=== PATIENT | male | born 1945 | race Caucasian/White ===

== ENCOUNTER → 2017-09-25 09:24 | Outpatient (CLI) | payer MEDICARE, SELFPAY ==
[2017-08-16 09:21] VITALS: BP 163/97; PULSE 47; RESP 18; TEMP 36.4; O2SAT 95; BMI 40.0
--- NOTE | 2017-08-16 09:29 | SDCEKG_ITS ---
Test Reason : Blood Pressure : / mmHG Vent. Rate : 043 BPM Atrial Rate : 043 BPM P-R Int : 272 ms QRS Dur : 152 ms QT Int : 480 ms P-R-T Axes : 034 -34 -01 degrees QTc Int : 405 ms Marked sinus bradycardia with 1st degree A-V block Left axis deviation Right bundle branch block Abnormal ECG Confirmed by KARTHIK LLANES, ROSE ([id number]), newspaper editor YINKA RIVERA ([id number]) on 08/22/2017 8:51:33 AM Referred By: PATY Confirmed By:ROSE ANGELES MD
[2017-08-16 11:13] LABS: International Normalized Ratio 1.1; Prothrombin Time (Protime)PT. 13.9 SECONDS (11.7-14.9)
[2017-08-16 11:14] LABS: Partial Thromboplast Time 32.8 Seconds (24.1-36.2)
[2017-08-16 11:18] LABS: Absolute Lymphocyte Count 1.58 X10^3/ul (0.83-4.51); Absolute Neutrophil Count 3.4 X10^3/uL (2.0-7.7); Basophil# 0.04 X10^3/uL; Basophil% 0.7 % (0-1); Eosinophils% 3.5 % (0-5); Hematocrit 44.7 % (40-54); Lymphocyte # 1.58 X10^3/ul (4.0); Mean Corp Hgb Conc 31.3 g/gl (32-36); Mean Corpuscular Hgb 26.3 pg (27.0-32.0); Mean Platelet Vol. 10.2 fl (6.2-12.0); Monocyte# 0.42 X10^3/uL; Monocyte% 7.4 % (0-10); Neutrophil # 3.37 X10^3/uL (2.7-7.7); Neutrophil % 59.9 % (47-70); POSITIVE COUNT NO; POSITIVE DIFFERENTIAL NO; POSITIVE MORPHOLOGY NO; Platelet Count 166 K/mm3 (150-450); RBC Distribution Width CV 14.9 % (11.6-14.6); RBC Distribution Width SD 45.8 fl (35.1-43.9); Red Blood Count 5.32 M/mm3 (4.6-6.2); White Blood Count 5.6 K/mm3 (4.4-11.0)
[2017-08-16 11:34] LABS: Hemoglobin A1c 8.6 % (4.2-6.3)
[2017-08-16 11:44] LABS: AST(SGOT) 25 U/L (15-37); Alanine Aminotransfer ALT/SGPT 26 U/L (12-78); Albumin, Serum 3.8 g/dL (3.4-5.0); Alkaline Phosphatase 109 U/L (45-117); Anion Gap 9 (5-15); BUN 18 mg/dL (7-18); BUN/Creat Ratio 16.4 RATIO (10-20); Bilirubin, Direct 0.11 mg/dL (0.00-0.30); Calcium,Total 8.9 mg/dL (8.5-10.1); Chloride 99 mmol/L (98-107); EST Glomerular Filtration Rate 70 mL/min (>60); Est Glom Filt Rate - Afr Amer 84 mL/min (>60); Estimated Creatinine Clearance 55.92 ml/min; Globulin 4.3 g/dL (2.2-4.2); Glucose 178 mg/dL (70-110); Protein, Total 8.1 g/dL (6.4-8.2); Sodium Level 138 mmol/L (136-145)
== END ==
PROVIDERS: Family Provider Family Medicine; PCP Family Medicine; Visit Provider Specialist
DX: Z01.812 Encounter for preprocedural laboratory examination (principal); I45.10 Unspecified right bundle-branch block; R94.31 Abnormal electrocardiogram [ECG] [EKG]; R00.1 Bradycardia, unspecified; Z53.9 Procedure and treatment not carried out, unspecified reason; Z79.82 Long term (current) use of aspirin; Z79.899 Other long term (current) drug therapy
CPT/HCPCS: 80048; 80076; 83036; 85025; 85610; 85730; 87081; 93005

== ENCOUNTER → 2017-10-18 08:53 | Outpatient (CLI) | payer MEDICARE, SELFPAY ==
--- NOTE | 2017-10-18 08:56 | US_ITS ---
PROCEDURES: ULTRASOUND AORTA REASON FOR EXAM: Male, 72 years old. Follow-up for known abdominal aortic aneurysm. TECHNIQUE: Ultrasound evaluation of the aorta was performed with real-time and static andrade-scale imaging. COMPARISON: Comparison is made with prior study dated May 05, 2016. FINDINGS: There is atherosclerotic plaque formation of the abdominal aorta. Aorta measures: Proximal 2.6 cm. Middle 2.3 cm. Distal 3.1 cm. Aorta measure transversely: Proximal 2.7 cm. Middle 2.6 cm. Distal 3.1 cm. Stable infrarenal abdominal aortic aneurysm.. US/Aorta IMPRESSION: Stable examination. Electronically Signed: Natan Landis MD at 14:20 EST Tel [phone], Service support ,
== END ==
PROVIDERS: Family Provider Family Medicine; PCP Family Medicine; Visit Provider Surgery Vascular Surgery
DX: I71.4 Abdominal aortic aneurysm, without rupture (principal)
CPT/HCPCS: 76775

== ENCOUNTER 2017-11-30 12:47 | Emergency (ER) | payer MEDICARE, SELFPAY ==
[2017-11-30 12:49] VITALS: BP 160/78; PULSE 51; RESP 18; TEMP 37.1; O2SAT 98; BMI 38.8
--- NOTE | 2017-11-30 13:19 | ED.VISSUMM ---
- ER Visit Summary Date of Service: 11/30/17 Chief Complaint: Cough History of Present Illness: The patient is a 72 M with COPD who presents with sore throat, cough, mild shortness of breath, and phlegm. Symptoms started about a week ago. He also has a history of diabetes and hypertension. He takes aspirin but no other blood thinners. Denies history of chest pain or leg swelling. Physical Examination: Vital signs unremarkable. Heart rate is 51. Afebrile. Heart regular. Lungs clear throughout. HEENT exam unremarkable. There is some posterior oropharyngeal erythema. No stridor. Airway intact. Cranial nerves grossly intact. Skin appears unremarkable. Test Results: Chest x-ray pending. Emergency Department Course and Treatment: Patient treated with albuterol while awaiting results. X-ray unremarkable. Patient felt better after breathing treatments. I believe he is appropriate for further outpatient care. Will prescribe doxycycline. He has breathing treatments as needed at home. Follow-up with his doctor. Return for any new or worsening issues right away. Treatment Plan: Above Disposition: Discharged Impression: 1. COPD exacerbation This note was generated with [employer] dictation software. It may contain incorrect words, spelling, and punctuation that were not noted in review of the chart prior to signing ED Disposition - Plan for ED Patient: Chief Complaint: Shortness of Breath Referrals: Rogelio Lock MD [Primary Care Provider] -
[2017-11-30] MEDS: Albuterol 2.5 MG/3 ML VIAL.NEB. INHALATION (13:21)
[2017-11-30 13:22] VITALS: PULSE 62; RESP 18
--- NOTE | 2017-11-30 13:35 | RAD_ITS ---
STUDY: X-RAY CHEST REASON FOR EXAM: Male, 72 years old. Cough, shortness of breath TECHNIQUE: PA and lateral views of the chest. COMPARISON: 03/20/2017 FINDINGS: The lungs are clear and expanded. There is no demonstrated pleural abnormality. Normal size heart. Normal mediastinum and cintia. Normal visualized pulmonary arteries. There is atherosclerotic calcification of the aortic arch with tortuosity. There are diffuse degenerative changes of the visualized thoracic spine. Deformity to the right ribs is unchanged, consistent with remote multiple rib fractures. There is no demonstrated abnormality of the visualized soft tissue structures of the upper abdomen. RAD/Chest PA and Lateral IMPRESSION: Degenerative changes, as described above. No demonstrated acute cardiopulmonary process. No significant change from 03/20/2017. Electronically Signed: Jaden Galo DO at 14:58 EDT Tel , Service support ,
[2017-11-30 13:46] VITALS: BP 149/93; PULSE 66; RESP 16; O2SAT 96
--- NOTE | 2017-11-30 15:09 | ED.DEP ---
ED Disposition - Plan for ED Patient: Chief Complaint: Shortness of Breath Instructions: ED COPD Flare Prescriptions: Doxycycline Monohydrate 100 mg PO BID #20 cap Referrals: Rogelio Lock MD [Primary Care Provider] -
[2017-11-30 15:23] VITALS: BP 157/81; PULSE 89; RESP 24; O2SAT 97
--- NOTE | 2017-11-30 15:24 | ED.RN ---
THIS NURSE REVIEWED D/C INSTRUCTIONS WITH PT AND VISITOR. PT VERBALIZED UNDERSTANDING OF INSTRUCTIONS. PT DENIES FURTHER NEEDS OR QUESTIONS AT THIS TIME. PT AMBULATES FROM ROOM ON OWN WITHOUT ASSISTANCE FROM STAFF
== END 2017-11-30 15:25 | disposition home or self-care (01) ==
LOC: ED 13:12
PROVIDERS: Emergency Provider Emergency Medicine; Family Provider Family Medicine; PCP Family Medicine
DX: J44.1 Chronic obstructive pulmonary disease with (acute) exacerbation (principal); J02.9 Acute pharyngitis, unspecified; E11.9 Type 2 diabetes mellitus without complications; I10 Essential (primary) hypertension
CPT/HCPCS: 71046; 94640; 99282

== ENCOUNTER 2018-03-20 11:23 | Emergency (ER) | payer MEDICARE, SELFPAY ==
[2018-03-20 11:24] VITALS: BP 136/71; PULSE 44; RESP 16; TEMP 36.6; O2SAT 97; BMI 38.2
[2018-03-20] MEDS: HYDROcodone Bitartrate/Apap 5/325 Tablet PO (12:28)
--- NOTE | 2018-03-20 12:33 | RAD_ITS ---
STUDY: X-RAY - RIGHT SHOULDER REASON FOR EXAM: Male, 72 years old. Pain, decreased range of motion TECHNIQUE: 4 view(s) of the shoulder. COMPARISON: None. FINDINGS: There is moderate degenerative arthrosis of the glenohumeral articulation. Normal acromioclavicular joint. Normal acromion. Normal humeral head and visualized proximal humerus. The soft tissue structures are unremarkable. Old healed right rib fractures. Normal visualized pulmonary apex. RAD/Shoulder min 2 Views IMPRESSION: Degenerative arthrosis Electronically Signed: Raul Wilkerson MD at 12:51 EDT , Service support ,
--- NOTE | 2018-03-20 14:45 | ED.VISSUMM ---
- ER Visit Summary Date of Service: 03/20/18 Chief Complaint: Right shoulder trapezius pain History of Present Illness: The patient is a 72 M who presents with atraumatic right shoulder/scapular pain. He states he has less discomfort if he adduction and internally rotates his right upper extremity and holds it against his chest. Having it hang causes him discomfort. He denies paresthesia, anesthesia motors. He denies cough, shortness of breath, dyspnea on exertion. He denies chest pain, palpitations, orthopnea or PND. He denies history of hiatal hernia. He denies hematemesis, melena hematochezia. He has not noted any weakness in his right upper extremity. He omitted initially that he had pain in a C6-7 dermatomal distribution. Physical Examination: Vital signsBiceps, brachialis and triceps reflex are 1-2+ symmetric. Axillary, median, radial and ulnar function intact. Negative drop test. Negative discomfort with abduction past 90?. Radial pulses palpable. are remarkable slight elevation blood pressure heart rate of 49. He has full active range of motion. There is no discomfort with abduction past 90?. Heart is regular without murmur, gallop or rub. S1 and S2 are normal. Lungs are clear to auscultation with good movement of air bilaterally. There are no dermatologic lesions noted. He does have reproducible pain over the supraspinatus tendon. Test Results: Three-view x-ray of the shoulder was obtained and reveals minimal arthritic changes. Emergency Department Course and Treatment: X-ray was obtained since he complained of pain and did not inform me of any radicular pain. He states he has intermittent radicular pain that is in a C6-7 dermatomal distribution. Treatment Plan: Patient was treated with [place] with improvement. He will be discharged home with [place]. If this continues any to see is primary care physician for further outpatient testing i.e. MRI or EMG. Disposition: Discharged to home Impression: Right upper extremity pain secondary to C6-7 radiculopathy This note was generated with [employer] dictation software. It may contain incorrect words, spelling, and punctuation that were not noted in review of the chart prior to signing ED Disposition - Plan for ED Patient: Disposition: Home or Assisted Living Chief Complaint: Upper Extremity Injury Instructions: ED Cervical Radiculopathy Prescriptions: Hydrocodone Bitart/Apap 5-325 [[place] 5MG-325MG] 1 tablet PO Q6H PRN PRN 5 Days #20 tablet PRN Reason: Pain Referrals: Rogelio Lock MD [Primary Care Provider] - Additional Instructions: Your prescription was electronically transmitted to [facility] [place] your designated pharmacy of choice
--- NOTE | 2018-03-20 14:52 | ED.DCSUM_ITS ---
- ER Visit Summary Date of Service: 03/20/18 Chief Complaint: Right shoulder trapezius pain History of Present Illness: The patient is a 72 M who presents with atraumatic right shoulder/scapular pain. He states he has less discomfort if he adduction and internally rotates his right upper extremity and holds it against his chest. Having it hang causes him discomfort. He denies paresthesia, anesthesia motors. He denies cough, shortness of breath, dyspnea on exertion. He denies chest pain, palpitations, orthopnea or PND. He denies history of hiatal hernia. He denies hematemesis, melena hematochezia. He has not noted any weakness in his right upper extremity. He omitted initially that he had pain in a C6-7 dermatomal distribution. Physical Examination: Vital signsBiceps, brachialis and triceps reflex are 1-2+ symmetric. Axillary, median, radial and ulnar function intact. Negative drop test. Negative discomfort with abduction past 90?. Radial pulses palpable. are remarkable slight elevation blood pressure heart rate of 49. He has full active range of motion. There is no discomfort with abduction past 90?. Heart is regular without murmur, gallop or rub. S1 and S2 are normal. Lungs are clear to auscultation with good movement of air bilaterally. There are no dermatologic lesions noted. He does have reproducible pain over the supraspinatus tendon. Test Results: Three-view x-ray of the shoulder was obtained and reveals minimal arthritic changes. Emergency Department Course and Treatment: X-ray was obtained since he complained of pain and did not inform me of any radicular pain. He states he has intermittent radicular pain that is in a C6-7 dermatomal distribution. Treatment Plan: Patient was treated with [place] with improvement. He will be discharged home with [place]. If this continues any to see is primary care physician for further outpatient testing i.e. MRI or EMG. Disposition: Discharged to home Impression: Right upper extremity pain secondary to C6-7 radiculopathy This note was generated with [employer] dictation software. It may contain incorrect words, spelling, and punctuation that were not noted in review of the chart prior to signing ED Disposition - Plan for ED Patient: Disposition: Home or Assisted Living Chief Complaint: Upper Extremity Injury Instructions: ED Cervical Radiculopathy Prescriptions: Hydrocodone Bitart/Apap 5-325 [[place] 5MG-325MG] 1 tablet PO Q6H PRN PRN 5 Days # 20 tablet PRN Reason: Pain Referrals: Rogelio Lock MD [Primary Care Provider] - Additional Instructions: Your prescription was electronically transmitted to [facility] [place] your designated pharmacy of choice
[2018-03-20 14:57] VITALS: PULSE 50; RESP 16; O2SAT 98
--- NOTE | 2018-03-20 14:58 | ED.RN ---
REVIEWED D/C INSTRUCTIONS, FOLLOW UP , PRESCRIPTION, AND S/S THAT WOULD WARRANT A RETURN TO THE ED WITH PT. PT VERBALIZED AN UNDERSTANDING AND DENIES FURTHER QUESTIONS FOR THIS RN. PT SKIN P/W/D, RESP EVEN AND UNLABORED, PT A&O X 3, NO DISTRESS NOTED. PT AMBULATED OUT OF ED, GAIT STEADY.
== END 2018-03-20 15:00 | disposition home or self-care (01) ==
PROVIDERS: Emergency Provider Emergency Medicine; Family Provider Family Medicine; PCP Family Medicine
DX: M54.12 Radiculopathy, cervical region (principal); E11.9 Type 2 diabetes mellitus without complications; I10 Essential (primary) hypertension; E78.00 Pure hypercholesterolemia, unspecified
CPT/HCPCS: 73030; 99283

== ENCOUNTER 2018-05-30 05:43 | Emergency (ER) | payer MEDICARE, SELFPAY ==
[2018-05-30 05:44] VITALS: BP 140/91; PULSE 110; RESP 20; TEMP 36.9; O2SAT 92; BMI 37.5
[2018-05-30 05:51] LABS: Bedside Glucose 284 mg/dL (70-110)
--- NOTE | 2018-05-30 06:10 | RAD_ITS ---
STUDY: X-RAY - RIGHT KNEE REASON FOR EXAM: Male, 73 years old. Fall and pain TECHNIQUE: 4 view(s) of the knee. COMPARISON: None. FINDINGS: No fractures or dislocations. Severe medial compartment osteoarthritis. Arterial calcifications. RAD/Knee 4 or More Views IMPRESSION: No acute osseous injury is evident. Electronically Signed: Alex Allen MD at 7:05 EDT Tel , Service support ,
[2018-05-30 06:22] LABS: Absolute Lymphocyte Count 1.26 X10^3/ul (0.83-4.51); Absolute Neutrophil Count 7.6 X10^3/uL (2.0-7.7); Basophil# 0.02 X10^3/uL; Basophil% 0.2 % (0-1); Hematocrit 42.4 % (40-54); Hemoglobin 13.7 g/dl (13.0-16.5); Lymphocyte # 1.26 X10^3/ul (4.0); Lymphocyte % 13.1 % (19-41); Mean Corp Hgb Conc 32.3 g/gl (32-36); Mean Corpuscular Hgb 27.2 pg (27.0-32.0); Mean Corpuscular Volume 84.3 fL (80-94); Mean Platelet Vol. 9.7 fl (6.2-12.0); Monocyte# 0.61 X10^3/uL; Monocyte% 6.4 % (0-10); Neutrophil % 79.2 % (47-70); Platelet Count 137 K/mm3 (150-450); RBC Distribution Width CV 16.4 % (11.6-14.6); Red Blood Count 5.03 M/mm3 (4.6-6.2); White Blood Count 9.6 K/mm3 (4.4-11.0)
[2018-05-30 06:27] LABS: POSITIVE COUNT NO; POSITIVE DIFFERENTIAL NO; POSITIVE MORPHOLOGY NO
[2018-05-30 06:31] LABS: Mucous, Urine 0 SEEN /hpf (<or=2+); Squamous Epithelial Cells - UA 0 SEEN /hpf (0-5)
[2018-05-30 06:32] LABS: Anion Gap 11 (5-15); BUN 12 mg/dL (7-18); BUN/Creat Ratio 8.9 RATIO (10-20); Calcium,Total 8.8 mg/dL (8.5-10.1); Chloride 96 mmol/L (98-107); Creatinine, Serum 1.35 mg/dL (0.70-1.30); EST Glomerular Filtration Rate 55 mL/min (>60); Est Glom Filt Rate - Afr Amer 66 mL/min (>60); Estimated Creatinine Clearance 46.44 ml/min; Glucose 282 mg/dL (74-106); Potassium 3.7 mmol/L (3.5-5.1); Sodium Level 132 mmol/L (136-145)
--- NOTE | 2018-05-30 06:33 | ED.DCSUM_ITS ---
- ER Visit Summary Date of Service: 05/30/18 Chief Complaint: Right knee pain, urinary frequency History of Present Illness: The patient is a [address] Rogelio Lock. He reports that he was walking out to get the mail 2 days ago and fell on gravel on the driveway. He injured his right knee. Describes an aching pain that is 5 out of 10 at rest and 8 out of 10 with walking. Denies any blow to the head or loss of consciousness. No neck or back pain. Patient reports that he had subjective fever and chills yesterday. He has had nausea without vomiting. No abdominal pain. Reports that overnight he began having dysuria and frequency. No hematuria. No flank pain. Physical Examination: Vitals: Stable. Afebrile. General: Well-nourished and well-developed. Head: Normocephalic atraumatic. Neck: Supple, no lymphadenopathy. No JVD. Nontender. Cardiovascular: Regular rate and rhythm. No murmurs. Respiratory: No respiratory distress. Clear to auscultation bilaterally. Abdominal: Soft, nontender, nondistended, normal bowel sounds. No guarding, rebound, or peritoneal signs. Obese, but no obviously distended bladder. Back: Nontender. Extremities: Mild tenderness palpation over the medial side of his right knee. No pain or ligamentous instability with anterior/posterior drawer or medial/lateral stress. Full range of motion without any difficulty. No overlying erythema or warmth to suggest a septic joint. No effusion. Skin: Normal color, no rash. Neurologic: Alert and oriented ?3. Cranial nerves II through XII are intact. Normal strength and sensation. Psych: Normal affect. Test Results: CBC is marked for platelets 137, 7 neutrophils 79, lymphs at 13. Chem-7 is more for sodium 132, chloride 96, glucose 282, creatinine 1.35. In 2017 his creatinine ranged from 1.1-1.16. UA is obviously infected. Right knee x-ray shows degenerative changes. Emergency Department Course and Treatment: Patient refused pain medications. He is resting comfortably. Patient was given a liter of normal saline. His urine was sent for culture. He was given a dose of Bactrim p.o. He has an allergy to Levaquin, so Cipro was not used. He also has an allergy to cefdinir, so Keflex was not used. Treatment Plan: Patient be discharged on Bactrim. Instructed follow-up his primary care physician in 1 week for repeat exam. He will be given a prescription for Percocet and Colace for his knee pain. Return to the emergency department for any worsening symptoms. Disposition: To home in improved and stable condition. Impression: 1. UTI. 2. Right knee pain, acute. This note was generated with [employer] dictation software. It may contain incorrect words, spelling, and punctuation that were not noted in review of the chart prio r to signing ED Disposition - Plan for ED Patient: Chief Complaint: General Illness Instructions: ED Knee Pain UKO, ED UTI Cystitis Male Prescriptions: Oxycodone HCl/Acetaminophen [Percocet 5/325] 1 tablet PO Q6H PRN PRN 3 Days #12 tablet PRN Reason: Pain Docusate Sodium [Colace] 100 mg PO DAILY #20 capsule Smz/Tmp Ds [Bactrim Ds] 1 tablet PO BID #14 tablet Referrals: Rogelio Lock MD [Primary Care Provider] - 1 Week if not improving
[2018-05-30 06:42] LABS: Color, Urine Amber (Yellow); Glucose, Dipstick 100 mg/dl (Normal); Ketone-Dipstick 15 mg/dl (Negative); Leukocyte Esterase-Dipstick 500 /ul (Negative); Nitrite-Dipstick Positive (Negative); Occult Blood-Urine 250 /ul (Negative); Protein-Dipstick 500 mg/dl (Negative); Urine Clarity Turbid (Clear); Urine Urobilinogen 8 mg/dl (Normal)
[2018-05-30 06:56] LABS: Urine Bilirubin Dipstick 1 mg/dL (Negative)
[2018-05-30 07:06] LABS: White Blood Cells 50-100 SEEN /hpf (0-5)
[2018-05-30 07:07] LABS: Bacteria 2+ /hpf (None Seen); Red Blood Cells-Urine 5-10 SEEN /hpf (0-5)
[2018-05-30] MEDS: Smz/Tmp Ds Tablet 1 TABLET PO (07:37)
[2018-05-30 07:42] VITALS: BP 138/82; PULSE 66; RESP 18; O2SAT 97
== END 2018-05-30 07:43 | disposition home or self-care (01) ==
LOC: ED 06:52
PROVIDERS: Emergency Provider Emergency Medicine; Family Provider Family Medicine; PCP Family Medicine
DX: N39.0 Urinary tract infection, site not specified (principal); M25.561 Pain in right knee; E11.9 Type 2 diabetes mellitus without complications; I10 Essential (primary) hypertension; E78.00 Pure hypercholesterolemia, unspecified; I25.10 Atherosclerotic heart disease of native coronary artery without angina pectoris; J44.9 Chronic obstructive pulmonary disease, unspecified; Z95.5 Presence of coronary angioplasty implant and graft
CPT/HCPCS: 73564; 80048; 81001; 82962; 85025; 99285; J7030; J7040; A4216

== ENCOUNTER 2018-06-12 19:12 | Emergency (ER) | payer MEDICARE, SELFPAY ==
[2018-06-12 19:14] VITALS: BP 158/90; PULSE 84; RESP 20; TEMP 36.8; O2SAT 96; BMI 36.7
--- NOTE | 2018-06-12 19:36 | CT_ITS ---
STUDY: CT ABDOMEN AND PELVIS WITH CONTRAST REASON FOR EXAM: Male, 73 years old. Back pain. RADIATION DOSAGE (If Supplied By Facility): CTDIvol = ( 17.07 ) mGy, DLP = ( 1188.88 ) mGycm TECHNIQUE: Transaxial images were obtained from the dome of the diaphragm to the symphysis pubis without oral contrast. 100 ml of Isovue 300 contrast was administered. Sagittal and coronal images were reconstructed. # of Images: 463 Individualized dose optimization techniques were used for this CT. COMPARISON: April 30, 2014 FINDINGS: The visualized lung bases are unremarkable. The visualized portions of the heart are within normal limits. There is decreased attenuation of the liver consistent with steatosis. Normal gallbladder and extrahepatic biliary system. There are multiple benign calcified granulomata of the spleen. There is stable borderline splenomegaly Normal pancreas. Normal bilateral adrenal glands. There is a right renal cyst. Normal left kidney. Normal visualized stomach. Normal small intestine. There are multiple colonic diverticula consistent with diverticulosis. There is non-visualization of the appendix. There is diffuse atherosclerotic calcification of the abdominal aorta. There is a stable infrarenal aortic abdominal aneurysm measuring up to 3.66 cm. Normal inferior vena cava. Normal retroperitoneum. Normal urinary bladder. There are diffuse degenerative changes of the visualized lumbar spine. There are stable right posterior rib deformities. CT/Abdomen/Pelvis W IV Cont ONLY IMPRESSION: Fatty infiltration of the liver. Stable abdominal aortic aneurysm. Atherosclerosis. Degenerative changes. Colonic diverticulosis. Electronically Signed: Lily Pollock MD at 21:17 EDT Tel , Service support ,
[2018-06-12] MEDS: 0.9% Normal Saline 1,000 ML 1000 ML IV (19:53)
[2018-06-12 20:04] LABS: Absolute Lymphocyte Count 1.29 X10^3/ul (0.83-4.51); Absolute Neutrophil Count 6.4 X10^3/uL (2.0-7.7); Basophil# 0.02 X10^3/uL; Basophil% 0.2 % (0-1); Eosinophil# 0.04 X10^3/uL; Eosinophils% 0.4 % (0-5); Hematocrit 40.8 % (40-54); Hemoglobin 13.2 g/dl (13.0-16.5); Lymphocyte # 1.29 X10^3/ul (4.0); Lymphocyte % 14.3 % (19-41); Mean Corp Hgb Conc 32.4 g/gl (32-36); Mean Corpuscular Hgb 26.9 pg (27.0-32.0); Mean Corpuscular Volume 83.3 fL (80-94); Mean Platelet Vol. 9.1 fl (6.2-12.0); Monocyte# 1.23 X10^3/uL; Monocyte% 13.7 % (0-10); Neutrophil # 6.37 X10^3/uL (2.7-7.7); Neutrophil % 70.7 % (47-70); POSITIVE COUNT NO; POSITIVE DIFFERENTIAL NO; POSITIVE MORPHOLOGY NO; Platelet Count 182 K/mm3 (150-450); RBC Distribution Width CV 16.3 % (11.6-14.6)
[2018-06-12 20:22] LABS: Anion Gap 10 (5-15); BUN 13 mg/dL (7-18); BUN/Creat Ratio 8.7 RATIO (10-20); Calcium,Total 8.7 mg/dL (8.5-10.1); Chloride 94 mmol/L (98-107); Creatinine, Serum 1.49 mg/dL (0.70-1.30); EST Glomerular Filtration Rate 49 mL/min (>60); Est Glom Filt Rate - Afr Amer 59 mL/min (>60); Estimated Creatinine Clearance 42.08 ml/min; Glucose 271 mg/dL (74-106); Potassium 4.4 mmol/L (3.5-5.1); Sodium Level 129 mmol/L (136-145)
[2018-06-12 21:27] LABS: Bacteria 0 SEEN /hpf (None Seen); Mucous, Urine 0 SEEN /hpf (<or=2+); Red Blood Cells-Urine 0 SEEN /hpf (0-5)
[2018-06-12 21:32] LABS: Color, Urine Yellow (Yellow); Glucose, Dipstick 50 mg/dl (Normal); Ketone-Dipstick Negative (Negative); Leukocyte Esterase-Dipstick 25 /ul (Negative); Nitrite-Dipstick Negative (Negative); Occult Blood-Urine Negative /ul (Negative); Protein-Dipstick 100 mg/dl (Negative); Urine Bilirubin Dipstick Negative (Negative); Urine Clarity Sl. Cloudy (Clear); Urine Urobilinogen 12 mg/dl (Normal); Urine pH 6.5 (5.0 - 8.0)
[2018-06-12 21:41] LABS: Squamous Epithelial Cells - UA 0-5 SEEN /hpf (0-5); White Blood Cells 0-5 SEEN /hpf (0-5)
--- NOTE | 2018-06-12 22:04 | ED.VISSUMM ---
- ER Visit Summary Date of Service: 06/12/18 Chief Complaint: Back pain History of Present Illness: The patient is a [address] Lock. He reports he had low back pain for approximately 1 month. He describes an aching pain that is 0 out of 10 currently and 7 out of 10 at worst. It is increased with lifting, twisting, or bending. Is relieved with rest. He has not taken any medications for this. Denies any trauma. No fall, MVA, or change in activity. No problems with his bowels or his bladder. No groin numbness. He denies any numbness or weakness in his legs. He does report that radiates down the medial side of both legs. He complains of subjective fever and chills. He has had nausea once in a while. No abdominal pain or vomiting. No diarrhea. In fact he reports his last bout was 3 days ago and typically goes every other day. Physical Examination: Vitals: Stable. Afebrile. General: A&O x 3. NAD. Cardiovascular exam: Regular rate and rhythm, no murmur, rub or gallop. Respiratory exam: Clear to auscultation bilaterally. No wheezes or stridor. Abdominal exam: Soft, nontender, nondistended, normal bowel sounds. No peritoneal signs. Back: Mild tenderness to palpation over the the paraspinous musculature in the lumbar region. No point tenderness. Negative straight leg bilaterally. 5/5 DF, PF, EHL bilaterally. Normal sensation to light touch throughout. Extremity: No clubbing, cyanosis, or edema. Test Results: CTA of the abdomen was obtained which shows a stable AAA and diverticulosis. He has degenerative changes in the lumbar spine. CBC is more for segment neutrophils 71, lymphs lites 14, monocytes 14. Chem-7 is more for sodium 129, chloride 94, glucose 271, creatinine 1.49. Creatinine was 1.35 on May 30. Is been anywhere from 1.1-1.41 since 2016. UA is negative. Emergency Department Course and Treatment: A prolonged discussion the patient about his lab results. He reports that he has been on Lasix for as long as he can remember. However, he has been very thirsty and been drinking extensive amounts of water. Treatment Plan: I suggested to the patient that he cut his Lasix dose in half. That he drink Gatorade to in addition to water. Use ice breakers for his constipation. He will be placed on Tylenol with codeine for his back and Colace. Instructed to follow-up Dr. Rogelio Lock in 3-5 days for another exam. Return to the emergency department for any worsening symptoms. Disposition: To home in improved and stable condition. Impression: 1. Dehydration. 2. Mild hyponatremia. 3. Back pain. This note was generated with [employer] dictation software. It may contain incorrect words, spelling, and punctuation that were not noted in review of the chart prior to signing ED Disposition - Plan for ED Patient: Disposition: Home or Assisted Living Chief Complaint: General Illness Instructions: ED Neck Back Pain General Prescriptions: Acetaminophen/Codeine #3 [Tylenol#3] 1 tablet PO Q6H PRN PRN #20 tablet PRN Reason: Pain Docusate Sodium [Colace] 100 mg PO DAILY #20 capsule Referrals: Rogelio Lock MD [Primary Care Provider] - 5-7 Days Additional Instructions: Cut dose of lasix in half. Use icebreakers for constipation. Drink gatorade 2 instead of water.
[2018-06-12] MEDS: Acetaminophen/Codeine #3 Tablet PO (22:17)
[2018-06-12 22:18] VITALS: BP 121/74; PULSE 72; RESP 16; O2SAT 95
--- NOTE | 2018-06-12 22:21 | ED.RN ---
REVIEWED D/C INSTRUCTIONS, FOLLOW UP CARE, PRESCRIPTIONS, AND S/S THAT WOULD WARRANT A RETURN TO THE ED WITH PT. PT VERBALIZED AN UNDERSTANDING AND DENIES FURTHER QUESTIONS FOR THIS RN. PT SKIN P/W/D, RESP EVEN AND UNLABORED, PT A&O X 3, NO DISTRESS NOTED. PT AMBULATED OUT OF ED, GAIT STEADY.
== END 2018-06-12 22:23 | disposition home or self-care (01) ==
LOC: ED 20:11
PROVIDERS: Emergency Provider Emergency Medicine; Family Provider Family Medicine; PCP Family Medicine
DX: E87.1 Hypo-osmolality and hyponatremia (principal); E86.0 Dehydration; M54.5 Low back pain; I71.4 Abdominal aortic aneurysm, without rupture; K57.30 Diverticulosis of large intestine without perforation or abscess without bleeding; K59.00 Constipation, unspecified; I25.10 Atherosclerotic heart disease of native coronary artery without angina pectoris; J44.9 Chronic obstructive pulmonary disease, unspecified; E11.9 Type 2 diabetes mellitus without complications; I10 Essential (primary) hypertension; E78.00 Pure hypercholesterolemia, unspecified; M19.90 Unspecified osteoarthritis, unspecified site; Z95.5 Presence of coronary angioplasty implant and graft; Z90.49 Acquired absence of other specified parts of digestive tract; Z79.82 Long term (current) use of aspirin; Z79.4 Long term (current) use of insulin; Z79.899 Other long term (current) drug therapy
CPT/HCPCS: 74177; 80048; 81001; 85025; 87086; 87088; 99283; J7030; Q9967; A4216

== ENCOUNTER → 2018-07-17 11:27 | Outpatient (CLI) | payer MEDICARE, SELFPAY ==
[2018-07-17 13:05] LABS: Absolute Lymphocyte Count 1.48 X10^3/ul (0.83-4.51); Absolute Neutrophil Count 4.4 X10^3/uL (2.0-7.7); Basophil# 0.03 X10^3/uL; Basophil% 0.5 % (0-1); Eosinophil# 0.19 X10^3/uL; Eosinophils% 2.9 % (0-5); Hematocrit 42.7 % (40-54); Hemoglobin 13.5 g/dl (13.0-16.5); Lymphocyte # 1.48 X10^3/ul (4.0); Lymphocyte % 22.4 % (19-41); Mean Corp Hgb Conc 31.6 g/gl (32-36); Mean Corpuscular Hgb 27.2 pg (27.0-32.0); Mean Corpuscular Volume 85.9 fL (80-94); Mean Platelet Vol. 10.2 fl (6.2-12.0); Monocyte# 0.45 X10^3/uL; Monocyte% 6.8 % (0-10); Neutrophil # 4.41 X10^3/uL (2.7-7.7); Neutrophil % 66.8 % (47-70); Platelet Count 162 K/mm3 (150-450); RBC Distribution Width CV 15.6 % (11.6-14.6); RBC Distribution Width SD 49.2 fl (35.1-43.9); Red Blood Count 4.97 M/mm3 (4.6-6.2); White Blood Count 6.6 K/mm3 (4.4-11.0)
[2018-07-17 13:23] LABS: Vitamin B12 414 pg/mL (211-911)
[2018-07-17 13:28] LABS: Albumin, Serum 3.7 g/dL (3.2-5.0); BUN 12 mg/dL (7-18); BUN/Creat Ratio 10.5 RATIO (10-20); Creatinine, Serum 1.14 mg/dL (0.70-1.30); EST Glomerular Filtration Rate 67 mL/min (>60); Est Glom Filt Rate - Afr Amer 81 mL/min (>60); Glucose 221 mg/dL (74-106); Protein, Total 8.1 g/dL (6.4-8.2)
[2018-07-17 13:29] LABS: ALB/GLOB Ratio 0.8 RATIO (0.9-2.4); AST(SGOT) 15 U/L (15-37); Alanine Aminotransfer ALT/SGPT 19 U/L (16-61); Alkaline Phosphatase 95 U/L (45-117); Anion Gap 8 (5-15); Calcium,Total 8.6 mg/dL (8.5-10.1); Chloride 100 mmol/L (98-107); Globulin 4.4 g/dL (2.2-4.2); Sodium Level 136 mmol/L (136-145); T4 Free Direct 0.84 ng/dL (0.76-1.46); Thyroid Stim Hormone (TSH) 1.32 uIU/mL (0.358-3.74)
[2018-07-17 14:08] LABS: POSITIVE COUNT NO; POSITIVE DIFFERENTIAL NO; POSITIVE MORPHOLOGY NO
== END ==
PROVIDERS: Family Provider Family Medicine; PCP Family Medicine; Visit Provider Family Medicine
DX: I10 Essential (primary) hypertension (principal); E11.9 Type 2 diabetes mellitus without complications; G62.9 Polyneuropathy, unspecified; E78.2 Mixed hyperlipidemia
CPT/HCPCS: 36415; 80053; 82607; 84439; 84443; 85025

== ENCOUNTER → 2018-09-13 11:00 | Outpatient (CLI) | payer MEDICARE, SELFPAY ==
--- NOTE | 2018-09-13 11:09 | RAD_ITS ---
STUDY: X-RAY - SACRUM/COCCYX REASON FOR EXAM: Male, 73 years old. Pain for 10 years, worsening TECHNIQUE: 3 view(s) of the sacrum and coccyx were obtained. COMPARISON: None. FINDINGS: Normal bilateral sacroiliac joints. Normal visualized sacral ala and fused sacral bodies. Normal sacrococcygeal junction with a normal angulation. Normal coccygeal segments. The presacral soft tissue structures are unremarkable. There are vascular calcifications. Degenerative changes of the right more than left hip. RAD/Sacrum-Coccyx min 2 Views IMPRESSION: 1. Normal x-rays of the sacrum and coccyx. 2. Bilateral hip osteoarthrosis, right more than left. 3. Atherosclerosis. Electronically Signed: Joseph Dewitt MD at 13:38 EST , Service support ,
--- NOTE | 2018-09-13 11:40 | RAD_ITS ---
STUDY: X-RAY - CERVICAL SPINE REASON FOR EXAM: Male, 73 years old. Stabbing pain. No history of injury TECHNIQUE: 9 view(s) of the cervical spine were obtained. COMPARISON: None FINDINGS: Normal anterior atlantoaxial articulation. Normal odontoid process. There is straightening of the normal cervical lordosis. There is multi-level endplate spondylosis. There is severe disc space narrowing of C4-C5, C5-C6 and C6-C7. C7 vertebra is poorly visualized on the lateral views. There is minimal retrolisthesis of C4 over C5 seen on the neutral and extension views but not seen on the flexion view. There is foraminal stenosis bilaterally at the level of C5-C6. There are atherosclerotic vascular calcifications of the carotid arteries. RAD/Cerv Spine Obl/Flex/Ext Comp IMPRESSION: 1. Degenerative changes of the cervical spine as described above. 2. Minimal retrolisthesis of C4 over C5 which may be reduced on the flexion view. 3. If symptoms persist, MRI of the cervical spine is recommended. Electronically Signed: Yovani Vasquez MD at 12:05 EST Tel , Service support ,
--- OUTSIDE RECORDS SUMMARY | 2018-11-17 20:51 | XMS RPT_ITS ---
:1945 Author Organization OHIP Support Name Relationship Address Phone HARLEEN BERGERON Unavailable [address] + [place] [address] SHAHZAD BERGERON Unavailable [address] + [place] [address] R Unavailable Unavailable Unavailable HARLEEN BERGERON Unavailable [address] + [place] [address] SHAHZAD BERGERON Unavailable [address] + [place] [address] R Unavailable Unavailable Unavailable HARLEEN BERGERON Unavailable [address] + [place] [address] SHAHZAD BERGERON Unavailable [address] + [place] [address] R Unavailable Unavailable Unavailable FLOWER BERGERONET Unavailable [address] + [place] [address] RUBIO SHAHZAD Unavailable [address] + [place] [address] R Unavailable Unavailable Unavailable FLOWER BERGERONET Unavailable [address] + [place] [address] RUBIO SHAHZAD Un[address] + [place] [address] R Unavailable Unavailable Unavailable RUBIOFLOWER GAMBINOET Unavailable [address] + [place] [address] RUBIO, SHAHZAD Unavailable [address] + [place] [address] R Unavailable Unavailable Unavailable FLOWER BERGERONET Unavailable [address] [phone] [place] [address] RUBIO SHAHZAD Unavailable [address] + [place] [address] R Unavailable Unavailable Unavailable RUBIO, HARLEEN Unavailable [address] [phone] [place] [address] SHAHZAD BERGERON Unavailable [address] + [place] [address] R Unavailable Unavailable Unavailable HARLEEN BERGERON Unavailable [address] [phone] [place] [address] SHAHZAD BERGERON Unavailable [address] + [place] [address] R Unavailable Unavailable Unavailable Care Team Providers Name Role Phone Anuel, Sameh Attending Unavailable Anuel, Sameh Referring Unavailable Hayde, Rogelio Primary Care Unavailable Anuel, Sameh Attending Unavailable Anuel, Sameh Referring Unavailable Hayde, Rogelio Primary Care Unavailable Chace Li Admitting Unavailable Chace Li Attending Unavailable Hayde, Rogelio Primary Care Unavailable DONNY NEWTON Attending Unavailable DONNY NEWTON Referring Unavailable Hayde, Rogelio Primary Care Unavailable Hayde, Rogelio Primary Care Unavailable Javi Lee Attending Unavailable Hayde, Rogelio Primary Care Unavailable Efrain, Yung Attending Unavailable Efrain, Yung Referring Unavailable Hayde, Rogelio Primary Care Unavailable Isreal Varma Attending Unavailable Hayde, Rogelio Primary Care Unavailable Isreal Varma Attending Unavailable Hayde, Rogelio Attending Unavailable Hayde, Rogelio Primary Care Unavailable DONNY NEWTON Attending Unavailable MAYRA, ORVILLE-CHI Referring Unavailable MAYRA, ORVILLE-CHI Primary Care Unavailable PROBLEMS PROBLEMS DATE TYPE CONDITION / CODE ATTENDING STATUS SOURCE 09/13/2018 Unknown M54.5 - Low back AnuelFranko figueroa Active [place] pain / M54.5(ICD-10) [facility] Rep[facility] 07/17/2018 Unknown I10 - Essential Hayde, Rogelio Active [facility] (primary) Community hypertension / Hospital I10(ICD-10) Repository 07/17/2018 Unknown 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, 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 / Community E78.2(ICD-10) Hospital Repository 07/17/2018 Unknown E11.9 - Type 2 Hayde, Rogelio Active [facility] diabetes mellitus [facility] without Hospital complications / Repository E11.9(ICD-10) 07/17/2018 Unknown G62.9 - Hadye, Rogelio Active [facility] Polyneuropathy, Community unspecified / Hospital G62.9(ICD-10) Repository 06/12/2018 Unknown M54.9 - Dorsalgia, Isreal Varma Active [place] unspecified / Community M54.9(ICD-10) Hospital Repository 07/18/2018 Unknown M25.561 - Pain in Isreal Varma Active [facility] right knee / Community M25.561(ICD-10) Hospital Repository 03/20/2018 Unknown M54.12 - Yung Zuniga Active [facility] Radiculopathy, Community cervical region / Hospital M54.12(ICD-10) Repository 10/18/2017 Unknown I71.4 - Abdominal NEWTONDONNY Active [facility] aortic aneurysm, [facility] without rupture / Hospital I71.4(ICD-10) Repository PROCEDURES PROCEDURES No Procedure Records FoundRESULTS RESULTS CERV SPINE OBL/FLEX/EXT Observed: 09/13/2018 Status: F Source: [place] COMP 11:09 AM [facility] REPOSITORY [facility] Imaging Services [address] [place] [address] Cerv Spine Obl/Flex/Ext Comp MR#: [id number] Acct: [id number] Name: SHAHZAD BERGERON Rep #: [id number] : 1945 M 73 From: Yovani Vasquez MD PCP: Rogelio Lock MD Status: REG CLI Study: Cerv Spine Obl/Flex/Ext Comp Date of Exam: 09/13/18 Exam# [id number] Ordering Dr: Franko Agee MD STUDY: X-RAY - CERVICAL SPINE REASON FOR EXAM: Male, 73 years old. Stabbing pain. No history of injury TECHNIQUE: 9 view(s) of the cervical spine were obtained. COMPARISON: None FINDINGS: Normal anterior atlantoaxial articulation. Normal odontoid process. There is straightening of the normal cervical lordosis. There is multi-level endplate spondylosis. There is severe disc space narrowing of C4-C5, C5-C6 and C6-C7. C7 vertebra is poorly visualized on the lateral views. There is minimal retrolisthesis of C4 over C5 seen on the neutral and extension views but not seen on the flexion view. There is foraminal stenosis bilaterally at the level of C5-C6. There are atherosclerotic vascular calcifications of the carotid arteries. RAD/Cerv Spine Obl/Flex/Ext Comp IMPRESSION: 1. Degenerative changes of the cervical spine as described above. 2. Minimal retrolisthesis of C4 over C5 which may be reduced on the flexion view. 3. If symptoms persist, MRI of the cervical spine is recommended. Electronically Signed: Yovani Vasquez MD at 12:05 EST Tel , Service support , CC: Franko Agee M.D.; Rogelio Lock MD Administrative Services Assistant: Signed SACRUM-COCCYX MIN 2 VIEWS Observed: 09/13/2018 Status: F Source: [place] 11:09 AM [facility] REPOSITORY [facility] Imaging Services [address] [place] [address] Sacrum-Coccyx min 2 Views MR#: [id number] Acct: [id number] Name: SHAHZAD BERGERON Rep #: [id number] : 1945 M 73 From: Joseph Dewitt MD PCP: Rogelio Lock MD Status: REG CLI Study: Sacrum-Coccyx min 2 Views Date of Exam: 09/13/18 Exam# [id number] Ordering Dr: Franko Agee MD STUDY: X-RAY - SACRUM/COCCYX REASON FOR EXAM: Male, 73 years old. Pain for 10 years, worsening TECHNIQUE: 3 view(s) of the sacrum and coccyx were obtained. COMPARISON: None. FINDINGS: Normal bilateral sacroiliac joints. Normal visualized sacral ala and fused sacral bodies. Normal sacrococcygeal junction with a normal angulation. Normal coccygeal segments. The presacral soft tissue structures are unremarkable. There are vascular calcifications. Degenerative changes of the right more than left hip. RAD/Sacrum-Coccyx min 2 Views IMPRESSION: 1. Normal x-rays of the sacrum and coccyx. 2. Bilateral hip osteoarthrosis, right more than left. 3. Atherosclerosis. Electronically Signed: Joseph Dewitt MD at 13:38 EST , Service support , CC: Franko Agee M.D.; Rogelio Lock MD Administrative Services Assistant: Signed VITAMIN B12 Collected: 07/17/2018 Status: F Source: [place] 11:29 AM [facility] REPOSITORY TYPE CODE TESTS RESULT OUT OF RANGE REFERENCE UNITS LAB L503.0105 211-911 pg/mL Normal Vitamin B12 414 Performed By: #### L503.0105 #### [facility] [address] [place], [address] COMPREHENSIVE METABOLIC Collected: 07/17/2018 Status: F Source: [facility] 11:29 AM [facility] REPOSITORY TYPE CODE TESTS RESULT OUT OF RANGE REFERENCE UNITS LAB L501.0100 74-106 mg/dL High GLU 221 Result Comment: Glucose result greater than or equal to 200 mg/dL suggests DIABETES MELLITUS per A.D.A. criteria. Please note revised GLUCOSE reference range effective 2017. LAB L501.1000 7-18 mg/dL Normal BUN 12 LAB L501.1100 0.70-1.30 mg/dL Normal CREAT,SERUM 1.14 Result Comment: The validity of the calculated GFR AND GFRAA in patients over 70 years has not been determined. Clinical correlation is essential. LAB L501.1110 >60 mL/min Normal EST GFR 67 Result Comment: Non- GFR Calc LAB L501.1115 >60 mL/min Normal EST GFR - AA 81 Result Comment: GFR Calc LAB L501.1300 10-20 RATIO Normal BUN/CRE 10.5 LAB L501.1500 6.4-8.2 g/dL T Normal PROT 8.1 LAB L501.1800 3.2-5.0 g/dL Normal ALB 3.7 LAB L501.1950 2.2-4.2 g/dL High GLOB 4.4 LAB L501.2000 0.9-2.4 RATIO Low A/G 0.8 LAB L501.2200 8.5-10.1 mg/dL CA Normal 8.6 LAB L501.4100 15-37 U/L Normal AST 15 LAB L501.4305 45-117 U/L Normal ALK P 95 LAB L501.4405 16-61 U/L Normal ALT 19 LAB L501.4600 0.20-1.00 mg/dL T Normal BILI 0.90 LAB L501.5300 136-145 mmol/L NA Normal 136 LAB L501.5600 3.5-5.1 mmol/L K Normal 4.0 LAB L501.5900 98-107 mmol/L CL Normal 100 LAB L501.6100 21.0-32.0 mmol/L Normal CO2 28.0 LAB L501.6200 5-15 Normal GAP 8 Performed By: #### L500.4050, L501.9520, L506.0400 #### [facility] [address] [facility] [place], [address] THYROID STIM HORMONE Collected: 07/17/2018 Status: F Source: [place] ([facility]) 11:29 AM [facility] REPOSITORY TYPE CODE TESTS RESULT OUT OF RANGE REFERENCE UNITS LAB L501.9520 0.358-3.74 uIU/mL Normal TSH 1.32 Performed By: #### L500.4050, L501.9520, L506.0400 #### [facility] [address] [place], [address] T4 FREE DIRECT Collected: 07/17/2018 Status: F Source: [place] 11:29 AM [facility] REPOSITORY TYPE CODE TESTS RESULT OUT OF RANGE REFERENCE UNITS LAB L506.0400 0.76-1.46 ng/dL Normal T4 FREE 0.84 DIRECT Performed By: #### L500.4050, L501.9520, L506.0400 #### [facility] [address] [place], [address] CBC W/DIFF, AUTOMATED Collected: 07/17/2018 Status: F Source: [place] 11:29 AM [facility] REPOSITORY TYPE CODE TESTS RESULT OUT OF RANGE REFERENCE UNITS LAB L100.1000 4.4-11.0 K/mm3 Normal WBC 6.6 LAB L100.1200 4.6-6.2 M/mm3 Normal RBC 4.97 LAB L100.1300 13.0-16.5 g/dl Normal HGB 13.5 LAB L100.1400 40-54 % Normal HCT 42.7 LAB L100.1500 80-94 fL Normal MCV 85.9 LAB L100.1600 27.0-32.0 pg Normal MCH 27.2 LAB L100.1700 32-36 g/gl Low MCHC 31.6 LAB L100.1810 11.6-14.6 % High RDW CV 15.6 LAB L100.1820 35.1-43.9 fl High RDW SD 49.2 LAB L100.1900 150-450 K/mm3 Normal PLT 162 LAB L100.2000 6.2-12.0 fl Normal MPV 10.2 LAB L100.2100 47-70 % Normal NEUT% 66.8 LAB L100.2200 19-41 % Normal LY% 22.4 LAB L100.2300 0-10 % Normal MONO% 6.8 LAB L100.2400 0-5 % Normal EO% 2.9 LAB L100.2500 0-1 % Normal BASO% 0.5 LAB L100.2550 0.0-0.9 % Normal IM GRAN % 0.600 Result Comment: IG% - Immature Granulocytes (promyelocytes, myelocytes and metamyelocytes) > 1% indicates that a LEFT SHIFT is Present. LAB L100.2620 2.0-7.7 X10 3/uL Normal Absolute Neut 4.4 LAB L100.2720 0.83-4.51 X10 3/ul Normal Absolute Lymph 1.48 Performed By: #### L100.0100 #### [facility] [address] [facility]. [place], [place], [address] EMERGENCY DEPARTMENT Observed: 06/12/2018 Status: F Source: [place] SUMMARY 11:19 PM [facility] REPOSITORY [facility] Medical Records Department [address] [place] [address] Emergency Department Summary 06/12/184 MR#: [id number] Acct: [id number] Name: SHAHZAD BERGERON Rep #: [id number] : 1945 73 From: Isreal Varma MD PCP: Rogelio Lock MD Status: DEP ER - ER Visit Summary Date of Service: 06/12/18 Chief Complaint: Back pain History of Present Illness: The patient is a [address] Lock. He reports he had low back pain for approximately 1 month. He describes an aching pain that is 0 out of 10 currently and 7 out of 10 at worst. It is increased with lifting, twisting, or bending. Is relieved with rest. He has not taken any medications for this. Denies any trauma. No fall, MVA, or change in activity. No problems with his bowels or his bladder. No groin numbness. He denies any numbness or weakness in his legs. He does report that radiates down the medial side of both legs. He complains of subjective fever and chills. He has had nausea once in a while. No abdominal pain or vomiting. No diarrhea. In fact he reports his last bout was 3 days ago and typically goes every other day. Physical Examination: Vitals: Stable. Afebrile. General: A AND O x 3. NAD. Cardiovascular exam: Regular rate and rhythm, no murmur, rub or gallop. Respiratory exam: Clear to auscultation bilaterally. No wheezes or stridor. Abdominal exam: Soft, nontender, nondistended, normal bowel sounds. No peritoneal signs. Back: Mild tenderness to palpation over the the paraspinous musculature in the lumbar region. No point tenderness. Negative straight leg bilaterally. 5/5 DF, PF, EHL bilaterally. Normal sensation to light touch throughout. Extremity: No clubbing, cyanosis, or edema. Test Results: CTA of the abdomen was obtained which shows a stable AAA and diverticulosis. He has degenerative changes in the lumbar spine. CBC is more for segment neutrophils 71, lymphs lites 14, monocytes 14. Chem-7 is more for sodium 129, chloride 94, glucose 271, creatinine 1.49. Creatinine was 1.35 on May 30. Is been anywhere from 1.1-1.41 since 2016. UA is negative. Emergency Department Course and Treatment: A prolonged discussion the patient about his lab results. He reports that he has been on Lasix for as long as he can remember. However, he has been very thirsty and been drinking extensive amounts of water. Treatment Plan: I suggested to the patient that he cut his Lasix dose in half. That he drink Gatorade to in addition to water. Use ice breakers for his constipation. He will be placed on Tylenol with codeine for his back and Colace. Instructed to follow-up Dr. Rogelio Lock in 3-5 days for another exam. Return to the emergency department for any worsening symptoms. Disposition: To home in improved and stable condition. Impression: 1. Dehydration. 2. Mild hyponatremia. 3. Back pain. This note was generated with [employer] software. It may contain incorrect words, spelling, and punctuation that were not noted in review of the chart prior to signing ED Disposition - Plan for ED Patient: Disposition: Home or Assisted Living Chief Complaint: General Illness Instructions: ED Neck Back Pain General Prescriptions: Acetaminophen/Codeine #3 [Tylenol#3] 1 tablet PO Q6H PRN PRN #20 tablet PRN Reason: Pain Docusate Sodium [Colace] 100 mg PO DAILY #20 capsule Referrals: Rogelio Lock MD [Primary Care Provider] - 5-7 Days Additional Instructions: Cut dose of lasix in half. Use icebreakers for constipation. Drink gatorade 2 instead of water. What to do if you have Problems For any increased pain, shortness of breath, bleeding, nausea or vomiting, chest pain, or any unexpected problems, contact your Primary Care Provider. Call [facility] ([phone]) or report to the closest Emergency Room. Call 911 if necessary. 06/12/18 1277 <Electronically signed by Isreal Varma MD> Date Isreal Varma MD Cosigner Signature (If Indicated): Date CC: Rogelio Lock MD URINALYSIS, COMPLETE Collected: 06/12/2018 Status: F Source: [place] 9:22 PM [facility] REPOSITORY Order Comment: How was Urine Obtained? CLEAN CATCH TYPE CODE TESTS RESULT OUT OF RANGE REFERENCE UNITS LAB L400.3000 Yellow COLOR Normal Yellow LAB L400.3050 Clear Normal CLARITY Sl. Cloudy LAB L400.3200 Normal mg/dl High 50 GLUCOSE, UR LAB L400.3300 Negative mg/dL Normal BILIRUBIN URINE Negative LAB L400.3400 Negative mg/dl Normal KETONE UR Negative LAB L400.3465 1.002-1.030 Normal SP.GR. DIPSTX 1.010 LAB L400.3550 5.0 - 8.0 pH UR Normal 6.5 LAB L400.3600 Negative mg/dl High PROT DIPSTX 100 LAB L400.3700 Normal mg/dl High 12 UROBILI LAB L400.3750 Negative Normal NITRITE UR Negative LAB L400.3780 Negative /ul Normal OCCULT BLOOD-UR Negative LAB L400.3800 Negative /ul High LEUK 25 ESTERASE LAB L400.4050 0-5 /hpf WBC Normal 0-5 SEEN LAB L400.4100 0-5 /hpf 0 Normal RBC-UA SEEN LAB L400.4150 0-5 /hpf SQUAM Normal EPI 0-5 SEEN LAB L400.4300 None Seen /hpf 0 Normal BACTERIA SEEN LAB L400.4350 <or=2+ /hpf 0 Normal MUCUS, URINE SEEN Performed By: #### L400.0001 #### [facility] [address] [facility] [place], [place], [address] Observed: 06/12/2018 Status: F Source: [place] CULTURE, URINE 9:22 PM [facility] REPOSITORY Urine Culture ORGANISM 1: Mixed Gram Positive Organisms [place] Count 11,000-25,000 MIX CULTURE Mixed contaminants. Submit a new specimen if indicated. Performed By: #### M100.0650 #### [facility] [address] [place], [place], [address] CBC W/DIFF, AUTOMATED Collected: 06/12/2018 Status: F Source: [place] 7:45 PM [facility] REPOSITORY TYPE CODE TESTS RESULT OUT OF RANGE REFERENCE UNITS LAB L100.1000 4.4-11.0 K/mm3 Normal WBC 9.0 LAB L100.1200 4.6-6.2 M/mm3 Normal RBC 4.90 LAB L100.1300 13.0-16.5 g/dl Normal HGB 13.2 LAB L100.1400 40-54 % Normal HCT 40.8 LAB L100.1500 80-94 fL Normal MCV 83.3 LAB L100.1600 27.0-32.0 pg Low MCH 26.9 LAB L100.1700 32-36 g/gl Normal MCHC 32.4 LAB L100.1810 11.6-14.6 % High RDW CV 16.3 LAB L100.1820 35.1-43.9 fl High RDW SD 50.0 LAB L100.1900 150-450 K/mm3 Normal PLT 182 LAB L100.2000 6.2-12.0 fl Normal MPV 9.1 LAB L100.2100 47-70 % High NEUT% 70.7 LAB L100.2200 19-41 % Low LY% 14.3 LAB L100.2300 0-10 % High MONO% 13.7 LAB L100.2400 0-5 % Normal EO% 0.4 LAB L100.2500 0-1 % Normal BASO% 0.2 LAB L100.2550 0.0-0.9 % Normal IM GRAN % 0.700 Result Comment: IG% - Immature Granulocytes (promyelocytes, myelocytes and metamyelocytes) > 1% indicates that a LEFT SHIFT is Present. LAB L100.2620 2.0-7.7 X10 3/uL Normal Absolute Neut 6.4 LAB L100.2720 0.83-4.51 X10 3/ul Normal Absolute Lymph 1.29 Performed By: #### L100.0100 #### [facility] [address] [place], [address] BASIC METABOLIC Collected: 06/12/2018 Status: F Source: [place] PROFILE ([facility]) 7:45 PM [facility] REPOS[facility] TYPE CODE TESTS RESULT OUT OF RANGE REFERENCE UNITS LAB L501.0100 74-106 mg/dL High GLU 271 Result Comment: Glucose result greater than or equal to 200 mg/dL suggests DIABETES MELLITUS per A.D.A. criteria. Please note revised GLUCOSE reference range effective 2017. LAB L501.1000 7-18 mg/dL Normal BUN 13 LAB L501.1100 0.70-1.30 mg/dL High CREAT,SERUM 1.49 Result Comment: The validity of the calculated GFR AND GFRAA in patients over 70 years has not been determined. Clinical correlation is essential. LAB L501.1110 >60 mL/min Low EST GFR 49 Result Comment: Non- GFR Calc LAB L501.1115 >60 mL/min Low EST GFR - AA 59 Result Comment: GFR Calc LAB L501.1255 ml/min Normal Estimated CRCL 42.08 LAB L501.1300 10-20 RATIO Low BUN/CRE 8.7 LAB L501.2200 8.5-10 mg/dL Normal .1 CA 8.7 LAB L501.5300 136-14 mmol/L Low 5 NA 129 LAB L501.5600 3.5-5. mmol/L Normal 1 K 4.4 LAB L501.5900 98-107 mmol/L Low CL 94 LAB L501.6100 21.0-3 mmol/L Normal 2.0 CO2 25.0 LAB L501.6200 5-15 Normal GAP 10 Performed By: #### L500.2500 #### [facility] [address] [facility] [place], [address] ABDOMEN/PELVIS W IV CONT Observed: 06/12/2018 Status: F Source: [facility] 7:36 PM [facility]ORY [facility] Imaging Services [address] [place] [address] Abdomen/Pelvis W IV Cont ONLY MR#: [id number] Acct: [id number] Name: SHAHZAD BERGERON [place] Rep #: [id number] : 1945 M 73 From: Lily Pollock MD PCP: Rogelio Lock MD Status: REG ER Study: Abdomen/Pelvis W IV Cont ONLY Date of Exam: 06/12/18 Exam# [id number] Ordering Dr: Isreal Varma MD STUDY: CT ABDOMEN AND PELVIS WITH CONTRAST REASON FOR EXAM: Male, 73 years old. Back pain. RADIATION DOSAGE (If Supplied By Facility): CTDIvol = ( 17.07 ) mGy, DLP = ( 1188.88 ) mGycm TECHNIQUE: Transaxial images were obtained from the dome of the diaphragm to the symphysis pubis without oral contrast. 100 ml of Isovue 300 contrast was administered. Sagittal and coronal images were reconstructed. # of Images: 463 Individualized dose optimization techniques were used for this CT. COMPARISON: April 30, 2014 FINDINGS: The visualized lung bases are unremarkable. The visualized portions of the heart are within normal limits. There is decreased attenuation of the liver consistent with steatosis. Normal gallbladder and extrahepatic biliary system. There are multiple benign calcified granulomata of the spleen. There is stable borderline splenomegaly Normal pancreas. Normal bilateral adrenal glands. There is a right renal cyst. Normal left kidney. Normal visualized stomach. Normal small intestine. There are multiple colonic diverticula consistent with diverticulosis. There is non-visualization of the appendix. There is diffuse atherosclerotic calcification of the abdominal aorta. There is a stable infrarenal aortic abdominal aneurysm measuring up to 3.66 cm. Normal inferior vena cava. Normal retroperitoneum. Normal urinary bladder. There are diffuse degenerative changes of the visualized lumbar spine. There are stable right posterior rib deformities. CT/Abdomen/Pelvis W IV Cont ONLY IMPRESSION: Fatty infiltration of the liver. Stable abdominal aortic aneurysm. Atherosclerosis. Degenerative changes. Colonic diverticulosis. Electronically Signed: Lily Pollock MD at 21:17 EDT Tel , Service support , CC: Isreal Varma MD; Rogelio Lock MD Administrative Services Assistant: Signed EMERGENCY DEPARTMENT Observed: 05/30/2018 Status: F Source: [place] SUMMARY 7:40 AM [facility] REPOS[facility]ORY [facility] Medical Records Department [address] [place] [address] Emergency Department Summary 05/30/18 0631 MR#: [id number] Acct: [id number] Name: SHAHZAD BERGERON Rep #: [id number] : 1945 73 From: Isreal Varma MD PCP: Rogelio Lock MD Status: REG ER - ER Visit Summary Date of Service: 05/30/18 Chief Complaint: Right knee pain, urinary frequency History of Present Illness: The patient is a [address] Rogelio Lock. He reports that he was walking out to get the mail 2 days ago and fell on gravel on the driveway. He injured his right knee. Describes an aching pain that is 5 out of 10 at rest and 8 out of 10 with walking. Denies any blow to the head or loss of consciousness. No neck or back pain. Patient reports that he had subjective fever and chills yesterday. He has had nausea without vomiting. No abdominal pain. Reports that overnight he began having dysuria and frequency. No hematuria. No flank pain. Physical Examination: Vitals: Stable. Afebrile. General: Well-nourished and well-developed. Head: Normocephalic atraumatic. Neck: Supple, no lymphadenopathy. No JVD. Nontender. Cardiovascular: Regular rate and rhythm. No murmurs. Respiratory: No respiratory distress. Clear to auscultation bilaterally. Abdominal: Soft, nontender, nondistended, normal bowel sounds. No guarding, rebound, or peritoneal signs. Obese, but no obviously distended bladder. Back: Nontender. Extremities: Mild tenderness palpation over the medial side of his right knee. No pain or ligamentous instability with anterior/posterior drawer or medial/lateral stress. Full range of motion without any difficulty. No overlying erythema or warmth to suggest a septic joint. No effusion. Skin: Normal color, no rash. Neurologic: Alert and oriented 3. Cranial nerves II through XII are intact. Normal strength and sensation. Psych: Normal affect. Test Results: CBC is marked for platelets 137, 7 neutrophils 79, lymphs at 13. Chem-7 is more for sodium 132, chloride 96, glucose 282, creatinine 1.35. In 2017 his creatinine ranged from 1.1-1.16. UA is obviously infected. Right knee x-ray shows degenerative changes. Emergency Department Course and Treatment: Patient refused pain medications. He is resting comfortably. Patient was given a liter of normal saline. His urine was sent for culture. He was given a dose of Bactrim p.o. He has an allergy to Levaquin, so Cipro was not used. He also has an allergy to cefdinir, so Keflex was not used. Treatment Plan: Patient be discharged on Bactrim. Instructed follow-up his primary care physician in 1 week for repeat exam. He will be given a prescription for Percocet and Colace for his knee pain. Return to the emergency department for any worsening symptoms. Disposition: To home in improved and stable condition. Impression: 1. UTI. 2. Right knee pain, acute. This note was generated with InsightETE dictation software. It may contain incorrect words, spelling, and punctuation that were not noted in review of the chart prior to signing ED Disposition - Plan for ED Patient: Chief Complaint: General Illness Instructions: ED Knee Pain UKO, ED UTI Cystitis Male Prescriptions: Oxycodone HCl/Acetaminophen [Percocet 5/325] 1 tablet PO Q6H PRN PRN 3 Days #12 tablet PRN Reason: Pain Docusate Sodium [Colace] 100 mg PO DAILY #20 capsule Smz/Tmp Ds [Bactrim Ds] 1 tablet PO BID #14 tablet Referrals: Rogelio Lock MD [Primary Care Provider] - 1 Week if not improving What to do if you have Problems For any increased pain, shortness of breath, bleeding, nausea or vomiting, chest pain, or any unexpected problems, contact your Primary Care Provider. Call [facility] ([phone]) or report to the closest Emergency Room. Call 911 if necessary. 05/30/18 0740 <Electronically signed by Isreal Varma MD> Date Isreal Varma MD Cosigner Signature (If Indicated): Date CC: Rogelio Lock MD URINALYSIS, COMPLETE Collected: 05/30/2018 Status: F Source: [place] 6:20 AM [facility] REPOSITORY Order Comment: COLOR OF URINE MAY AFFECT DIPSTICK RESULTS. Microscopic field is filled. Other elements may be obscured. How was Urine Obtained? CLEAN CATCH TYPE CODE TESTS RESULT OUT OF RANGE REFERENCE UNITS LAB L400.3000 Yellow COLOR Normal Lani LAB L400.3050 Clear Normal CLARITY Turbid LAB L400.3200 Normal mg/dl High GLUCOSE, UR 100 LAB L400.3300 Negative mg/dL High BILIRUBIN URINE 1 Result Comment: COLOR OF URINE MAY AFFECT DIPSTICK RESULTS. LAB L400.3400 Negative mg/dl High KETONE UR 15 LAB L400.3465 1.002-1.030 Normal SP.GR. DIPSTX 1.010 LAB L400.3550 5.0 - 8.0 pH Normal UR 7.0 LAB L400.3600 Negative mg/dl High PROT DIPSTX 500 LAB L400.3700 Normal mg/dl High UROBILI 8 LAB L400.3750 Negative High NITRITE UR Positive LAB L400.3780 Negative /ul High OCCULT 250 BLOOD-UR LAB L400.3800 Negative /ul High LEUK ESTERASE 500 LAB L400.4050 0-5 /hpf Normal WBC 50-100 SEEN LAB L400.4100 0-5 /hpf Normal RBC-UA 5-10 SEEN LAB L400.4150 0-5 /hpf Normal SQUAM EPI 0 SEEN LAB L400.4300 None Seen /hpf Normal BACTERIA 2+ LAB L400.4350 <or=2+ /hpf Normal MUCUS, URINE 0 SEEN Performed By: #### L400.0001 #### [facility] [address] [place], [address] KNEE 4 OR MORE Observed: 05/30/2018 Status: F Source: [facility] 6:11 AM [facility] REPOSITORY [facility] Imaging Services [address] [place] [address] Knee 4 or More Views MR#: [id number] Acct: [id number] Name: SHAHZAD BERGERON Rep #: [id number] : 1945 M 73 From: Alex Allen MD PCP: Rogelio Lock MD Status: REG ER Study: Knee 4 or More Views Date of Exam: 05/30/18 Exam# [id number] Ordering Dr: Isreal Varma MD STUDY: X-RAY - RIGHT KNEE REASON FOR EXAM: Male, 73 years old. Fall and pain TECHNIQUE: 4 view(s) of the knee. COMPARISON: None. FINDINGS: No fractures or dislocations. Severe medial compartment osteoarthritis. Arterial calcifications. RAD/Knee 4 or More Views IMPRESSION: No acute osseous injury is evident. Electronically Signed: Alex Allen MD at 7:05 EDT Tel , Service support , CC: Isreal Varma MD; Rogelio Lock MD Administrative Services Assistant: Signed CBC W/DIFF, AUTOMATED Collected: 05/30/2018 Status: F Source: [place] 6:10 AM [facility] REPOSITORY TYPE CODE TESTS RESULT OUT OF RANGE REFERENCE UNITS LAB L100.1000 4.4-11.0 K/mm3 Normal WBC 9.6 LAB L100.1200 4.6-6.2 M/mm3 Normal RBC 5.03 LAB L100.1300 13.0-16.5 g/dl Normal HGB 13.7 LAB L100.1400 40-54 % Normal HCT 42.4 LAB L100.1500 80-94 fL Normal MCV 84.3 LAB L100.1600 27.0-32.0 pg Normal MCH 27.2 LAB L100.1700 32-36 g/gl Normal MCHC 32.3 LAB L100.1810 11.6-14.6 % High RDW CV 16.4 LAB L100.1820 35.1-43.9 fl High RDW SD 50.0 LAB L100.1900 150-450 K/mm3 Low PLT 137 LAB L100.2000 6.2-12.0 fl Normal MPV 9.7 LAB L100.2100 47-70 % High NEUT% 79.2 LAB L100.2200 19-41 % Low LY% 13.1 LAB L100.2300 0-10 % Normal MONO% 6.4 LAB L100.2400 0-5 % Normal EO% 1.0 LAB L100.2500 0-1 % Normal BASO% 0.2 LAB L100.2550 0.0-0.9 % Normal IM GRAN % 0.100 Result Comment: IG% - Immature Granulocytes (promyelocytes, myelocytes and metamyelocytes) > 1% indicates that a LEFT SHIFT is Present. LAB L100.2620 2.0-7.7 X10 3/uL Normal Absolute Neut 7.6 LAB L100.2720 0.83-4.51 X10 3/ul Normal Absolute Lymph 1.26 Performed By: #### L100.0100 #### [facility] [address] [place], [place], [address] BASIC METABOLIC Collected: 05/30/2018 Status: F Source: [place] PROFILE (BMP) 6:10 AM [facility] REPOSITORY TYPE CODE TESTS RESULT OUT OF RANGE REFERENCE UNITS LAB L501.0100 74-106 mg/dL High GLU 282 Result Comment: Glucose result greater than or equal to 200 mg/dL suggests DIABETES MELLITUS per A.D.A. criteria. Please note revised GLUCOSE reference range effective 2017. LAB L501.1000 7-18 mg/dL Normal BUN 12 LAB L501.1100 0.70-1.30 mg/dL High CREAT,SERUM 1.35 Result Comment: The validity of the calculated GFR AND GFRAA in patients over 70 years has not been determined. Clinical correlation is essential. LAB L501.1110 >60 mL/min Low EST GFR 55 Result Comment: Non- GFR Calc LAB L501.1115 >60 mL/min Normal EST GFR - AA 66 Result Comment: GFR Calc LAB L501.1255 ml/min Normal Estimated CRCL 46.44 LAB L501.1300 10-20 RATIO Low BUN/CRE 8.9 LAB L501.2200 8.5-10 mg/dL Normal .1 CA 8.8 LAB L501.5300 136-14 mmol/L Low 5 NA 132 LAB L501.5600 3.5-5. mmol/L Normal 1 K 3.7 LAB L501.5900 98-107 mmol/L Low CL 96 LAB L501.6100 21.0-3 mmol/L Normal 2.0 CO2 25.0 LAB L501.6200 5-15 Normal GAP 11 Performed By: #### L500.2500 #### [facility] [address] [place], [address] BEDSIDE GLUCOSE Collected: 05/30/2018 Status: F Source: [place] 5:47 AM [facility] REPOSITORY TYPE CODE TESTS RESULT OUT OF REFERENCE UNITS RANGE LAB L501.080 70-110 mg/dL High BEDSIDE GLU 284 Result Comment: MANAGEMENT OF PATIENT CARE PER NURSING PROTOCOL Performed By: #### L501.080 #### [facility] Point of Care [address] [place] [address] EMERGENCY DEPARTMENT Observed: 03/20/2018 Status: F Source: [place] SUMMARY 2:52 PM [facility] REPOSITORY [facility] Medical Records Department [address] [place] [address] Emergency Department Summary 03/20/18 1445 MR#: [id number] Acct: [id number] Name: SHAHZAD BERGERON Rep #: [id number] : 1945 72 From: Yung Zuniga MD PCP: Rogelio Lock MD Status: REG ER - ER Visit Summary Date of Service: 03/20/18 Chief Complaint: Right shoulder trapezius pain History of Present Illness: The patient is a 72 M who presents with atraumatic right shoulder/scapular pain. He states he has less discomfort if he adduction and internally rotates his right upper extremity and holds it against his chest. Having it hang causes him discomfort. He denies paresthesia, anesthesia motors. He denies cough, shortness of breath, dyspnea on exertion. He denies chest pain, palpitations, orthopnea or PND. He denies history of hiatal hernia. He denies hematemesis, melena hematochezia. He has not noted any weakness in his right upper extremity. He omitted initially that he had pain in a C6-7 dermatomal distribution. Physical Examination: Vital signsBiceps, brachialis and triceps reflex are 1-2+ symmetric. Axillary, median, radial and ulnar function intact. Negative drop test. Negative discomfort with abduction past 90 . Radial pulses palpable. are remarkable slight elevation blood pressure heart rate of 49. He has full active range of motion. There is no discomfort with abduction past 90 . Heart is regular without murmur, gallop or rub. S1 and S2 are normal. Lungs are clear to auscultation with good movement of air bilaterally. There are no dermatologic lesions noted. He does have reproducible pain over the supraspinatus tendon. Test Results: Three-view x-ray of the shoulder was obtained and reveals minimal arthritic changes. Emergency Department Course and Treatment: X-ray was obtained since he complained of pain and did not inform me of any radicular pain. He states he has intermittent radicular pain that is in a C6-7 dermatomal distribution. Treatment Plan: Patient was treated with [place] with improvement. He will be discharged home with [place]. If this continues any to see is primary care physician for further outpatient testing i.e. MRI or EMG. Disposition: Discharged to home Impression: Right upper extremity pain secondary to C6-7 radiculopathy This note was generated with InsightETE dictation software. It may contain incorrect words, spelling, and punctuation that were not noted in review of the chart prior to signing ED Disposition - Plan for ED Patient: Disposition: Home or Assisted Living Chief Complaint: Upper Extremity Injury Instructions: ED Cervical Radiculopathy Prescriptions: Hydrocodone Bitart/Apap 5-325 [[place] 5MG-325MG] 1 tablet PO Q6H PRN PRN 5 Days #20 tablet PRN Reason: Pain Referrals: Rogelio Lock MD [Primary Care Provider] - Additional Instructions: Your prescription was electronically transmitted to [facility] your designated pharmacy of choice What to do if you have Problems For any increased pain, shortness of breath, bleeding, nausea or vomiting, chest pain, or any unexpected problems, contact your Primary Care Provider. Call [facility] ([phone]) or report to the closest Emergency Room. Call 911 if necessary. 03/20/18 1452 <Electronically signed by Yung Zuniga MD> Date Yung Zuniga MD Cosigner Signature (If Indicated): Date CC: Rogelio Lock MD SHOULDER MIN 2 VIEWS Observed: 03/20/2018 Status: F Source: [place] 12:26 PM [facility] REPOSITORY [facility] Imaging Services [address] [place] [address] Shoulder min 2 Views MR#: [id number] Acct: [id number] Name: SHAHZAD BERGERON Rep #: [id number] : 1945 M 72 From: Phillip Wilkerson MD PCP: Rogelio Lock MD Status: REG ER Study: Shoulder min 2 Views Date of Exam: 03/20/18 Exam# [id number] Ordering Dr: Yung Zuniga MD STUDY: X-RAY - RIGHT SHOULDER REASON FOR EXAM: Male, 72 years old. Pain, decreased range of motion TECHNIQUE: 4 view(s) of the shoulder. COMPARISON: None. FINDINGS: There is moderate degenerative arthrosis of the glenohumeral articulation. Normal acromioclavicular joint. Normal acromion. Normal humeral head and visualized proximal humerus. The soft tissue structures are unremarkable. Old healed right rib fractures. Normal visualized pulmonary apex. RAD/Shoulder min 2 Views IMPRESSION: Degenerative arthrosis Electronically Signed: Raul Wilkerson MD at 12:51 EDT , Service support , CC: Rogelio Lock MD; Yung Zuniga MD Administrative Services Assistant: Signed EMERGENCY DEPARTMENT Observed: 11/30/2017 Status: F Source: [place] SUMMARY 4:34 PM [facility]OSPITAL REPOSITORY [facility] Medical Records Department [address] [place] [address] Emergency Department Summary 11/30/17 1319 MR#: [id number] Acct: [id number] Name: SHAHZAD BERGERON Rep #: [id number] : 1945 72 From: Javi Lee MD PCP: Rogelio Lock Status: DEP ER - ER Visit Summary Date of Service: 11/30/17 Chief Complaint: Cough History of Present Illness: The patient is a 72 M with COPD who presents with sore throat, cough, mild shortness of breath, and phlegm. Symptoms started about a week ago. He also has a history of diabetes and hypertension. He takes aspirin but no other blood thinners. Denies history of chest pain or leg swelling. Physical Examination: Vital signs unremarkable. Heart rate is 51. Afebrile. Heart regular. Lungs clear throughout. HEENT exam unremarkable. There is some posterior oropharyngeal erythema. No stridor. Airway intact. Cranial nerves grossly intact. Skin appears unremarkable. Test Results: Chest x-ray pending. Emergency Department Course and Treatment: Patient treated with albuterol while awaiting results. X-ray unremarkable. Patient felt better after breathing treatments. I believe he is appropriate for further outpatient care. Will prescribe doxycycline. He has breathing treatments as needed at home. Follow-up with his doctor. Return for any new or worsening issues right away. Treatment Plan: Above Disposition: Discharged Impression: 1. COPD exacerbation This note was generated with InsightETE dictation software. It may contain incorrect words, spelling, and punctuation that were not noted in review of the chart prior to signing ED Disposition - Plan for ED Patient: Chief Complaint: Shortness of Breath Referrals: Rogelio Lock MD [Primary Care Provider] - What to do if you have Problems For any increased pain, shortness of breath, bleeding, nausea or vomiting, chest pain, or any unexpected problems, contact your Primary Care Provider. Call [facility] ([phone]) or report to the closest Emergency Room. Call 911 if necessary. 11/30/17 1634 <Electronically signed by Javi Lee MD> Date Javi Lee MD Cosigner Signature (If Indicated): Date CC: Rogelio Lock DISCHARGE INSTRUCTION Observed: 11/30/2017 Status: F Source: [place] 4:34 PM [facility] REPOSITORY [facility] Medical Records Department [address] [place] [address] Discharge Instruction 11/30/17 1509 MR#: [id number] Acct: [id number] Name: SHAHZAD BERGERON Rep #: [id number] : 1945 72 From: Javi Lee MD PCP: Rogelio Lock Status: DEP ER ED Disposition - Plan for ED Patient: Chief Complaint: Shortness of Breath Instructions: ED COPD Flare Prescriptions: Doxycycline Monohydrate 100 mg PO BID #20 cap Referrals: Rogelio Lock MD [Primary Care Provider] - What to do if you have Problems For any increased pain, shortness of breath, bleeding, nausea or vomiting, chest pain, or any unexpected problems, contact your Primary Care Provider. Call [facility] ([phone]) or report to the closest Emergency Room. Call 911 if necessary. 11/30/17 1634 <Electronically signed by Javi Lee MD> Date Javi Lee MD Cosigner Signature (If Indicated): Date CC: Rogelio Lock CHEST PA AND LATERAL Observed: 11/30/2017 Status: F Source: [place] 1:13 PM [facility] REPOSITORY [facility] Imaging Services [address] [place] [address] Chest PA and Lateral MR#: [id number] Acct: [id number] Name: SHAHZAD BERGERON Franc[place]a Rep #: [id number] : 1945 M 72 From: Jaden Galo DO PCP: Rogelio Lock Status: REG ER Study: Chest PA and Lateral Date of Exam: 11/30/17 Exam# [id number] Ordering Dr: Javi Lee MD STUDY: X-RAY CHEST REASON FOR EXAM: Male, 72 years old. Cough, shortness of breath TECHNIQUE: PA and lateral views of the chest. COMPARISON: 03/20/2017 FINDINGS: The lungs are clear and expanded. There is no demonstrated pleural abnormality. Normal size heart. Normal mediastinum and cintia. Normal visualized pulmonary arteries. There is atherosclerotic calcification of the aortic arch with tortuosity. There are diffuse degenerative changes of the visualized thoracic spine. Deformity to the right ribs is unchanged, consistent with remote multiple rib fractures. There is no demonstrated abnormality of the visualized soft tissue structures of the upper abdomen. RAD/Chest PA and Lateral IMPRESSION: Degenerative changes, as described above. No demonstrated acute cardiopulmonary process. No significant change from 03/20/2017. Electronically Signed: Jaden Galo DO at 14:58 EDT Tel , Service support , CC: Javi Lee MD; Rogelio Lock Administrative Services Assistant: Signed AORTA Observed: 10/18/2017 Status: F Source: [place] 8:56 AM [facility] REPOSITORY [facility] Imaging Services [address] [place] [address] Aorta MR#: [id number] Acct: [id number] Name: RUBIOSHAHZAD Franchesca Rep #: [id number] : 1945 M 72 From: Natan Landis MD PCP: Rogelio Lock Status: REG CLI Study: Aorta Date of Exam: 10/18/17 Exam# [id number] Ordering Dr: Donny Newton MD PROCEDURES: ULTRASOUND AORTA REASON FOR EXAM: Male, 72 years old. Follow-up for known abdominal aortic aneurysm. TECHNIQUE: Ultrasound evaluation of the aorta was performed with real-time and static andrade-scale imaging. COMPARISON: Comparison is made with prior study dated May 05, 2016. FINDINGS: There is atherosclerotic plaque formation of the abdominal aorta. Aorta measures: Proximal 2.6 cm. Middle 2.3 cm. Distal 3.1 cm. Aorta measure transversely: Proximal 2.7 cm. Middle 2.6 cm. Distal 3.1 cm. Stable infrarenal abdominal aortic aneurysm.. US/Aorta IMPRESSION: Stable examination. Electronically Signed: Natan Landis MD at 14:20 EST Tel [phone], Service support , CC: DONNY NEWTON MD; Rogelio Lock Administrative Services Assistant: Signed ALLERGIES ALLERGIES DATE TYPE / CODE NAME / CODE REACTION SEVERITY SOURCE 06/12/2018 Drug clopidogrel Rash Unknown [place] Allergy/416 bisulfate/[id number] [facility] 975225[facility] 06/12/2018 Drug rosuvastatin Other Unknown [place] Allergy/416 calcium/[id number] Community 911808([facility] ED CT) Repository 06/12/2018 Drug hydrocodone/Z69347 Shortness of Unknown [place] Allergy/416 1554(RXNORM) breath [facility] 265167([facility] ED CT) Repository 06/12/2018 Drug acetaminophen/F006 Shortness of Unknown [place] Allergy/416 357429(RXNORM) breath [facility] 816677([facility] ED CT) Repository 06/12/2018 Drug gemfibrozil/E39301 Unknown Unknown [place] Allergy/416 2050(RXNORM) Community 516870([facility] ED CT) Repository 06/12/2018 Drug tramadol/[id number] Nausea/Vom/Diar Unknown [place] Allergy/416 0(RXNORM) demetri Community 231648([facility] ED CT) Repository 06/12/2018 Drug magnesium/P7518533 Chest tightness Unknown [place] Allergy/416 57(RXNORM) [facility] 958993([facility] ED CT) Repository 06/12/2018 Drug levofloxacin/F0060 Vomiting Unknown [place] Allergy/416 76950(RXNORM) Community 027801([facility] ED CT) Repository 06/12/2018 Drug cefdinir/K34146542 Nausea/Vom/Diar Unknown [place] Allergy/416 8(RXNORM) demetri Community 886377([facility] ED CT) Repository NG/73851225 CEFDINIR [facility]) Repository NG/11268408 ROSUVASTATIN [facility] Health System CT) Repository NG/97037345 GEMFIBROZIL [facility] Reveal System CT) Repository NG/[id number] CLOPIDOGREL [facility] Reveal System CT) Repository NG/66797369 TRAMADOL [facility] Reveal System CT) Repository ENCOUNTERS ENCOUNTERS ADMIT/DISCHARGE ACCOUNT NUMBER ADMITTING ENCOUNTER LOCATION SOURCE CLASS 09/19/2018 [id number] [facility] ding:PT Repository 09/13/2018 [id number] [facility] ding:RAD Repository 07/17/2018 [id number] [facility] ding:BFHLAB Repository 06/12/2018/06/12/20 [id number] Emergency [address] ding:ED Repository 05/30/2018/05/30/20 [id number] Emergency [address] ding:ED Repository 03/20/2018/03/20/20 [id number] Emergency [address] ding:ED Repository 11/30/2017/12/01/19 [id number] Emergency [address] ding:ED Repository 10/26/2017 [id number] Ambulatory [facility] MEDICAL Repository CENTERBuildi ng:AGWM 10/18/2017 [id number] [facility] ding:USHP Repository 09/25/2017 [id number] [facility] ding:SDC Repository PAYERS PAYERS ENCOUNTER GUARANTOR PAYER SUBSCRIBER SOURCE 09/19/2018 SHAHZAD [id number] GARY Insurance:MYCARE CRSC CRITESDOB: [place] [facility] [id number] Hospital [address]Spv: [phone]) Number: Repository [phone] () [id number] Date:5598-15-67PCES [place]S [address] [address]RH: 09/19/2018 Secondary NOT GIVENUNK [place] Insurance:SELF PAY [facility] Number: Effective Repository Date:2018-09-17 09/13/2018 SHAHZAD C Primary SHAHZAD C [place] [id number] GARY Insurance:MYCARE CRSC CRITESDOB: [place] [facility] [id number] Hospital [address]Giu: [phone]) Number: Repository [phone] () [id number] Date:9067-71-29EOFK [address]S [address], [place] [address]HH: 09/13/2018 Secondary NOT GIVENUNK [place] Insurance:SELF PAY [facility] Number: Effective Repository Date:2018-09-13 07/17/2018 SHAHZAD C Primary SHAHZAD C [place] [id number] [place] Insurance:MYCARE CRSC CRITESDOB: [place] [facility] [id number] Hospital [address]Plx: [phone]) Number: Repository [phone] () [id number] Date:1637-98-35EFHM [address]S [address] [address]SZ: 07/17/2018 Secondary NOT GIVENUNK [place] Insurance:SELF PAY [facility] Number: Effective Repository Date:2018-07-17 06/12/2018 Shahzad C Primary Shahzad C [place] [id number] [place] Insurance:MYCARE CRSC CritesDOB: [place] [facility] [id number] Hospital [address]Kaq: [phone]) Number: Repository [phone] () [id number] Date:2355-72-66RLDC [address]S [address], [place] [address]GK: 06/12/2018 Secondary NOT GIVENUNK [place] Insurance:SELF PAY [facility] Number: Effective Repository Date:2018-06-12 05/30/2018 SHAHZAD C Primary SHAHZAD C [place] [id number] [place] Insurance:MYCARE CRSC CRITESDOB: [place] [facility] [id number] Hospital [address]Noy: [phone]) Number: Repository [phone] () [id number] Date:1267-67-79TION CLAIMS [address] [place] [address]LE: 05/30/2018 Secondary NOT GIVENUNK [place] Insurance:SELF PAY [facility] Number: Effective Repository Date:2018-05-30 03/20/2018 Shahzad C Primary Shahzad C [place] [id number] [place] Insurance:MYCARE CRSC CritesDOB: [place] [facility] [id number] Hospital [address]Ezg: [phone]) Number: Repository [phone] () [id number] Date:8705-50-38AKHT [address]S [address] [place] [address]AD: 03/20/2018 Secondary NOT GIVENUNK [place] Insurance:SELF PAY [facility] Number: Effective Repository Date:2018-03-20 11/30/2017 Shahzad C Primary Shahzad C [place] [id number] [place] Insurance:MYCARE CRSC CritesDOB: [place] [facility] [id number] Hospital [address]Jtc: Number: Repository [phone] [id number] () Date:4800-99-47WIAW CLAIMS [address] [place] [address]YV: 11/30/2017 Secondary NOT GIVENUNK [place] Insurance:SELF PAY [facility] Number: Effective Repository Date:2017-11-30 10/26/2017 SHAHZAD C Primary SHAHZAD Franchesca [facility] CRITESDOB: Insurance:MYCARE CRITESDOB: [facility] [id number] [facility] [id number] Repository [facility] [place] [address]Zco: Number: [id number] (HP) Date: 10/18/2017 Shahzad C Primary Shahzad C [place] [id number] [place] Insurance:MYCARE CRSC CritesDOB: [place] [facility] [id number] Hospital [address]Izq: Number: Repository [phone] [id number] (HP) Date:1676-01-06YCQC CLAIMS [address] [address]AQ: 10/18/2017 Secondary NOT GIVENUNK [place] Insurance:SELF PAY [facility] Number: Effective Repository Date:2017-09-27 09/25/2017 Shahzad C Primary Shahzad C [place] [id number] [place] Insurance:MYCARE CRSC CritesDOB: [place] [facility] [id number] Hospital [address]Lms: Number: Repository [phone] -4 (HP) Date:[id number] CLAIMS [address] [address]NC: 09/25/2017 Secondary NOT GIVENUNK [place] Insurance:SELF PAY [facility] Number: Effective Repository Date:2017-07-12
== END ==
PROVIDERS: Family Provider Family Medicine; PCP Family Medicine; Referring Provider Anesthesiology; Visit Provider Anesthesiology
DX: M54.5 Low back pain (principal); M54.2 Cervicalgia
CPT/HCPCS: 72052; 72220

== ENCOUNTER 2018-09-19 11:58 | Outpatient (RCR) | payer MEDICARE, SELFPAY ==
--- NOTE | 2018-09-19 13:33 | HP.PTEVAL_ITS ---
Patient's Visit Information SHAHZAD BERGERON is a 73 year old M referred to Physical Therapy by Franko Agee MD with a diagnosis of LBP, NECK PAIN AND PRIMARY OA OF KNEES. Date of Evaluation: 09/19/18 Physical Therapist: Fiona Cruz PT, Cert MDT - Visit Plan Frequency: 2-3x /Week Duration: 4-6 Weeks Plan: POSTURE CORRECTION/STRENGTHENING, INSTRUCTION IN APPROPRIATE BODY MECHANICS AND ACTIVITY MODIFICATIONS. DLS WITH A NEUTRAL SPINE. FREDRCIK UE AND LE ROM, STRETCHING AND STRENGTHENING. HEP INSTRUCTION. - Subjective Findings: Work/Leisure: RETIRED. Disability: YES - FOR KNEES, BACK AND HEART. Present symptoms: PATIENT REPORTS HE IS MOSTLY HERE TODAY FOR HIS KNEE PAIN BUT HE THINKS HE NEEDS KNEE REPLACEMENTS AND ISN'T SURE WHAT WE CAN DO FOR THEM. HE REPORTS HE ALSO HAS A LOT OF PAIN IN HIS NECK AND BACK. RIGHT UE TINGLING DOWN ARM TO FINGERS FROM PINCHED NERVE PER PATIENT REPORT. Present since: YEARS. GRADUALLY GETTING WORSE PAIN IN BACK, NECK AND KNEES. Pain Scale: WORST 6/10, LEAST 3/10. Currently: 4-5/10. PATIENT REPORTS HE HURTS ALL THE TIME. Commenced as a result of: ARTHRITIS. Symptoms at onset: LOW BACK. Worse: WALKING, LIFTING, SITTING IN THE CAR, RISING FROM SITTING, STANDING. Better: RELAXING IN RECLINING CHAIR. Disturbed sleep: NO. Previous history/Previous treatment: PATIENT NOT REALLY ANY TREATMENTS. TRIED CORTISONE SHOT FOR KNEE BUT INCRASED SUGAR TOO MUCH. NO BACK, NECK OR RIGHT KNEE SURGERIES BUT DID HAVE LEFT KNEE SCOPE ABOUT 7 YEARS AGO OR SO. Coughing/sneezing/straining: NO. Gait: PATIENT REPORTS HE HAS TO BE CAREFUL HOW HE WALKS BECAUSE BOTH KNEES REALLY HURT AND RIGHT LEG FEELS LIKE IT MIGHT GO SIDEWAYS. USES A CANE NEEDED. THIS PT RECOMMENDED CANE FOR SAFETY AT ALL TIMES. Difficulty initiating urinatin: NO. Accidents: NO. Unexplained weight loss: NO. Imaging: PATIENT REPORTS A LOT OF RECENT X-RAYS. PMH: COPD, ARTHRITIS, HEART DZ - NO PACEMAKER BUT 3 STENTS, IDDM, PARTIAL COLON REMOVAL ABOUT 5 YEARS AGO. PLOF (Prior Level of Function): PATIENT REPORTS HE USE TO BE ABLE TO WALK FURTHER WITH LESS PAIN BUT IT HAS GRADUALLY BECOME WORSE. - Objective Sitting/Standing Posture: POOR. FOREWARD HEAD, ROUNDED SHOULDERS. NO TORTICOLLIS. Lordosis: REDUCED. Active Correction of posture: WORSE. Other Observations: INDEP ANTALGIC GAIT INTO PT WITHOUT ANY ASSISTIVE DEVICES LIMPING ON RIGHT LE. INCREASED TRUNK FLEXION. WIDE BASE OF SUPPORT AND DECREASED FREDRICK STRIDE LENGTH. Motor deficit: RIGHT LE STRENGTH GROSSLY 4/5 AND LLE GROSSLY 4-/5 WITH MMT'ING WITHIN AVAILABLE ROM BUT VERY ARTHRITIC KNEES. FREDRICK UE'S GROSSLY 4/5 WELL BUT RIGHT HAND DYSFUNCTION. Sensory deficit: NO (FEET NT). ROM deficit: TIGHT FREDRICK HIP FLEXORS, HAMSTRINGS AND GASTROC SOLEUS COMPLEX'S. FREDRICK UE'S WFL. FULL FREDRICK KNEE EXT ROM BUT RIGHT KNEE FLEX 118 DEG AND LEFT 103 DEG. Dural Signs: NEGATIVE. Lumbar mvmt loss: flex - MOD. ext - ROSSI. R SG - ROSSI. L SG - ROSSI. CERVICAL MVMT LOSS: FLEX - NIL. PRO - NIL. EXT - ROSSI. RET - ROSSI. FREDRICK ROT - RIGHT MOD, LEFT MIN. FREDRICK SB - RIGHT MOD, LEFT MIN. Core strength: POOR. Palpation: NO ACUTE TENDERNESS WITH PALPATION. - Goals Goal 1:: DECREASE C/O NECK, BACK AND KNEE PAIN Goal Time Frame: 4-6 Weeks Goal 2:: IMPROVE PERSONAL CARE, LIFTING, WALKING, SITTING, STANDING, SOCIAL LIFE, TRAVEL AND HOMEMAKING FUNCTION Goal Time Frame: 4-6 Weeks Goal 3:: INSTRUCT IN PROPHYLAXIS Goal Time Frame: 4-6 Weeks - Rehabilitation Potential Rehabilitation Potential: Fair - Anticipated Interventions Patient/Client Instruction: Educate patient on: Condition, Plan of Care, Risk Factors, Benefits of Fitness Program For the Purpose of:: To improve self management Therapeutic Exercise to Include: Strength training, Body mechanics, Postural training, Flexibilty training, Gait and locomotor training, In an aquatic setting, Active ROM, Dynamic Lumbar Stabilization, Scapular Strength/Stabilization For the Purpose of:: To decrease pain, To decrease swelling/inflammation, To increase ROM, To improve muscle performance and motor function, To increase tolerance to activity/condition/position, To improve ability of physical actions for home/community/work/leisure, To improve gait and locomotor functions Thank you for the opportunity to evaluate your patient. For Medicare and Medicare HMO plans, please review the plan of care and approve it. It will need to be FAXED BACK to us at [phone] for Medicare purposes. For Medicare only, by signing this I certify the plan of care. Please let me know if there are questions or concerns regarding this plan of care. Physician Signature: Date:
--- NOTE | 2018-11-19 13:54 | HP.PT.NRP ---
HP - Discharge Summary (1) - Patient Information SHAHZAD BERGERON was seen in my office for initial evaluation on 09/19/18. The following Plan of Care was established for this patient: Initial Frequency: 2-3x /Week Initial Duration: 4-6 Weeks - Anticipated Interventions Patient/Client Instruction: Educate patient on: Condition, Plan of Care, Risk Factors, Benefits of Fitness Program For the Purpose of:: To improve self management Therapeutic Exercise to Include: Strength training, Body mechanics, Postural training, Flexibilty training, Gait and locomotor training, In an aquatic setting, Active ROM, Dynamic Lumbar Stabilization, Scapular Strength/Stabilization For the Purpose of:: To decrease pain, To decrease swelling/inflammation, To increase ROM, To improve muscle performance and motor function, To increase tolerance to activity/condition/position, To improve ability of physical actions for home/community/work/leisure, To improve gait and locomotor functions This patient was last seen in our office 09/19/18. Pertinent comments regarding their Physical therapy will appear below: This patient has not returned to Physical Therapy and is appropriate to return to MD for further follow-up as needed. At this point I will be discontinuing this patient from physical therapy. I would be happy to see this patient again in the future if found appropriate by the physician. Thank you! Fiona Cruz, PT, Cert MDT
== END 2018-09-19 19:00 | disposition home or self-care (01) ==
LOC: PT 11:58
PROVIDERS: Family Provider Family Medicine; PCP Family Medicine; Referring Provider Anesthesiology; Visit Provider Anesthesiology
DX: M54.5 Low back pain (principal); M54.2 Cervicalgia; M17.0 Bilateral primary osteoarthritis of knee
CPT/HCPCS: 97163; 97530

== ENCOUNTER → 2018-10-25 17:03 | Outpatient (CLI) | payer MEDICARE, SELFPAY ==
--- NOTE | 2018-10-25 17:10 | RAD_ITS ---
STUDY: X-RAY - LUMBAR SPINE REASON FOR EXAM: Male, 73 years old. Lower back pain. TECHNIQUE: 5 view(s) of the lumbar spine were obtained. COMPARISON: None FINDINGS: Normal lumbar lordosis. There is no substantial scoliosis. There is anterolisthesis of L5 on S1 of 7 mm. A alignment is otherwise preserved.. There is multilevel endplate spondylosis of the lumbar vertebrae. There is multi-level degenerative disc disease with multi-level disc space narrowing. There is no evidence of acute fracture or loss of vertebral axial height. There is no demonstrated spondylolysis of the pars interarticulares. There is atherosclerotic calcification of the abdominal aorta without a demonstrated aneurysm. RAD/L/S Spine Min 4 Views IMPRESSION: Degenerative changes lumbar spine with L5-S1 anterolisthesis. Electronically Signed: Collin Leblanc DO at 23:34 EST Tel [phone], Service support ,
== END ==
PROVIDERS: Family Provider Family Medicine; PCP Family Medicine; Referring Provider Anesthesiology; Visit Provider Anesthesiology
DX: M54.5 Low back pain (principal)
CPT/HCPCS: 72110

== ENCOUNTER 2018-11-01 08:45 | Emergency (ER) | payer MEDICARE, SELFPAY ==
[2018-11-01 08:46] VITALS: BP 168/102; PULSE 103; RESP 20; TEMP 36.7; O2SAT 96; BMI 37.4
[2018-11-01 08:48] VITALS: BP 168/102; PULSE 103; RESP 20; TEMP 36.7; O2SAT 96
--- NOTE | 2018-11-01 09:11 | RAD_ITS ---
STUDY: X-RAY CHEST REASON FOR EXAM: Male, 73 years old. Productive cough. TECHNIQUE: PA and lateral views of the chest. COMPARISON: Comparison is made with prior study dated November 30, 2017. FINDINGS: Minimal increased markings at the lung bases suggestive of linear scarring. There is no demonstrated pleural abnormality. There is borderline cardiomegaly. Normal mediastinum and cintia. Normal visualized pulmonary arteries. There is atherosclerotic tortuosity of the aortic arch and descending thoracic aorta. Normal visualized thoracic spine. Healed right-sided rib fractures with underlying pleural thickening. There is no demonstrated abnormality of the visualized soft tissue structures of the upper abdomen. RAD/Chest PA and Lateral IMPRESSION: Findings suggest mild bibasilar scarring. Healed right rib fractures. Electronically Signed: Natan Landis, at 10:28 EST , Service support ,
--- NOTE | 2018-11-01 09:51 | ED.VIS.GEN ---
History of Present Illness Chief Complaint: Cold Sx Informant: Patient Onset: Days - 4-5 days ago Context: - - Not applicable Timing: Continuous Quality: Nasal congestion, postnasal drainage, cough productive of white sputum Current Severity: Mild Maximum Severity: Mild Worsened by: Nothing Relieved by: Nothing Associated Symptoms: Runny nose, nasal congestion and cough Narrative: Patient is an elderly male who is a former smoker presents with URI-like symptoms that started 4-5 days ago. He denies headache, photophobia or neck pain. He denies change in vision. He denies change in voice. He does have a cough productive of white colored sputum. He denies orthopnea or PND. He denies chest pain of any type. He denies leg pain, swelling discoloration. He denies GI symptoms. Prior similar symptoms: No Recent Illness/Hospitalization: No Past Medical History - Allergies and Home Meds Allergies/Adverse Reactions: Allergies acetaminophen [From Vicodin] Allergy (Verified 11/01/18 08:48) Shortness of breath clopidogrel bisulfate [From Plavix] Allergy (Verified 11/01/18 08:48) Rash hydrocodone [From Vicodin] Allergy (Verified 11/01/18 08:48) Shortness of breath magnesium Allergy (Verified 11/01/18 08:48) Chest tightness cefdinir Adverse Reaction (Verified 11/01/18 08:48) Nausea/Vom/Diarrhea gemfibrozil [From Lopid] Adverse Reaction (Verified 11/01/18 08:48) Unknown levofloxacin [From Levaquin] Adverse Reaction (Verified 11/01/18 08:48) Vomiting rosuvastatin calcium [From Crestor] Adverse Reaction (Verified 11/01/18 08:48) Other MUSCLE PAIN tramadol Adverse Reaction (Verified 11/01/18 08:48) Nausea/Vom/Diarrhea Primary Care Physician: Rogelio Lock MD [Primary Care Provider] - Prior records reviewed: Yes Past Medical History: - - Type 1 diabetes, hypertension, hyperlipidemia and benign prostatic hypertrophy Surgical History: noncontributory Lives: With Family Smoking Status: Former smoker Alcohol: None Drugs: None Review of Systems General: Denies: Chills, Fever, Malaise, Sweats, Weight loss Eyes: Denies: Visual changes - bilaterally, Blurred Vision - bilaterally, Diplopia ENT: Denies: Bilateral ear pain, Rhinorrhea, Sore throat Cardiovascular: Denies: Chest pain, Palpitations Respiratory: Reports: Cough, Sputum. Denies: Dyspnea, Dyspnea on exertion Gastrointestinal: Denies: Abdominal pain, Nausea, Vomiting, Diarrhea, Melena, Hematochezia Genitourinary: Denies: Dysuria, Hematuria, Frequency Musculoskeletal: Denies: Myalgias, Arthralgias, Back pain, Extremity Pain Skin: Denies: Rash, Wounds Neurological: Denies: Headache, Weakness, Numbness Hematologic: Denies: Easy bruising, Easy bleeding Allergy: Denies: Uticaria Physical Exam Vital Signs/Narrative: Vital Signs Temp Pulse Resp BP Pulse Ox 11/01/18 08:48 98.0 F 103 H 20 H 168/102 H 96 11/01/18 08:46 98.0 F 103 H 20 H 168/102 H 96 Inital Vital Signs reviewed: Yes General: Well nourished, Well developed, Obese, No Acute Distress Head: Normocephalic, Atraumatic. Negative for: Trauma Eyes: Perrl, EOMI. Negative for: Pale conjunctiva, Scleral icterus ENT: Moist mucous membranes, Nasal congestion. Negative for: No rhinorrhea Neck: Supple, Nontender, No lymphadenopathy, No JVD Cardiovascular: Regular rate, Regular rhythm, No murmurs, Normal S1, Normal S2 Respiratory: No distress, CTA bilaterally, Chest nontender. Negative for: Decreased Air Movement Abdomen: Soft, Nontender, Nondistended, Normal bowel sounds, No masses Rectal: Deferred Extremities: - - There is no asymmetry, swelling, discoloration, leg vein distention, palpable cords or tenderness along the distribution of the deep venous system. Skin: Normal color, No rash. Negative for: Cyanosis, Jaundice Neurological: Alert, Oriented x3, Cranial nerves II-XII grossly intact, Normal Strength, Normal Sensation Psychological: Normal affect, Normal Mood Diagnostic/Tx/Re-eval Chest X-Ray - ED: 2 View, Read by ED Physician, Normal, Heart, Lungs, Mediastinum, Bony Structures, No Acute Disease, - - Mild peripheral pleural thickening noted on the right - Rhythm Strip Rhythm Strip: Sinus Rhythm Rate: 96 Ectopy: None - Medical Decision Making With history of cough productive of white colored sputum and nasal symptoms suspect viral upper respiratory infection. Since patient is a former smoker and states he did not get a Pneumovax or influenza vaccine this year will obtain chest x-ray. These were obtained because his heart rate and respiratory rate were increased based on study pelvis 23 years ago chest x-ray was obtained since one cannot rule out pulmonary infiltrate. ED Disposition - Plan for ED Patient: Disposition: Home or Assisted Living Instructions: ED Upper Resp Infec No Abx Tx Referrals: Rogelio Lock MD [Primary Care Provider] - 1 Week if not improving
== END 2018-11-01 10:01 | disposition home or self-care (01) ==
PROVIDERS: Emergency Provider Emergency Medicine; Family Provider Family Medicine; PCP Family Medicine
DX: R05 Cough (principal); R09.81 Nasal congestion; I10 Essential (primary) hypertension; E78.5 Hyperlipidemia, unspecified; N40.0 Benign prostatic hyperplasia without lower urinary tract symptoms; E10.9 Type 1 diabetes mellitus without complications; Z87.891 Personal history of nicotine dependence
CPT/HCPCS: 71046; 99282

== ENCOUNTER → 2018-12-05 07:04 | Outpatient (CLI) | payer MEDICARE, SELFPAY ==
--- NOTE | 2018-12-05 07:06 | US_ITS ---
PROCEDURES: ULTRASOUND AORTA REASON FOR EXAM: Male, 73 years old. Abdominal aortic aneurysm TECHNIQUE: Ultrasound evaluation of the aorta was performed with real-time and static andrade-scale imaging. Limited by overlying bowel gas COMPARISON: 10/18/2017 FINDINGS: There is atherosclerotic plaque formation of the abdominal aorta. Aorta measures: Proximal 2.7 cm. Middle 2.3 cm. Distal 4.0 cm. Aorta measure transversely: Proximal 2.7 cm. Middle 2.2 cm. Distal 3.8 cm. Nonvisualized iliac vessels Distal abdominal aortic aneurysm noted measuring 4.0 x 3.8 cm and total length of 5.8 cm.. US/Aorta IMPRESSION: Limited exam due to overlying bowel gas. Abdominal aortic aneurysm as detailed above. Based on measurements; and compare to the exam from 2018, this appears slightly increased in size. Consider CT angiogram to further evaluate. Electronically Signed: Franklyn Westbrook DO at 10:49 EDT Tel , Service support ,
== END ==
PROVIDERS: Family Provider Family Medicine; PCP Family Medicine; Referring Provider Nurse Practitioner Primary Care; Visit Provider Nurse Practitioner Primary Care
DX: I71.4 Abdominal aortic aneurysm, without rupture (principal)
CPT/HCPCS: 76775

== ENCOUNTER → 2019-06-24 13:36 | Outpatient (CLI) | payer MEDICARE, SELFPAY ==
[2019-06-24 15:20] LABS: Absolute Lymphocyte Count 1.44 X10^3/uL (0.83-4.51); Absolute Neutrophil Count 3.9 X10^3/uL (2.0-7.7); Basophil# 0.06 X10^3/uL; Eosinophil# 0.17 X10^3/uL; Eosinophils% 2.7 % (0-5); Hematocrit 44.2 % (40-54); Hemoglobin 13.9 g/dL (13.0-16.5); Lymphocyte # 1.44 X10^3/ul (4.0); Lymphocyte % 23.2 % (19-41); Mean Corp Hgb Conc 31.4 g/dL (32-36); Mean Corpuscular Hgb 27.6 pg (27.0-32.0); Mean Corpuscular Volume 87.9 fL (80-94); Mean Platelet Vol. 10.3 fl (6.2-12.0); Monocyte# 0.64 X10^3/uL; Monocyte% 10.3 % (0-10); NRBC Flagged by Analyzer 0 % (0-5); Neutrophil # 3.85 X10^3/uL (2.7-7.7); Neutrophil % 61.8 % (47-70); Platelet Count 153 K/mm3 (150-450); RBC Distribution Width CV 14.6 % (11.6-14.6); RBC Distribution Width SD 46.8 fl (35.1-43.9); Red Blood Count 5.03 M/mm3 (4.6-6.2); White Blood Count 6.2 K/mm3 (4.4-11.0)
[2019-06-24 15:48] LABS: BUN 15 mg/dL (7-18); Creatinine, Serum 1.18 mg/dL (0.70-1.30); Glucose 181 mg/dL (74-106)
[2019-06-24 15:49] LABS: AST(SGOT) 20 U/L (15-37); Alanine Aminotransfer ALT/SGPT 20 U/L (16-61); Albumin, Serum 3.9 g/dL (3.2-5.0); Alkaline Phosphatase 84 U/L (45-117); Anion Gap 9 (5-15); BUN/Creat Ratio 12.7 RATIO (10-20); Calcium,Total 9.3 mg/dL (8.5-10.1); Chloride 101 mmol/L (98-107); EST Glomerular Filtration Rate 64 mL/min (>60); Est Glom Filt Rate - Afr Amer 77 mL/min (>60); Globulin 4.1 g/dL (2.2-4.2); Potassium 4.1 mmol/L (3.5-5.1); Sodium Level 137 mmol/L (136-145); Vitamin B12 352 pg/mL (211-911)
== END ==
PROVIDERS: Family Provider Family Medicine; PCP Family Medicine; Visit Provider Family Medicine
DX: E11.9 Type 2 diabetes mellitus without complications (principal); E11.42 Type 2 diabetes mellitus with diabetic polyneuropathy; I10 Essential (primary) hypertension; E11.29 Type 2 diabetes mellitus with other diabetic kidney complication; R80.9 Proteinuria, unspecified
CPT/HCPCS: 36415; 80053; 82607; 85025; 87086

== ENCOUNTER 2019-09-12 08:42 | Day surgery (SDC) | payer MEDICARE, MEDICAID, SELFPAY ==
--- NOTE | 2019-09-03 04:47 | HP_ITS ---
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 Is patient in pain?: No Allergies acetaminophen [From Vicodin] Allergy (Verified 09/03/19 14:41) Shortness of breath clopidogrel bisulfate [From Plavix] Allergy (Verified 09/03/19 14:41) Rash hydrocodone [From Vicodin] Allergy (Verified 09/03/19 14:41) Shortness of breath magnesium Allergy (Verified 09/03/19 14:41) Chest tightness cefdinir Adverse Reaction (Verified 09/03/19 14:41) Nausea/Vom/Diarrhea gemfibrozil [From Lopid] Adverse Reaction (Verified 09/03/19 14:41) Unknown levofloxacin [From Levaquin] Adverse Reaction (Verified 09/03/19 14:41) Vomiting rosuvastatin calcium [From Crestor] Adverse Reaction (Verified 09/03/19 14:41) Other tramadol Adverse Reaction (Verified 09/03/19 14:41) Nausea/Vom/Diarrhea Medications Amlodipine [Norvasc] 5 mg PO QHS 12/13/15 [History Confirmed 09/03/19] Atenolol [Tenormin (beta zita)] 50 mg PO DAILY 12/13/15 [History Confirmed 09/03/19] Esomeprazole Mag Trihydrate [Nexium] 40 mg PO DAILY 12/13/15 [History Confirmed 09/03/19] Potassium Chloride [Klor-Con M20] 20 meq PO DAILY 12/13/15 [History Confirmed 09/03/19] Tamsulosin HCl [Flomax] 0.4 mg PO DAILY 12/13/15 [History Confirmed 09/03/19] Furosemide [Lasix] 40 mg PO DAILY 02/26/16 [History Confirmed 09/03/19] Insulin Regular, Human [Humulin R U-500 Kwikpen] 22 unit SQ BID 02/26/16 [History Confirmed 06/12/18] Aspirin E.C. [Ecotrin] 81 mg PO DAILY@0800 11/09/16 [History Confirmed 09/03/19] Atorvastatin Calcium [Lipitor] 10 mg PO QHS 11/09/16 [History Confirmed 09/03/19] Venlafaxine XR [Effexor Xr] 150 mg PO BID 11/09/16 [History Confirmed 09/03/19] Epi Pen (for allergic rxn) [Epi Pen] 0.3 mg IM X1 08/16/17 [History Confirmed 09/03/19] Docusate Sodium [Colace] 100 mg PO DAILY #20 cap 05/30/18 [Rx Confirmed 09/03/19] Acetaminophen/Codeine #3 [Tylenol#3] 1 tab PO Q6H PRN PRN #20 tab 06/12/18 [Rx Confirmed 09/03/19] PFSH Medical History Acid reflux (Acute) BPH (benign prostatic hyperplasia) (Acute) Heart disease (Acute) High cholesterol (Acute) HTN (hypertension) (Chronic) Surgical History S/P colon resection (Acute) Status post cardiac surgery (Acute) Social History (Updated 09/03/19 @ 16:47 by Shahzad Ventura MD) Smoking Status: Former smoker alcohol intake: never HPI HPI HPI: SHAHZAD BERGERON, is a 74 M who presents to the office today for HPI HPI Surgical H&P: Yes HPI: SHAHZAD BERGERON, is a 74 M who presents to the office today for surgical consultation regarding a personal history of multiple colon polyps and a previous history of a hand-assisted laparoscopic right hemicolectomy and partial omentectomy that I performed for him on December 20, 2015 for non-colonoscopically resectable colon polyps. The patient's most recent colonoscopy was done by Dr. Rocael Blankenship October 14, 2015. Multiple polyps were identified. The surgical pathology specimen for my surgery showed right colon tubular adenomas. 20 out of 20 lymph nodes negative. Omentum of on specific etiology. The patient has done well since that surgery. Is of additional note that his previous bowel prep was poor. There were previously multiple 15 mm polyps located in the transverse colon. ROS General General: Yes weight change, appetite and fatigue; no colon cancer, breast cancer or weakness HEENT HEENT: Yes difficulty swallowing, eye injury and eye surgery; no swollen glands or hoarseness Endo Endocrine: Yes diabetes mellitus; no thyroid disease, thyroid cancer, Hair loss, heat intolerance or cold intolerance Skin Skin: Yes rash; no changing moles Breast Breast: No left breast lump, right breast lump, nipple discharge, breast pain, abnormal mammogram, abnormal US or breast enlargement Musc Musculoskeletal: Yes back problems, arthritis and rheumatoid arthritis; no gout or joint pain Cardio Cardiovascular: Yes heart disease, high blood pressure, heart attack and heart stent; no murmur, pacemaker, atrial fibrillation, palpitations, shortness of breat with exertion or chest pain Psych Psychiatric: Yes depression and anxiety; no hearing voices Resp Respiratory: Yes shortness of breath, No sleep apnea, No cough, No COPD, Yes asthma, No emphysema, No wheezing Gastro Gastrointestinal: No abdominal pain, No nausea or vomiting, No diarrhea, No constipation, No blood in stool, Yes acid reflux, No hemorrhoids, No ulcers, No gallbladder problem, No black,tarry stools [place] Hematologic: Yes blood thinners, No blood disorders, No bleeding, No anemia, No blood clots Neuro Neurologic: No system reviewed and no additional complaints, except as docu, No as per HPI, No abnormal walking, No abnormal hearing, No abnormal movements, No abnormal speech, No behavioral changes, No burning sensations, No confusion, No seizure-like activity, No unsteadiness, No dizziness, No localized weakness, No frequent falls, No headache(s), No lack of coordination, No loss of vision, No memory loss, No numbness, No other visual disturbances, No radiating pain, No restless legs, No sensory deficit, No fainting, No tingling, No tremor(s), No weakness, No other Exam Const General: cooperative Nutritional Appearance: obese Orientation: alert, awake, oriented x3 Chest Breast Palpation: No nipple discharge Resp Effort & Inspection: normal respiratory effort Auscultation: clear to auscultation bilaterally Cardio Rate: regular rate Rhythm: regular rhythm Heart Sounds: no murmurs GI Other: Obese, well-healed supraumbilical midline incision, no focal mass, no tenderness, normal bowel sounds Skin Other: Mild nonpitting edema bilateral lower extremities Neuro Cognition: normal cognition Psych Affect: normal affect Assessment & Plan Problems 1. Personal history of colonic polyps Z86.010 Plan 74-year-old gentleman with a personal history of colon polyps to the extent that he had to have a hand-assisted laparoscopic right colectomy done December 20, 2015. His most recent colonoscopy was October 14, 2015. He is at increased risk for recurrent polyps. His previous bowel prep per Dr. Rocael Blankenship was poor. I recommended the patient a colonoscopy with possible biopsy or polypectomy is indicated. He has increased medical comorbidities. I anticipate utilizing monitored incision care. I recommend 2 days to clear liquids and a increased bowel prep regimen. He has had an opportunity to ask and have questions answered. His only anticoagulant currently is low-dose aspirin [address] Donny Newton vascular surgery follows him for a 4 cm abdominal aortic aneurysm. By patient report that remained stable. CC: Dr. Rogelio Ventura M.D., F.A.C.S. Coding Level of Care Code Off vis,new,level 3 Diagnoses Personal history of colonic polyps Z86.010 09/03/19 [id number] <Electronically signed by Shahzad dumont MD> Date _ Shahzad Ventura MD Patient history and physical reviewed with no changes
[2019-09-03 14:42] VITALS: BMI 37.4
[2019-09-12] VITALS (8 sets, daily range): BP systolic 103–170; BP diastolic 51–104; PULSE 41–47; RESP 18; TEMP 36.2–36.4; O2SAT 96–99; BMI 35.6
[2019-09-12 09:26] LABS: Bedside Glucose 244 mg/dL (70-110)
[2019-09-12] MEDS: Lactated Ringers 1,000 ML 100 ML IV (09:29)
[2019-09-12 11:15] LABS: Bedside Glucose 226 mg/dL (70-110)
--- NOTE | 2019-09-15 14:18 | OP.COLON_ITS ---
Patient Name: Elijah Hall Procedure Date: 09/12/2019 10:15 AM Date of : 1945 Age: 74 Procedure: Colonoscopy Indications: High risk colon cancer surveillance: Personal history of colonic polyps Providers: Elijah Ventura MD Referring MD: Rogelio Lock Medicines: See the Anesthesia note for documentation of the administered medications Patient Profile: Last Colonoscopy: September 2015. Complications: No immediate complications. Procedure: Pre-Anesthesia Assessment: - Prior to the procedure, a History and Physical was performed, and patient medications and allergies were reviewed. The patient's tolerance of previous anesthesia was also reviewed. The risks and benefits of the procedure and the sedation options and risks were discussed with the patient. All questions were answered, and informed consent was obtained. Prior Anticoagulants: The patient has taken no previous anticoagulant or antiplatelet agents. ASA Grade Assessment: III - A patient with severe systemic disease. After reviewing the risks and benefits, the patient was deemed in satisfactory condition to undergo the procedure. After I obtained informed consent, the scope was passed under direct vision. Throughout the procedure, the patient's blood pressure, pulse, and oxygen saturations were monitored continuously. The colonoscope was introduced through the anus and advanced to the cecum, identified by appendiceal orifice and ileocecal valve. The colonoscopy was performed without difficulty. The patient tolerated the procedure well. The quality of the bowel preparation was adequate to identify polyps. Ileocolonic anastomosis were photographed. Scope In: 10:25:43 AM Scope Withdrawal Time 0 hours 7 minutes 59 seconds Scope Out: 10:36:26 AM Total Procedure Duration Time 0 hours 10 minutes 43 seconds Findings: The digital rectal exam findings include non-thrombosed external hemorrhoids, non-thrombosed internal hemorrhoids, internal hemorrhoids that prolapse with straining, but spontaneously regress to the resting position (Grade II) and enlarged prostate. Multiple diverticula were found in the entire colon. There was evidence of a prior functional end-to-end ileo-colonic anastomosis at the hepatic flexure. This was patent and was characterized by healthy appearing mucosa. Impression: - Non-thrombosed external hemorrhoids, non-thrombosed internal hemorrhoids, internal hemorrhoids that prolapse with straining, but spontaneously regress to the resting position (Grade II) and enlarged prostate found on digital rectal exam. - Diverticulosis in the entire examined colon. - Patent functional end-to-end ileo-colonic anastomosis, characterized by healthy appearing mucosa. - No specimens collected. Recommendation: - Discharge patient to home. - Resume previous diet. - Continue present medications. - Repeat colonoscopy in 5 years for surveillance. Procedure Code(s): --- Professional --- 88530, Colonoscopy, flexible; diagnostic, including collection of specimen(s) by brushing or washing, when performed (separate procedure) Diagnosis Code(s): --- Professional --- Z86.010, Personal history of colonic polyps K64.1, Second degree hemorrhoids K64.4, Residual hemorrhoidal skin tags Z98.0, Intestinal bypass and anastomosis status N40.0, Benign prostatic hyperplasia without lower urinary tract symptoms K57.30, Diverticulosis of large intestine without perforation or abscess without bleeding CPT copyright 2017 [employer]. All rights reserved. The codes documented in this report are preliminary and upon b2b sales professional review may be revised to meet current compliance requirements. Elijah Ventura MD 09/12/2019 10:42:10 AM This report has been signed electronically. Number of Addenda: 0 Note Initiated On: 09/12/2019 10:15 AM
--- NOTE | 2019-09-15 14:18 | OP.CCLET_ITS ---
09/15/2019 Rogelio Lock Re : Colonoscopy procedure for Elijah Hall Dear Hayde This procedure was performed on Thursday, September 12, 2019. My impressions and recommendations are as follows: Impressions : - Non-thrombosed external hemorrhoids, non-thrombosed internal hemorrhoids, internal hemorrhoids that prolapse with straining, but spontaneously regress to the resting position (Grade II) and enlarged prostate found on digital rectal exam. - Diverticulosis in the entire examined colon. - Patent functional end-to-end ileo-colonic anastomosis, characterized by healthy appearing mucosa. - No specimens collected. Recommendations : - Discharge patient to home. - Resume previous diet. - Continue present medications. - Repeat colonoscopy in 5 years for surveillance. My findings are described in the full procedure note, which is enclosed. If I can be of further assistance, please feel free to contact me at Doctor phone number(s): Work: . Sincerely, Elijah Ventura MD 09/12/2019 10:42:10 AM This report has been signed electronically.
== END 2019-09-12 11:38 | disposition home or self-care (01) ==
LOC: EN 08:42 → AC 08:43
PROVIDERS: Family Provider Family Medicine; PCP Family Medicine; Referring Provider Family Medicine; Visit Provider Surgery
PROC: 0DJD8ZZ Inspection of Lower Intestinal Tract, Via Natural or Artificial Opening Endoscopic (ICD-10-PCS; CPT 45378; principal; 2019-09-12 09:55)
DX: K57.30 Diverticulosis of large intestine without perforation or abscess without bleeding (principal); K64.1 Second degree hemorrhoids; Z86.010 Personal history of colon polyps; K21.9 Gastro-esophageal reflux disease without esophagitis; N40.0 Benign prostatic hyperplasia without lower urinary tract symptoms; I10 Essential (primary) hypertension; E78.00 Pure hypercholesterolemia, unspecified; I51.9 Heart disease, unspecified; E11.9 Type 2 diabetes mellitus without complications; F32.9 Major depressive disorder, single episode, unspecified; F41.9 Anxiety disorder, unspecified; I25.2 Old myocardial infarction; E66.9 Obesity, unspecified; Z68.36 Body mass index [BMI] 36.0-36.9, adult; Z98.0 Intestinal bypass and anastomosis status; Z90.49 Acquired absence of other specified parts of digestive tract; Z87.891 Personal history of nicotine dependence; Z95.5 Presence of coronary angioplasty implant and graft; Z79.4 Long term (current) use of insulin; Z79.82 Long term (current) use of aspirin; Z79.899 Other long term (current) drug therapy
CPT/HCPCS: 45378; 82962; J7120

== ENCOUNTER → 2019-10-14 | Outpatient (CLI) | payer MEDICARE, MEDICAID, SELFPAY ==
[2019-10-02 15:01] VITALS: BMI 36.0
--- NOTE | 2019-10-14 11:38 | STRESSREP_ITS ---
Stress Test Report Date: 10-14-2019 Procedure: Pharmacologic stress nuclear imaging study Indications: Chest pain; CAD; PCI; ischemic cardiomyopathy; peripheral artery disease Consent: Per the patient Procedure: The patient underwent pharmacologic (Regadenoson) evaluation with a peak heart rate of 54 beats per minute (37 %predicted maximal heart rate) and a peak blood pressure of 118/78 mmHg. The baseline ECG demonstrated sinus bradycardia; right bundle branch block. The peak pharmacologic ECG demonstrated no obvious ECG changes. There was a rare PVC during recovery. There is no report of chest discomfort during pharmacologic infusion or recovery. The examination was discontinued secondary to completion of protocol. Impression: 1. Pharmacologic (Regadenoson) evaluation 2. Peak pharmacologic ECG with no obvious ECG changes. 3. There was a rare PVC during recovery. 4. Nuclear images pending Myocardial perfusion imaging study: Technique: The patient was injected with 14.1 millicuries of technetium 99m Cardiolite and subsequently rest SPECT Cardiolite nuclear imaging was obtained in the horizontal long, vertical long, and short axis views. The patient underwent pharmacologic (Regadenoson) evaluation with a peak heart rate of 54 beats per minute (37 % percent predicted maximal heart rate) and a peak blood pressure of 118/78 mmHg. The patient was injected with 44.4 millicuries of technetium 99m Cardiolite and subsequently stress SPECT Cardiolite nuclear imaging was obtained in the horizontal long, vertical long, and short axis views. A gated Cardiolite study at peak stress was obtained. Interpretation: Rest and stress SPECT Cardiolite nuclear imaging status post realignment, normalization, and attenuation correction demonstrate a small stress an area of diminished myocardial perfusion/tracer uptake in portions of the distal anterior, distal anteroseptal, anteroapical and septal apical segments which appear to improve at rest. There is diminished end systolic thickening and brightening in the aforementioned areas. The gated Cardiolite study demonstrates diminished myocardial thickening and inward wall motion in the aforementioned areas. The reported LVEF is 47 %. Impression: 1. Rest and stress SPECT Cardiolite nuclear imaging demonstrate myocardial perfusion changes concerning for an area of stress-induced myocardial ischemia in portions of the distal anterior, distal anteroseptal, anteroapical, and septal apical segments. 2. The gated Cardiolite study reports an LVEF of 47 %. This note was generated with [employer] software. It may contain incorrect words, spelling, and punctuation that were not noted in checking the note before signing.
== END | disposition home or self-care (01) ==
PROVIDERS: PCP Family Medicine; Referring Provider Nurse Practitioner Family; Visit Provider Nurse Practitioner Family
DX: I25.10 Atherosclerotic heart disease of native coronary artery without angina pectoris (principal); R07.9 Chest pain, unspecified; R06.09 Other forms of dyspnea; R00.1 Bradycardia, unspecified; Z95.5 Presence of coronary angioplasty implant and graft
CPT/HCPCS: 78452; 93017; 93225; 93226; A9500; A4216; J2785

== ENCOUNTER 2019-10-28 07:32 | Day surgery (SDC) | payer MEDICARE, MEDICAID, SELFPAY ==
[2019-10-02 15:01] VITALS: BMI 36.0
[2019-10-21 13:58] VITALS: BMI 36.0
--- NOTE | 2019-10-21 14:05 | RAD_ITS ---
STUDY: X-RAY CHEST REASON FOR EXAM: Male, 74 years old. chest pain, SOB -- abnormal stress test -- pre heart cath 10-28-19 TECHNIQUE: PA and lateral views of the chest. COMPARISON: 11/01/2018. FINDINGS: The lungs are clear and expanded. There is no demonstrated pleural abnormality. Normal size heart. Normal mediastinum and cintia. Normal visualized pulmonary arteries. There is atherosclerotic calcification of the aortic arch with tortuosity. There are diffuse degenerative changes of the visualized thoracic spine. There is degenerative osteoarthritis of the bilateral shoulders. Questionable multiple right-sided old rib fractures. There is no demonstrated abnormality of the visualized soft tissue structures of the upper abdomen. RAD/Chest PA and Lateral IMPRESSION: No acute cardiopulmonary disease. Electronically Signed: Sheree Cruz MD at 4:10 EST , Service support ,
[2019-10-21 15:21] LABS: Hematocrit 45.3 % (40-54); Hemoglobin 14.1 g/dL (13.0-16.5); Mean Corp Hgb Conc 31.1 g/dL (32-36); Mean Corpuscular Hgb 26.1 pg (27.0-32.0); Mean Corpuscular Volume 83.7 fL (80-94); Mean Platelet Vol. 10.2 fl (6.2-12.0); Platelet Count 172 K/mm3 (150-450); RBC Distribution Width CV 15.5 % (11.6-14.6); Red Blood Count 5.41 M/mm3 (4.6-6.2); White Blood Count 7.3 K/mm3 (4.4-11.0)
[2019-10-21 15:25] LABS: International Normalized Ratio 1.1; Prothrombin Time (Protime)PT. 13.9 SECONDS (11.7-14.9)
[2019-10-21 15:26] LABS: Partial Thromboplast Time 33.7 Seconds (24.1-36.2)
[2019-10-21 15:42] LABS: Anion Gap 6 (5-15); BUN 12 mg/dL (7-18); BUN/Creat Ratio 9.3 RATIO (10-20); Chloride 101 mmol/L (98-107); Creatinine, Serum 1.29 mg/dL (0.70-1.30); EST Glomerular Filtration Rate 58 mL/min (>60); Est Glom Filt Rate - Afr Amer 70 mL/min (>60); Glucose 164 mg/dL (74-106); Potassium 3.9 mmol/L (3.5-5.1); Sodium Level 137 mmol/L (136-145)
[2019-10-27 09:44] VITALS: BMI 36.0
--- NOTE | 2019-10-28 07:42 | HP.PCM_ITS ---
Problem List (1) CAD in [place] artery Status: Acute (2) History of coronary artery stent placement Status: Chronic Comment: Status post stenting to diagonal and circumflex in 2003; (3) Ischemic cardiomyopathy Status: Chronic (4) Hyperlipidemia, unspecified Status: Chronic (5) Essential hypertension Status: Chronic History and Physical Date of Admission: 10/28/19 [facility] [address] [place] [address] OFFICE VISIT Date of Service: 10/02/19 MR#: [id number] Acct: [id number] Name: SHAHZAD BERGERON Rep #: [id number] : 1945 Provider: EDIS Pate Age/Sex: 74/M Location: [facility] Status: Signed HPI HPI History of Present Illness Details: This is a 74-year-old male who presents to the office today for a cardiovascular outpatient follow-up. He has a past medical history of coronary artery disease status post stenting to his diagonal and circumflex 2003, ischemic cardiomyopathy, hypertension, PACs, PVCs, hyperlipidemia, and abdominal aortic aneurysm. His last cardiology office appointment was on 12/18/2016. He denies arm, jaw, or neck discomfort. His exercise tolerance is stable. He denies symptoms of palpitations, lightheadedness, near syncope, or syncopal episodes. He denies edema or claudication issues. He denies orthopnea, PND, fever, chills, blood in urine, blood in stool, myalgia, or unexplainable fatigue. He states intermittent chest pain that occurs at rest. This resolves on its own. He denies secondary symptoms such diaphoresis or nausea. He states excessive daytime fatigue. He states SOB with exertion that improves rest. This has been going for 2 months, but is not worsening. He states dizziness with position changes. Intake Vital Signs 10/02/19 Height 5 ft 8 in 10/02/19 Weight: 237 lb 10/02/19 BMI 36.0 10/02/19 BP 110/78 10/02/19 Blood Pressure Location Lt brachial 10/02/19 Position Sitting 10/02/19 Respiration 18 10/02/19 Pulse 53 L 10/02/19 Pulse Source Monitor 10/02/19 Pulse Oximetry (%) 94 Intake Visit Reasons: Low HR Utility Sales Representative Required: No Is patient in pain?: No Allergies acetaminophen [From Vicodin] Allergy (Verified 10/02/19 15:02) Shortness of breath clopidogrel bisulfate [From Plavix] Allergy (Verified 10/02/19 15:02) Rash hydrocodone [From Vicodin] Allergy (Verified 10/02/19 15:02) Shortness of breath magnesium Allergy (Verified 10/02/19 15:02) Chest tightness cefdinir Adverse Reaction (Verified 10/02/19 15:02) Nausea/Vom/Diarrhea gemfibrozil [From Lopid] Adverse Reaction (Verified 10/02/19 15:02) Unknown levofloxacin [From Levaquin] Adverse Reaction (Verified 10/02/19 15:02) Vomiting rosuvastatin calcium [From Crestor] Adverse Reaction (Verified 10/02/19 15:02) Other tramadol Adverse Reaction (Verified 10/02/19 15:02) Nausea/Vom/Diarrhea Medications Amlodipine [Norvasc] 5 mg PO DAILY 12/13/15 [History Confirmed 10/02/19] Atenolol [Tenormin (beta zita)] 50 mg PO DAILY 12/13/15 [History Confirmed 10/02/19] Esomeprazole Mag Trihydrate [Nexium] 40 mg PO DAILY 12/13/15 [History Confirmed 10/02/19] Potassium Chloride [Klor-Con M20] 20 meq PO DAILY 12/13/15 [History Confirmed 10/02/19] Tamsulosin HCl [Flomax] 0.4 mg PO DAILY 12/13/15 [History Confirmed 10/02/19] Furosemide [Lasix] 40 mg PO DAILY 02/26/16 [History Confirmed 10/02/19] Insulin Regular, Human [Humulin R U-500 Kwikpen] 22 unit SQ BID 02/26/16 [His tory Confirmed 10/02/19] Aspirin E.C. [Ecotrin] 81 mg PO DAILY@0800 11/09/16 [History Confirmed 10/02/19] Atorvastatin Calcium [Lipitor] 10 mg PO QHS 11/09/16 [History Confirmed 10/02/19] Venlafaxine XR [Effexor Xr] 150 mg PO BID 11/09/16 [History Confirmed 10/02/19] Epi Pen (for allergic rxn) [Epi Pen] 0.3 mg IM X1 08/16/17 [History Confirmed 10/02/19] Acetaminophen/Codeine #3 [Tylenol#3] 1 tab PO Q6H PRN PRN #20 tab 06/12/18 [Rx Confirmed 10/02/19] [facility] Medical History Hyperlipidemia, unspecified (Chronic) Essential hypertension (Chronic) Ischemic cardiomyopathy (Chronic) PVC (premature ventricular contraction) (Chronic) PAC (premature atrial contraction) (Chronic) Atherosclerosis of [place] coronary artery of [place] heart without angina pectoris (Chronic) Personal history of colonic polyps (Acute) Acid reflux (Acute) BPH (benign prostatic hyperplasia) (Acute) Heart disease (Acute) High cholesterol (Acute) HTN (hypertension) (Chronic) Surgical History History of coronary artery stent placement (Chronic) S/P colon resection (Acute) Status post cardiac surgery (Acute) Social History (Updated 10/02/19 @ 16:27 by EDIS Barnes) Smoking Status: Former smoker alcohol intake: never ROS Const Const: Positive for fatigue; negative for weakness, body ache, fever(s) or chills ENT ENT: Positive for dizziness Cardio Chest Pain: Yes Palpitations: No Edema: None Muscle aches with walking: None Resp Respiratory: Positive for SOB with activity; negative for SOB at rest, SOB orthopnea\SOB lying down or paroxysmal nocturnal dyspnea GI GI: Negative nausea, vomiting blood/hematemesis, bright, red blood in stools or black,tarry stools : Negative for hematuria or frequent nighttime urination/ nocturia Musc Musc: Negative for muscle aches/ myalgia Skin Skin: Negative non-healing lesions or rash Neuro Neuro: Positive for dizziness; negative for lightheadedness, near syncope, syncope, orthostatic symptoms or weakness Endo Endo: Positive for fatigue Allergy Allergy/Immunology: Negative for rash Cardiology Exam Const Appearance: cooperative, healthy appearing, comfortable and no acute distress Nutritional Appearance: well nourished and obese Orientation: alert, awake and oriented x3 Head Head: normal to inspection Ears: hearing grossly normal bilaterally Nose: external nose normal Face and Sinus: face symmetric Mouth: oral mucosae normal Eyes General: appearance normal, both eyes and all related structures Eyelids: eyelids normal EOM: EOM intact bilaterally Neck Neck: normal visual inspection and no JVD Carotids: normal carotid upstroke Chest Chest inspection: normal inspection of the chest, symmetric chest movement and normal respiratory effort; negative cough Auscultation: Bilateral: Clear to Auscultation Cardio Rate: regular rate Rhythm: regular rhythm Heart sounds: S1 normal and S2 normal; negative rub, gallop or murmur GI GI: normal to inspection and obese Neuro General: alert, awake, oriented x3 and CN's II-XI intact bilaterally Skin Skin: no rashes or lesions noted Extremities Pulses: Normal: Right Posterior Tibial Pulse, Left Posterior Tibial Pulse, Right Radial Pulse, Left Radial Pulse Lower Extremity Edema: None: Bilateral Psych Psychological: normal affect Assessment & Plan 1. Atherosclerosis of [place] coronary artery of [place] heart without angina pectoris I25.10 Status post stenting to diagonal and circumflex in 2003; Plan Patient does acknowledge symptoms concerning for progressive coronary artery disease. This includes chest pain, shortness of breath, and fatigue. He will undergo stress test to evaluate further. Based on results, further recommendati on be made. His EKG today in office shows sinus rhythm with first-degree AV block. He will undergo a 48-hour Holter monitor to evaluate further. It is possible his bradycardia is not true bradycardia but rather PACs or PVCs. However, the monitor will help assess this further. His beta-zita may need to be reduced based on results. Orders Orders: 12 Lead EKG performed by [facility] Cardiac Holter Monitor, Set-Up Today Cardiac Holter Monitor/Day Today Nuclear Stress Test - Chemical Today 2. History of coronary artery stent placement Z95.5 Status post stenting to diagonal and circumflex in 2003; Plan He undergo testing as outlined above. Orders Orders: 12 Lead EKG performed by [facility] Cardiac Holter Monitor, Set-Up Today Cardiac Holter Monitor/Day Today Nuclear Stress Test - Chemical Today 3. PAC (premature atrial contraction) I49.1 Plan He will continue current beta-zita. 4. PVC (premature ventricular contraction) I49.3 Plan He will continue current beta-zita. This will be assessed with a 48-hour Holter monitor. 5. Ischemic cardiomyopathy I25.5 Plan His echocardiogram from 10/05/2014 showed ejection fraction 55%. We can consider repeat echocardiogram based on results of his stress test and ongoing progression of his shortness of breath. 6. Abdominal aortic aneurysm (AAA) without rupture I71.4 Plan His most recent abdominal ultrasound from 12/05/2017 showed distal abdominal aortic aneurysm measuring 4 x 3.8 cm in total length of 5.8 cm. This is slightly increased compared to previous in 2018. We will continue heart rate and blood pressure support. 7. Essential hypertension I10 Plan Patient's blood pressure is well-controlled. We will continue to monitor. We will not make any medication regimen changes. 8. Hyperlipidemia, unspecified E78.5 Plan He will continue current statin medication. He states this is being managed by primary care physician. Plan Detail Other Orders Orders: 12 Lead EKG performed by [facility] R00.1, R06.09, R07.9, R42 Cardiac Holter Monitor, Set-Up Today R00.1, R06.09, R07.9 Cardiac Holter Monitor/Day Today R00.1, R06.09, R07.9 Nuclear Stress Test - Chemical Today R00.1, R06.09, R07.9 Additional Comments Thank you for allowing us to participate in the patients plan of care, if you have any questions please do not hesitate to call. This note was generated using a voice recognition system and there may be incorrect words, spelling or punctuation that were not noted when reviewing the office note prior to saving. Follow Up 6 Months (PFM) Coding Level of Care Code Off vis,est,level 4 Diagnoses Atherosclerosis of [place] coronary artery of [place] heart without angina pectoris I25.10 History of coronary artery stent placement Z95.5 PAC (premature atrial contraction) I49.1 PVC (premature ventricular contraction) I49.3 Ischemic cardiomyopathy I25.5 Abdominal aortic aneurysm (AAA) without rupture I71.4 ??Presence of rupture: without rupture Essential hypertension I10 Hyperlipidemia, unspecified E78.5 Coding Level of Care Code Off vis,est,level 4 Diagnoses Atherosclerosis of [place] coronary artery of [place] heart without angina pectoris I25.10 History of coronary artery stent placement Z95.5 PAC (premature atrial contraction) I49.1 PVC (premature ventricular contraction) I49.3 Ischemic cardiomyopathy I25.5 Abdominal aortic aneurysm (AAA) without rupture I71.4 ??Presence of rupture: without rupture Essential hypertension I10 Hyperlipidemia, unspecified E78.5 Supplemental Info Supplemental Information Diagnostics Echocardiogram 10/15/14 Stress Test Nuclear Medicine 08/19/13 Chest X-Ray 11/01/18 Pulmonary Pulmonary Function Test 04/19/17 10/02/19 1627 <Electronically signed by Quinn Rock> Date _ Quinn RANDHAWA Cosigner Signature: Date (if applicable) CC: Rogelio Lock MD ~ Addendum: Date: 10/28/2019 [id number] Update: The patient has subsequently undergone further evaluation with a stress nuclear imaging study. The results are as noted below. ADDENDUM by Walker Webb MD on 10/14/19 at 1302 Addendum: Correction: The resting technetium 99m Cardiolite dose should be 14.6 mCi (as opposed to 14.1 mCi). The stress technetium 99 M Cardiolite dose should be 45 mCi (as opposed to 44.4 mCi). 10/14/19 1302 Date _ Walker Webb MD cc: EDIS Pate; Rogelio Lock MD ~* Signed Stress Test Report Date: 10-14-2019 Procedure: Pharmacologic stress nuclear imaging study Indications: Chest pain; CAD; PCI; ischemic cardiomyopathy; peripheral artery disease Consent: Per the patient Procedure: The patient underwent pharmacologic (Regadenoson) evaluation with a peak heart rate of 54 beats per minute (37 %predicted maximal heart rate) and a peak blood pressure of 118/78 mmHg. The baseline ECG demonstrated sinus bradycardia; right bundle branch block. The peak pharmacologic ECG demonstrated no obvious ECG changes. There was a rare PVC during recovery. There is no report of chest discomfort during pharmacologic infusion or recovery. The examination was discontinued secondary to completion of protocol. Impression: 1. Pharmacologic (Regadenoson) evaluation 2. Peak pharmacologic ECG with no obvious ECG changes. 3. There was a rare PVC during recovery. 4. Nuclear images pending Myocardial perfusion imaging study: Technique: The patient was injected with 14.1 millicuries of technetium 99m Cardiolite and subsequently rest SPECT Cardiolite nuclear imaging was obtained in the horizontal long, vertical long, and short axis views. The patient underwent pharmacologic (Regadenoson) evaluation with a peak heart rate of 54 beats per minute (37 % percent predicted maximal heart rate) and a peak blood pressure of 118/78 mmHg. The patient was injected with 44.4 millicuries of technetium 99m Cardiolite and subsequently stress SPECT Cardiolite nuclear imaging was obtained in the horizontal long, vertical long, and short axis views. A gated Cardiolite study at peak stress was obtained. Interpretation: Rest and stress SPECT Cardiolite nuclear imaging status post realignment, normalization, and attenuation correction demonstrate a small stress an area of diminished myocardial perfusion/tracer uptake in portions of the distal anterior, distal anteroseptal, anteroapical and septal apical segments which appear to improve at rest. There is diminished end systolic thickening and brightening in the aforementioned areas. The gated Cardiolite study demonstrates diminished myocardial thickening and inward wall motion in the aforementioned areas. The reported LVEF is 47 %. Impression: 1. Rest and stress SPECT Cardiolite nuclear imaging demonstrate myocardial perf usion changes concerning for an area of stress-induced myocardial ischemia in portions of the distal anterior, distal anteroseptal, anteroapical, and septal apical segments. 2. The gated Cardiolite study reports an LVEF of 47 %. This note was generated with wikifolioation software. It may contain incorrect words, spelling, and punctuation that were not noted in checking the note before signing. The patients case was reviewed. A recommendation was made that the patient consider further evaluation with diagnostic cardiac cath and if needed possible PCI. The procedure and risks were discussed and the patient grants consent. The procedure is scheduled to be performed at [facility] on 10/28/2019. This note was generated using a voice recognition system and there may be incorrect words, spelling or punctuation that were not noted when reviewing the office note prior to saving.
--- NOTE | 2019-10-28 19:56 | CL.D_ITS ---
Patient Name: SHAHZAD BERGERON Study Date: 10/28/2019 Performing: Walker Webb MD Ht: 68 inches 173 cm : 1945 Wt: 238.4 lbs 108 kg Age: 74 Gender: male BSA: 2.2 PROCEDURE(S) PERFORMED [id number] CLINICAL PROFILE AND INDICATIONS Indications: Suspected CAD, Other Heart Failure: None Stress/Imaging Date: 10/14/2019Stress Test with SPECT MPI: Positive Angina Classification Anginal Classification w/in 2 Weeks: CCS III CAD Presentations: Stable angina. CONCLUSIONS [place] Multivessel CAD RECOMMENDATIONS Risk factor modification Medical therapy Surgery consult for coronary revascularization DESCRIPTION OF PROCEDURE The patient arrived to the procedure lab. The risks and benefits of the procedure as well as a full d escription of our services here and current unavailability of surgical backup were fully explained to the patient and/or their significant other prior to the catheterization. The Timeout was completed, verifying the correct patient and procedure. The patient's procedural site was prepped and draped in the usual fashion. Local anesthetic was given subcutaneously to right radial region with Lidocaine 2% . Using a modified Seldinger technique, arterial access was obtained via the right radial artery, a 6 Fr sheath was inserted. Right Coronary Artery selective angiography was then performed in multiple v iews using a 5 Fr. 4.0 [employer] catheter. Left Coronary Artery selective angiography was performed in mu ltiple views using a 5 Fr. JL 4.5 catheter.The arterial sheath was pulled and a TR Band was applied f or hemostasis CORONARY ANGIOGRAPHY DOMINANCE: Right Dominant LEFT MAIN: Angiographically normal LEFT ANTERIOR DESCENDING ARTERY: PROX LAD: Moderate calcification, 75 % Stenosis MID LAD: Mild luminal irregularities DIAGONAL 1: Proximal - Previously placed stent has an instent 85 % restenosis, Mid - Previously place d stent has an instent serial: 85 % restenosis CIRCUMFLEX ARTERY: PROX CIRC: Previously placed stent is patent MID CIRC: Mild luminal irregularities RIGHT CORONARY ARTERY: PROX RCA: eccentric: 50 % Stenosis MID RCA: Mild luminal irregularities RIGHT AV SEGMENT: is occluded COLLATERAL FLOW: Collateral flow from Left to Right COMPLICATIONS No Complications PROCEDURE MEDICATIONS Versed 1 mg IV Fentanyl 50 mcg IV Oxygen: 2 L/min via nasal cannula Heparin diluted in 23cc Heparinized saline. Patient given 10cc IA of this solution. 10/28/2019 09:48:4 9 Verapamil 2.5mg, Ntg 100mcgs, 2000 units of Heparin diluted in 23cc Heparinized saline. Patient give n 10cc IA of this solution. 10/28/2019 09:48:49 SUMMARY OF HEMODYNAMIC DATA Time AIR REST ECG 07:49:27 AO 127/91 (106) SA 09:54:38 Signed By Walker Webb MD On 10/28/2019 7:55:24 PM Walker Webb MD
== END 2019-10-28 12:05 | disposition home or self-care (01) ==
PROVIDERS: PCP Family Medicine; Referring Provider Internal Medicine Cardiovascular Disease; Visit Provider Internal Medicine Cardiovascular Disease
DX: I25.118 Atherosclerotic heart disease of native coronary artery with other forms of angina pectoris (principal); I49.1 Atrial premature depolarization; I44.0 Atrioventricular block, first degree; I71.4 Abdominal aortic aneurysm, without rupture; I25.5 Ischemic cardiomyopathy; E78.5 Hyperlipidemia, unspecified; K21.9 Gastro-esophageal reflux disease without esophagitis; I11.9 Hypertensive heart disease without heart failure; N40.0 Benign prostatic hyperplasia without lower urinary tract symptoms; E66.9 Obesity, unspecified; Z68.36 Body mass index [BMI] 36.0-36.9, adult; Z87.891 Personal history of nicotine dependence; Z95.5 Presence of coronary angioplasty implant and graft; Z79.82 Long term (current) use of aspirin; Z79.899 Other long term (current) drug therapy
CPT/HCPCS: 36415; 71046; 80048; 85027; 85610; 85730; 93454; 99152; 99153; J7040; Q9967; C1769; C1894

== ENCOUNTER → 2020-02-19 06:47 | Outpatient (CLI) | payer MEDICARE, MEDICAID, SELFPAY ==
[2019-10-27 09:44] VITALS: BMI 36.0
[2020-02-19 07:18] LABS: Hematocrit 35.7 % (40-54); Hemoglobin 10.5 g/dL (13.0-16.5); Mean Corp Hgb Conc 29.4 g/dL (32-36); Mean Platelet Vol. 9.3 fl (6.2-12.0); Platelet Count 222 K/mm3 (150-450); RBC Distribution Width CV 15.4 % (11.6-14.6); RBC Distribution Width SD 47.2 fl (35.1-43.9); White Blood Count 5.1 K/mm3 (4.4-11.0)
[2020-02-19 07:53] LABS: ALB/GLOB Ratio 0.7 RATIO (0.9-2.4); AST(SGOT) 15 U/L (15-37); Alanine Aminotransfer ALT/SGPT 17 U/L (16-61); Albumin, Serum 3.1 g/dL (3.2-5.0); Alkaline Phosphatase 116 U/L (45-117); Anion Gap 6 (5-15); BUN 12 mg/dL (7-18); BUN/Creat Ratio 10.4 RATIO (10-20); Calcium,Total 9.3 mg/dL (8.5-10.1); Chloride 99 mmol/L (98-107); Cholesterol 112 mg/dL (200); Creatinine, Serum 1.15 mg/dL (0.70-1.30); EST Glomerular Filtration Rate 66 mL/min (>60); Est Glom Filt Rate - Afr Amer 80 mL/min (>60); Globulin 4.6 g/dL (2.2-4.2); Glucose 188 mg/dL (74-106); High Density Lipoprotein 26 mg/dL; Protein, Total 7.7 g/dL (6.4-8.2); Sodium Level 136 mmol/L (136-145); Triglycerides 219 mg/dL; Very Low Density Lipoprotein 44 mg/dL (5-40)
== END ==
PROVIDERS: PCP Family Medicine
DX: I25.118 Atherosclerotic heart disease of native coronary artery with other forms of angina pectoris (principal); Z95.1 Presence of aortocoronary bypass graft
CPT/HCPCS: 36415; 80053; 80061; 85027

== ENCOUNTER → 2020-03-06 | Outpatient (CLI) | payer MEDICARE, MEDICAID, SELFPAY ==
[2020-03-03 14:46] VITALS: BMI 33.7
[2020-03-06 15:14] LABS: Anion Gap 7 (5-15); BUN 10 mg/dL (7-18); BUN/Creat Ratio 8.5 RATIO (10-20); Calcium,Total 8.8 mg/dL (8.5-10.1); Chloride 104 mmol/L (98-107); Creatinine, Serum 1.18 mg/dL (0.70-1.30); EST Glomerular Filtration Rate 64 mL/min (>60); Est Glom Filt Rate - Afr Amer 77 mL/min (>60); Glucose 160 mg/dL (74-106); Potassium 4.3 mmol/L (3.5-5.1); Sodium Level 140 mmol/L (136-145)
== END | disposition home or self-care (01) ==
LOC: LAB 03-08 10:28
PROVIDERS: PCP Family Medicine; Visit Provider Internal Medicine Cardiovascular Disease
DX: I48.91 Unspecified atrial fibrillation (principal); I97.89 Other postprocedural complications and disorders of the circulatory system, not elsewhere classified
CPT/HCPCS: 36415; 80048

== ENCOUNTER 2020-03-09 09:45 | Day surgery (SDC) | payer MEDICARE, MEDICAID, SELFPAY ==
[2020-03-03 14:46] VITALS: BMI 33.7
[2020-03-08 10:42] VITALS: BMI 33.7
--- NOTE | 2020-03-09 07:52 | PCM.HP.BLA ---
Problem List (1) Atherosclerosis of [place] coronary artery of [place] heart without angina pectoris Status: Chronic Comment: Status post stenting to diagonal and circumflex in 2003; (2) History of coronary artery stent placement Status: Chronic Comment: Status post stenting to diagonal and circumflex in 2003; (3) History of coronary artery bypass graft x 3 Status: Chronic Comment: LANDON to LAD, SVG to Diagonal, SVG to PDA 01/30/20 @ [facility] [address] Perez (4) Ischemic cardiomyopathy Status: Chronic (5) PAC (premature atrial contraction) Status: Chronic (6) PVC (premature ventricular contraction) Status: Chronic (7) Postoperative atrial fibrillation Status: Acute (8) Hyperlipidemia, unspecified Status: Chronic (9) Essential hypertension Status: Chronic (10) Type 2 diabetes mellitus Status: Chronic (11) Abdominal aortic aneurysm without rupture Status: Chronic History and Physical Date of Admission: 03/09/20 [facility] [address] [place] [address] OFFICE VISIT Date of Service: 03/03/20 MR#: [id number] Acct: [id number] Name: SHAHZAD BERGERON Rep #: [id number] : 1945 Provider: Dr. Walker Webb MD Age/Sex: 74/M Location: [facility] Status: Signed [facility] History of Present Illness Details: This is a 74-year-old white male who presents to the office today for a cardiovascular outpatient follow-up with a past medical history of coronary artery disease status post stenting to his diagonal and circumflex 2004, CABG, ischemic cardiomyopathy, post op PAF/FL, AAA, PACs, PVCs, hyperlipidemia, and hypertension. He has undergone further evaluation which included both noninvasive and invasive studies. They are noted below. This led to the need for CABG. This was performed at [facility] on 01-30-2020. Per the report he received a LANDON to the LAD, and SVG to the diagonal branch, and SVG to the PDA. Per his reports he also had postoperative atrial fibrillation/flutter. It noted that he had return to sinus rhythm. It noted his temporary pacemaker wires were removed without incident when his rhythm was stable. He was subsequently released home on medical management. He states overall he is feeling better. He has had no concerning chest discomfort. He is breathing better. There is been no orthopnea or PND or ongoing peripheral pitting edema. There has been no near syncope or syncope. He has noted intermittent episodes where he feels his heart speed up and slow down. Today on ECG he had underlying atrial flutter with a right bundle branch block pattern and a nonspecific T wave abnormality. It appears he was also placed on anticoagulant therapy with apixaban/Eliquis. Per the telephone conversation from his spouse to his pharmacy this was started on 02-12-2020 at 5 mg twice daily with 2 refills. 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 Accompanied by: Allergies acetaminophen [From Vicodin] Allergy (Verified 03/03/20 14:47) Shortness of breath clopidogrel bisulfate [From Plavix] Allergy (Verified 03/03/20 14:47) Rash hydrocodone [From Vicodin] Allergy (Verified 03/03/20 14:47) Shortness of breath magnesium Allergy (Verified 03/03/20 14:47) Chest tightness cefdinir Adverse Reaction (Verified 03/03/20 14:47) Nausea/Vom/Diarrhea gemfibrozil [From Lopid] Adverse Reaction (Verified 03/03/20 14:47) Unknown levofloxacin [From Levaquin] Adverse Reaction (Verified 03/03/20 14:47) Vomiting rosuvastatin calcium [From Crestor] Adverse Reaction (Verified 03/03/20 14:47) Other tramadol Adverse Reaction (Verified 03/03/20 14:47) Nausea/Vom/Diarrhea Medications Amlodipine [Norvasc] 5 mg PO DAILY 12/13/15 [History Confirmed 03/03/20] Esomeprazole Mag Trihydrate [Nexium] 40 mg PO DAILY 12/13/15 [History Confirmed 03/03/20] Potassium Chloride [Klor-Con M20] 20 meq PO DAILY 12/13/15 [History Confirmed 03/03/20] Tamsulosin HCl [Flomax] 0.4 mg PO DAILY 12/13/15 [History Confirmed 03/03/20] Furosemide [Lasix] 40 mg PO DAILY 02/26/16 [History Confirmed 03/03/20] Aspirin E.C. [Ecotrin] 81 mg PO DAILY@0800 11/09/16 [History Confirmed 03/03/20] Venlafaxine XR [Effexor Xr] 150 mg PO BID 11/09/16 [History Confirmed 03/03/20] acetaminophen 325 mg tablet 650 mg PO Q6H PRN tab 02/11/20 [History Confirmed 03/03/20] albuterol sulfate 90 mcg/actuation aerosol inhaler 1 puff INHALATION ONCE 02/11/20 [History Confirmed 03/03/20] artifi.tears(hypromellose)(PF) 0.3 % eye drops 1 drp OPHTHALMIC 4-8XD PRN 02/11/20 [History Confirmed 03/03/20] atorvastatin 80 mg tablet 80 mg PO QHS tab 02/11/20 [History Confirmed 03/03/20] diazepam 5 mg tablet 5 mg PO QHS PRN 02/11/20 [History Confirmed 03/03/20] guaifenesin 600 mg tablet, extended release 12 hr 600 mg PO Q12H PRN 02/11/20 [History Confirmed 03/03/20] metoprolol tartrate 25 mg tablet 25 mg PO BID 02/11/20 [History Confirmed 03/03/20] oxycodone 5 mg tablet 5 mg PO Q6H PRN 02/11/20 [History Confirmed 03/03/20] polyethylene glycol 3350 17 gram/dose oral powder 17 g PO BID PRN 02/11/20 [History Confirmed 03/03/20] apixaban 5 mg tablet 5 mg PO BID #1 tab 03/03/20 [Rx Confirmed 03/03/20] insulin glargine 100 unit/mL (3 mL) subcutaneous pen 34 unit SC DAILY ml 03/03/20 [History Confirmed 03/03/20] insulin lispro 100 unit/mL subcutaneous pen 10 unit SC TID ml 03/03/20 [History Confirmed 03/03/20] PFS Medical History Type 2 diabetes mellitus (Chronic) Abdominal aortic aneurysm without rupture (Chronic) Postoperative atrial fibrillation (Acute) Hyperlipidemia, unspecified (Chronic) Essential hypertension (Chronic) Ischemic cardiomyopathy (Chronic) PVC (premature ventricular contraction) (Chronic) PAC (premature atrial contraction) (Chronic) Atherosclerosis of [place] coronary artery of [place] heart without angina pectoris (Chronic) Personal history of colonic polyps (Acute) Acid reflux (Acute) BPH (benign prostatic hyperplasia) (Acute) Heart disease (Acute) High cholesterol (Acute) HTN (hypertension) (Chronic) Surgical History History of coronary artery bypass graft x 3 (Chronic ~01/30/20) History of coronary artery stent placement (Chronic) S/P colon resection (Acute) Status post cardiac surgery (Acute) History of left heart catheterization (LHC) (Resolved ~10/28/19) Social History (Updated 03/03/20 @ 15:[address] Walker Webb MD) Smoking Status: Former smoker alcohol intake: never ROS Const Const: Negative for fatigue, weakness, frequent falls, excessive sweating, weight gain or weight loss Eyes Eyes: Negative for transient loss of vision, blurry vision or change in vision ENT ENT: Negative for dizziness or balance problems Cardio Chest Pain: No Palpitations: Yes (occasional) feels like its: irregular Edema: None Muscle aches with walking: None Resp Respiratory: Positive for SOB with activity (slight); negative for SOB at rest GI GI: Negative vomiting or vomiting blood/hematemesis : Negative for hematuria Musc Musc: Negative for muscle aches/ myalgia, muscle weakness, joint pain or balance problems Skin Skin: Negative non-healing lesions or rash Neuro Neuro: Negative for dizziness, lightheadedness, orthostatic symptoms, frequent falls, weakness or blurry vision Iker Hematologic/Lymphatic: Negative for easy bleeding Endo Endo: Negative for fatigue or excessive sweating Psych Psych: Negative for anxiety or depression Allergy Allergy/Immunology: Negative for hives, Negative for rash Cardiology Exam Const Appearance: cooperative, healthy appearing, comfortable, no acute distress, well developed and well groomed Nutritional Appearance: well nourished and obese Orientation: alert, awake and oriented x3 Head Head: normal to inspection Ears: hearing grossly normal bilaterally Nose: external nose normal Face and Sinus: face symmetric Mouth: oral mucosae normal Eyes Eyelids: eyelids normal Conjunctivae: conjunctivae normal Pupils: PERRL EOM: EOM intact bilaterally Neck Neck: normal visual inspection, full ROM and no JVD Carotids: normal carotid upstroke Chest Chest inspection: normal inspection of the chest, symmetric chest movement, midline sternotomy incision and normal respiratory effort; negative cough Auscultation: Bilateral: Clear to Auscultation midline sternotomy incision: healing well Cardio Palpation: normal PMI Rate: regular rate Rhythm: irregular rhythm Heart sounds: S1 normal and S2 normal; negative rub, gallop or murmur GI GI: normal to inspection, bowel sounds present, absent bowel sounds and obese Neuro General: alert, awake, oriented x3, CN's II-XI intact bilaterally and moves all extremities Skin Skin: no rashes or lesions noted Extremities Pulses: Normal: Right Posterior Tibial Pulse, Left Posterior Tibial Pulse, Right Radial Pulse, Left Radial Pulse Lower Extremity Edema: None: Bilateral lower extremity surgical incisions: healing well Psych Psychological: normal affect Assessment & Plan 1. Atherosclerosis of [place] coronary artery of [place] heart without angina pectoris I25.10 Status post stenting to diagonal and circumflex in 2003; Plan At the present time he appears to be doing well overall. He will continue his current medical therapy. He will be enrolled in outpatient cardiac rehabilitation. Orders Orders: 12 Lead EKG performed by [facility] Today Referrals: Phase II, Outpatient Cardiac Rehab 2. H/O heart artery stent Z95.5 Status post stenting to diagonal and circumflex in 2003; Plan He does have a history of PCI and now CABG. Again he appears to be doing well overall. He will continue medical therapy and follow-up. This will include enrollment in outpatient cardiac rehabilitation. Orders Referrals: Phase II, Outpatient Cardiac Rehab 3. History of coronary artery bypass graft x 3 Z95.1 LANDON to LAD, SVG to Diagonal, SVG to PDA 01/30/20 @ [facility] [address] Perez Plan He is now status post CABG. Overall he appears to be doing well. He appears to be healing well. He will continue with postoperative CT surgery follow-up. Orders Orders: 12 Lead EKG performed by [facility] Today Referrals: Phase II, Outpatient Cardiac Rehab 4. Postoperative atrial fibrillation I97.89; I48.91 Plan He appears to have postoperative atrial fibrillation/flutter. He remains in atrial flutter at this time. The rate is controlled. He will continue his current medical therapy. He will be tentatively scheduled, after at least 4 weeks of anticoagulant therapy, for an outpatient synchronized biphasic DC cardioversion unless he has spontaneous return to sinus rhythm. Orders Orders: Cardioversion 03/16/20 Basic Metabolic Profile (BMP) 03/15/20 Referrals: Phase II, Outpatient Cardiac Rehab 5. Cardiomyopathy, ischemic I25.5 Plan He has no ongoing symptoms of obvious CHF or pulmonary edema. He will continue his medical management. Orders Referrals: Phase II, Outpatient Cardiac Rehab 6. Abdominal aortic aneurysm without rupture I71.4 Plan He does have a history of an abdominal aortic aneurysm. This will need to be followed by his multiple physicians in the future. Orders Referrals: Phase II, Outpatient Cardiac Rehab 7. PAC (premature atrial contraction) I49.1 Plan He does have a history of PACs and PVCs. He will continue medical therapy and follow-up. Orders Referrals: Phase II, Outpatient Cardiac Rehab 8. PVC (premature ventricular contraction) I49.3 Plan He does have a history of underlying cardiac ectopy with PACs and PVCs. He will continue his current medical management at this time. Orders Referrals: Phase II, Outpatient Cardiac Rehab 9. Essential hypertension I10 Plan His blood pressure appears to be well controlled. We will continue medical therapy. Orders Referrals: Phase II, Outpatient Cardiac Rehab 10. HLD (hyperlipidemia) E78.5 Plan He will continue risk factor modification medical management. Orders Referrals: Phase II, Outpatient Cardiac Rehab Plan Detail Other Medications New: apixaban 5 mg PO BID 1 tab 0RF Additional Comments The above was discussed with the patient with his spouse present. They were both agreeable to this approach. Thank you for allowing me to participate in the care of your patient. Please don't hesitate to call if any issues arise. This note was generated using a voice recognition system and there may be incorrect words, spelling or punctuation that were not noted when reviewing the office note prior to saving. Follow Up 6 Weeks (PFM) Coding Level of Care Code Off vis,est,level 4 Diagnoses Atherosclerosis of [place] coronary artery of [place] heart without angina pectoris I25.10 H/O heart artery stent Z95.5 History of coronary artery bypass graft x 3 Z95.1 Postoperative atrial fibrillation I97.89; I48.91 Cardiomyopathy, ischemic I25.5 Abdominal aortic aneurysm without rupture I71.4 PAC (premature atrial contraction) I49.1 PVC (premature ventricular contraction) I49.3 Essential hypertension I10 HLD (hyperlipidemia) E78.5 Coding Level of Care Code Off vis,est,level 4 Diagnoses Atherosclerosis of [place] coronary artery of [place] heart without angina pectoris I25.10 H/O heart artery stent Z95.5 History of coronary artery bypass graft x 3 Z95.1 Postoperative atrial fibrillation I97.89; I48.91 Cardiomyopathy, ischemic I25.5 Abdominal aortic aneurysm without rupture I71.4 PAC (premature atrial contraction) I49.1 PVC (premature ventricular contraction) I49.3 Essential hypertension I10 HLD (hyperlipidemia) E78.5 Supplemental Info Supplemental Information Echocardiogram: 10/15/2014 Interpretation Summary The study was technically difficult. Contrast injection was performed. Segmental dysfunction with preserved ejection fraction (see wall motion). The estimated ejection fraction is 55 %. Paradoxical septa wall motion c/w a post open heart surgery state. Mild concentric left ventricular hypertrophy. There is mild mitral annular calcification. Mild focal aortic valve thickening. Stress test: 10/14/2019 ADDENDUM by Walker Webb MD on 10/14/19 at 1302 Addendum: Correction: The resting technetium 99m Cardiolite dose should be 14.6 mCi (as opposed to 14.1 mCi). The stress technetium 99 M Cardiolite dose should be 45 mCi (as opposed to 44.4 mCi). 10/14/19 1302 Date Walker Webb MD cc: EDIS Pate; Rogelio Lock MD ~* Signed Stress Test Report Date: 10-14-2019 Procedure: Pharmacologic stress nuclear imaging study Indications: Chest pain; CAD; PCI; ischemic cardiomyopathy; peripheral artery disease Consent: Per the patient Procedure: The patient underwent pharmacologic (Regadenoson) evaluation with a peak heart rate of 54 beats per minute (37 %predicted maximal heart rate) and a peak blood pressure of 118/78 mmHg. The baseline ECG demonstrated sinus bradycardia; right bundle branch block. The peak pharmacologic ECG demonstrated no obvious ECG changes. There was a rare PVC during recovery. There is no report of chest discomfort during pharmacologic infusion or recovery. The examination was discontinued secondary to completion of protocol. Impression: 1. Pharmacologic (Regadenoson) evaluation 2. Peak pharmacologic ECG with no obvious ECG changes. 3. There was a rare PVC during recovery. 4. Nuclear images pending Myocardial perfusion imaging study: Technique: The patient was injected with 14.1 millicuries of technetium 99m Cardiolite and subsequently rest SPECT Cardiolite nuclear imaging was obtained in the horizontal long, vertical long, and short axis views. The patient underwent pharmacologic (Regadenoson) evaluation with a peak heart rate of 54 beats per minute (37 % percent predicted maximal heart rate) and a peak blood pressure of 118/78 mmHg. The patient was injected with 44.4 millicuries of technetium 99m Cardiolite and subsequently stress SPECT Cardiolite nuclear imaging was obtained in the horizontal long, vertical long, and short axis views. A gated Cardiolite study at peak stress was obtained. Interpretation: Rest and stress SPECT Cardiolite nuclear imaging status post realignment, normalization, and attenuation correction demonstrate a small stress an area of diminished myocardial perfusion/tracer uptake in portions of the distal anterior, distal anteroseptal, anteroapical and septal apical segments which appear to improve at rest. There is diminished end systolic thickening and brightening in the aforementioned areas. The gated Cardiolite study demonstrates diminished myocardial thickening and inward wall motion in the aforementioned areas. The reported LVEF is 47 %. Impression: 1. Rest and stress SPECT Cardiolite nuclear imaging demonstrate myocardial perfusion changes concerning for an area of stress-induced myocardial ischemia in portions of the distal anterior, distal anteroseptal, anteroapical, and septal apical segments. 2. The gated Cardiolite study reports an LVEF of 47 %. Cardiac cath: 10/28/2019 CONCLUSIONS [place] Multivessel CAD RECOMMENDATIONS Risk factor modification Medical therapy Surgery consult for coronary revascularization DESCRIPTION OF PROCEDURE The patient arrived to the procedure lab. The risks and benefits of the procedure as well as a full description of our services here and current unavailability of surgical backup were fully explained to the patient and/or their significant other prior to the catheterization. The Timeout was completed, verifying the correct patient and procedure. The patient's procedural site was prepped and draped in the usual fashion. Local anesthetic was given subcutaneously to right radial region with Lidocaine 2%. Using a modified Seldinger technique, arterial access was obtained via the right radial artery, a 6Fr sheath was inserted. Right Coronary Artery selective angiography was then performed in multiple views using a 5 Fr. 4.0 [place] catheter. Left Coronary Artery selective angiography was performed in multiple views using a 5 Fr. JL 4.5 catheter.The arterial sheath was pulled and a TR Band was applied for hemostasis CORONARY ANGIOGRAPHY DOMINANCE: Right Dominant LEFT MAIN: Angiographically normal LEFT ANTERIOR DESCENDING ARTERY: PROX LAD: Moderate calcification, 75 % Stenosis MID LAD: Mild luminal irregularities DIAGONAL 1: Proximal - Previously placed stent has an instent 85 % restenosis, Mid - Previously placed stent has an instent serial: 85 % restenosis CIRCUMFLEX ARTERY: PROX CIRC: Previously placed stent is patent MID CIRC: Mild luminal irregularities RIGHT CORONARY ARTERY: PROX RCA: eccentric: 50 % Stenosis MID RCA: Mild luminal irregularities RIGHT AV SEGMENT: is occluded COLLATERAL FLOW: Collateral flow from Left to Right Labs LDL Cholesterol 42 mg/dL (0-130) 02/19/20 HDL Cholesterol 26 mg/dL (40-) L 02/19/20 Triglycerides 219 mg/dL (-199) H 02/19/20 VLDL Cholesterol 44 mg/dL (5-40) H 02/19/20 Diagnostics Electrocardiogram 03/03/20 Echocardiogram 10/15/14 Stress Test Nuclear Medicine 10/14/19 Stress Test 10/14/19 Cardiac Catheterization 10/28/19 Chest X-Ray 10/21/19 Pulmonary Pulmonary Function Test 04/19/17 03/03/20 [id number] <Electronically signed by Walker Webb MD> Date Walker Webb MD Cosigner Signature: Date (if applicable) CC: Dr. Rogelio Lock MD ~ I have re-examined the patient. There are no clinical changes since date of exam. Procedure Criteria Procedure Type: Elective COVID Risk Discussion: The surgeon/proceduralist and patient have discussed in detail the risk of exposure to and/or potential harm posed by the COVID-19 virus with having a surgery/procedure at this time versus the risk of delaying the surgery/procedure. It is not possible to know either the risk of delaying the surgery or procedure or chance of getting an infection with perfect accuracy, but a joint decision was made between the patient and the surgeon/proceduralist to proceed at this time with the scheduled surgery/procedure as indicated on the consent form.
--- NOTE | 2020-03-09 12:22 | PRO.PCM_ITS ---
Procedure Report Date of Procedure: 03/09/20 CONSCIOUS SEDATION REPORT DATE OF SERVICE: March 09, 2020 BRIEF HISTORY OF PRESENT ILLNESS: The patient is a 74-year-old male who presented to [facility] for an elective outpatient cardioversion due to underlying atrial flutter. The patient denies having undergone a previous cardioversion. The patient reports no prior anesthetic complications. The patient has never been diagnosed with obstructive sleep apnea before. He does report a known history of COPD, but does not currently follow with a candle molder machine. His last surface echocardiogram revealed an ejection fraction of approximately 55%. The patient is currently systemically anticoagulated on Eliquis. PHYSICAL EXAMINATION: VITAL SIGNS: Reviewed and were acceptable. GENERAL: The patient is an obese male, in no apparent distress, speaking in full sentences. HEENT: Normocephalic, atraumatic. Mucous membranes are moist and pink. Good mouth opening noted. Trachea is midline. MPIII CHEST: S1, S2 irregularly irregular. No murmurs, rubs or gallops were noted. LUNGS: Clear to auscultation bilaterally without appreciable wheezes, rales or rhonchi. ABDOMEN: Soft, nontender, nondistended. Positive bowel sounds. EXTREMITIES: There is no clubbing, cyanosis or edema. ASA Class: II DESCRIPTION OF PROCEDURE: After confirmation of informed consent, the patient's anesthesia plan was reviewed in detail. Propofol was chosen. Risks and benefits were reviewed and the patient agreed to proceed. At 1208, the patient was given 40 mg of propofol. The patient achieved an appropriate level of sedation and was given a 50 joule synchronized cardioversion by Dr. Webb at the bedside. This was successful in achieving normal sinus rhythm. The patient was monitored until 1219, at which time he reached his baseline mental status and function. The patient tolerated the procedure well. COMPLICATIONS: None ESTIMATED BLOOD LOSS: None RECOMMENDATIONS: Okay to recover in usual fashion. 9xxxx: Other Procedure See Report - [id number]
--- NOTE | 2020-03-09 12:28 | CARDIOVERS ---
Cardioversion Cardioversion: Date: 03-09-2020 Procedure: Synchronized Biphasic DC Cardioversion Indications: Atrial flutter; CAD; status post CABG Consent: Per the Patient Anesthesia: per Dr. Patten of pulmonology and critical care medicine with propofol 40 mg IV push total Procedure: Synchronized Biphasic DC Cardioversion: 50 J x1: Result: Sinus rhythm Complications: no apparent complications This note was generated with [employer] software. It may contain incorrect words, spelling, and punctuation that were not noted in checking the note before signing.
== END 2020-03-09 13:15 | disposition home or self-care (01) ==
PROVIDERS: PCP Family Medicine; Referring Provider Internal Medicine Cardiovascular Disease; Visit Provider Internal Medicine Cardiovascular Disease
DX: I48.92 Unspecified atrial flutter (principal); I97.89 Other postprocedural complications and disorders of the circulatory system, not elsewhere classified; I49.1 Atrial premature depolarization; I45.10 Unspecified right bundle-branch block; I25.10 Atherosclerotic heart disease of native coronary artery without angina pectoris; I25.5 Ischemic cardiomyopathy; I71.4 Abdominal aortic aneurysm, without rupture; I10 Essential (primary) hypertension; E78.5 Hyperlipidemia, unspecified; E11.9 Type 2 diabetes mellitus without complications; K21.9 Gastro-esophageal reflux disease without esophagitis; N40.0 Benign prostatic hyperplasia without lower urinary tract symptoms; Z87.891 Personal history of nicotine dependence; E66.9 Obesity, unspecified; Z68.33 Body mass index [BMI] 33.0-33.9, adult; Z95.1 Presence of aortocoronary bypass graft; Z95.5 Presence of coronary angioplasty implant and graft; Z79.02 Long term (current) use of antithrombotics/antiplatelets; Z79.899 Other long term (current) drug therapy; Z79.82 Long term (current) use of aspirin; Z79.4 Long term (current) use of insulin
CPT/HCPCS: 92960; 93005; J7040

== ENCOUNTER → 2020-03-16 | Outpatient (CLI) | payer MEDICARE, MEDICAID, SELFPAY ==
[2020-03-08 10:42] VITALS: BMI 33.7
[2020-03-16 10:27] VITALS: BMI 33.7
[2020-03-16 11:46] LABS: Absolute Neutrophil Count 3.8 X10^3/uL (2.0-7.7); Basophil# 0.05 X10^3/uL; Basophil% 0.8 % (0-1); Eosinophil# 0.22 X10^3/uL; Eosinophils% 3.7 % (0-5); Hematocrit 33.3 % (40-54); Hemoglobin 9.8 g/dL (13.0-16.5); Lymphocyte % 23.3 % (19-41); Mean Corp Hgb Conc 29.4 g/dL (32-36); Mean Corpuscular Hgb 23.6 pg (27.0-32.0); Mean Corpuscular Volume 80.2 fL (80-94); Mean Platelet Vol. 10.3 fl (6.2-12.0); Monocyte# 0.52 X10^3/uL; Monocyte% 8.7 % (0-10); NRBC Flagged by Analyzer 0 % (0-5); Neutrophil # 3.78 X10^3/uL (2.7-7.7); Platelet Count 170 K/mm3 (150-450); RBC Distribution Width CV 15.2 % (11.6-14.6); RBC Distribution Width SD 43.7 fl (35.1-43.9); Red Blood Count 4.15 M/mm3 (4.6-6.2)
[2020-03-16 12:00] LABS: Anion Gap 4 (5-15); BUN 11 mg/dL (7-18); BUN/Creat Ratio 8.5 RATIO (10-20); Calcium,Total 8.6 mg/dL (8.5-10.1); Chloride 102 mmol/L (98-107); EST Glomerular Filtration Rate 57 mL/min (>60); Est Glom Filt Rate - Afr Amer 69 mL/min (>60); Glucose 204 mg/dL (74-106); Potassium 3.8 mmol/L (3.5-5.1); Sodium Level 137 mmol/L (136-145)
[2020-03-16 12:03] LABS: BNP,B-Type NATRIURETIC PEPTIDE 313.4 pg/mL (0-100)
== END | disposition home or self-care (01) ==
PROVIDERS: Internal Medicine Cardiovascular Disease; PCP Family Medicine; Referring Provider Nurse Practitioner Family; Visit Provider Nurse Practitioner Family
DX: E11.9 Type 2 diabetes mellitus without complications (principal); I25.10 Atherosclerotic heart disease of native coronary artery without angina pectoris; I48.91 Unspecified atrial fibrillation; I97.89 Other postprocedural complications and disorders of the circulatory system, not elsewhere classified; R06.00 Dyspnea, unspecified; Z95.5 Presence of coronary angioplasty implant and graft
CPT/HCPCS: 36415; 80048; 83880; 85025

== ENCOUNTER → 2020-03-19 | Outpatient (CLI) | payer MEDICARE, MEDICAID, SELFPAY ==
[2020-03-16 10:27] VITALS: BMI 33.7
== END | disposition home or self-care (01) ==
LOC: PSN 14:04
PROVIDERS: PCP Family Medicine; Referring Provider Internal Medicine Cardiovascular Disease; Visit Provider Internal Medicine Cardiovascular Disease
DX: I48.91 Unspecified atrial fibrillation (principal); I97.89 Other postprocedural complications and disorders of the circulatory system, not elsewhere classified
CPT/HCPCS: 93225; 93226

== ENCOUNTER 2020-04-05 13:57 | Emergency (ER) | payer MEDICARE, MEDICAID, SELFPAY ==
[2020-03-16 10:27] VITALS: BMI 33.7
[2020-04-05 13:58] VITALS: BP 118/78; PULSE 60; RESP 18; TEMP 36.8; O2SAT 98; BMI 33.7
--- NOTE | 2020-04-05 14:33 | RAD_ITS ---
STUDY: X-RAY CHEST REASON FOR EXAM: Male, 74 years old. SOB AND DIZZINESS OFF AND ON X 1 WEEK. PATIENT STATES JUST HAD HEART MONITOR PUT ON YESTERDAY. HX OF TRIPLE BYPASS WITH STENT PLACEMENTS. TECHNIQUE: PA and lateral views of the chest. COMPARISON: Comparison is made with prior study dated 10/21/2019. FINDINGS: Stable mild increased markings at the lung bases suggestive of bibasilar scarring. There is no demonstrated pleural abnormality. Sternal cerclage wires and vascular clips are present from a prior sternotomy and coronary artery bypass graft procedure (CABG). Normal mediastinum and cintia. Normal visualized pulmonary arteries. There is atherosclerotic calcification of the aortic arch with tortuosity. Normal visualized thoracic spine. Stable healed multiple right-sided rib fractures. There is no demonstrated abnormality of the visualized soft tissue structures of the upper abdomen. RAD/Chest PA and Lateral IMPRESSION: Stable mild degree of increased markings at the lung bases suggestive of bibasilar scarring. Electronically Signed: Natan Landis, at 14:49 EDT , Service support ,
--- NOTE | 2020-04-05 15:00 | EKG12_ITS ---
Test Reason : SOB Blood Pressure : / mmHG Vent. Rate : 060 BPM Atrial Rate : 060 BPM P-R Int : 302 ms QRS Dur : 156 ms QT Int : 486 ms P-R-T Axes : 014 -31 116 degrees QTc Int : 486 ms Sinus rhythm with sinus arrhythmia with 1st degree A-V block Left axis deviation Right bundle branch block Inferior infarct (cited on or before 09-MAR-2020) T wave abnormality, consider lateral ischemia Abnormal ECG When compared with ECG of 09-MAR-2020 12:09, No significant change was found Confirmed by VAMSI WELCH ([id number]), department editor LM SAGASTUME ([id number]) on 04/19/2020 10:06:43 AM Referred By: JOSE G Confirmed By:VAMSI WELCH
--- NOTE | 2020-04-05 15:01 | ED.VIS.GEN ---
History of Present Illness Chief Complaint: Shortness of Breath Informant: Patient, Family Narrative: Patient is a 74-year-old male who presents to the emergency department for shortness of breath over the past month. He states that it has been progressively getting worse over the past week. He walks a short distances and becomes very winded. He denies any associated shortness of breath. No associated cough, cold, congestion. Denies any fevers or chills. He has been having some palpitations. He was started with a loop recorder yesterday. He does have a history of atrial fibrillation and is on Eliquis currently. He was prescribed amiodarone but with his other doctor told him not to take this. He has not been on this at all. He did have coronary artery bypass in January of this year. Has any leg swelling or calf pain. No history of DVT/PE. No abdominal pain or nausea/vomiting. No diaphoresis. Past Medical History - Allergies and Home Meds Allergies/Adverse Reactions: Allergies acetaminophen [From Vicodin] Allergy (Verified 04/05/20 14:01) Shortness of breath clopidogrel bisulfate [From Plavix] Allergy (Verified 04/05/20 14:01) Rash hydrocodone [From Vicodin] Allergy (Verified 04/05/20 14:01) Shortness of breath magnesium Allergy (Verified 04/05/20 14:01) Chest tightness cefdinir Adverse Reaction (Verified 04/05/20 14:01) Nausea/Vom/Diarrhea gemfibrozil [From Lopid] Adverse Reaction (Verified 04/05/20 14:01) Unknown levofloxacin [From Levaquin] Adverse Reaction (Verified 04/05/20 14:01) Vomiting rosuvastatin calcium [From Crestor] Adverse Reaction (Verified 04/05/20 14:01) Other MUSCLE PAIN tramadol Adverse Reaction (Verified 04/05/20 14:01) Nausea/Vom/Diarrhea Primary Care Physician: Rogelio Lock MD [Primary Care Provider] - 2 Days Prior records reviewed: Yes Past Medical History: - - Diabetes, coronary artery disease, AAA, hypertension, hyperlipidemia, cardiomyopathy, atrial fibrillation Surgical History: noncontributory, coronary bypass surgery Smoking Status: Former smoker Review of Systems All systems negative except as indicated General: Denies: Chills, Fever, Sweats Eyes: Denies: Visual changes - bilaterally, Diplopia ENT: Denies: Rhinorrhea, Sore throat Cardiovascular: Denies: Chest pain, Palpitations Respiratory: Reports: Dyspnea, Dyspnea on exertion. Denies: Cough Gastrointestinal: Denies: Abdominal pain, Nausea, Vomiting, Diarrhea, Melena, Hematochezia Genitourinary: Denies: Dysuria, Hematuria, Frequency Musculoskeletal: Denies: Back pain, Extremity Pain Skin: Denies: Rash, Wounds Neurological: Denies: Headache, Weakness, Numbness Physical Exam Vital Signs/Narrative: Vital Signs Temp Pulse Resp BP Pulse Ox 04/05/20 13:58 98.2 F 60 18 118/78 98 Inital Vital Signs reviewed: Yes General: Well nourished, Well developed, No Acute Distress Head: Normocephalic, Atraumatic Eyes: Perrl, EOMI ENT: Moist mucous membranes, No rhinorrhea Neck: Supple, Nontender Cardiovascular: Regular rate, Regular rhythm, No murmurs Respiratory: No distress, CTA bilaterally, Chest nontender Abdomen: Soft, Nontender, Nondistended Back: Nontender, Normal Inspection Extremities: Nontender, No edema. Negative for: Edema, Calf Tenderness Skin: Normal color, No rash Neurological: Alert, Oriented x3, Cranial nerves II-XII grossly intact, Normal Strength, Normal Sensation Psychological: Normal affect, Normal Mood Diagnostic/Tx/Re-eval - EKG Initial EKG Interpretation: - - Rate of 60 bpm in sinus rhythm. Prolonged ID interval at 302 ms. Prolonged QRS at 156 ms with right bundle branch block. No significant ST elevation. Has T wave inversions throughout the anterior lateral leads. Previous EKG for comparison was performed on March 092019. He did have the first-degree AV block at that time with a right bundle branch block. - Medical Decision Making Patient presents to the emergency department for shortness of breath with exertion. He does have many cardiac risk factors. Upon arrival to the [facility] department satting well on room air. Non-tachycardic. Vital signs otherwise within normal limits. Physical exam is benign. Will check basic lab work. Was started on a loop recorder yesterday. Will check basic lab work along with EKG and chest x-ray. EKG did not show any signs of ischemia or arrhythmia. Initial troponin negative. BNP is mildly elevated. His hemoglobin has been steadily decreasing. Did do a rectal exam which was Hemoccult negative. He is aware that he has been anemic in the past and I thought this was due to his previous surgery. Patient may benefit from being placed on iron supplementation. He is to call discussed this with his family medicine doctor. Otherwise patient vital signs have been stable throughout ED stay. Has not been hypoxic at all. Low concern for pulmonary embolism given the fact that this of symptoms have been present for over a month. He is also not been tachycardic or hypoxic. Chest pain associated with this. He is to follow-up with his occupational therapy aide with his loop recorder. If he develops any worsening symptoms or any chest pain at all he is to return to the emerge department immediately. He understands and is agreeable this plan. Will discharge home in stable condition. ED Disposition - Plan for ED Patient: Disposition: Home or Assisted Living Diagnosis: First degree AV block, Anemia, Dyspnea on exertion Instructions: Anemia, ED Dyspnea Referrals: Rogelio Lock MD [Primary Care Provider] - 2 Days
[2020-04-05 15:33] VITALS: BP 145/77; PULSE 55; RESP 16; TEMP 36.6; O2SAT 97
[2020-04-05 15:39] LABS: Absolute Lymphocyte Count 0.95 X10^3/uL (0.83-4.51); Basophil# 0.04 X10^3/uL; Basophil% 0.9 % (0-1); Eosinophil# 0.13 X10^3/uL; Eosinophils% 2.8 % (0-5); Hematocrit 31.5 % (40-54); Lymphocyte # 0.95 X10^3/ul (4.0); Lymphocyte % 20.6 % (19-41); Mean Corp Hgb Conc 28.6 g/dL (32-36); Mean Corpuscular Hgb 21.7 pg (27.0-32.0); Mean Corpuscular Volume 76.1 fL (80-94); Mean Platelet Vol. 10.1 fl (6.2-12.0); Monocyte# 0.42 X10^3/uL; Monocyte% 9.1 % (0-10); NRBC Flagged by Analyzer 0 % (0-5); Neutrophil # 3.03 X10^3/uL (2.7-7.7); Neutrophil % 65.7 % (47-70); Platelet Count 154 K/mm3 (150-450); RBC Distribution Width CV 15.4 % (11.6-14.6); RBC Distribution Width SD 42.5 fl (35.1-43.9); Red Blood Count 4.14 M/mm3 (4.6-6.2); White Blood Count 4.6 K/mm3 (4.4-11.0)
[2020-04-05 15:56] LABS: Anion Gap 6 (5-15); BUN 16 mg/dL (7-18); BUN/Creat Ratio 12.7 RATIO (10-20); Calcium,Total 8.6 mg/dL (8.5-10.1); Chloride 102 mmol/L (98-107); Creatinine, Serum 1.26 mg/dL (0.70-1.30); EST Glomerular Filtration Rate 59 mL/min (>60); Est Glom Filt Rate - Afr Amer 72 mL/min (>60); Estimated Creatinine Clearance 49.01 ml/min; Glucose 272 mg/dL (74-106); Magnesium 2.1 mg/dL (1.6-2.6); Potassium 4.1 mmol/L (3.5-5.1); Sodium Level 137 mmol/L (136-145)
[2020-04-05 16:53] VITALS: BP 119/77; PULSE 96; RESP 19; TEMP 36.8; O2SAT 96
[2020-04-05 17:06] VITALS: BP 126/77; PULSE 76; RESP 17; O2SAT 96
[2020-04-05 17:08] VITALS: BP 126/77; PULSE 76; RESP 17; TEMP 36.5; O2SAT 96
[2020-04-05 18:12] VITALS: BP 137/68; PULSE 104; RESP 18; O2SAT 100; O2SAT 98
== END 2020-04-05 18:15 | disposition home or self-care (01) ==
PROVIDERS: Emergency Provider Emergency Medicine; PCP Family Medicine
DX: I44.0 Atrioventricular block, first degree (principal); D64.9 Anemia, unspecified; R06.09 Other forms of dyspnea; I48.91 Unspecified atrial fibrillation; I25.10 Atherosclerotic heart disease of native coronary artery without angina pectoris; Z79.01 Long term (current) use of anticoagulants; Z87.891 Personal history of nicotine dependence; Z95.1 Presence of aortocoronary bypass graft
CPT/HCPCS: 71046; 80048; 82274; 83735; 83880; 84484; 85025; 93005; 99285; A4216

== ENCOUNTER → 2020-04-20 | Outpatient (CLI) | payer MEDICARE, MEDICAID, SELFPAY ==
[2020-04-05 13:58] VITALS: BMI 33.7
[2020-04-12 12:56] VITALS: BMI 33.9
[2020-04-20 17:23] LABS: Vitamin B12 466 pg/mL (211-911)
[2020-04-20 17:33] LABS: Ferritin 19 ng/mL (26-388); Iron 80 ug/dL (65-175)
[2020-04-20 17:40] LABS: Absolute Lymphocyte Count 1.17 X10^3/uL (0.83-4.51); Absolute Neutrophil Count 3.8 X10^3/uL (2.0-7.7); Basophil# 0.04 X10^3/uL; Basophil% 0.7 % (0-1); Eosinophil# 0.15 X10^3/uL; Eosinophils% 2.7 % (0-5); Hematocrit 35.5 % (40-54); Lymphocyte # 1.17 X10^3/ul (4.0); Lymphocyte % 21.1 % (19-41); Mean Corp Hgb Conc 28.2 g/dL (32-36); Mean Corpuscular Hgb 22.8 pg (27.0-32.0); Mean Corpuscular Volume 81.1 fL (80-94); Mean Platelet Vol. 10.9 fl (6.2-12.0); Monocyte# 0.34 X10^3/uL; Monocyte% 6.1 % (0-10); NRBC Flagged by Analyzer 0 % (0-5); Neutrophil # 3.81 X10^3/uL (2.7-7.7); Neutrophil % 68.7 % (47-70); POSITIVE MORPHOLOGY YES; Platelet Count 179 K/mm3 (150-450); RBC Distribution Width CV 21.7 % (11.6-14.6); RBC Distribution Width SD 61.1 fl (35.1-43.9); Red Blood Count 4.38 M/mm3 (4.6-6.2); White Blood Count 5.6 K/mm3 (4.4-11.0)
[2020-04-20 17:44] LABS: Differential Indicated SCAN CRITERIA MET
[2020-04-20 20:54] LABS: Anisocytosis 2+; Hypochromasia 1+; Ovalocyte RARE
== END | disposition home or self-care (01) ==
LOC: BFHLAB 15:25
PROVIDERS: PCP Family Medicine; Visit Provider Family Medicine
DX: D64.9 Anemia, unspecified (principal)
CPT/HCPCS: 36415; 82607; 82728; 82746; 83540; 85025

== ENCOUNTER 2020-05-20 11:21 | Emergency (ER) | payer MEDICARE, MEDICAID, SELFPAY ==
[2020-05-12 11:38] VITALS: BMI 34.4
[2020-05-20 11:22] VITALS: BP 154/101; PULSE 48; RESP 16; TEMP 36.3; O2SAT 99; BMI 34.4
--- NOTE | 2020-05-20 11:52 | RAD_ITS ---
STUDY: X-RAY - LEFT HAND REASON FOR EXAM: Male, 75 years old. Fell today, multiple cuts on left hand and arm TECHNIQUE: 3 view(s) of the hand. COMPARISON: Comparison is made with prior study of 11/09/2016. FINDINGS: Normal radiocarpal articulation. Normal distal radioulnar joint. Normal visualized carpal bones. Normal carpal articulations There is degenerative arthrosis of the carpometacarpal articulation of the thumb with lateral subluxation of the first metacarpus. Normal second through fifth carpometacarpal joints. Healed boxer type fracture of the distal fifth metacarpal. Normal metacarpophalangeal joint of the thumb. Normal interphalangeal joint of the thumb. Normal proximal and distal phalanges of the thumb. Normal metacarpophalangeal joints of the second through fifth fingers. There is diffuse articular joint space narrowing of the proximal and distal interphalangeal joints of the second through fifth fingers, but without erosive changes or periarticular soft tissue swelling. Normal phalanges of the second through fifth fingers. Multiple small radio opaque densities in the soft tissues overlying the ulnar aspect of the fourth and fifth digits as well as the fifth metacarpal. RAD/Hand Min 3 Views IMPRESSION: Findings suggestive of multiple small foreign bodies in the soft tissues overlying the ulnar aspect of the fourth and fifth digits. Electronically Signed: Natan Landis, at 12:40 EDT , Service support ,
--- NOTE | 2020-05-20 11:52 | CT_ITS ---
STUDY: CT BRAIN WITHOUT CONTRAST REASON FOR EXAM: Male, 75 years old. FALL, ON ELIQUIS RADIATION DOSAGE (If Supplied By Facility): CTDIvol = ( 60.81 ) mGy, DLP = ( 1112.69 ) mGycm TECHNIQUE: Transaxial CT imaging of the brain was performed without administration of intravenous contrast material. Individualized dose optimization techniques were used for this CT. COMPARISON: No relevant priors. FINDINGS: Normal soft tissue structures. Normal calvarium. There is mild cerebral atrophy with widening of the extra-axial spaces and ventricular dilatation. There are areas of decreased attenuation within the white matter tracts of the supratentorial brain, consistent with microvascular disease changes. Normal basal ganglia and thalami. Normal brainstem. There is mild cerebellar atrophy. There is no intracranial hemorrhage. There are no findings of an acute ischemic infarction. Atherosclerotic calcification of the vertebral arteries and cavernous portions of the internal carotid arteries bilaterally. Normal visualized paranasal sinuses. CT/Brain/Head without Contrast IMPRESSION: Chronic involutional changes of the brain. Electronically Signed: Natan Landis, at 12:23 EDT , Service support ,
--- NOTE | 2020-05-20 11:53 | RAD_ITS ---
STUDY: X-RAY - LEFT RADIUS AND ULNA REASON FOR EXAM: Male, 75 years old. Fell today, multiple cuts on left hand and arm TECHNIQUE: AP and lateral view(s) of the forearm. COMPARISON: None. FINDINGS: Punctate radiopaque density seen in the soft tissues along the dorsal aspect overlying the distal shaft of the radius. Normal visualized radius. Normal visualized ulna. RAD/Forearm 2 Views IMPRESSION: Punctate radiopaque density seen in the dorsal soft tissues overlying the distal shaft of the radius. Electronically Signed: Natan Landis, at 12:37 EDT , Service support ,
--- NOTE | 2020-05-20 11:55 | ED.DCSUM_ITS ---
History of Present Illness Chief Complaint: Fall Informant: Patient Onset: Today Current Severity: Moderate Maximum Severity: Moderate Narrative: Patient presents after tripping over some wire and falling at a construction site with a reporting cement. He has an abrasion of the nasal bridge, multiple skin tears to the left arm and hand. He was complaining of some left wrist pain earlier which seems to be improved. Patient was recently started on Eliquis for paroxysmal A. fib. He denies loss of consciousness or headache. - Past Medical History (1) Abdominal aortic aneurysm without rupture Status: Chronic (2) Atherosclerosis [place] coronary artery [place] heart without angina pectoris Status: Chronic Comment: Status post stenting to diagonal and circumflex in 2003; (3) Essential hypertension Status: Chronic (4) History of coronary artery bypass graft x 3 Status: Chronic Comment: LANDON to LAD, SVG to Diagonal, SVG to PDA 01/30/20 @ [facility] [address] (5) History of coronary artery stent placement Status: Chronic Comment: Status post stenting to diagonal and circumflex in 2003; (6) Hyperlipidemia, unspecified Status: Chronic (7) Ischemic cardiomyopathy Status: Chronic (8) Paroxysmal atrial fibrillation Status: Chronic Comment: [facility] on 03/09/2020; (9) Type 2 diabetes mellitus Status: Chronic Past Medical History - Allergies and Home Meds Allergies/Adverse Reactions: Allergies acetaminophen [From Vicodin] Allergy (Verified 05/20/20 11:22) Shortness of breath clopidogrel bisulfate [From Plavix] Allergy (Verified 05/20/20 11:22) Rash hydrocodone [From Vicodin] Allergy (Verified 05/20/20 11:22) Shortness of breath magnesium Allergy (Verified 05/20/20 11:22) Chest tightness cefdinir Adverse Reaction (Verified 05/20/20 11:22) Nausea/Vom/Diarrhea gemfibrozil [From Lopid] Adverse Reaction (Verified 05/20/20 11:22) Unknown levofloxacin [From Levaquin] Adverse Reaction (Verified 05/20/20 11:22) Vomiting rosuvastatin calcium [From Crestor] Adverse Reaction (Verified 05/20/20 11:22) Other MUSCLE PAIN tramadol Adverse Reaction (Verified 05/20/20 11:22) Nausea/Vom/Diarrhea Primary Care Physician: Rogelio Lock MD [Primary Care Provider] - Prior records reviewed: Yes Surgical History: noncontributory, coronary bypass surgery Smoking Status: Former smoker Review of Systems General: Denies: Chills Eyes: Denies: Visual changes - bilaterally ENT: Denies: Bilateral ear pain Cardiovascular: Denies: Chest pain Respiratory: Denies: Dyspnea, Cough Gastrointestinal: Denies: Abdominal pain, Vomiting Musculoskeletal: Reports: Extremity Pain Neurological: Denies: Headache Hematologic: Reports: Easy bleeding - Secondary to Eliquis. Denies: Easy bruising Allergy: Denies: Uticaria Physical Exam Vital Signs/Narrative: Vital Signs Temp Pulse Resp BP Pulse Ox 05/20/20 11:22 97.4 F L 48 L 16 154/101 H 99 Inital Vital Signs reviewed: Yes General: Well nourished, Well developed Head: Normocephalic ENT: Moist mucous membranes, - - 1 cm linear abrasion across the nasal bridge. Bleeding controlled. Neck: Supple Cardiovascular: Regular rate, Regular rhythm Respiratory: No distress, CTA bilaterally Abdomen: Soft, Nontender Extremities: - - Numerous skin tears noted to the left forearm and left hand. There is a 2 cm linear laceration/skin tear to the left fourth finger that may be able to hold suture. He has full range of motion of all joints. Good cap refill and sensation distally. Neurological: Alert, Oriented x3 Psychological: Normal affect Diagnostic/Tx/Re-eval Impressions Brain CT 05/20/20 11:52 IMPRESSION: Chronic involutional changes of the brain. Electronically Signed: Natan Landis, at 12:23 EDT , Service support , Hand X-Ray 05/20/20 11:52 IMPRESSION: Findings suggestive of multiple small foreign bodies in the soft tissues overlying the ulnar aspect of the fourth and fifth digits. Electronically Signed: Natan Landis, at 12:40 EDT , Service support , Forearm X-Ray 05/20/20 11:53 IMPRESSION: Punctate radiopaque density seen in the dorsal soft tissues overlying the distal shaft of the radius. Electronically Signed: Natan Landis, at 12:37 EDT , Service support , 05/20/20 11:52 CT Head [Brain/Head without Contrast] [CT] Stat Hand Min 3 Views [RAD] Stat 05/20/20 11:53 Forearm 2 Views [RAD] Stat - Medical Decision Making The numerous skin tears on the left forearm and hand are cleansed. The linear laceration on the left fourth finger is anesthetized with 2 cc of 1% lidocaine and closed with 6 simple interval sutures of 4-0 nylon. Facial wounds were cleansed and Dermabond is a placed across the nasal bridge. X-rays are discussed with the patient. Multiple small foreign bodies were washed out of the wounds during cleansing. Patient is to have sutures removed in 1 week. Tetanus update was provided. ED Disposition - Plan for ED Patient: Disposition: Home or Assisted Living Diagnosis: Fall, Skin avulsion, Finger laceration Instructions: ED Laceration Hand, ED AVULSION LACERATION Referrals: Rogelio Lock MD [Primary Care Provider] - 7 Days for suture removal
[2020-05-20] MEDS: Diphth,Pertuss(Acell),Tet Vac 0.5 ML Vial IM (12:24)
== END 2020-05-20 13:59 | disposition home or self-care (01) ==
PROVIDERS: Emergency Provider Emergency Medicine; PCP Family Medicine
DX: S61.215A Laceration without foreign body of left ring finger without damage to nail, initial encounter (principal); S51.812A Laceration without foreign body of left forearm, initial encounter; S61.412A Laceration without foreign body of left hand, initial encounter; S00.31XA Abrasion of nose, initial encounter; I48.0 Paroxysmal atrial fibrillation; I25.10 Atherosclerotic heart disease of native coronary artery without angina pectoris; I10 Essential (primary) hypertension; E78.5 Hyperlipidemia, unspecified; E11.9 Type 2 diabetes mellitus without complications; Z95.1 Presence of aortocoronary bypass graft; Z95.5 Presence of coronary angioplasty implant and graft; Z87.891 Personal history of nicotine dependence; Z79.02 Long term (current) use of antithrombotics/antiplatelets; Z79.4 Long term (current) use of insulin; Z79.899 Other long term (current) drug therapy; Z23 Encounter for immunization; W18.09XA Striking against other object with subsequent fall, initial encounter; Y93.01 Activity, walking, marching and hiking; Y92.69 Other specified industrial and construction area as the place of occurrence of the external cause; Y99.8 Other external cause status
CPT/HCPCS: 12001; 70450; 73090; 73130; 90471; 90715; 99284

== ENCOUNTER 2020-07-14 12:28 | Emergency (ER) | payer MEDICARE, MEDICAID, SELFPAY ==
--- NOTE | 2020-07-14 | CT_ITS ---
STUDY: CT CHEST WITHOUT CONTRAST REASON FOR EXAM: Male, 75 years old. S/P FALL-LEFT RIB PAIN. CABG/STENTS RADIATION DOSAGE (If Supplied By Facility): CTDIvol = ( 19.55 ) mGy, DLP = ( 708.29 ) mGycm TECHNIQUE: Transaxial imaging was performed without the administration of intravenous contrast material. Multiplanar coronal and sagittal images were reformatted. Individualized dose optimization techniques were used for this CT. COMPARISON: Comparison is made with prior study dated 11/17/2016. FINDINGS: Minimal increased markings at the lung bases suggestive of scarring. Calcified granuloma superior segment of the right lower lobe. There is no demonstrated pleural abnormality. Sternal cerclage wires and vascular clips are present from a prior sternotomy and coronary artery bypass graft procedure (CABG). There are calcifications of the coronary arteries. There are multiple small lymph nodes within the mediastinum, which are normal in size and morphology most compatible with reactive lymph hyperplasia. Normal hilar regions. Normal unenhanced pulmonary arteries. There is atherosclerotic calcification of the aortic arch with tortuosity and elongation of the aortic arch and descending thoracic aorta. There are degenerative changes of the thoracic spine. Healed right rib fractures. There is no demonstrated abnormality of the visualized upper abdomen. CT/Chest without Contrast IMPRESSION: Healed right rib fractures. Stable mild scarring at the lung bases. Electronically Signed: Natan Landis, at 14:18 EST , Service support ,
[2020-07-14 12:29] VITALS: BP 122/41; PULSE 90; RESP 16; TEMP 36.1; O2SAT 98; BMI 33.3
--- NOTE | 2020-07-14 12:41 | ED.DCSUM_ITS ---
History of Present Illness Chief Complaint: Fall Informant: Patient Narrative: Patient states that he sustained a mechanical fall today injuring his left lower ribs and causing skin tear to the left elbow. He denies any other injuries. He states he is breathing normally though it is painful. He denies any head injury. - Past Medical History (1) Abdominal aortic aneurysm without rupture Status: Chronic (2) Essential hypertension Status: Chronic (3) History of coronary artery bypass graft x 3 Status: Chronic Comment: LANDON to LAD, SVG to Diagonal, SVG to PDA 01/30/20 @ [facility] [address] (4) History of coronary artery stent placement Status: Chronic Comment: Status post stenting to diagonal and circumflex in 2003; (5) Hyperlipidemia, unspecified Status: Chronic (6) Ischemic cardiomyopathy Status: Chronic (7) Paroxysmal atrial fibrillation Status: Chronic Comment: [facility] on 03/09/2020; (8) Type 2 diabetes mellitus Status: Chronic Past Medical History - Allergies and Home Meds Allergies/Adverse Reactions: Allergies acetaminophen [From Vicodin] Allergy (Verified 07/14/20 12:28) Shortness of breath clopidogrel bisulfate [From Plavix] Allergy (Verified 07/14/20 12:28) Rash hydrocodone [From Vicodin] Allergy (Verified 07/14/20 12:28) Shortness of breath magnesium Allergy (Verified 07/14/20 12:28) Chest tightness cefdinir Adverse Reaction (Verified 07/14/20 12:28) Nausea/Vom/Diarrhea gemfibrozil [From Lopid] Adverse Reaction (Verified 07/14/20 12:28) Unknown levofloxacin [From Levaquin] Adverse Reaction (Verified 07/14/20 12:28) Vomiting rosuvastatin calcium [From Crestor] Adverse Reaction (Verified 07/14/20 12:28) Other MUSCLE PAIN tramadol Adverse Reaction (Verified 07/14/20 12:28) Nausea/Vom/Diarrhea Primary Care Physician: Rogelio Lock MD [Primary Care Provider] - 1 Week Prior records reviewed: Yes Surgical History: noncontributory, coronary bypass surgery Smoking Status: Former smoker Drugs: None Review of Systems General: Denies: Chills, Fever, Sweats Eyes: Denies: Visual changes - bilaterally, Diplopia ENT: Denies: Rhinorrhea, Sore throat Cardiovascular: Reports: Chest pain. Denies: Palpitations Respiratory: Denies: Dyspnea, Cough, Dyspnea on exertion Gastrointestinal: Denies: Abdominal pain, Nausea, Vomiting, Diarrhea, Melena, Hematochezia Genitourinary: Denies: Dysuria, Hematuria, Frequency Musculoskeletal: Denies: Back pain, Extremity Pain Skin: Reports: Wounds. Denies: Rash Neurological: Denies: Headache, Weakness, Numbness Physical Exam Vital Signs/Narrative: Vital Signs Temp Pulse Resp BP Pulse Ox 07/14/20 12:29 97.0 F L 90 16 122/41 H 98 Inital Vital Signs reviewed: Yes General: Well nourished, Well developed, Obese, No Acute Distress Head: Normocephalic, Atraumatic Eyes: Perrl, EOMI ENT: Moist mucous membranes, No rhinorrhea Neck: Supple, Nontender Cardiovascular: Regular rate, Regular rhythm, No murmurs Respiratory: No distress, CTA bilaterally, Chest tenderness - Posterior, mid axillary, and anterior left lower ribs. No crepitance. Equal breath sounds bilaterally no ecchymosis seen Abdomen: Soft, Nontender, Nondistended, Normal bowel sounds Back: Nontender, Normal Inspection Extremities: Nontender, No edema Skin: Normal color, No rash, Trauma - 2 cm skin tear to the posterior left elbow. Half centimeter superficial skin tear to the left wrist along the watchband Neurological: Alert, Oriented x3, Cranial nerves II-XII grossly intact, Normal Strength, Normal Sensation Psychological: Normal affect, Normal Mood Diagnostic/Tx/Re-eval Clinical Impression(s) from Imaging Studies Chest CT 07/14/20 00:00 IMPRESSION: Healed right rib fractures. Stable mild scarring at the lung bases. Electronically Signed: Natan Landis, at 14:18 EST , Service support , - Medical Decision Making Wounds were cleansed and dressed. CT of the chest demonstrates no acute left- sided rib fractures. Patient will be discharged home with supportive care instructions to follow-up return if worsening or concerns ED Disposition - Plan for ED Patient: Disposition: Home or Assisted Living Diagnosis: Chest wall contusion, Skin tear of left elbow without complication Instructions: ED CHEST CONTUSION Referrals: Rogelio Lock MD [Primary Care Provider] - 1 Week
[2020-07-14 13:30] VITALS: RESP 18
[2020-07-14 14:37] VITALS: RESP 18
== END 2020-07-14 14:37 | disposition home or self-care (01) ==
PROVIDERS: Emergency Provider Emergency Medicine; PCP Family Medicine
DX: S20.219A Contusion of unspecified front wall of thorax, initial encounter (principal); S51.012A Laceration without foreign body of left elbow, initial encounter; E66.9 Obesity, unspecified; W19.XXXA Unspecified fall, initial encounter; Z87.891 Personal history of nicotine dependence
CPT/HCPCS: 71250; 99282

== ENCOUNTER → 2020-10-20 15:01 | Outpatient (CLI) | payer MEDICARE, SELFPAY ==
[2020-03-16 10:27] VITALS: BMI 33.7
[2020-08-09 08:55] VITALS: BMI 33.3
[2020-10-20 16:29] LABS: Absolute Lymphocyte Count 1.38 X10^3/uL (0.83-4.51); Absolute Neutrophil Count 3.2 X10^3/uL (2.0-7.7); Basophil# 0.05 X10^3/uL; Eosinophil# 0.16 X10^3/uL; Eosinophils% 3.1 % (0-5); Hematocrit 43.9 % (40-54); Hemoglobin 14.2 g/dL (13.0-16.5); Lymphocyte # 1.38 X10^3/ul (4.0); Lymphocyte % 26.7 % (19-41); Mean Corp Hgb Conc 32.3 g/dL (32-36); Mean Corpuscular Hgb 28.5 pg (27.0-32.0); Mean Corpuscular Volume 88.2 fL (80-94); Mean Platelet Vol. 10.1 fl (6.2-12.0); Monocyte# 0.35 X10^3/uL; Monocyte% 6.8 % (0-10); NRBC Flagged by Analyzer 0 % (0-5); Neutrophil # 3.19 X10^3/uL (2.7-7.7); Neutrophil % 61.8 % (47-70); Platelet Count 164 K/mm3 (150-450); RBC Distribution Width CV 14.7 % (11.6-14.6); RBC Distribution Width SD 47.7 fl (35.1-43.9); Red Blood Count 4.98 M/mm3 (4.6-6.2); White Blood Count 5.2 K/mm3 (4.4-11.0)
[2020-10-20 17:44] LABS: AST(SGOT) 19 U/L (15-37); Alanine Aminotransfer ALT/SGPT 18 U/L (16-61); Alkaline Phosphatase 112 U/L (45-117); Anion Gap 7 (5-15); BUN 14 mg/dL (7-18); BUN/Creat Ratio 11.3 RATIO (10-20); Chloride 100 mmol/L (98-107); Creatinine, Serum 1.24 mg/dL (0.70-1.30); EST Glomerular Filtration Rate 60 mL/min (>60); Est Glom Filt Rate - Afr Amer 73 mL/min (>60); Ferritin 25 ng/mL (26-388); Globulin 3.9 g/dL (2.2-4.2); Glucose 161 mg/dL (74-106); Iron 83 ug/dL (65-175); Potassium 3.6 mmol/L (3.5-5.1); Protein, Total 7.9 g/dL (6.4-8.2); Sodium Level 134 mmol/L (136-145); Thyroid Stim Hormone (TSH) 3.28 uIU/mL (0.358-3.74)
== END ==
PROVIDERS: PCP Family Medicine; Visit Provider Family Medicine
DX: I10 Essential (primary) hypertension (principal); E11.29 Type 2 diabetes mellitus with other diabetic kidney complication; D50.9 Iron deficiency anemia, unspecified; K59.00 Constipation, unspecified; R80.9 Proteinuria, unspecified
CPT/HCPCS: 36415; 80053; 82728; 83540; 84443; 85025

== ENCOUNTER → 2021-03-03 14:27 | Outpatient (CLI) | payer MEDICARE, SELFPAY ==
[2020-08-09 08:55] VITALS: BMI 33.3
[2021-03-03 15:51] LABS: Absolute Lymphocyte Count 0.95 X10^3/uL (0.83-4.51); Absolute Neutrophil Count 3.7 X10^3/uL (2.0-7.7); Basophil# 0.04 X10^3/uL; Basophil% 0.8 % (0-1); Eosinophil# 0.11 X10^3/uL; Eosinophils% 2.1 % (0-5); Hematocrit 26.2 % (40-54); Hemoglobin 7.3 g/dL (13.0-16.5); Lymphocyte # 0.95 X10^3/ul (0.83-4.51); Lymphocyte % 18.2 % (19-41); Mean Corp Hgb Conc 27.9 g/dL (32-36); Mean Corpuscular Hgb 20.9 pg (27.0-32.0); Mean Corpuscular Volume 74.9 fL (80-94); Monocyte# 0.39 X10^3/uL; Monocyte% 7.5 % (0-10); NRBC Flagged by Analyzer 0 % (0-5); Neutrophil # 3.71 X10^3/uL (2.7-7.7); Neutrophil % 70.8 % (47-70); Platelet Count 160 K/mm3 (150-450); RBC Distribution Width CV 15.8 % (11.6-14.6); RBC Distribution Width SD 42.5 fl (35.1-43.9); White Blood Count 5.2 K/mm3 (4.4-11.0)
[2021-03-03 16:27] LABS: ALB/GLOB Ratio 0.9 RATIO (0.9-2.4); AST(SGOT) 9 U/L (15-37); Alanine Aminotransfer ALT/SGPT 14 U/L (16-61); Albumin, Serum 3.7 g/dL (3.2-5.0); Alkaline Phosphatase 93 U/L (45-117); Anion Gap 9 (5-15); BUN 14 mg/dL (7-18); BUN/Creat Ratio 9.5 RATIO (10-20); Calcium,Total 8.7 mg/dL (8.5-10.1); Chloride 101 mmol/L (98-107); Creatinine, Serum 1.48 mg/dL (0.70-1.30); EST Glomerular Filtration Rate 49 mL/min (>60); Est Glom Filt Rate - Afr Amer 59 mL/min (>60); Globulin 3.9 g/dL (2.2-4.2); Glucose 172 mg/dL (74-106); Potassium 4.3 mmol/L (3.5-5.1); Protein, Total 7.6 g/dL (6.4-8.2); Sodium Level 138 mmol/L (136-145); Thyroid Stim Hormone (TSH) 2.13 uIU/mL (0.358-3.74)
== END ==
PROVIDERS: PCP Family Medicine; Visit Provider Family Medicine
DX: D50.9 Iron deficiency anemia, unspecified (principal); I10 Essential (primary) hypertension; E11.65 Type 2 diabetes mellitus with hyperglycemia; I48.92 Unspecified atrial flutter
CPT/HCPCS: 36415; 80053; 84443; 85025

== ENCOUNTER 2021-03-04 14:05 | Emergency (ER) | payer MEDICARE, MEDICAID, SELFPAY ==
[2020-08-09 08:55] VITALS: BMI 33.3
[2021-03-04] VITALS (7 sets, daily range): BP systolic 128–158; BP diastolic 56–74; PULSE 57–74; RESP 18–20; TEMP 36.1–36.8; O2SAT 95–100; BMI 33.3
--- NOTE | 2021-03-04 15:58 | EX.ED.DYSGE1 ---
HPI History of Present Illness Chief Complaint: Abn Labs Detail of Chief Complaint: Low hemoglobin and dyspnea on exertion Informant: patient and family Onset/Context/Timing Onset: Weeks Context: Gradual Onset Quality: Hemoglobin 7.2 Location: Hematologic Current Severity: Mild Maximum Severity: Moderate Worsened by: Dyspnea on exertion Relieved by: Rest Associated Symptoms Associated Symptoms: Fatigue Narrative Narrative: Patient is a 75-year-old male with history of paroxysmal atrial fibrillation, type 2 diabetes, abdominal aortic aneurysm, coronary bypass surgery, hyperlipidemia, ischemic cardiomyopathy as well as polyps. He presents because his hemoglobin was 7.2. He has not had black stools for 1 year. He is on an anticoagulant. He does bruise easily. He denies maroon-colored stool he is not on iron. He does take an aspirin as well. He denies chest pain with exertion. He denies orthopnea or PND. He denies hematemesis. Prior similar symptoms: No Recent Illness/Hospitalization: No [facility] Medical History (Updated 03/04/21 @ 19:[address] 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 BPH (benign prostatic hyperplasia) Essential hypertension Heart disease High cholesterol History of cardioversion (~03/09/20) HTN (hypertension) Hyperlipidemia, unspecified Ischemic cardiomyopathy PAC (premature atrial contraction) Personal history of colonic polyps Postoperative atrial fibrillation PVC (premature ventricular contraction) Type 2 diabetes mellitus Home Medications amlodipine 5 mg PO DAILY 12/13/15 [History Last Taken 03/09/20] esomeprazole magnesium 40 mg PO DAILY 12/13/15 [History Last Taken 03/09/20] tamsulosin 0.4 mg PO DAILY 12/13/15 [History Last Taken 03/09/20] furosemide 40 mg PO DAILY 02/26/16 [History Last Taken 03/09/20] aspirin 81 mg PO DAILY@0800 11/09/16 [History Last Taken 03/09/20] venlafaxine 150 mg PO BID 11/09/16 [History Last Taken 03/09/20] acetaminophen 325 mg tablet 650 mg PO Q6H PRN tab 02/11/20 [History Last Taken Unknown] albuterol sulfate 90 mcg/actuation aerosol inhaler 1 puff INHALATION ONCE 02/11/20 [History Last Taken Unknown] artifi.tears(hypromellose)(PF) 0.3 % eye drops 1 drp OPHTHALMIC 4-8XD PRN 02/11/20 [History Last Taken 03/09/20] oxycodone 5 mg tablet 5 mg PO Q6H PRN 02/11/20 [History Last Taken Unknown] apixaban 5 mg tablet 5 mg PO BID #1 tab 03/03/20 [Rx Last Taken 03/09/20] insulin glargine 100 unit/mL (3 mL) subcutaneous pen 34 unit SC DAILY ml 03/03/20 [History Last Taken Unknown] insulin lispro 100 unit/mL subcutaneous pen 10 unit SC TID ml 03/03/20 [History Last Taken Unknown] atorvastatin 10 mg tablet 10 mg PO QHS 03/31/20 [History Last Taken Unknown] carboxymethylcellulose sodium 1 % eye gel in a dropperette 1 drp OPHTHALMIC 4-6XD PRN #30 ea 03/31/20 [Rx Last Taken Unknown] ferrous sulfate 325 mg (65 mg iron) tablet 325 mg PO BID 04/12/20 [History Last Taken Unknown] potassium chloride 20 mEq tablet,extended release(part/cryst) 20 meq PO BID tab 05/12/20 [History Last Taken Unknown] metoprolol tartrate 25 mg tablet 12.5 mg PO BID tab 06/15/20 [History Last Taken Unknown] Allergy/AdvReac Type Severity Reaction Status Date / Time acetaminophen [From Vicodin] Allergy Shortness Verified 03/04/21 14:09 of breath clopidogrel bisulfate Allergy Rash Verified 03/04/21 14:09 [From Plavix] hydrocodone [From Vicodin] Allergy Shortness Verified 03/04/21 14:09 of breath magnesium Allergy Chest Verified 03/04/21 14:09 tightness cefdinir AdvReac Nausea/Vom/ Verified 03/04/21 14:09 Diarrhea gemfibrozil [From Lopid] AdvReac Unknown Verified 03/04/21 14:09 levofloxacin [From Levaquin] AdvReac Vomiting Verified 03/04/21 14:09 rosuvastatin calcium AdvReac Other Verified 03/04/21 14:09 [From Crestor] tramadol AdvReac Nausea/Vom/ Verified 03/04/21 14:09 Diarrhea Surgical History History of coronary artery bypass graft x 3 (~01/30/20) History of coronary artery stent placement History of left heart catheterization (LHC) (~10/28/19) S/P colon resection Status post cardiac surgery Social History (Updated 03/04/21 @ 16:[address] Yung Zuniga MD) household members: none Smoking Status: Former smoker alcohol intake: never substance use type: does not use ROS ROS ED Constitutional Constitutional ED: Denies chills, fever(s), subjective, sweats or weight loss Eyes Eyes: Denies blurry vision or change in vision ENT ENT ED: Denies ear pain, rhinorrhea or sore throat Cardiovascular Cardiovascular: Denies chest pain, orthopnea, palpitations, paroxysmal nocturnal dyspnea or racing heartbeat Respiratory/Chest Respiratory/Chest: Reports dyspnea on exertion; Denies cough, dyspnea, orthopnea or paroxysmal nocturnal dyspnea Gastrointestinal Gastrointestinal: Denies abdominal pain, melena, nausea or vomiting Genitourinary Genitourinary ED: Denies dysuria, hematuria or urinary frequency Musculoskeletal Musculoskeletal: Denies arthralgias, back pain, myalgias or neck pain Neurologic Neurologic: Reports weakness; Denies headache(s) Psychiatric Psychiatric: Denies anxiety or depression Hematologic/Lymphatic Hematologic/Lymphatic: Reports easy bruising Allergic/Immunologic Allergic/Immunologic ED: Denies urticaria EXAM Physical Exam Const Vital Signs: 03/04/21 14:06 03/04/21 16:21 Temperature 97 F L Temperature Source Temporal Pulse Rate 61 Respiratory Rate 18 Respiratory Effort Normal Respiratory Pattern Normal Blood Pressure 128/71 H Blood Pressure Mean 90 Pulse Ox 96 Oxygen Delivery Method Room Air Positive well nourished, well developed and obese General Appearance ED: well developed and NAD Nutritional Appearance: obese HEENT Reports TM's clear and moist mucous membranes Negative for trauma or tenderness Tympanic Membrane ED: Yes TM's clear Eyes PERRL and EOMs intact bilaterally General Eye ED: Yes pale conjunctiva; Negative for scleral icterus Neck no lymphadenopathy, supple and no JVD Chest Wall inspection of chest normal Resp normal respiratory effort and clear to auscultation bilaterally Effort and Inspection: pain with movement Cardio regular rate, regular rhythm, S1 normal heart sound, S2 normal heart sound and no murmurs GI normal to inspection, nondistended, normoactive bowel sounds, non-tender and non-distended Palpation: soft Back/Spine no CVA tenderness Cervical Spine: Negative for cervical spine tenderness Thoracic Spine / Upper Back: Negative for thoracic spinal tenderness Extremity Negative for normal to inspection Extremity Narrative: Patient does have stigmata of peripheral arterial disease and does admit to claudication at 200 yards. General Extremety ED: Yes other findings; Negative for edema or tenderness General Extremity: other findings; Negative for edema Neuro oriented x3, CN's II-XII intact bilaterally and no sensory deficits noted Sensorium / Orientation: alert Motor Exam: strength 5/5 throughout Psych mental status grossly normal Skin no rashes or lesions noted Skin Narrative: Patient has multiple wounds due to clipping his toenails too closely. None of these wounds appear infected. Wounds: wounds noted MDM MDM MDM Narrative Medical decision making narrative: Chronic condition. Etiology is unclear. That will need outpatient work-up. He will be transfused 1 unit of blood since he is symptomatic.Blood work from earlier this morning was reviewed. BUN to creatinine ratio was normal. Patient to be discharged after transfusion of 1 unit of blood unless he has a reaction. Lab Data Attestation: I reviewed the patient's lab results. Labs: Laboratory Results - last 24 hr 03/04/21 03/04/21 16:30 16:30 Blood Type A POSITIVE Antibody Screen NEGATIVE Crossmatch See Detail Discharge Plan Triage Chief Complaint: Abn Labs ED Provider: Yung Zuniga Dx/Rx/DC Orders Clinical Impression: Symptomatic anemia, Transfusion of blood during current hospitalisation Instructions: ED Anemia, Type Not Specified (Adult) Prescriptions: No Action acetaminophen 325 mg tablet 650 mg PO Q6H PRN (Reason: Pain Or Fever) RF: 0 artifi.tears(hypromellose)(PF) 0.3 % drops 1 drp OPHTHALMIC 4-8XD PRN (Reason: Dry Eye) RF: 0 oxycodone 5 mg tablet 5 mg PO Q6H PRN (Reason: Pain Score 4-10/10) RF: 0 albuterol sulfate [Proventil HFA] 90 mcg/actuation HFA aerosol inhaler 1 puff INHALATION ONCE RF: 0 insulin lispro [Humalog KwikPen Insulin] 100 unit/mL insulin pen 10 unit SC TID RF: 0 Lantus Solostar U-100 Insulin 100 unit/mL (3 mL) insulin pen 34 unit SC DAILY RF: 0 apixaban 5 mg tablet 5 mg PO BID Qty: 1 RF: 0 ferrous sulfate 325 mg (65 mg iron) tablet 325 mg PO BID RF: 0 amlodipine 5 MG tablet 5 mg PO DAILY RF: 0 tamsulosin 0.4 MG capsule 0.4 mg PO DAILY RF: 0 esomeprazole magnesium 40 MG capsule 40 mg PO DAILY RF: 0 potassium chloride 20 mEq tablet,ER particles/crystals 20 meq PO BID RF: 0 furosemide 40 MG tablet 40 mg PO DAILY RF: 0 venlafaxine 150 MG capsule 150 mg PO BID RF: 0 aspirin 81 MG tablet 81 mg PO DAILY@0800 RF: 0 atorvastatin 10 mg tablet 10 mg PO QHS RF: 0 Refresh Celluvisc 1 % dropperette,gel 1 drp OPHTHALMIC 4-6XD PRN (Reason: dry eye(s)) Qty: 30 RF: 0 metoprolol tartrate 25 mg tablet 12.5 mg PO BID RF: 0 Primary Care Provider: Rogelio Lock Referrals: Rogelio Lock MD [Primary Care Provider] - 5-7 Days Disposition Disposition: Home, Self Care
[2021-03-04 19:36] LABS: Bedside Glucose 285 mg/dL (70-110)
== END 2021-03-04 21:39 | disposition home or self-care (01) ==
PROVIDERS: Emergency Provider Emergency Medicine; PCP Family Medicine
DX: D64.9 Anemia, unspecified (principal); I48.0 Paroxysmal atrial fibrillation; E11.9 Type 2 diabetes mellitus without complications; E78.5 Hyperlipidemia, unspecified; I25.10 Atherosclerotic heart disease of native coronary artery without angina pectoris; I10 Essential (primary) hypertension; E66.9 Obesity, unspecified; Z79.4 Long term (current) use of insulin; Z79.02 Long term (current) use of antithrombotics/antiplatelets; Z79.899 Other long term (current) drug therapy
CPT/HCPCS: 36430; 82962; 86850; 86900; 86901; 86920; 86922; 99282; J7040; P9016; A4216

== ENCOUNTER → 2021-03-08 14:51 | Outpatient (CLI) | payer MEDICARE, MEDICAID, SELFPAY ==
[2021-03-08 13:52] VITALS: BMI 33.4
[2021-03-08 16:07] LABS: Absolute Lymphocyte Count 1.12 X10^3/uL (0.83-4.51); Absolute Neutrophil Count 3.7 X10^3/uL (2.0-7.7); Basophil# 0.04 X10^3/uL; Basophil% 0.7 % (0-1); Eosinophil# 0.13 X10^3/uL; Eosinophils% 2.4 % (0-5); Hematocrit 26.8 % (40-54); Hemoglobin 7.5 g/dL (13.0-16.5); Lymphocyte # 1.12 X10^3/ul (0.83-4.51); Lymphocyte % 20.6 % (19-41); Mean Corpuscular Hgb 21.4 pg (27.0-32.0); Mean Corpuscular Volume 76.6 fL (80-94); Mean Platelet Vol. 10.6 fl (6.2-12.0); Monocyte# 0.43 X10^3/uL; Monocyte% 7.9 % (0-10); NRBC Flagged by Analyzer 0 % (0-5); Neutrophil # 3.69 X10^3/uL (2.7-7.7); Neutrophil % 67.7 % (47-70); Platelet Count 153 K/mm3 (150-450); RBC Distribution Width CV 17.1 % (11.6-14.6); RBC Distribution Width SD 45.1 fl (35.1-43.9); White Blood Count 5.5 K/mm3 (4.4-11.0)
== END ==
PROVIDERS: PCP Family Medicine; Referring Provider Physician Assistant Medical; Visit Provider Physician Assistant Medical
DX: D64.9 Anemia, unspecified (principal); E78.5 Hyperlipidemia, unspecified
CPT/HCPCS: 36415; 85025

== ENCOUNTER → 2021-03-09 | Outpatient (CLI) | payer MEDICARE, MEDICAID, SELFPAY ==
[2021-03-08 13:52] VITALS: BMI 33.4
== END | disposition home or self-care (01) ==
PROVIDERS: PCP Family Medicine; Referring Provider Physician Assistant Medical; Visit Provider Physician Assistant Medical
DX: D64.9 Anemia, unspecified (principal)
CPT/HCPCS: 82274

== ENCOUNTER → 2021-03-10 07:44 | Outpatient (CLI) | payer MEDICARE, MEDICAID, SELFPAY ==
[2021-03-08 13:52] VITALS: BMI 33.4
[2021-03-10] VITALS (7 sets, daily range): BP systolic 103–161; BP diastolic 52–84; PULSE 44–53; RESP 16–18; TEMP 35.9–36.6; O2SAT 96–100; BMI 33.0
== END ==
PROVIDERS: PCP Family Medicine; Referring Provider Physician Assistant Medical; Visit Provider Physician Assistant Medical
DX: D64.9 Anemia, unspecified (principal)
CPT/HCPCS: 36415; 36430; 86850; 86900; 86901; 86920; 86922; J7040; P9040; A4216

== ENCOUNTER → 2021-03-15 11:55 | Outpatient (CLI) | payer MEDICARE, MEDICAID, SELFPAY ==
[2021-03-10 07:54] VITALS: BMI 33.0
[2021-03-15 12:12] LABS: Hematocrit 35.8 % (40-54); Hemoglobin 10.3 g/dL (13.0-16.5); Mean Corp Hgb Conc 28.8 g/dL (32-36); Mean Corpuscular Volume 80.1 fL (80-94); Mean Platelet Vol. 10.1 fl (6.2-12.0); Platelet Count 140 K/mm3 (150-450); RBC Distribution Width CV 19.5 % (11.6-14.6); RBC Distribution Width SD 54.3 fl (35.1-43.9); Red Blood Count 4.47 M/mm3 (4.6-6.2); White Blood Count 5.9 K/mm3 (4.4-11.0)
== END ==
PROVIDERS: PCP Family Medicine; Referring Provider Surgery; Visit Provider Surgery
DX: D64.9 Anemia, unspecified (principal); R19.5 Other fecal abnormalities
CPT/HCPCS: 36415; 85027

== ENCOUNTER 2021-03-17 05:27 | Day surgery (SDC) | payer MEDICARE, MEDICAID, SELFPAY ==
[2021-03-15 12:31] VITALS: BMI 33.0
--- NOTE | 2021-03-17 | COLBX_PTH ---
PATIENT: SHAHZAD BERGERON LOC: [facility] U#:[id number] AGE/SX: 75/M ROOM: RE03/17/[address]: Dr. Shahzad Ventura MD : 1945 BED: DIS: 03/17/2021 SPEC #: [id number] RECD: 03/17/21 13:32 STATUS: COMFORT MORAKellen #: [id number] DALI: 03/17/21 00:[address]: Shahzad Ventura DEPT: SURGICAL PATHOLOGY RECD BY: Tony Lee ENTERED: 03/17/21 13:33 SP TYPE: COLON BX OTHR DR: Dr. Rogelio Lock MD Tissues: A - COLON BIOPSY B - Duodenum, NOS C - Gastric mucous membrane D - Esophageal mucous membrane E - Esophageal mucous membrane Procedures: Special Stain Group II Surgery Specimen Level IV Alcian Blue/PAS (control) HEADER OPERATION: Colonoscopy, EGD ([facility] [place]) PRE-OP DIAGNOSIS: Occult blood positive stool; symptomatic anemia TISSUE SUBMITTED: A ? Ampulla biopsy, B ? Duodenum biopsy, C ? Mid esophagus biopsy, D ? Distal esophagus biopsy, E ? Antrum biopsy, H. pylori, path MICROSCOPIC DIAGNOSIS A. Ampulla, biopsy: Focal benign lymphvascular ectasia. B. Duodenum, biopsy: No pathologic change. C. Mid esophagus, biopsy: Fragment of benign squamous mucosa. No evidence of inflammation. D. Distal esophagus, biopsy: Gastroesophageal junctional mucosa with mild chronic inflammation. Focal goblet cell metaplasia. No evidence of dysplasia. See comment. E. Gastric antrum, biopsy: Chronic gastritis. Focal intestinal metaplasia. No evidence of dysplasia. See comment. AM:gabriel 03/18/2021 COMMENT D. Immunohistochemistry ([id number]) supports the above diagnosis. Alcian blue/PAS stain with matched control supports the above diagnosis. E. The results of immunohistochemistry for Helicobacter pylori will be reported separately ([id number]). Immunohistochemistry ([id number]) supports the above diagnosis. Alcian blue/PAS stain with matched control supports the above diagnosis. MICROSCOPIC DESCRIPTION Slides are reviewed. GROSS DESCRIPTION A - Received in fixative is one container labeled with the patient's name and designated ampulla biopsy. The specimen consists of multiple irregular fragments of light napoles soft tissue that in aggregate measure 0.6 x 0.6 x 0.1 cm. The specimen is totally submitted in one cassette. B - Received in fixative is one container labeled with the patient's name and designated duodenum. The specimen consists of one irregular fragment of light napoles soft tissue that measures 0.6 x 0.2 x 0.1 cm. The specimen is totally submitted in one cassette. C - Received in fixative is one container labeled with the patient's name and designated mid esophagus biopsy. The specimen consists of one irregular fragment of light napoles soft tissue that measures 0.5 x 0.2 x 0.1 cm. The specimen is totally submitted in one cassette. D - Received in fixative is one container labeled with the patient's name and designated distal esophagus biopsy. The specimen consists of one irregular fragment of light napoles soft tissue that measures 0.8 x 0.2 x <0.1 cm. The specimen is totally submitted in one cassette. E - Received in fixative is one container labeled with the patient's name and designated antrum biopsy. The specimen consists of one irregular fragment of light napoles soft tissue that measures 0.3 x 0.2 x 0.1 cm. The specimen is totally submitted in one cassette. / AM:gabriel 03/17/21 TC:3 CPT: 23709 x5, 68449 x2
[2021-03-17] MEDS: Lactated Ringers 1,000 ML 100 ML IV (05:40)
--- NOTE | 2021-03-17 06:01 | HP.PCM_ITS ---
History and Physical Date of Admission: 03/17/21 Intake Visit Reasons: anemia/blood in stool Chief Complaint: anemia/ blood in stool Assisted Living Administrator Required: No Is patient in pain?: No Allergies acetaminophen [From Vicodin] Allergy (Verified 03/15/21 12:30) Shortness of breath clopidogrel bisulfate [From Plavix] Allergy (Verified 03/15/21 12:30) Rash hydrocodone [From Vicodin] Allergy (Verified 03/15/21 12:30) Shortness of breath magnesium Allergy (Verified 03/15/21 12:30) Chest tightness cefdinir Adverse Reaction (Verified 03/15/21 12:30) Nausea/Vom/Diarrhea gemfibrozil [From Lopid] Adverse Reaction (Verified 03/15/21 12:30) Unknown levofloxacin [From Levaquin] Adverse Reaction (Verified 03/15/21 12:30) Vomiting rosuvastatin calcium [From Crestor] Adverse Reaction (Verified 03/15/21 12:30) Other tramadol Adverse Reaction (Verified 03/15/21 12:30) Nausea/Vom/Diarrhea Medications amlodipine 5 mg PO DAILY 12/13/15 [History Confirmed 03/15/21] esomeprazole magnesium 40 mg PO DAILY 12/13/15 [History Confirmed 03/15/21] tamsulosin 0.4 mg PO DAILY 12/13/15 [History Confirmed 03/15/21] furosemide 40 mg tablet 40 mg PO DAILY 02/26/16 [History Confirmed 03/08/21] aspirin 81 mg PO DAILY@0800 11/09/16 [History Confirmed 03/15/21] venlafaxine 150 mg PO BID 11/09/16 [History Confirmed 03/15/21] acetaminophen 325 mg tablet 650 mg PO Q6H PRN tab 02/11/20 [History Confirmed 03/15/21] albuterol sulfate 90 mcg/actuation aerosol inhaler 1 puff INHALATION ONCE 02/11/20 [History Confirmed 03/15/21] artifi.tears(hypromellose)(PF) 0.3 % eye drops 1 drp OPHTHALMIC 4-8XD PRN 02/11/20 [History Confirmed 03/15/21] apixaban 5 mg tablet 5 mg PO BID #1 tab 03/03/20 [Rx Confirmed 03/08/21] insulin glargine 100 unit/mL (3 mL) subcutaneous pen 34 unit SC DAILY ml 03/03/20 [History Confirmed 03/15/21] insulin lispro 100 unit/mL subcutaneous pen 10 unit SC TID ml 03/03/20 [History Confirmed 03/15/21] atorvastatin 10 mg tablet 10 mg PO QHS 03/31/20 [History Confirmed 03/15/21] carboxymethylcellulose sodium 1 % eye gel in a dropperette 1 drp OPHTHALMIC 4- 6XD PRN #30 ea 03/31/20 [Rx Confirmed 03/15/21] ferrous sulfate 325 mg (65 mg iron) tablet 325 mg PO BID 04/12/20 [History Confirmed 03/15/21] potassium chloride 20 mEq tablet,extended release(part/cryst) 20 meq PO BID tab 05/12/20 [History Confirmed 03/08/21] metoprolol tartrate 25 mg tablet 12.5 mg PO BID tab 06/15/20 [History Confirmed 03/15/21] diazepam 5 mg tablet 5 mg PO DAILY PRN tab 03/08/21 [History Confirmed 03/15/21] oxycodone-acetaminophen 5 mg-325 mg tablet 1 tab PO BID PRN tab 03/08/21 [History Confirmed 03/15/21] PFSH Medical History Abdominal aortic aneurysm without rupture Acid reflux Atherosclerosis of [place] coronary artery of [place] heart without angina pectoris BPH (benign prostatic hyperplasia) Essential hypertension Heart disease High cholesterol History of cardioversion (~03/09/20) HTN (hypertension) Hyperlipidemia, unspecified Ischemic cardiomyopathy PAC (premature atrial contraction) Personal history of colonic polyps Postoperative atrial fibrillation PVC (premature ventricular contraction) Type 2 diabetes mellitus Surgical History History of coronary artery bypass graft x 3 (~01/30/20) History of coronary artery stent placement History of left heart catheterization (LHC) (~10/28/19) S/P colon resection Status post cardiac surgery Family History Father Diabetes Hypertension Social History household members: none Smoking Status: Former smoker alcohol intake: never substance use type: does not use HPI HPI HPI: SHAHZAD BERGERON, is a 75 M who presents to the office today for Surgical consultation regarding acute anemia with suspected possible component of gastrointestinal blood loss. The patient has been anemic for a period of time. February 19, 2020 his hemoglobin was only 10.5. He was placed on iron therapy and remained stable over the past year. Recently he was complaining of dizziness and nausea. His appetite declined. His most recent BUN was 14 and creatinine 1.48. He received 2 units of blood on March 03 platelet count 140,000. and then an additional 2 units of blood on March 08. His current hemoglobin levels 10.3 with hematocrit 35.8. He states that his dizziness has resolved. When he was dizzy he was nauseated did not have much of an appetite but that is now returning as well. He states that when he was on iron therapy his stools were dark. He was instructed some time ago to cease his iron therapy. He states that more recently he had noted darker colored stools without taking iron. He has had a history of multiple colonic polyps. His most recent colonoscopy was done per myself September 12, 2019. There was evidence of his previous right colectomy that has been done for multiple colonic polyps. At his most recent colonoscopy no additional polyps were identified. He had a patent ileocolonic anastomosis. It is of additional note that stool Hemoccult card was positive recently. He denies any abdominal pain. He did have a fall in the recent past causing a right rib fracture. That currently is asymptomatic. The patient is treated with aspirin therapy and apixaban therapy. He has atrial fibrillation. His apixaban therapy has been held ROS General General: Yes fatigue; No weight change, appetite, colon cancer, breast cancer or weakness HEENT HEENT: No difficulty swallowing, eye injury, eye surgery, swollen glands or hoarseness Endo Endocrine: Yes diabetes mellitus; No thyroid disease, thyroid cancer, Hair loss, heat intolerance or cold intolerance Musc Musculoskeletal: Yes arthritis; No back problems, rheumatoid arthritis, gout or joint pain Cardio Cardiovascular: Yes high blood pressure, heart attack and heart stent; No murmur, pacemaker, heart disease, atrial fibrillation, palpitations, shortness of breat with exertion or chest pain Psych Psychiatric: Yes anxiety; No depression or hearing voices Resp Respiratory: Yes shortness of breath, No sleep apnea, No cough, No COPD, No asthma, No emphysema and No wheezing Gastro Gastrointestinal: No abdominal pain, No nausea or vomiting, No diarrhea, No constipation, Yes blood in stool, Yes acid reflux, No hemorrhoids, No ulcers, No gallbladder problem and Yes black,tarry stools [place] Hematologic: Yes blood thinners, No blood disorders, No bleeding, Yes anemia and No blood clots Neuro Neurologic: No weakness Exam Const General: cooperative, comfortable, no acute distress and well developed Nutritional Appearance: obese Orientation: alert and awake HENKY Head: normal to inspection Eyes Other: Drooping lower eyelids slightly erythematous Neck Neck: normal visual inspection Chest Other: Floating right lateral subcostal rib Resp Effort & Inspection: normal respiratory effort Auscultation: clear to auscultation bilaterally Cardio Rate: regular rate Rhythm: regular rhythm GI Palpation: soft and no hepatosplenomegaly Musc Cervical Spine: normal cervical lordosis Skin General: no rashes or lesions noted Neuro Cognition: normal cognition Speech: speech normal Extrem General: no calf tenderness Psych Attitude: cooperative COVID (Procedure Consent) Procedure Criteria Procedure Criteria: Yes Elective The surgeon/proceduralist and patient have discussed in detail the risk of exposure to and/or potential harm posed by the COVID-19 virus with having a surgery/procedure at this time versus the risk of delaying the surgery/procedure. It is not possible to know either the risk of delaying the surgery or procedure or chance of getting an infection with perfect accuracy, but a joint decision was made between the patient and the surgeon/proceduralist to proceed at this time with the scheduled surgery/procedure as indicated on the consent form. Assessment and Plan Assessment and Plan (1) Occult blood positive stool: Status: Acute (2) Symptomatic anemia: Status: Acute Plan Details Other Orders: Orders: Colonoscopy Today EGD Today Additional Comments: Acute on top of chronic anemia. Etiology not clear. The patient had been relatively stable over the past year. Unsure as to whether this is related to ceasing his iron replacement therapy. The patient however recants that he had darker colored stools and gastric upset. He attributed the nausea however to the dizziness which seemingly was related to his anemia. It is not clear whether the GI source might have initiated the problem or been secondary to it. I believe I can assist by performing a combined esophagogastroduodenoscopy with possible biopsy or control of bleeding and colonoscopy with possible biopsy or polypectomy as indicated. Because of the patient's increased risk history we will use monitored anesthesia care. He has had an opportunity to ask and have questions answered. We will schedule and expedite his care with scopes planned in just 2 days from now. Copy: Dr. Rogelio Ventura M.D., F.A.C.S. I have re-examined the patient. There are no clinical changes since date of ex am.
[2021-03-17 06:03] VITALS: BP 149/76; PULSE 63; RESP 16; TEMP 36.4; O2SAT 97; BMI 33.0
--- NOTE | 2021-03-17 06:30 | IMM_PTH ---
PATIENT: SHAHZAD BERGERON LOC: EN U#:[id number] AGE/SX: 75/M ROOM: RE03/17/[address]: Dr. Shahzda Ventura MD : 1945 BED: DIS: 03/17/2021 SPEC #: [id number] RECD: 03/17/21 14:03 STATUS: COMFORT SINGH #: [id number] DALI: 03/17/21 06:[address]: Shahzad Ventura DEPT: IMMUNOHISTOCHEMISTRY RECD BY: Lucinda Naidu ENTERED: 03/17/21 14:04 SP TYPE: IMMUNO OTHR DR: Dr. Rogelio Lock MD Tissues: E - Stomach, NOS D - Esophagus, NOS Procedures: H Pylori (initial) P53 (initial) KI-67 (add) P53 (add) PHYSICIAN & INSTITUTION [place] [id number] SPECIMEN INFORMATION: Tissue Source: D ? Distal esophagus biopsy, E ? Antrum biopsy Clinical Info: Occult blood positive stool, symptomatic anemia Specimen Number: [id number] D & E CPT code: 44224 x2, 56457 x3 METHODOLOGY: Deparaffinized sections of prefer/formalin-fixed tissue or PAP/DQ stained slides are incubated with monoclonal/polyclonal antibodies/oligonucleotide probes. Localization is made via biotin free immunoperoxidase method. Appropriate controls are performed and reacted as expected. Results on target cell population are indicated in the following table: RESULTS: ANTIBODY / CLONE RESULT Block D P53 (DO-7) negative Ki-67 (30-9) positive, low Block E H Pylori (polyclonal) negative P53 (DO-7) negative Ki-67 (30-9) positive, low These tests were developed and their performance characteristics determined by [facility]. They may not have been cleared or approved by the U.S. Food and Drug Administration. The FDA has determined that such clearance or approval is not necessary. The above immunohistochemical/dualISH markers are ordered and reviewed by the pathologist. INTERPRETATION: D. Distal esophagus, biopsy: Negative for Helicobacter pylori organisms. E. Antrum biopsy: No evidence of dysplasia. AM:gabriel 03/21/2021
[2021-03-17 07:05] VITALS: BP 130/66; BP 149/76; PULSE 60; RESP 16; TEMP 36.8; O2SAT 96
--- NOTE | 2021-03-17 07:06 | OP.CCLET_ITS ---
03/17/2021 Rogelio Lock Re : Upper GI endoscopy procedure for Elijah Isabel Dear Hayde This procedure was performed on February. My impressions and recommendations are as follows: Impressions : - Esophageal mucosal variant. Biopsied. - Z-line variable, 40 cm from the incisors. Biopsied. - Erythematous mucosa in the antrum. Biopsied. - Erythematous duodenopathy. Biopsied. - Mucosal changes in the duodenum. Biopsied. No findings that would correlate with blood loss anemia Recommendations : - Discharge patient to home. - Resume previous diet. - Continue present medications. - Telephone my office for pathology results in 1 week. My findings are described in the full procedure note, which is enclosed. If I can be of further assistance, please feel free to contact me at Doctor phone number(s): Work: . Sincerely, Elijah Ventura MD 03/17/2021 7:05:31 AM This report has been signed electronically.
--- NOTE | 2021-03-17 07:06 | OP.EGD_ITS ---
Patient Name: Elijah Hall Procedure Date: 03/17/2021 6:19 AM Date of : 1945 Age: 75 Procedure: Upper GI endoscopy Indications: Iron deficiency anemia Providers: Elijah Ventura MD Referring MD: Rogelio Lock Medicines: See the Anesthesia note for documentation of the administered medications Complications: No immediate complications. Procedure: Pre-Anesthesia Assessment: - Prior to the procedure, a History and Physical was performed, and patient medications and allergies were reviewed. The patient's tolerance of previous anesthesia was also reviewed. The risks and benefits of the procedure and the sedation options and risks were discussed with the patient. All questions were answered, and informed consent was obtained. Prior Anticoagulants: The patient has taken no previous anticoagulant or antiplatelet agents. ASA Grade Assessment: II - A patient with mild systemic disease. After reviewing the risks and benefits, the patient was deemed in satisfactory condition to undergo the procedure. After obtaining informed consent, the endoscope was passed under direct vision. Throughout the procedure, the patient's blood pressure, pulse, and oxygen saturations were monitored continuously. The Endoscope was introduced through the mouth, and advanced to the second part of duodenum. The upper GI endoscopy was accomplished without difficulty. The patient tolerated the procedure well. Scope In: 6:36:50 AM Scope Out: 6:43:28 AM Total Procedure Duration Time 0 hours 6 minutes 38 seconds Findings: Diffuse mild mucosal variance characterized by granularity was found in the middle third of the esophagus. Biopsies were taken with a cold forceps for histology. The Z-line was variable and was found 40 cm from the incisors. Biopsies were taken with a cold forceps for histology. Diffuse mildly erythematous mucosa without bleeding was found in the gastric antrum. Biopsies were taken with a cold forceps for histology. Diffuse mildly erythematous mucosa without active bleeding and with no stigmata of bleeding was found in the duodenal bulb. Biopsies were taken with a cold forceps for histology. Localized mild mucosal changes were found in the area of the papilla. Biopsies were taken with a cold forceps for histology. Impression: - Esophageal mucosal variant. Biopsied. - Z-line variable, 40 cm from the incisors. Biopsied. - Erythematous mucosa in the antrum. Biopsied. - Erythematous duodenopathy. Biopsied. - Mucosal changes in the duodenum. Biopsied. No findings that would correlate with blood loss anemia Recommendation: - Discharge patient to home. - Resume previous diet. - Continue present medications. - Telephone my office for pathology results in 1 week. Procedure Code(s): --- Professional --- 71749, Esophagogastroduodenoscopy, flexible, transoral; with biopsy, single or multiple Diagnosis Code(s): --- Professional --- K22.8, Other specified diseases of esophagus K31.89, Other diseases of stomach and duodenum D50.9, Iron deficiency anemia, unspecified CPT copyright 2017 [employer]. All rights reserved. The codes documented in this report are preliminary and upon wall covering installer review may be revised to meet current compliance requirements. Elijah Ventura MD 03/17/2021 7:05:31 AM This report has been signed electronically. Number of Addenda: 0 Note Initiated On: 03/17/2021 6:19 AM
[2021-03-17 07:10] VITALS: BP 125/71; BP 149/76; PULSE 49; RESP 16; O2SAT 96
--- NOTE | 2021-03-17 07:10 | OP.CCLET_ITS ---
03/17/2021 Rogelio Lock Re : Colonoscopy procedure for Elijah Isabel Dear Hayde This procedure was performed on February. My impressions and recommendations are as follows: Impressions : - Preparation of the colon was fair. - Non-thrombosed external hemorrhoids, non-thrombosed internal hemorrhoids, internal hemorrhoids that prolapse with straining, but spontaneously regress to the resting position (Grade II) and enlarged prostate found on digital rectal exam. - Diverticulosis in the entire examined colon. - Patent functional end-to-end ileo-colonic anastomosis, characterized by healthy appearing mucosa. - No specimens collected. Recommendations : - Discharge patient to home. - Resume previous diet. - Continue present medications. - Repeat colonoscopy in 5 years because of personal history of colon polyps No findings that would correlate with blood loss anemia My findings are described in the full procedure note, which is enclosed. If I can be of further assistance, please feel free to contact me at Doctor phone number(s): Work: . Sincerely, Elijah Ventura MD 03/17/2021 7:10:03 AM This report has been signed electronically.
--- NOTE | 2021-03-17 07:10 | OP.COLON_ITS ---
Patient Name: Elijah Hall Procedure Date: 03/17/2021 6:44 AM Date of : 1945 Age: 75 Procedure: Colonoscopy Indications: Iron deficiency anemia Providers: Elijah Ventura MD Referring MD: Rogelio Lock Medicines: See the Anesthesia note for documentation of the administered medications Patient Profile: Last Colonoscopy: 1 year ago. Complications: No immediate complications. Procedure: Pre-Anesthesia Assessment: - Prior to the procedure, a History and Physical was performed, and patient medications and allergies were reviewed. The patient's tolerance of previous anesthesia was also reviewed. The risks and benefits of the procedure and the sedation options and risks were discussed with the patient. All questions were answered, and informed consent was obtained. Prior Anticoagulants: The patient has taken no previous anticoagulant or antiplatelet agents. ASA Grade Assessment: II - A patient with mild systemic disease. After reviewing the risks and benefits, the patient was deemed in satisfactory condition to undergo the procedure. After I obtained informed consent, the scope was passed under direct vision. Throughout the procedure, the patient's blood pressure, pulse, and oxygen saturations were monitored continuously. The adult colonoscope was introduced through the anus and advanced to the ileocolonic anastomosis. The colonoscopy was performed without difficulty. The patient tolerated the procedure well. The quality of the bowel preparation was fair. Ileocolonic anastomosis were photographed. Scope In: 6:46:23 AM Scope Withdrawal Time 0 hours 6 minutes 28 seconds Scope Out: 6:58:02 AM Total Procedure Duration Time 0 hours 11 minutes 39 seconds Findings: The digital rectal exam findings include non-thrombosed external hemorrhoids, non-thrombosed internal hemorrhoids, internal hemorrhoids that prolapse with straining, but spontaneously regress to the resting position (Grade II) and enlarged prostate. Lax anal tone noted.. Multiple diverticula were found in the entire colon. There was evidence of a prior functional end-to-end ileo-colonic anastomosis in the proximal transverse colon. This was patent and was characterized by healthy appearing mucosa. Impression: - Preparation of the colon was fair. - Non-thrombosed external hemorrhoids, non-thrombosed internal hemorrhoids, internal hemorrhoids that prolapse with straining, but spontaneously regress to the resting position (Grade II) and enlarged prostate found on digital rectal exam. - Diverticulosis in the entire examined colon. - Patent functional end-to-end ileo-colonic anastomosis, characterized by healthy appearing mucosa. - No specimens collected. Recommendation: - Discharge patient to home. - Resume previous diet. - Continue present medications. - Repeat colonoscopy in 5 years because of personal history of colon polyps No findings that would correlate with blood loss anemia Procedure Code(s): --- Professional --- 21371, Colonoscopy, flexible; diagnostic, including collection of specimen(s) by brushing or washing, when performed (separate procedure) Diagnosis Code(s): --- Professional --- K64.1, Second degree hemorrhoids K64.4, Residual hemorrhoidal skin tags Z98.0, Intestinal bypass and anastomosis status D50.9, Iron deficiency anemia, unspecified K57.30, Diverticulosis of large intestine without perforation or abscess without bleeding N40.0, Benign prostatic hyperplasia without lower urinary tract symptoms CPT copyright 2017 [employer]. All rights reserved. The codes documented in this report are preliminary and upon sap data architect review may be revised to meet current compliance requirements. Elijah Ventura MD 03/17/2021 7:10:03 AM This report has been signed electronically. Number of Addenda: 0 Note Initiated On: 03/17/2021 6:44 AM
[2021-03-17 07:15] VITALS: BP 138/73; BP 149/76; PULSE 51; RESP 16; O2SAT 97
[2021-03-17 07:20] VITALS: BP 146/71; BP 149/76; PULSE 55; RESP 16; TEMP 36.9; O2SAT 95
[2021-03-17 07:25] LABS: Bedside Glucose 161 mg/dL (70-110)
[2021-03-17 07:28] VITALS: BP 149/76
== END 2021-03-17 07:55 | disposition home or self-care (01) ==
LOC: EN 05:27 → AC 05:28
PROVIDERS: PCP Family Medicine; Referring Provider Family Medicine; Visit Provider Surgery
PROC: 0DJD8ZZ Inspection of Lower Intestinal Tract, Via Natural or Artificial Opening Endoscopic (ICD-10-PCS; CPT 45378; principal; 2021-03-17 06:25)
DX: K29.50 Unspecified chronic gastritis without bleeding (principal); K21.00 Gastro-esophageal reflux disease with esophagitis, without bleeding; K57.30 Diverticulosis of large intestine without perforation or abscess without bleeding; K64.1 Second degree hemorrhoids; N40.0 Benign prostatic hyperplasia without lower urinary tract symptoms; D50.9 Iron deficiency anemia, unspecified; I25.10 Atherosclerotic heart disease of native coronary artery without angina pectoris; I11.9 Hypertensive heart disease without heart failure; E78.5 Hyperlipidemia, unspecified; E11.9 Type 2 diabetes mellitus without complications; I48.91 Unspecified atrial fibrillation; J44.9 Chronic obstructive pulmonary disease, unspecified; E66.9 Obesity, unspecified; Z68.33 Body mass index [BMI] 33.0-33.9, adult; Z87.891 Personal history of nicotine dependence; Z98.0 Intestinal bypass and anastomosis status; Z79.4 Long term (current) use of insulin; Z79.51 Long term (current) use of inhaled steroids; Z79.02 Long term (current) use of antithrombotics/antiplatelets; Z79.899 Other long term (current) drug therapy
CPT/HCPCS: 43239; 45378; 82962; 88305; 88313; 88341; 88342; J7120; J2405

== ENCOUNTER → 2021-03-25 08:05 | Outpatient (CLI) | payer MEDICARE, MEDICAID, SELFPAY ==
[2021-03-17 06:03] VITALS: BMI 33.0
--- NOTE | 2021-03-25 08:18 | RAD_ITS ---
STUDY: SMALL BOWEL FOLLOW-THROUGH STUDY REASON FOR EXAM: Male, 75 years old. ANEMIA, possible GI bleed RADIATION DOSAGE (If Supplied By Facility): CTDIvol = ( ) mGy, DLP = ( ) mGycm. Individualized dose optimization techniques were used for this CT.? FLUOROSCOPY TIME (if supplied): ( 1:22 ) minutes/seconds TECHNIQUE: Serial films tracked ingested barium through the small intestine COMPARISON: No recent studies FINDINGS: Supervising Nurse film demonstrates an unremarkable bowel gas pattern there are some retained stool. No free air, bony structures show degenerative change. Stomach and duodenum distend normally. No mucosal ulceration or abnormal thickening noted. There is free flow of barium through the duodenum into the ileum. There is a jejunal diverticulum best seen on plain film image #6. This eventually fills with barium. The jejunum is otherwise unremarkable as is the ileum. There is no abnormal thickening of bowel loops abnormal separation of bowel loops to suspect inflammation or contrast extravasation outside the lumen of the small bowel. Transit time to the terminal ileum was approximately 100 minutes which is within normal range. Spot compression views do not show a mucosal abnormality within the terminal ileum. RAD/Small Bowel Series Only IMPRESSION: No plain film evidence of ileus or obstruction. There is no abnormal thickening of the mucosa or separation of bowel loops to suspect an acute inflammatory process Incidental note is made of an ileal diverticulum in the right upper quadrant this may represent a Meckel''s diverticulum. No extravasation of contrast outside the lumen of the small bowel Spot films show no mucosal irregularity in the terminal ileum Electronically Signed: Raul Wilkerson MD at 11:26 EDT , Service support ,
== END ==
PROVIDERS: PCP Family Medicine; Referring Provider Surgery; Visit Provider Surgery
DX: D64.9 Anemia, unspecified (principal)
CPT/HCPCS: 74250

== ENCOUNTER → 2021-04-08 09:21 | Outpatient (CLI) | payer MEDICARE, MEDICAID, SELFPAY ==
[2021-03-17 06:03] VITALS: BMI 33.0
--- NOTE | 2021-04-08 09:27 | NM_ITS ---
CLINICAL: 75-year-old male with history of gastrointestinal hemorrhage and apparent small bowel diverticula. 99m Tc PERTECHNETATE MECKEL''S DIVERTICULUM EXAMINATION COMPARISON: None available FINDINGS: Following the intravenous administration of approximately 10.0 mCi of 99m Tc pertechnetate, image acquisitions of the abdomen and pelvis reveal: 1. Sequential 1 minute static acquisitions of the anterior abdomen and pelvis obtained at for total of 60 minutes define physiologic tracer uptake noted in the hepatic, cardiac, splenic and major vascular blood pool. There is visualization of the right-left renal units, proximal-distal gastric body and small intestinal tract. There is no visualized ectopic gastric mucosa on the current examination. NM/Meckel's Diverticulum Scan IMPRESSION: 1. NEGATIVE EXAMINATION. There is no scintigraphic evidence of Meckel''s diverticulum. Electronically Signed: Jaxon Recio DO at 20:53 EDT Tel , Service support ,
== END ==
PROVIDERS: PCP Family Medicine; Referring Provider Surgery; Visit Provider Surgery
DX: R58 Hemorrhage, not elsewhere classified (principal)
CPT/HCPCS: 78290; A9512

== ENCOUNTER → 2021-04-13 13:48 | Outpatient (CLI) | payer MEDICARE, MEDICAID, SELFPAY ==
[2021-04-13 17:14] LABS: Probe Check PASS; Specimen Processing Control PASS
== END ==
LOC: LABSPEC 13:48 → MTLAB 15:23
PROVIDERS: PCP Family Medicine; Visit Provider Family Medicine
DX: Z20.828 Contact with and (suspected) exposure to other viral communicable diseases (principal)
CPT/HCPCS: 87635; U0005; U0003

== ENCOUNTER → 2021-05-06 08:42 | Outpatient (CLI) | payer MEDICARE, MEDICAID, SELFPAY ==
--- NOTE | 2021-05-06 08:46 | AAVD_ITS ---
Reason For Study: AAA Aorta Measurements Aorta Doppler Measurements Proximal aorta measures3.17cm x 3.16cm. in cross- Peak systolic flow velocities within the proximal sectional axis. aorta measure 63 cm/sec. Proximal aorta measures2.76cm. in longitudinal Peak systolic flow velocities within the mid aorta axis. measure 77 cm/sec. Mid aorta measures3.96cm x 4.03cm. in cross- Peak systolic flow velocities within the distal sectional axis. aorta measure 43 cm/sec. Mid aorta measures3.61cm. in longitudinal axis. Distal aorta measures2.93cm x 2.47cm. in cross- sectional axis. Distal aorta measures2.57cm. in longitudinal axis. Left Iliac Artery Left iliac artery measures 1.43cm x 1.54 cm. in the cross-sectional axis. Left iliac artery measures 1.60 cm. in the longitudinal axis. Peak systolic velocity in the left iliac artery measures 56 cm/sec. Right Iliac Artery Right iliac artery measures 1.29cm x 1.17 cm. in the cross-sectional axis. Right iliac artery measures 1.19 cm. in the longitudinal axis. Peak systolic velocity in the right iliac artery measures 56 cm/sec. Procedure Aorta IVC Iliac vasculature or bypass grafts 07172. Technically difficult study. Exam performed in department. VL/Abd Aortic/IVC Duplex scan Interpretation Summary Proximal abdominal aorta aneurysmal at 3.17 x 3.16 cm diameter Mid abdominal aortic aneurysm with 3.96 x 4.03 cm in diameter Left common iliac 1.43 x 1.54 cm in diameter Right common iliac 1.29 x 1.17 cm in diameter Ordering Physician: Elijah Ventura Referring Physician: Rogelio Lock Performed By: Jeanette Pate, RDCS, RVT
== END ==
PROVIDERS: PCP Family Medicine; Referring Provider Surgery; Visit Provider Surgery
DX: I10 Essential (primary) hypertension (principal)
CPT/HCPCS: 93978

== ENCOUNTER 2021-06-18 02:07 | Emergency (ER) | payer MEDICARE, MEDICAID, SELFPAY ==
[2021-06-18 02:08] VITALS: BP 189/88; PULSE 55; RESP 16; TEMP 36.6; O2SAT 99; BMI 32.8
--- NOTE | 2021-06-18 02:40 | EX.ED.DYSGE1 ---
HPI History of Present Illness Chief Complaint: Nosebleed Narrative Narrative: Patient presenting for evaluation secondary to a nosebleed. Patient has an underlying history of A. fib on Eliquis for anticoagulation. Patient states that he had a nosebleed last night that he was able to apply pressure and have spontaneously resolved. He states that tonight about 45 minutes prior to arrival he had a sudden onset of brisk bleeding from his right nostril that he was unable to get to stop. Patient denies that there was any sort of injury. Denies any illness associated with this. Bleeding was moderate to severe. Review of systems otherwise negative. [facility] Medical History Abdominal aortic aneurysm without rupture Anxiety Arthritis Atherosclerosis of [place] coronary artery of [place] heart without angina pectoris BPH (benign prostatic hyperplasia) Cardiology follow-up encounter COPD (chronic obstructive pulmonary disease) Depression Dietary restriction Essential hypertension Former smoker Gastric reflux Heart disease High cholesterol History of cardioversion (~03/09/20) History of echocardiogram History of edema History of GI bleed History of pain when walking History of stress test HTN (hypertension) Hyperlipidemia, unspecified Insulin dependent diabetes mellitus Ischemic cardiomyopathy Loss of hearing PAC (premature atrial contraction) Personal history of colonic polyps Postoperative atrial fibrillation PVC (premature ventricular contraction) Type 2 diabetes mellitus Wears dentures Home Medications amlodipine 5 mg PO DAILY 12/13/15 [History Last Taken 03/09/20] esomeprazole magnesium 40 mg PO DAILY 12/13/15 [History Last Taken 03/09/20] tamsulosin 0.4 mg PO DAILY 12/13/15 [History Last Taken 03/09/20] aspirin 81 mg PO DAILY@0800 11/09/16 [History Last Taken 03/15/21] venlafaxine 150 mg PO BID 11/09/16 [History Last Taken 03/09/20] acetaminophen 325 mg tablet 650 mg PO Q6H PRN tab 02/11/20 [History Last Taken Unknown] albuterol sulfate 90 mcg/actuation aerosol inhaler 1 puff INHALATION ONCE 02/11/20 [History Last Taken Unknown] artifi.tears(hypromellose)(PF) 0.3 % eye drops 1 drp OPHTHALMIC 4-8XD PRN 02/11/20 [History Last Taken 03/09/20] apixaban 5 mg tablet 5 mg PO BID #1 tab 03/03/20 [Rx Last Taken 03/16/21] insulin glargine 100 unit/mL (3 mL) subcutaneous pen 34 unit SC DAILY ml 03/03/20 [History Last Taken Unknown] insulin lispro 100 unit/mL subcutaneous pen 10 unit SC TID ml 03/03/20 [History Last Taken Unknown] atorvastatin 10 mg tablet 10 mg PO QHS 03/31/20 [History Last Taken Unknown] carboxymethylcellulose sodium 1 % eye gel in a dropperette 1 drp OPHTHALMIC 4-6XD PRN #30 ea 03/31/20 [Rx Last Taken Unknown] ferrous sulfate 325 mg (65 mg iron) tablet 325 mg PO BID 04/12/20 [History Last Taken 03/15/21] potassium chloride 20 mEq tablet,extended release(part/cryst) 20 meq PO BID tab 05/12/20 [History Last Taken 03/15/21] metoprolol tartrate 25 mg tablet 12.5 mg PO BID tab 06/15/20 [History Last Taken Unknown] diazepam 5 mg tablet 5 mg PO DAILY PRN tab 03/08/21 [History Last Taken Unknown] oxycodone-acetaminophen 5 mg-325 mg tablet 1 tab PO BID PRN tab 03/08/21 [History Last Taken Unknown] cephalexin 500 mg PO Q12 #10 capsule 06/18/21 [Rx Last Taken Unknown] Allergy/AdvReac Type Severity Reaction Status Date / Time acetaminophen [From Vicodin] Allergy Shortness Verified 06/18/21 02:10 of breath clopidogrel bisulfate Allergy Rash Verified 06/18/21 02:10 [From Plavix] hydrocodone [From Vicodin] Allergy Shortness Verified 06/18/21 02:10 of breath magnesium Allergy Chest Verified 06/18/21 02:10 tightness cefdinir AdvReac Nausea/Vom/ Verified 06/18/21 02:10 Diarrhea gemfibrozil [From Lopid] AdvReac Unknown Verified 06/18/21 02:10 levofloxacin [From Levaquin] AdvReac Vomiting Verified 06/18/21 02:10 rosuvastatin calcium AdvReac Other Verified 06/18/21 02:10 [From Crestor] tramadol AdvReac Nausea/Vom/ Verified 06/18/21 02:10 Diarrhea Family History Father Diabetes Hypertension Surgical History History of cardiac catheterization History of coronary artery bypass graft x 3 (~01/30/20) History of coronary artery stent placement History of left heart catheterization (LHC) (~10/28/19) S/P colon resection Status post cardiac surgery Social History household members: none Smoking Status: Former smoker alcohol intake: never substance use type: does not use ROS ROS ED Constitutional Constitutional ED: Denies fever(s) ENT ENT ED: Reports other Details: Nosebleed Respiratory/Chest Respiratory/Chest: Denies cough or dyspnea Hematologic/Lymphatic Hematologic/Lymphatic: Reports easy bleeding EXAM Physical Exam Const Vital Signs: 06/18/21 02:08 Temperature 97.8 F Temperature Source Temporal Pulse Rate 55 L Respiratory Rate 16 Blood Pressure 189/88 H Blood Pressure Mean 121 Pulse Ox 99 Positive well nourished and well developed General Appearance ED: well developed HEENT HEENT Narrative: Active bleeding from the right nostril. Evidence of blood in the posterior oropharynx. Eyes EOMs intact bilaterally Neck supple Resp normal respiratory effort Cardio regular rate Extremity General Extremety ED: Negative for tenderness Neuro oriented x3 Sensorium / Orientation: alert Psych mental status grossly normal Skin no rashes or lesions noted MDM MDM MDM Narrative Medical decision making narrative: Patient presented secondary to epistaxis. This is the patient's second day of having this and he is anticoagulated, so I moved straight to nasal packing. This was performed as noted in the procedure note. Patient had relief of his bleeding, was observed in the emergency department did not have any evidence of repeat bleeding. Patient will be sent home on a course of Keflex for prophylaxis will be given ENT for follow-up. He understands signs and symptoms for which to return. Procedures Other Procedures Procedure(s): Patient was verbally consented for anterior nasal packing. Patient was placed in an upright position. Clots were expelled from the patient's right nostril. A 5.5 cm anterior Rhino Rocket was utilized. It was placed in the patient's nostril and was inflated. Patient tolerated this well. Discharge Plan Triage Chief Complaint: Nosebleed ED Provider: Ruhlin,Fabio Dx/Rx/DC Orders Clinical Impression: Acute anterior epistaxis Instructions: ED Epistaxis (Adult) Prescriptions: New cephalexin 500 mg capsule 500 mg PO Q12 Qty: 10 RF: 0 No Action acetaminophen 325 mg tablet 650 mg PO Q6H PRN (Reason: Pain Or Fever) RF: 0 artifi.tears(hypromellose)(PF) 0.3 % drops 1 drp OPHTHALMIC 4-8XD PRN (Reason: Dry Eye) RF: 0 albuterol sulfate [Proventil HFA] 90 mcg/actuation HFA aerosol inhaler 1 puff INHALATION ONCE RF: 0 insulin lispro [Humalog KwikPen Insulin] 100 unit/mL insulin pen 10 unit SC TID RF: 0 Lantus Solostar U-100 Insulin 100 unit/mL (3 mL) insulin pen 34 unit SC DAILY RF: 0 apixaban 5 mg tablet 5 mg PO BID Qty: 1 RF: 0 Hold Instructions: anemia ferrous sulfate 325 mg (65 mg iron) tablet 325 mg PO BID RF: 0 oxycodone-acetaminophen 5-325 mg tablet 1 tab PO BID PRN (Reason: Pain) RF: 0 diazepam 5 mg tablet 5 mg PO DAILY PRN (Reason: anxiety) RF: 0 amlodipine 5 MG tablet 5 mg PO DAILY RF: 0 tamsulosin 0.4 MG capsule 0.4 mg PO DAILY RF: 0 esomeprazole magnesium 40 MG capsule 40 mg PO DAILY RF: 0 potassium chloride 20 mEq tablet,ER particles/crystals 20 meq PO BID RF: 0 Hold Instructions: holding lasix venlafaxine 150 MG capsule 150 mg PO BID RF: 0 aspirin 81 MG tablet 81 mg PO DAILY@0800 RF: 0 atorvastatin 10 mg tablet 10 mg PO QHS RF: 0 Refresh Celluvisc 1 % dropperette,gel 1 drp OPHTHALMIC 4-6XD PRN (Reason: dry eye(s)) Qty: 30 RF: 0 metoprolol tartrate 25 mg tablet 12.5 mg PO BID RF: 0 Primary Care Provider: Rogelio Lock Referrals: Ryan Banks MD [STAFF PHYSICIAN] - 3-5 Days Rogelio Lock MD [Primary Care Provider] - Disposition Disposition: Home, Self Care
[2021-06-18 03:11] VITALS: BP 178/60; PULSE 78; RESP 16
== END 2021-06-18 03:11 | disposition home or self-care (01) ==
PROVIDERS: Emergency Provider Emergency Medicine; PCP Family Medicine
DX: R04.0 Epistaxis (principal); I48.91 Unspecified atrial fibrillation; F41.9 Anxiety disorder, unspecified; M19.90 Unspecified osteoarthritis, unspecified site; J44.9 Chronic obstructive pulmonary disease, unspecified; F32.A Depression, unspecified; I10 Essential (primary) hypertension; K21.9 Gastro-esophageal reflux disease without esophagitis; E78.5 Hyperlipidemia, unspecified; E11.9 Type 2 diabetes mellitus without complications; Z87.891 Personal history of nicotine dependence; Z79.4 Long term (current) use of insulin; Z79.02 Long term (current) use of antithrombotics/antiplatelets; Z79.51 Long term (current) use of inhaled steroids; Z79.899 Other long term (current) drug therapy
CPT/HCPCS: 30903; 99282

== ENCOUNTER 2021-06-19 18:51 | Emergency (ER) | payer MEDICARE, MEDICAID, SELFPAY ==
[2021-06-19 18:52] VITALS: BP 110/82; PULSE 120; RESP 16; TEMP 35.8; O2SAT 99; BMI 32.6
--- NOTE | 2021-06-19 19:04 | EKG12_ITS ---
Test Reason : DIZZINESS Blood Pressure : / mmHG Vent. Rate : 100 BPM Atrial Rate : 100 BPM P-R Int : 224 ms QRS Dur : 158 ms QT Int : 354 ms P-R-T Axes : 000 -33 -33 degrees QTc Int : 456 ms Sinus rhythm with 1st degree A-V block Left axis deviation Right bundle branch block Inferior infarct , age undetermined Abnormal ECG Confirmed by KARTHIK LLANES, ROSE ([id number]), television news video editor MIRIAM JOYNER ([id number]) on 06/21/2021 11:01:03 AM Referred By: MACKENZIE Confirmed By:ROSE ANGELES MD
--- NOTE | 2021-06-19 19:06 | EDS_ITS ---
HPI History of Present Illness Chief Complaint: Dizziness Detail of Chief Complaint: Dizziness that started yesterday Informant: patient Narrative Narrative: Patient complains of dizziness especially with standing and walking. Symptoms started yesterday. Patient states that he was seen for nosebleed in the emergency department 2 nights ago and had a nasal tampon placed on the right side of the nose. Patient states that he had significant bleeding at that time. Patient is on apixaban for history of A. fib. Patient also has history of anemia and is requiring iron at times. Patient is required blood transfusions in the past. Patient states that it is unclear where he is losing his blood. Patient denies chest pain or shortness of breath. He denies recent illness. Prior similar symptoms: Yes PFSH PFSH Medical History Abdominal aortic aneurysm without rupture Anxiety Arthritis Atherosclerosis of [place] coronary artery of [place] heart without angina pectoris BPH (benign prostatic hyperplasia) Cardiology follow-up encounter COPD (chronic obstructive pulmonary disease) Depression Dietary restriction Essential hypertension Former smoker Gastric reflux Heart disease High cholesterol History of cardioversion (~03/09/20) History of echocardiogram History of edema History of GI bleed History of pain when walking History of stress test HTN (hypertension) Hyperlipidemia, unspecified Insulin dependent diabetes mellitus Ischemic cardiomyopathy Loss of hearing PAC (premature atrial contraction) Personal history of colonic polyps Postoperative atrial fibrillation PVC (premature ventricular contraction) Type 2 diabetes mellitus Wears dentures Home Medications amlodipine 5 mg PO DAILY 12/13/15 [History Last Taken 03/09/20] esomeprazole magnesium 40 mg PO DAILY 12/13/15 [History Last Taken 03/09/20] tamsulosin 0.4 mg PO DAILY 12/13/15 [History Last Taken 03/09/20] aspirin 81 mg PO DAILY@0800 11/09/16 [History Last Taken 03/15/21] venlafaxine 150 mg PO BID 11/09/16 [History Last Taken 03/09/20] acetaminophen 325 mg tablet 650 mg PO Q6H PRN tab 02/11/20 [History Last Taken Unknown] albuterol sulfate 90 mcg/actuation aerosol inhaler 1 puff INHALATION ONCE 02/11/20 [History Last Taken Unknown] artifi.tears(hypromellose)(PF) 0.3 % eye drops 1 drp OPHTHALMIC 4-8XD PRN 02/11/20 [History Last Taken 03/09/20] apixaban 5 mg tablet 5 mg PO BID #1 tab 03/03/20 [Rx Last Taken 03/16/21] insulin glargine 100 unit/mL (3 mL) subcutaneous pen 34 unit SC DAILY ml 03/03/20 [History Last Taken Unknown] insulin lispro 100 unit/mL subcutaneous pen 10 unit SC TID ml 03/03/20 [History Last Taken Unknown] atorvastatin 10 mg tablet 10 mg PO QHS 03/31/20 [History Last Taken Unknown] carboxymethylcellulose sodium 1 % eye gel in a dropperette 1 drp OPHTHALMIC 4- 6XD PRN #30 ea 03/31/20 [Rx Last Taken Unknown] ferrous sulfate 325 mg (65 mg iron) tablet 325 mg PO BID 04/12/20 [History Last Taken 03/15/21] potassium chloride 20 mEq tablet,extended release(part/cryst) 20 meq PO BID tab 05/12/20 [History Last Taken 03/15/21] metoprolol tartrate 25 mg tablet 12.5 mg PO BID tab 06/15/20 [History Last Taken Unknown] diazepam 5 mg tablet 5 mg PO DAILY PRN tab 03/08/21 [History Last Taken Unknown] oxycodone-acetaminophen 5 mg-325 mg tablet 1 tab PO BID PRN tab 03/08/21 [History Last Taken Unknown] cephalexin 500 mg PO Q12 #10 capsule 06/18/21 [Rx Last Taken Unknown] Allergy/AdvReac Type Severity Reaction Status Date / Time acetaminophen [From Vicodin] Allergy Shortness Verified 06/19/21 18:52 of breath clopidogrel bisulfate Allergy Rash Verified 06/19/21 18:52 [From Plavix] hydrocodone [From Vicodin] Allergy Shortness Verified 06/19/21 18:52 of breath magnesium Allergy Chest Verified 06/19/21 18:52 tightness cefdinir AdvReac Nausea/Vom/ Verified 06/19/21 18:52 Diarrhea gemfibrozil [From Lopid] AdvReac Unknown Verified 06/19/21 18:52 levofloxacin [From Levaquin] AdvReac Vomiting Verified 06/19/21 18:52 rosuvastatin calcium AdvReac Other Verified 06/19/21 18:52 [From Crestor] tramadol AdvReac Nausea/Vom/ Verified 06/19/21 18:52 Diarrhea Family History Father Diabetes Hypertension Surgical History History of cardiac catheterization History of coronary artery bypass graft x 3 (~01/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) History of coronary artery stent placement History of left heart catheterization (LHC) (~10/28/19) S/P colon resection Status post cardiac surgery Social History household members: none Smoking Status: Former smoker alcohol intake: never substance use type: does not use ROS ROS ED ROS Narrative Dizziness and lightheadedness Constitutional Constitutional ED: Reports systems reviewed and no addt'l complaints, except as documented; Denies body ache(s), change in weight or chills Eyes Eyes: Denies acute decrease in peripheral vision, change in vision, double vision or loss of vision ENT ENT ED: Reports none; Denies ear pain, lip swelling, loss taste/smell, neck pain, otalgia or sore throat Cardiovascular Cardiovascular: Reports none; Denies abdominal pain, chest pain with activity, leg edema, lightheadedness, palpitations, rapid heart rate or syncope Respiratory/Chest Respiratory/Chest: Reports none; Denies change in mental status, dry cough, dyspnea, hemoptysis, shortness of breath at rest or shortness of breath with exertion Gastrointestinal Gastrointestinal: Reports none; Denies abdominal pain, change in stool character, diarrhea, hematemesis, hematochezia, melena, rectal bleeding or vomit ing Genitourinary Genitourinary ED: Reports none; Denies abdominal discomfort, anuria, dysuria, genital pain or polyuria Musculoskeletal Musculoskeletal: Reports none; Denies arthralgias, back pain, difficulty walking, extremity pain, muscle weakness or myalgias Integumentary Reports none; Denies abscess or rash Neurologic Neurologic: Reports none; Denies abnormal gait, confusion, focal weakness, frequent falls, headache(s), loss of vision, numbness, paresthesias, radicular pain, vertigo or weakness Psychiatric Psychiatric: Reports systems reviewed and no addt'l complaints, except as documented and none; Denies behavioral changes, confusion, difficulty concentrating, hallucinations, suicidal ideation, tactile hallucinations or vi sual hallucinations Endocrine Endocrinology: Denies none, cold intolerance, excessive sweating, fatigue or heat intolerance Hematologic/Lymphatic Hematologic/Lymphatic: Reports none; Denies anemia, easy bleeding or easy bruising Allergic/Immunologic Allergic/Immunologic ED: Denies as per HPI, none, lip swelling, mouth swelling, throat swelling, tongue swelling or hives EXAM Physical Exam Const Vital Signs: 06/19/21 18:52 06/19/21 19:55 06/19/21 20:13 Temperature 96.5 F L Temperature Source Temporal Pulse Rate 120 H 99 Pulse Rate [Lying] Pulse Rate [Sitting] Pulse Rate [Standing] Respiratory Rate 16 19 H Respiratory Effort Normal Respiratory Pattern Normal Blood Pressure 110/82 H Blood Pressure [Lying] Blood Pressure [Sitting] Blood Pressure [Standing] Blood Pressure Mean 91 Blood Pressure Mean [Lying] Blood Pressure Mean [Sitting] Blood Pressure Mean [Standing] Pulse Ox 99 97 Oxygen Delivery Method Room Air Room Air 06/19/21 20:34 06/19/21 22:16 06/19/21 22:18 Temperature Temperature Source Pulse Rate 93 Pulse Rate [Lying] 92 88 Pulse Rate [Sitting] 98 91 Pulse Rate [Standing] 125 H 117 H Respiratory Rate 18 Respiratory Effort Respiratory Pattern Blood Pressure 151/107 H Blood Pressure [Lying] 116/91 H 165/108 H Blood Pressure [Sitting] 129/88 H 162/112 H Blood Pressure [Standing] 96/76 124/92 H Blood Pressure Mean 121 Blood Pressure Mean [Lying] 99 127 Blood Pressure Mean [Sitting] 101 128 Blood Pressure Mean [Standing] 82 102 Pulse Ox 95 Oxygen Delivery Method Room Air Positive well nourished and well developed General Appearance ED: well developed and NAD HEENT Reports TM's clear and moist mucous membranes normocephalic and atraumatic; Negative for trauma or tenderness Tympanic Membrane ED: Yes TM's clear Eyes PERRL and EOMs intact bilaterally General Eye ED: Negative for pale conjunctiva or scleral icterus Neck no lymphadenopathy, supple and no JVD General: Negative for tenderness Chest Wall inspection of chest normal and palpation of chest normal Chest: Negative for tenderness Resp normal respiratory effort and clear to auscultation bilaterally Effort and Inspection: Negative for respiratory distress or pain with movement Auscultation: Negative for rhonchi, wheezes or diminished lung sounds Cardio regular rate, regular rhythm, S1 normal heart sound, S2 normal heart sound and no murmurs Peripheral Pulses: pulses 2+ throughout GI normal to inspection, nondistended, normoactive bowel sounds, soft to palpation, non-tender, non-distended and no masses Back/Spine no CVA tenderness and no thoracic nor lumbar tenderness Extremity normal to inspection General Extremety ED: Negative for edema General Extremity: Negative for edema Neuro oriented x3, CN's II-XII intact bilaterally, no sensory deficits noted and gait normal Sensorium / Orientation: awake, alert, oriented to person, oriented to place and oriented to time Motor Exam: strength 5/5 throughout and strength abnormal Psych mental status grossly normal Skin no rashes or lesions noted and no wounds MDM MDM MDM Narrative Medical decision making narrative: IV line established on arrival. Patient received normal saline. Orthostatic vital signs revealed that he did drop his blood pressure with systolic in the 90s with standing. Patient was not symptomatic with this. After a liter fluid bolus he had repeat orthostatic vital signs and again they were positive with systolic dropping into the 120s from the 160s with standing. Again he is not describing any further dizziness. Patient's hemoglobin is 16. He was concerned that he might be anemic and this is not the case. Patient was offered admission for observation and IV hydration as he does have a slight bump in his creatinine compared to normal. He states that he is no longer symptomatic and does not want to be admitted. Patient will follow up with his primary care physician within next 3 to 5 days to have some repeat renal function test. Patient advised to return if persistent dizziness, near syncope, bloody stools, or conditions worsen anyway. Patient advised to continue with his antibiotics that he was prescribed due to the fact that he is got a packing in the right side of the nose for prior nosebleed. Lab Data Attestation: I reviewed the patient's lab results. Labs: Laboratory Results - last 24 hr 06/19/21 06/19/21 06/19/21 19:50 19:50 19:50 WBC 9.4 RBC 5.76 Hgb 16.1 Hct 49.7 MCV 86.3 MCH 28.0 MCHC 32.4 RDW Std Deviation 57.8 H RDW Coeff of [place] 18.2 H Plt Count 198 MPV 9.6 Immature Gran % (Auto) 0.400 Neut % (Auto) 74.5 H Lymph % (Auto) 15.6 L Falls % (Auto) 7.6 Eos % (Auto) 1.4 Baso % (Auto) 0.5 Absolute Neuts (auto) 7.0 Absolute Lymphs (auto) 1.46 Nucleated RBC % 0 Sodium 135 L Potassium 3.8 Chloride 99 Carbon Dioxide 25.0 Anion Gap 11 BUN 16 Creatinine 1.66 H Estim Creat Clear Calc 36.05 Est GFR (MDRD) Af Amer 52 L Est GFR (MDRD) Non-Af 43 L BUN/Creatinine Ratio 9.6 L Glucose 300 H Calcium 9.5 Troponin I High Sens 19 Blood Type A POSITIVE Antibody Screen NEGATIVE Radiography Diagnostic Testing: Clinical Impression(s) from Imaging Studies Chest X-Ray 06/19/21 20:00 IMPRESSION: Mild infiltrates or atelectasis in the lung bases. Electronically Signed: Quinn Tineo MD at 20:34 EDT Tel , Service support , 1 view chest x-ray obtained interpreted by myself as no acute disease process. Radiology felt that patient had mild infiltrates or atelectasis in the lung bases. EKG Initial EKG: Attestation: I personally reviewed and interpreted this EKG as follows: Comments: Sinus rhythm with a first-degree AV block with a ventricular rate of 100 bpm. He was noted to have a right bundle branch block. Prior EKG tracings: available for review Prior: Unchanged Discharge Plan Triage Chief Complaint: Dizziness ED Provider: Vianney Wagner Dx/Rx/DC Orders Clinical Impression: Dizziness Instructions: ED Dizziness, Uncertain Cause, ED Hypotension, Orthostatic Prescriptions: No Action acetaminophen 325 mg tablet 650 mg PO Q6H PRN (Reason: Pain Or Fever) RF: 0 artifi.tears(hypromellose)(PF) 0.3 % drops 1 drp OPHTHALMIC 4-8XD PRN (Reason: Dry Eye) RF: 0 albuterol sulfate [Proventil HFA] 90 mcg/actuation HFA aerosol inhaler 1 puff INHALATION ONCE RF: 0 insulin lispro [Humalog KwikPen Insulin] 100 unit/mL insulin pen 10 unit SC TID RF: 0 Lantus Solostar U-100 Insulin 100 unit/mL (3 mL) insulin pen 34 unit SC DAILY RF: 0 apixaban 5 mg tablet 5 mg PO BID Qty: 1 RF: 0 Hold Instructions: anemia ferrous sulfate 325 mg (65 mg iron) tablet 325 mg PO BID RF: 0 oxycodone-acetaminophen 5-325 mg tablet 1 tab PO BID PRN (Reason: Pain) RF: 0 diazepam 5 mg tablet 5 mg PO DAILY PRN (Reason: anxiety) RF: 0 amlodipine 5 MG tablet 5 mg PO DAILY RF: 0 tamsulosin 0.4 MG capsule 0.4 mg PO DAILY RF: 0 esomeprazole magnesium 40 MG capsule 40 mg PO DAILY RF: 0 potassium chloride 20 mEq tablet,ER particles/crystals 20 meq PO BID RF: 0 Hold Instructions: holding lasix venlafaxine 150 MG capsule 150 mg PO BID RF: 0 aspirin 81 MG tablet 81 mg PO DAILY@0800 RF: 0 cephalexin 500 mg capsule 500 mg PO Q12 Qty: 10 RF: 0 atorvastatin 10 mg tablet 10 mg PO QHS RF: 0 Refresh Celluvisc 1 % dropperette,gel 1 drp OPHTHALMIC 4-6XD PRN (Reason: dry eye(s)) Qty: 30 RF: 0 metoprolol tartrate 25 mg tablet 12.5 mg PO BID RF: 0 Primary Care Provider: Rogelio Lock Referrals: Rogelio Lock MD [Primary Care Provider] - 3-5 Days Disposition Disposition: Home, Self Care
[2021-06-19 19:55] VITALS: PULSE 99; RESP 19; O2SAT 97
--- NOTE | 2021-06-19 20:00 | RAD_ITS ---
EXAM: XR Chest, 1 View CLINICAL INDICATION: 76 years old, Male; weakness TECHNIQUE: Frontal view of the chest. This report was created using [employer] report generation technology. COMPARISON: Chest x-ray dated 04/05/2020 FINDINGS: Lungs and pleural spaces: Mild infiltrates or atelectasis in the lung bases. No pneumothorax. No effusion. Heart: Unremarkable. Cardiac silhouette not enlarged. Mediastinum: Central airways and mediastinal contour are unremarkable. Bones/joints: Median sternotomy. Old right-sided rib fractures which are healed. Soft tissues: Unremarkable. Vasculature: Calcified tortuous thoracic aorta. RAD/Chest 1 View (Portable) IMPRESSION: Mild infiltrates or atelectasis in the lung bases. Electronically Signed: Quinn Tineo MD at 20:34 EDT Tel , Service support ,
[2021-06-19 20:11] LABS: Absolute Lymphocyte Count 1.46 X10^3/uL (0.83-4.51); Basophil# 0.05 X10^3/uL; Basophil% 0.5 % (0-1); Eosinophil# 0.13 X10^3/uL; Eosinophils% 1.4 % (0-5); Hematocrit 49.7 % (40-54); Hemoglobin 16.1 g/dL (13.0-16.5); Lymphocyte # 1.46 X10^3/ul (0.83-4.51); Lymphocyte % 15.6 % (19-41); Mean Corp Hgb Conc 32.4 g/dL (32-36); Mean Corpuscular Volume 86.3 fL (80-94); Mean Platelet Vol. 9.6 fl (6.2-12.0); Monocyte# 0.71 X10^3/uL; Monocyte% 7.6 % (0-10); NRBC Flagged by Analyzer 0 % (0-5); Neutrophil # 6.98 X10^3/uL (2.7-7.7); Neutrophil % 74.5 % (47-70); Platelet Count 198 K/mm3 (150-450); RBC Distribution Width CV 18.2 % (11.6-14.6); RBC Distribution Width SD 57.8 fl (35.1-43.9); Red Blood Count 5.76 M/mm3 (4.6-6.2); White Blood Count 9.4 K/mm3 (4.4-11.0)
[2021-06-19] MEDS: 0.9% Normal Saline 1,000 ML 150 ML IV (20:22)
[2021-06-19 20:34] VITALS: BP 116/91; BP 129/88; BP 96/76; PULSE 125; PULSE 92; PULSE 98
[2021-06-19 20:34] LABS: Anion Gap 11 (5-15); BUN 16 mg/dL (7-18); BUN/Creat Ratio 9.6 RATIO (10-20); Calcium,Total 9.5 mg/dL (8.5-10.1); Chloride 99 mmol/L (98-107); Creatinine, Serum 1.66 mg/dL (0.70-1.30); EST Glomerular Filtration Rate 43 mL/min (>60); Est Glom Filt Rate - Afr Amer 52 mL/min (>60); Estimated Creatinine Clearance 36.05 ml/min; Glucose 300 mg/dL (74-106); Potassium 3.8 mmol/L (3.5-5.1); Sodium Level 135 mmol/L (136-145); Troponin-I HS 19 pg/mL (3.0-78.0)
[2021-06-19] MEDS: 0.9% Normal Saline 1,000 ML 999 ML IV (21:00)
[2021-06-19 22:16] VITALS: BP 124/92; BP 162/112; BP 165/108; PULSE 117; PULSE 88; PULSE 91
[2021-06-19 22:18] VITALS: BP 151/107; PULSE 93; RESP 18; O2SAT 95
[2021-06-19 22:40] VITALS: PULSE 98; RESP 19; O2SAT 97
== END 2021-06-19 22:41 | disposition home or self-care (01) ==
PROVIDERS: Emergency Provider Emergency Medicine; PCP Family Medicine
DX: R42 Dizziness and giddiness (principal); I48.91 Unspecified atrial fibrillation; F41.9 Anxiety disorder, unspecified; M19.90 Unspecified osteoarthritis, unspecified site; I25.10 Atherosclerotic heart disease of native coronary artery without angina pectoris; J44.9 Chronic obstructive pulmonary disease, unspecified; F32.A Depression, unspecified; I10 Essential (primary) hypertension; K21.9 Gastro-esophageal reflux disease without esophagitis; E78.5 Hyperlipidemia, unspecified; E11.9 Type 2 diabetes mellitus without complications; Z79.4 Long term (current) use of insulin; Z79.02 Long term (current) use of antithrombotics/antiplatelets; Z79.51 Long term (current) use of inhaled steroids; Z79.899 Other long term (current) drug therapy; Z87.891 Personal history of nicotine dependence
CPT/HCPCS: 71045; 80048; 84484; 85025; 86850; 86900; 86901; 93005; 96360; 96361; 99285; J7030; A4216

== ENCOUNTER → 2022-03-20 | Outpatient (CLI) | payer MEDICARE, MEDICAID, SELFPAY ==
--- NOTE | 2022-03-20 12:44 | CDU_ITS ---
Reason For Study: Carotid Stenosis Rt. Velocities/BP Lt. Velocities/BP Prox CCA 87/13 cm/sec. Prox CCA 78/13 cm/sec. Mid CCA 87/16 cm/sec. Mid CCA 55/11 cm/sec. Dist CCA 90/15 cm/sec. Dist CCA 50/8 cm/sec. Prox ICA 56/12 cm/sec. Prox ICA 36/8 cm/sec. Mid ICA 60/15 cm/sec. Mid ICA 57/18 cm/sec. Dist ICA 45/11 cm/sec. Dist ICA 68/20 cm/sec. Rt. ICA/CCA = 0.7. Lt. ICA/CCA = 1.2. Prox ECA 100/7 cm/sec. Prox ECA 90/13 cm/sec. Rt. Vert. 59/15 cm/sec. Lt. Vert. 49/12 cm/sec. Right Extracranial There is heterogeneous, irregular atherosclerotic plaque noted in the right common carotid artery. There is heterogeneous, irregular atherosclerotic plaque noted in the right internal carotid artery. There is intimal thickening but no significant atherosclerotic plaque noted in the right external carotid artery. Antegrade flow is noted in the right vertebral artery. Left Extracranial There is heterogeneous, irregular atherosclerotic plaque noted in the left common carotid artery. There is heterogeneous, irregular atherosclerotic plaque noted in the left internal carotid artery. There is intimal thickening but no significant atherosclerotic plaque noted in the left external carotid artery. Antegrade flow is noted in the left vertebral artery. Procedure Carotid Duplex [id number]. This is a Carotid Duplex examination using B-mode, color flow and specral Doppler. Exam performed in department. VL/Carotid Duplex Ultrasound Interpretation Summary Irregular calcific plaque at the proximal right internal carotid artery with le ss than 50% stenosis Less than 50% stenosis right external carotid artery Minimal irregular plaque at the proximal left internal carotid artery with less than 50% stenosis Less than 50% stenosis left external carotid artery Patent and antegrade vertebral arteries bilaterally Ordering Physician: Elijah Ventura Referring Physician: Rogelio Lock Performed By: Jeanette Pate, ARASELI, RVT
== END | disposition home or self-care (01) ==
PROVIDERS: PCP Family Medicine; Visit Provider Surgery
DX: I65.23 Occlusion and stenosis of bilateral carotid arteries (principal)
CPT/HCPCS: 93880

== ENCOUNTER → 2022-11-01 | Outpatient (CLI) | payer MEDICARE, MEDICAID, SELFPAY ==
[2022-11-01 15:29] LABS: Absolute Lymphocyte Count 0.92 X10^3/uL (0.83-4.51); Absolute Neutrophil Count 3.3 X10^3/uL (2.0-7.7); Basophil# 0.04 X10^3/uL; Basophil% 0.8 % (0-1); Eosinophil# 0.15 X10^3/uL; Eosinophils% 3.1 % (0-5); Hematocrit 43.3 % (40-54); Hemoglobin 13.4 g/dL (13.0-16.5); Lymphocyte # 0.92 X10^3/ul (0.83-4.51); Lymphocyte % 19.1 % (19-41); Mean Corp Hgb Conc 30.9 g/dL (32-36); Mean Corpuscular Hgb 26.9 pg (27.0-32.0); Mean Corpuscular Volume 86.8 fL (80-94); Mean Platelet Vol. 10.7 fl (6.2-12.0); Monocyte# 0.35 X10^3/uL; Monocyte% 7.3 % (0-10); NRBC Flagged by Analyzer 0 % (0-5); Neutrophil # 3.32 X10^3/uL (2.7-7.7); Neutrophil % 69.1 % (47-70); Platelet Count 109 K/mm3 (150-450); RBC Distribution Width CV 15.3 % (11.6-14.6); RBC Distribution Width SD 48.3 fl (35.1-43.9); Red Blood Count 4.99 M/mm3 (4.6-6.2); White Blood Count 4.8 K/mm3 (4.4-11.0)
[2022-11-01 15:41] LABS: Vitamin B12 383 pg/mL (211-911)
[2022-11-01 15:47] LABS: Hemoglobin A1c 6.5 % (3.8-5.6)
[2022-11-01 15:52] LABS: AST(SGOT) 14 U/L (15-37); Alanine Aminotransfer ALT/SGPT 17 U/L (16-61); Albumin, Serum 3.8 g/dL (3.2-5.0); Alkaline Phosphatase 69 U/L (45-117); Anion Gap 4 (5-15); BUN 9 mg/dL (7-18); BUN/Creat Ratio 7.9 RATIO (10-20); Chloride 105 mmol/L (98-107); Creatinine, Serum 1.14 mg/dL (0.70-1.30); EST Glomerular Filtration Rate 66 mL/min (>60); Est Glom Filt Rate - Afr Amer 80 mL/min (>60); Ferritin 14 ng/mL (26-388); Free T3 2.2 pg/mL (2.18-3.98); Glucose 232 mg/dL (74-106); Iron 55 ug/dL (65-175); LDH 160 U/L (87-241); Potassium 4.2 mmol/L (3.5-5.1); Protein, Total 7.8 g/dL (6.4-8.2); Sodium Level 138 mmol/L (136-145); T4 Free Direct 0.82 ng/dL (0.76-1.46)
[2022-11-06 15:08] LABS: PROEL- A/G Ratio 1.2 (0.7-1.7); PROEL- Albumin 3.8 g/dL (2.9-4.4); PROEL- Alpha-1 Globulin 0.2 g/dL (0.0-0.4); PROEL- Alpha-2 Globulin 0.8 g/dL (0.4-1.0); PROEL- Gamma Globulin 1.2 g/dL (0.4-1.8); PROEL- Globulin, Total 3.2 g/dL (2.2-3.9); PROELU- Alpha-1-Globulin,Ur 3.7 % (.); PROELU- Alpha-2-Globulin,Ur 7.3 % (.); PROELU- Beta Globulin, Ur 5.2 % (.); PROELU- Gamma Globulin, Ur 13.8 % (.); Total Protein, Ur 6.4 mg/dL (Not Estab.)
== END | disposition home or self-care (01) ==
LOC: BFHLAB 11:51
PROVIDERS: PCP Family Medicine; Visit Provider Family Medicine
DX: E03.9 Hypothyroidism, unspecified (principal); E11.9 Type 2 diabetes mellitus without complications; G62.9 Polyneuropathy, unspecified; D50.9 Iron deficiency anemia, unspecified; R63.4 Abnormal weight loss; Z51.81 Encounter for therapeutic drug level monitoring
CPT/HCPCS: 36415; 80053; 82607; 82728; 83036; 83540; 83615; 84165; 84166; 84439; 84443; 84481; 85025

== ENCOUNTER → 2024-04-07 | Outpatient (CLI) | payer MEDICARE, MEDICAID, SELFPAY ==
[2024-04-07 17:46] LABS: Absolute Lymphocyte Count 1.29 X10^3/uL (0.83-4.51); Absolute Neutrophil Count 4.1 X10^3/uL (2.0-7.7); Basophil# 0.06 X10^3/uL; Eosinophil# 0.14 X10^3/uL; Eosinophils% 2.3 % (0-5); Hematocrit 46.2 % (40-54); Hemoglobin 14.9 g/dL (13.0-16.5); Lymphocyte # 1.29 X10^3/ul (0.83-4.51); Lymphocyte % 21.1 % (19-41); Mean Corp Hgb Conc 32.3 g/dL (32-36); Mean Corpuscular Hgb 29.3 pg (27.0-32.0); Mean Corpuscular Volume 90.9 fL (80-94); Mean Platelet Vol. 9.6 fl (6.2-12.0); Monocyte# 0.45 X10^3/uL; Monocyte% 7.4 % (0-10); NRBC Flagged by Analyzer 0 % (0-5); Neutrophil % 67.2 % (47-70); Platelet Count 160 K/mm3 (150-450); RBC Distribution Width CV 14.6 % (11.6-14.6); RBC Distribution Width SD 48.7 fl (35.1-43.9); Red Blood Count 5.08 M/mm3 (4.6-6.2); White Blood Count 6.1 K/mm3 (4.4-11.0)
[2024-04-07 18:08] LABS: Vitamin B12 356 pg/mL (211-911)
[2024-04-07 18:14] LABS: AST(SGOT) 20 U/L (15-37); Alanine Aminotransfer ALT/SGPT 17 U/L (16-61); Albumin, Serum 3.9 g/dL (3.2-5.0); Alkaline Phosphatase 76 U/L (45-117); Anion Gap 10 (5-15); BUN 11 mg/dL (7-18); BUN/Creat Ratio 6.7 RATIO (10-20); Calcium,Total 9.4 mg/dL (8.5-10.1); Chloride 99 mmol/L (98-107); Creatinine, Serum 1.64 mg/dL (0.70-1.30); EST Glomerular Filtration Rate 43 mL/min (>60); Est Glom Filt Rate - Afr Amer 52 mL/min (>60); Ferritin 35 ng/mL (26-388); Free T3 2.7 pg/mL (2.18-3.98); Glucose 207 mg/dL (74-106); Iron 134 ug/dL (65-175); Potassium 4.4 mmol/L (3.5-5.1); Protein, Total 7.9 g/dL (6.4-8.2); Sodium Level 136 mmol/L (136-145); T4 Free Direct 0.97 ng/dL (0.76-1.46); Thyroid Stim Hormone (TSH) 2.54 uIU/mL (0.358-3.74)
[2024-04-07 18:16] LABS: Hemoglobin A1c 7.2 % (3.8-5.6)
== END | disposition home or self-care (01) ==
PROVIDERS: PCP Family Medicine; Referring Provider Family Medicine; Visit Provider Family Medicine
DX: E11.9 Type 2 diabetes mellitus without complications (principal); J44.9 Chronic obstructive pulmonary disease, unspecified; E53.8 Deficiency of other specified B group vitamins; E61.1 Iron deficiency; Z51.81 Encounter for therapeutic drug level monitoring
CPT/HCPCS: 36415; 80053; 82607; 82728; 83036; 83540; 84439; 84443; 84481; 85025

== ENCOUNTER → 2025-07-03 | Outpatient (CLI) | payer MEDICARE, MEDICAID, SELFPAY ==
[2025-07-03 10:24] LABS: Hematocrit 35.5 % (40-54); Hemoglobin 10.1 g/dL (13.0-16.5); Immature Granulocytes Count 0.070 X10^3/uL (0.0-0.0); Mean Corp Hgb Conc 28.5 g/dL (32-36); Mean Corpuscular Volume 71.9 fL (80-94); Mean Platelet Vol. 10.9 fl (6.2-12.0); NRBC Flagged by Analyzer 0 % (0-5); Platelet Count 182 K/mm3 (150-450); RBC Distribution Width CV 16.8 % (11.6-14.6); RBC Distribution Width SD 42.5 fl (35.1-43.9); Red Blood Count 4.94 M/mm3 (4.6-6.2); White Blood Count 5.4 K/mm3 (4.4-11.0)
--- OUTSIDE RECORDS SUMMARY | 2025-07-03 10:39 | XMS RPT_ITS | CCD ---
Author Organization [facility] Inform ion Partnership [facility] Care Team Providers Care Credit And Loan Collections Supervisor Name Role Phone Medardo MCFARLAND, Mattie Nails Unavailable MICHELE SALDIVAR Attending Unavailable MAYRA, ORVILLE-CHI Referring Unavailable MAYRA, ORVILLE-CHI Primary Care Unavailable MICHELE SALDIVAR Attending Unavailable MAYRA, ORVILLE-CHI Referring Unavailable ROGELIO LOCK Primary Care Unavailable Rogelio Lock MD Primary Care Provider [phone] Walker Webb Unavailable Dima LALNES, Arnaud Unavailable Dr. Rogelio Lock Primary Care Provider Dr. Shahzad Ventura Attending Provider [phone] Rogelio Lock MD Primary Care Provider [phone] Walker Webb Unavailable Dima LLANES, Arnadu Unavailable Walker Webb MD Unavailable Dima LLANES, Arnaud Unavailable Malys DO, Denise A Primary Care Provider [phone] HERMELINDO ZHAO Referring Unavailable MALYS, DENISE A Primary Care Unavailable MALYS, DENISE A Primary Care Unavailable HERMELINDO ZHAO Attending Unavailable MALYS, DENISE A Primary Care Unavailable Malys, Denise Attending Unavailable Malys, Denise Primary Care Unavailable Allergies Allergy Classification Reported Allergen(s) Allergy Type Date of Onset Reaction(s) Facility (1 source) celecoxib Drug Allergy 5 [facility] Work Phone: (1 source) valsartan Drug Allergy 5 lip swelling [facility] Work Phone: (13 sources) cefdinir; Translations: [CEFDINIR] Drug Allergy 6 Other: See Comments [facility] (10 sources) clopidogrel; Translations: [CLOPIDOGREL] Drug Allergy 5 Rash [facility] (13 sources) Gemfibrozil; Translations: [GEMFIBROZIL] Drug Allergy 5 Unknown [facility] (10 sources) rosuvastatin; Translations: [ROSUVASTATIN] Drug Allergy 5 [facility] (13 sources) traMADol; Translations: [TRAMADOL] Drug Allergy 6 Other: See Comments [facility] (9 sources) Cephalexin; Translations: [CEPHALEXIN] Drug Allergy 0 GI Upset [facility] (2 sources) Acetaminophen Drug Allergy 1 Shortness of breath [facility] (3 sources) clopidogrel; Translations: [clopidogrel bisulfate] Drug Allergy 1 Rash [facility] (2 sources) HYDROcodone Drug Allergy 1 Shortness of breath [facility] (2 sources) levoFLOXacin Drug Allergy 1 Vomiting [facility] (2 sources) Magnesium Drug Allergy 1 Chest tightness [facility] (3 sources) rosuvastatin; Translations: [rosuvastatin calcium] Drug Allergy 1 Other [facility] (1 source) Acetaminophen Drug Allergy 1 [facility] (1 source) HYDROcodone Drug Allergy 1 [facility] (1 source) levoFLOXacin Drug Allergy 1 [facility] (1 source) Magnesium Drug Allergy 1 [facility] Repository Medications Current Medications Medication Drug Class(es) Dates Sig (Normalized) Sig (Original) acetaminophen 325 mg oral tablet (10 sources) Start: 02-11-2020 take 650 mg by mouth every six hours Acetaminophen Active 650 MG PO EVERY 6 HOURS February 11, 2020 12:00am Start: 02-05-2020 take 2 tablets by [facility] every six hours as needed acetaminophen (TYLENOL) 325 mg tablet Take 2 tablets by mouth every 6 hours as needed. 02/05/2020 Active Comment on above: Take 2 tablets by mo [facility] every 6 hours as needed. acetaminophen 325 mg / oxyCODONE hydrochloride 5 mg oral tablet (4 sources) Opioid Agonist Start: 03-08-2021 take 1 tablet by mouth twice daily Oxycodone-Acetam inophen Active 1 TABLET PO TWICE A DAY March 08, 2021 12:00am Start: 05-30-2018 End: 06-02-2018 take 1 tablet by mouth every six hours as needed Oxycodone-Acetaminophen Discontinued 1 TABLET PO EVERY 6 HOURS NEEDED 12 May 30, 2018 12:00am June 02, 2018 12:11am [id number] 200 actuat albuterol 0.09 mg/actuat metered dose inhaler (10 sources) beta2-Adrenergic Agonist Start: 09-17-2023 take 1 puff(s) by inhalation every four hours as needed PROVENTIL HFA 90 mcg/actuation inhaler Indications: COPD with exacerbation (HCC) Inhale 1 Puff as instructed every 4 hours as needed. 8 g 09/17/2023 Active Start: 02-11-2020 take 1 puff(s) by in halation once Albuterol Sulfate (Proventil Hfa) 90 mcg/actuation HFA aerosol inhaler Active 1 PUFF INHALATION ONCE February 11, 2020 12:00am Start: 11-02-2015 End: 09-17-2023 take 1 puff(s) by inhalation every four hours as needed PROVENTIL HFA 90 mcg/actuation inhaler Inhale 1 Puff as instructed every 4 hours as needed. 11/02/2015 09/17/2023 Discontinued Comment on above: Inhale 1 Puff as ins tructed every 4 hours as needed. amitriptyline hydrochloride 10 mg oral tablet (5 sources) Tricyclic Antidepressant Start: 08-24-20 23 amitriptyline (ELAVIL) 10 mg tablet TAKE 1 TO 2 TABLETS AT BEDTIME FOR NEUROPATHY 08/24/2023 Active amLODIPine 5 mg oral tablet (12 sources) Dihydropyridine Calcium Channel Wei Start: 12-13-19 16 take 5 mg by mouth once daily Amlodipine Active 5 MG PO DAILY December 13, 2015 12:00am Start: 10-06-2014 take 1 tablet by pino once daily AMLODIPINE BESYLATE 10 MG TABS One half tablet by mouth daily AMLODIPINE BESYLATE [id number] Walker Webb MD Comment on above: Take 5 mg by mouth o nce daily. amLODIPine 5 mg / atorvastatin 10 mg oral tablet (4 sources) Dihydropyridine Calcium Channel Wei, HMG-CoA Reductase Inhibitor Start: 4 take 1 tablet by mouth once daily in the evening amLODIPine-Atorv astatin 5-10 mg per tablet TAKE 1 TABLET BY MOUTH EVERY NIGHT IN THE EVENING 07/11/2024 Active apixaban 5 mg oral tablet (10 sources) Factor Xa Inhibitor Start: 1 take 0.5 tablet by mouth twice daily apixaban (ELIQUIS) 5 mg tab(s) Take 0.5 tablets by mouth twice daily. 60 tablet 2021 Active Start: 03-03-2020 take 5 mg by mouth twice daily Apixaban Active 5 MG PO TWICE A DAY March 03, 2020 12:00am On Hold: anemia Comment on above: Take 0.5 tablets by mouth twice daily. aspirin 81 mg delayed release oral tablet (12 sources) Platelet Aggregation Inhibitor, Nonsteroidal Anti-inflammatory Drug Start: 10-08-2014 take 1 tablet by mouth once daily ASPIRIN 81 MG TABS One tablet by mouth daily ASPIRIN [id number] Walker Webb MD Start: 09-15-2009 aspirin(ECOTRI N LOW STRENGTH 81 MG TAB) Take one(1) tablet daily. 0 09/15/2009 Active Comment on above: Take one(1) tablet d aily. atorvastatin 10 mg oral tablet (15 sources) HMG-CoA Reductase Inhibitor Start: 0 take 1 tablet by mouth once daily atorvastatin (LIPITOR) 10 mg tablet Take 1 tablet by mouth once daily. 02/12/2020 Active Start: 02-11-2020 End: 03-31-2020 take 80 mg by mouth at bedtime Atorvastatin Discontinu ed 80 MG PO AT BEDTIME February 11, 2020 11:56am March 31, 2020 7:52am Start: 11-09-2016 End: 02-11-2020 take 10 mg by mouth at bedtime Atorvastatin Discontinu ed 10 MG PO AT BEDTIME November 09, 2016 12:00am February 11, 2020 11:59am Start: 06-21-2016 take 1 tablet by pino th once daily ATORVASTATIN CALCIUM 80 MG TABS One tablet by mouth daily ATORVASTATIN CALCIUM [id number] Walker Webb MD Comment on above: Take 1 tablet by [facility] once daily. carboxymethylcellulose 0.01 mg/mg ophthalmic gel (5 sources) Start: 03-31-20 Carboxymethylcellulose Sodiu m (Refresh Celluvisc) 1 % dropperette,gel Active 1 DRP OPHTHALMIC 4 to 6 times per day March 31, 2020 12:00am Start: 02-05-2020 carboxymethylc ellulose sodium (CELLUVISC) 1 % dlgl Use 1-2 Drops in both eyes four times daily. 15 mL 1 02/05/2020 Active Comment on above: Use 1-2 Drops in bot h eyes four times daily. cephalexin 500 mg oral capsule (2 sources) Cephalosporin Antibacterial Start: 1 take 500 mg by mouth every twelve hours Cephalexin Active 500 MG PO EVERY 12 HOURS June 18, 2021 12:00am diazePAM 5 mg oral tablet (7 sources) Benzodiazepine Start: 1 take 5 mg by mouth once daily Diazepam Active 5 MG PO DAILY March 08, 2021 12:00am Start: 12-27-2019 End: 05-12-2020 take 5 mg by mouth at bedtime Diazepam Discontinued 5 MG PO AT BEDTIME February 11, 2020 12:00am May 12, 2020 11:45am Comment on above: Take 5 mg by mouth a s needed. doxycycline hyclate 100 mg oral tablet (3 sources) Tetracycline-clas s Drug Start: 01-20-2025 End: 01-27-2025 take 1 tablet by mouth twice daily doxycycline (VIBRA-TABS) 100 mg tablet Indications: Open wound Take 1 tablet by mouth two times a day for 7 days. 14 tablet 01/20/2025 01/27/2025 Active Start: 08-11-2024 End: 08-16-2024 take 1 capsule by mouth twice daily doxycycline monohydrate (MONODOX) 100 mg capsule Indications: COPD with exacerbation (HCC) Take 1 capsule by mouth two times a day for 5 days. 10 capsule 08/11/2024 08/16/2024 Active esomeprazole 40 mg delayed release oral capsule (7 sources) Proton Pump Inhibitor Start: 10-06-2014 take 40 mg by mouth once daily Esomeprazole Magnesium Active 40 MG PO DAILY December 13, 2015 12:00am Start: 10-06-2014 take 1 capsule by [facility] every other day NEXIUM 40 MG CPDR One capsule by mouth every other day ESOMEPRAZOLE MAGNESIUM [id number] Prerna Craven RN Comment on above: Take 40 mg by mouth once daily. hypromellose 3 mg/ml ophthalmic solution (10 sources) Start: 02-11-2020 Artifi.Tears(Hypromello se)(Pf) Active 1 DRP OPHTHALMIC 4 to 8 times per day February 11, 2020 12:00am Start: 02-05-2020 apply 1-2 drop(s) in to the eye(s) once daily at bedtime Artificial Tear, Hypromellose, 0.3 % gel Use 1-2 Drops in both eyes daily at bedtime. 10 g 1 02/05/2020 Active Comment on above: Use 1-2 Drops in bot h eyes daily at bedtime. 3 ml insulin glargine 100 unt/ml pen injector (14 sources) Insulin Analog Start: 09-20-2020 insulin glargine (LANTUS SOLOSTAR, BASAGLAR KWIKPEN) 100 unit/mL (3 mL) Indications: Uncontrolled type 2 diabetes mellitus with hyperglycemia (HCC) Inject 34 Units subcutaneously every morning. 5 Pen 1 09/20/2020 Active Start: 03-03-2020 Insulin Glargi ne (Lantus Solostar U-100 Insulin) 100 unit/mL (3 mL) insulin pen Active 34 UNIT SC DAILY March 03, 2020 2:52pm Start: 02-11-2020 End: 03-03-2020 Insulin Glargine (Lantus Tiffany ostar U-100 Insulin) 100 unit/mL (3 mL) insulin pen Discontinued 20 UNIT SC DAILY February 11, 2020 12:00am March 03, 2020 2:54pm Start: 10-06-2014 End: 06-21-2016 LANTUS SOLOSTAR 100 UNIT/ML SOPN as directed INSULIN GLARGINE [id number] Prerna Craven RN Comment on above: Inject 34 Units subc utaneously every morning. 3 ml insulin lispro 100 unt/ml pen injector (12 sources) Insulin Analog Start: 09-20-2020 insulin lispro (HUMALOG KWIKPEN INSULIN) 100 unit/mL Indications: Uncontrolled type 2 diabetes mellitus with hyperglycemia (HCC) Inject subcutaneously 10 units three times daily before meals + Sliding Scale TDD 45 units 5 Pen 1 09/20/2020 Active Start: 03-03-2020 Insulin Lispro (Humalog Kwikpen Insulin) 100 unit/mL insulin pen Active 10 UNIT SC THREE TIMES A DAY March 03, 2020 2:52pm Start: 02-11-2020 End: 03-03-2020 Insulin Lispro (Humalog Kwik pen Insulin) 100 unit/mL insulin pen Discontinued 7 UNIT SC THREE TIMES A DAY February 11, 2020 12:00am March 03, 2020 2:54pm Comment on above: Inject subcutaneousl y 10 units three times daily before meals + Sliding Scale TDD 45 units metoprolol tartrate 25 mg oral tablet (7 sources) beta-Adrenergic Wei Start: take 12.5 mg by mouth twice daily Metoprolol Tartrate Active 12.5 MG PO TWICE A DAY June 15, 2020 8:47am Start: 02-05-2020 End: 06-15-2020 take 25 mg by mouth twice daily Metoprolol Tartrate Discontinued 25 MG PO TWICE A DAY February 11, 2020 12:00am June 15, 2020 8:47am Comment on above: Take 1 tablet by pino th twice daily. predniSONE 20 mg oral tablet (1 source) Start: 08-11-20 End: 08-16-20 take 1 tablet by mouth twice daily at mealtime predniSONE (DELTASONE) 20 mg tablet Indications: COPD with exacerbation (HCC) Take 1 tablet by mouth two times a day for 5 days. Take daily with food. 10 tablet 08/11/2024 08/16/2024 Active tamsulosin hydrochloride 0.4 mg oral capsule (11 sources) alpha-Adrenergic Wei Start: 01-30-20 take 0.4 mg by mouth once daily Tamsulosin Active 0.4 MG PO DAILY December 13, 2015 12:00am Comment on above: Take 0.4 mg by mouth once daily. 24 hr venlafaxine 150 mg extended release oral capsule (7 sources) Serotonin and Norepinephrine Reuptake Inhibitor Start: 10-06-19 15 take 150 mg by mouth twice daily Venlafaxine Active 150 MG PO TWICE A DAY November 09, 2016 12:00am Start: 10-06-2014 take 1 tablet by pino th once daily EFFEXOR XR 75 MG [id number] One tablet by mouth daily VENLAFAXINE HCL [id number] Prerna Craven RN Comment on above: Take 150 mg by mouth twice daily. Completed/Discontinued Medications Medication Drug Class(es) Dates Sig (Normalized) Sig (Original) acetaminophen 300 mg / codeine phosphate 30 mg oral tablet (2 sources) Opioid Agonist Start: 06-12-2018 End: 02-11-2020 take 1 tablet by mouth every six hours as needed Acetaminophen-Cod eine Discontinued 1 TABLET PO EVERY 6 HOURS NEEDED June 12, 2018 12:00am February 11, 2020 11:50am amiodarone hydrochloride 200 mg oral tablet (2 sources) Antiarrhythmic Start: 03-31-2020 End: 2020 take 200 mg by mouth once daily Amiodarone Discontinued 200 MG PO DAILY March 31, 2020 12:00am 2020 2:42pm atenolol 50 mg oral tablet (3 sources) beta-Adrenergic Wei Start: 10-06-2014 End: 02-11-2020 take 50 mg by mouth once daily Atenolol Discontinued 50 MG PO DAILY December 13, 2015 12:00am February 11, 2020 11:55am automatic BP monitor (2 sources) Start: 04-01-2020 End: 2020 automatic BP monitor Discontinued April 01, 2020 12:00am 2020 2:41pm As directed BP Monitor w/Cuff (2 sources) Start: 04-01-2020 End: 2020 BP Monitor w/Cuff Discontinued April 01, 2020 12:00am 2020 2:41pm As directed: monitor vital signs as needed docusate sodium 100 mg oral capsule (2 sources) Start: 06-12-2018 End: 09-03-2019 take 100 mg by mouth once daily Docusate Sodium Discontinued 100 MG PO DAILY June 12, 2018 12:00am September 03, 2019 3:41pm docusate sodium 50 mg / sennosides, [facility] 8.6 mg oral tablet (3 sources) Start: 02-05-2020 take 1 tablet by mouth every twelve hours as needed senna-docusate (SENNA-S) 8.6-50 mg per tablet Take 1 tablet by mouth twice daily as needed. 0 02/05/2020 Active Comment on above: Take 1 tablet by pino twice daily as needed. [id number] 0.3 ml EPINEPHrine 1 mg/ml auto-injector (4 sources) alpha-Adrenergic Agonist, beta-Adrenergic Agonist, Catecholamine Start: 08-16-2017 End: 03-03-2020 inject 0.3 mg by intramuscular injection once Epinephrine Discontinued 0.3 MG IM ONE TIME August 16, 2017 10:02am March 03, 2020 2:54pm Start: 02-26-2016 End: 08-16-2017 inject 0.3 mg by intramuscular injection once Epinephrine Discontinued 0.3 MG IM ONE TIME February 26, 2016 12:00am August 16, 2017 10:02am fenofibrate 145 mg oral tablet (2 sources) Peroxisome Proliferator Receptor alpha Agonist Start: 10-08-2014 End: 06-21-2016 take 1 tablet by mouth once daily TRICOR 145 MG TABS One tablet by mouth daily FENOFIBRATE [id number] Walker Webb MD ferrous sulfate 325 mg oral tablet (5 sources) Start: 04-11-2021 take 1 tablet by mouth once daily at breakfast ferrous sulfate (IRON) 325 mg (65 mg iron) tablet Indications: Iron deficiency anemia due to chronic blood loss Take 1 tablet by mouth daily with breakfast. 100 tablet 0 04/11/2021 Active Start: 2020 take 325 mg by mouth twice cristian ly Ferrous Sulfate Active 325 MG PO TWICE A DAY 2020 12:00am Comment on above: Take 1 tablet by [facility] daily with breakfast. fluorouracil 50 mg/ml topical cream (2 sources) Nucleoside Metabolic Inhibitor Start: 0 End: 0 Fluorouracil Discontinued 1 APPLIC TOPICAL TWICE A DAY October 21, 2019 1:00am February 11, 2020 11:59am apply sufficient amount to cover all lesions furosemide 40 mg oral tablet (9 sources) Loop Diuretic Start: 6 take 1 tablet by mouth once daily LASIX 40 MG TABS One tablet by mouth daily FUROSEMIDE [id number] JEFF HouserC Comment on above: Take 40 mg by mouth once daily. 12 hr guaiFENesin 600 mg extended release oral tablet (2 sources) Start: 0 End: 0 take 1 tablet by mouth every twelve hours, then take 1 tablet by mouth every twelve hours Guaifenesin (Mucinex) 600 mg tablet extended release 12hr Discontinued 600 MG PO Q12H February 11, 2020 12:00am May 12, 2020 11:45am hydrALAZINE hydrochloride 50 mg oral tablet (3 sources) Arteriolar Vasodilator Start: 5 take 1 tablet by mouth three times daily HYDRALAZINE HCL 25 MG TABS One tablet by mouth three times daily HYDRALAZINE HCL [id number] Prerna Craven RN Start: 10-06-2014 End: 06-21-2016 take 1 tablet by mouth three times daily HYDRALAZINE HCL 50 MG TABS One tablet by mouth three times daily HYDRALAZINE HCL [id number] Walker Webb MD hydroCHLOROthiazide 25 mg oral tablet (2 sources) Thiazide Diuretic Start: 10-08-2014 End: 11-08-2015 take 1 tablet by mouth once daily HYDROCHLOROTHIAZIDE 25 MG TABS One tablet by mouth daily HYDROCHLOROTHIAZIDE [id number] Walker Webb MD Insulin, Aspart, Human (2 sources) Insulin Analog Start: 10-06-2014 NOVOLOG FLEXPEN 100 UNIT/ML SOLN as directed INSULIN ASPART Prerna Craven RN Start: 10-06-2014 End: 06-21-2016 NOVOLOG FLEXPEN 100 UNIT/ML SOLN as directed INSULIN ASPART Walker Webb MD insulin human, isophane 100 unt/ml injectable suspension (1 source) Start: 06-21-2016 HUMULIN N 100 UNIT/ML SUSP as directed INSULIN ISOPHANE HUMAN [id number] Walker Webb MD 3 ml insulin, regular, human 500 unt/ml pen injector (2 sources) Insulin Start: 02-26-2016 End: 02-11-2020 inject 22 [IU] by subcutaneous injection twice daily Insulin Regular Hum U-500 Conc Discontinued 22 UNIT SQ TWICE A DAY February 26, 2016 12:00am February 11, 2020 11:55am 24 hr isosorbide mononitrate 30 mg extended release oral tablet (6 sources) Nitrate Vasodilator Start: 10-28-2019 End: 02-11-2020 take 30 mg by mouth once daily Isosorbide Mononitrate Discontinued 30 MG PO DAILY 90 February 03, 2020 9:16am February 11, 2020 11:58am losartan potassium 100 mg oral tablet (2 sources) Angiotensin 2 Receptor Wei Start: 10-08-2014 End: 01-27-2015 take 1 tablet by mouth once daily LOSARTAN POTASSIUM 100 MG TABS One tablet by mouth daily (STOP) LOSARTAN POTASSIUM [id number] Sheri [place] magnesium hydroxide 80 mg/ml oral suspension (7 sources) Start: 03-31-2020 End: 05-12-2020 take 1 mL by mouth once daily Magnesium Hydroxide Discontinued 30 ML PO DAILY March 31, 2020 12:00am May 12, 2020 11:45am Start: 02-11-2020 End: 03-03-2020 take 1 mL by mouth once daily Magnesium Hydroxide (Mil k Of Magnesia) 400 mg/5 mL suspension Discontinued 30 ML PO DAILY February 11, 2020 12:00am March 03, 2020 2:54pm Start: 02-05-2020 take 30 mL by mouth once daily as needed magnesium hydroxide (MOM) 400 mg/5 mL suspension Take 30 mL by mouth once daily as needed. 0 02/05/2020 Active Comment on above: Take 30 mL by mouth once daily as needed. magnesium oxide 500 mg oral tablet (2 sources) Start: 02-11-20 End: 03-03-20 20 take 500 mg by mouth twice daily Magnesium Oxide Discontinued 500 MG PO TWICE A DAY February 11, 2020 12:00am March 03, 2020 2:54pm memantine hydrochloride 5 mg oral tablet (3 sources) A-sffpdr-D-aspartate Receptor Antagonist Start: 01-04-20 22 take 1 tablet by mouth once daily memantine (NAMENDA) 5 mg tablet Take 1 tablet by mouth once daily. 30 tablet 3 01/03/2022 Active Comment on above: Take 1 tablet by pino th once daily. metFORMIN hydrochloride 1000 mg oral tablet (1 source) Biguanide Start: 10-06-19 15 take 1 tablet by mouth twice daily METFORMIN HCL 1000 MG TABS One tablet by mouth twice daily METFORMIN HCL [id number] Prerna Craven RN nitroglycerin 0.4 mg sublingual tablet (2 sources) Nitrate Vasodilator Start: 10-06-19 15 NITROGLYCERIN 0.4 MG SUBL 1 tablet under the tongue every 5 minutes times 3 as needed for chest pain. NITROGLYCERIN [id number] Prerna Craven RN oxyCODONE hydrochloride 5 mg oral tablet (2 sources) Opioid Agonist Start: 02-11-20 End: 03-08-20 21 take 5 mg by mouth every six hours Oxycodone Discontinued 5 MG PO EVERY 6 HOURS February 11, 2020 12:00am March 08, 2021 2:08pm polyethylene glycol 3350 01716 mg powder for oral solution (2 sources) Osmotic Laxative Start: 02-11-20 End: 04-12-20 20 take 17 g by mouth twice daily Polyethylene Glycol 3350 Discontinued 17 GM PO TWICE A DAY February 11, 2020 12:00am 2020 2:43pm potassium chloride 20 meq extended release oral tablet (9 sources) Start: 11-02-19 16 take 20 mEq by mouth twice daily Potassium Chloride Active 20 MEQ PO TWICE A DAY May 12, 2020 11:43am On Hold: holding lasix Start: 10-06-2014 End: 05-12-2020 take 20 mEq by mouth once daily Potassium Chloride Discontinued 20 MEQ PO DAILY December 13, 2015 12:00am May 12, 2020 11:45am Comment on above: Take 20 mEq by mouth twice daily. ramipril 10 mg oral capsule (2 sources) Angiotensin Converting Enzyme Inhibitor Start: 10-06-2014 End: 01-29-2015 take 1 tablet by mouth twice daily RAMIPRIL 10 MG CAPS One tablet by mouth twice daily RAMIPRIL [id number] Prerna Craven RN sennosides, [facility] 8.6 mg oral tablet (4 sources) Start: 03-31-2020 End: 2020 take 1 tablet by mouth twice daily Sennosides (Senna) 8.6 mg tablet Discontinued 8.6 MG PO TWICE A DAY March 31, 2020 12:00am 2020 2:43pm Start: 02-11-2020 End: 03-03-2020 take 1 tablet by mouth twice daily Sennosides (Senna) 8.6 mg tablet Discontinued 8.6 MG PO TWICE A DAY February 11, 2020 12:00am March 03, 2020 2:54pm divalproex sodium 250 mg delayed release oral tablet (2 sources) Mood Stabilizer, Anti-epileptic Agent Start: 02-11-2020 End: 03-03-2020 take 250 mg by mouth twice daily Divalproex Discontinued 250 MG PO TWICE A DAY February 11, 2020 12:00am March 03, 2020 2:53pm Problems Active Problems Problem Classification Problem Date Documented Da te Episodic/Chronic Aortic; peripheral; and visceral artery aneurysms (11 sources) Abdominal aortic aneurysm; Translations: [Abdominal aortic aneurysm without rupture] Onset: 5 10-06-2014 Chronic Cardiac dysrhythmias (15 sources) Bradycardia; Translations: [Atrial fibrillation and flutter ] Onset: 5 10-06-2014 Chronic Chronic obstructive pulmonary disease and bronchiectasis (2 sources) Chronic obstructive lung disease; Translations: [Acute exacerbation of chronic obstructive airways disease] Onset: 7 06-15-2017 Chronic Complications of surgical procedures or medical care (2 sources) Atrial fibrillation; Translations: [Other postprocedural complications and disorders of the circulatory system, not elsewhere classified] 02-11-2020 Episodic Conditions associated with dizziness or vertigo (2 sources) Dizziness; Translations: [Dizziness and giddiness] 06-27-2021 Episodic Conduction disorders (2 sources) First degree atrioventricular block; Translations: [Atrioventricular block, first degree] 04-06-2020 Chronic Coronary atherosclerosis and other heart disease (17 sources) Coronary atherosclerosis; Translations: [Atherosclerotic heart disease of [place] coronary artery without angina pectoris] Onset: 5 06-08-2016 Chronic Deficiency and other anemia (8 sources) Iron deficiency anemia due to blood loss; Translations: [Iron deficiency anemia secondary to blood loss (chronic)] Onset: 1 05-09-2021 Chronic Deficiency and other anemia (4 sources) Anemia; Translations: [Anemia, unspecified] 04-06-2020 Episodic Delirium, dementia, and amnestic and other cognitive disorders (1 source) Primary degenerative dementia of the Alzheimer type, senile onset, uncomplicated; Translations: [Alzheimer's disease with late onset] Chronic Diabetes mellitus with complications (10 sources) Type 2 diabetes mellitus; Translations: [Type 2 diabetes mellitus with diabetic polyneuropathy] Onset: 1 10-20-2020 Chronic Disorders of lipid metabolism (2 sources) Hyperlipidemia; Translations: [Hyperlipidemia, unspecified] 03-16-2021 Chronic E Codes: Fall (2 sources) Fall; Translations: [Unspecified fall, initial encounter] 05-21-2020 Episodic Essential hypertension (11 sources) Hypertensive disorder; Translations: [Essential hypertension] Onset: 5 10-06-2014 Chronic Hyperplasia of prostate (8 sources) Benign prostatic hyperplasia; Translations: [Benign prostatic hyperplasia without lower urinary tract symptoms] Onset: 0 02-03-2020 Chronic Mood disorders (8 sources) Depressive disorder; Translations: [Depression] Onset: 0 02-04-2020 Chronic Open wounds of extremities (4 sources) Tear of skin; Translations: [Laceration without foreign body of left elbow, initial encounter] 07-15-2020 Episodic Other gastrointestinal disorders (2 sources) Occult blood in stools; Translations: [Other fecal abnormalities] 03-09-2021 Episodic Other hematologic conditions (2 sources) Blood transfusion finding; Translations: [Transfusion of blood during current hospitalization] 03-04-2021 Episodic Other injuries and conditions due to external causes (2 sources) Avulsion of skin; Translations: [Other injury of unspecified body region, initial encounter] 05-21-2020 Episodic Other injuries and conditions due to external causes (1 source) Open wound; Translations: [Other injury of unspecified body region, initial encounter] 01-20-2025 Episodic Other injuries and conditions due to external causes (1 source) Other injury of unspecified body region, initial encounter; Translations: [Open wound] Onset: 5 Episodic Other lower respiratory disease (2 sources) Dyspnea on exertion; Translations: [Other forms of dyspnea] 04-05-2020 Episodic Other lower respiratory disease (1 source) Cough; Translations: [Acute cough] 09-17-2023 Episodic Other lower respiratory disease (1 source) Hemoptysis; Translations: [Hemoptysis] 09-17-2023 Episodic Other nutritional; endocrine; and metabolic disorders (1 source) Body mass index (BMI) 37.0-37.9, adult; Translations: [Body mass index (BMI) 37.0-37.9, adult] Onset: 5 11-08-2015 Chronic Other nutritional; endocrine; and metabolic disorders (2 sources) Body mass index (BMI) 38.0-38.9, adult; Translations: [Body mass index (BMI) 38.0-38.9, adult] Onset: 5 12-18-2016 Chronic Other nutritional; endocrine; and metabolic disorders (8 sources) Obese class I; Translations: [Obesity, unspecified] Onset: 0 03-24-2020 Chronic Other upper respiratory disease (2 sources) Anterior epistaxis; Translations: [Epistaxis] 06-26-2021 Episodic Peripheral and visceral atherosclerosis (8 sources) Peripheral vascular disease; Translations: [Peripheral vascular disease, unspecified] 08-04-2016 Chronic Poisoning by nonmedicinal substances (2 sources) Bee sting; Translations: [Toxic effect of venom of bees, accidental (unintentional), initial encounter] 02-27-2016 Episodic Residual codes; unclassified (4 sources) Pain; Translations: [Pain, unspecified] 01-20-2025 Episodic Residual codes; unclassified (1 source) Pain, unspecified; Translations: [Pain] Onset: 5 Episodic Superficial injury; contusion (2 sources) Contusion of chest; Translations: [Contusion of unspecified front wall of thorax, initial encounter] 07-15-2020 Episodic Unclassified (2 sources) AAA (abdominal aortic aneurysm) without rupture (HCC) Onset: 6 Past or Other Problems Problem Classification Problem Date Documented Da te Episodic/Chronic Administrative/social admission (16 sources) Discharge status; Translations: [Encounter for administrative examinations, unspecified] Onset: 01-28-2020 02-04-2020 Episodic Cardiac dysrhythmias (5 sources) Sinus bradycardia; Translations: [Bradycardia, unspecified] Onset: 01-30-2020 Resolved: 01-31-2020 01-31-2020 Episodic Coronary atherosclerosis and other heart disease (2 sources) History of myocardial infarction; Translations: [Coronary angioplasty status] Onset: 10-06-2014 10-08-2014 Episodic Fluid and electrolyte disorders (10 sources) Hypovolemia; Translations: [Hypovolemia] Onset: 01-30-2020 Resolved: 02-02-2020 01-31-2020 Episodic Nonspecific chest pain (8 sources) Chest discomfort; Translations: [Other chest pain] Onset: 12-17-2015 12-17-2015 Episodic Other and unspecified benign neoplasm (10 sources) History of polyp of colon; Translations: [Personal history of colonic polyps] Onset: 01-31-2016 01-31-2016 Episodic Other eye disorders (8 sources) Lower eyelid ectropion; Translations: [Unspecified ectropion of right lower eyelid] Onset: 02-04-2020 02-04-2020 Episodic Other gastrointestinal disorders (5 sources) Oropharyngeal dysphagia; Translations: [Dysphagia, oropharyngeal phase] Onset: 10-14-2015 Resolved: 10-14-2015 10-14-2015 Episodic Other nervous system disorders (8 sources) Acute postoperative pain; Translations: [Other acute postprocedural pain] Onset: 01-30-2020 02-03-2020 Episodic Other screening for suspected conditions (not mental disorders or infectious disease) (8 sources) History of adenomatous polyp of colon; Translations: [Encounter for screening for malignant neoplasm of colon] Onset: 10-14-2015 10-14-2015 Episodic Other skin disorders (8 sources) Skin lesion; Translations: [Disorder of the skin and subcutaneous tissue, unspecified] Onset: 01-31-2016 01-31-2016 Episodic Pleurisy; pneumothorax; pulmonary collapse (8 sources) Atelectasis; Translations: [Atelectasis] Onset: 01-30-2020 02-03-2020 Episodic Residual codes; unclassified (1 source) Family history of stroke; Translations: [Family history of stroke] 10-08-2014 Episodic Results Test Name Value Interpretation Reference Range Facility Bacteria Wnd Culton 01-21-20 25 Bacteria identified Cx Nom (Wound) ORGANISM ID: 1 Moderate Staphylococcus aureus GRAM STAIN: Moderate Gram positive cocci No Polymorphonuclear Leukocytes ORGANISM ID: 1 (STAPHYLOCOCCUS AUREUS) ANTIBIOTIC INTERPRETATION SADIE STATUS REFERENCE RANGE Oxacillin S 0.5 F Susceptible <=2 , Resistant >2 Oxacillin-susceptibl e staphylococci are susceptible to other penicilllinase-stabl e penicillins, beta-lactam/beta-lac tamase inhibitor combinations, anti-staphylococcal cephems, and carbapenems. Erythromycin S <=0.25 F Susceptible <=0.5 , Intermediate >.5 , Resistant >4 Clindamycin S 0.25 F Susceptible <=0.5 , Intermediate >.5 , Resistant >2 Trimeth sulfameth S <=10 F Susceptible <=40 , Resistant >40 Vancomycin S 1 F Susceptible <=2 , Intermediate >2 , Resistant >8 Rifampin S <=0.5 F Susceptible <=1 , Intermediate >1 , Resistant >2 Rifampin should not be used alone for antimicrobial therapy. Tetracycline S <=1 F Susceptible <=4 , Intermediate >4 , Resistant >8 Doxycycline S <=0.5 F Susceptible <=4 , Intermediate >4 , Resistant >8 Abnormal [facility] Comment on above: Performed By: #### [id number] #### [facility] CLIA [id number] [address] [place] [address] [place] CNOVon 01-20-2025 CNOV Office Visit ([facility]) SHAHZAD BERGERON ([id number]) 1945 M Date Time Provider Department 01/20/25 12:15 PM HERMELINDO ZHAO [facility] During your visit today, we recorded the following information about you: Temperature Pulse Respiration Blood pressure 98.4 degrees 76/minute 16/minute 110/68 Weight 83.9 kg Hermelindo Zhao APRN.BUSINESS OFFICE DIRECTOR 01/20/2025 1:34 PM Signed [facility] Subjective Shahzad Bergeron is a 79 year old male. Patient presents with: Derm Problem: left index finger, blister like area at tip of finger x 1 week HPI Dyspnea and Dizziness: - Chronic dyspnea post-open heart surgery, worsening over the past week. - Increasing dizziness over the past week. - expresses concern about potential syncope. Left Index Finger Lesion: - Lesion on left index finger noted about a week ago, initially thought to be a blister. - No recollection of trauma or injury to the finger. - Unable to flex the distal interphalangeal joint; reports tenderness. - Denies pain in the proximal interphalangeal joint. Review of Systems Respiratory: (+) shortness of breath Musculoskeletal: (+) left index finger pain, (+) left index finger joint stiffness Neurological: (+) dizziness sensation intact Objective BP 110/68 Pulse 76 Temp 36.9 ?C (98.4 ?F) Resp 16 Wt 83.9 kg (184 lb 15.5 oz) SpO2 97% BMI 28.12 kg/m? Physical Exam General: No acute distress. CV: Tachycardia. Resp: Tachypnea. MSK/Ext: Unable to flex distal interphalangeal joint of left index finger; tenderness at proximal interphalangeal joint of left index finger; tenderness on pad of left index finger. {1. Pain (R52) 2. Open wound (T14.8XXA) - Erythematous, raised pustule on left index finger with tenderness at the PIP joint and inability to flex the distal joint. - Ordered X-ray to rule out osteomyelitis. - Wound was incised and drained, purulent material expressed. - Applied dry sterile dressing. - Prescribed doxycycline BID for 7 days. - Educated patient to keep the wound clean and dry. - Follow-up with primary care provider tomorrow for further evaluation and management. and Recording using ambient [employer] software for draft documentation of the visit was discussed with the patient/authorized financial foundations representative; all questions welcomed and answered. Patient/authorized financial foundations representative agreed to proceed MDM Procedures Allergies As of Date: 01/20/2025 Noted Allergy Reaction CEFDINIR 11/04/2015 14 - Other: See Comments Comments: Causes shakes, anxiety, GI upset CRESTOR (ROSUVASTATIN) 03/16/2005 KEFLEX (CEPHALEXIN) 01/27/2020 8 - GI Upset LOPID (GEMFIBROZIL) 03/16/2005 PLAVIX (CLOPIDOGREL) 03/16/2005 2 - Rash TRAMADOL 11/18/2015 14 - Other: See Comments Comments: "felt shakey" Date Reviewed: 01/20/2025 Reviewed by: Linda Moy MA - Fully Assessed Reason for Visit: Derm Problem [33] Cmt: left index finger, blister like area at tip of finger x 1 week Primary Visit Diagnosis:Pain [R52] Other Visit Diagnosis:Open wound [T14.8XXA] Order(s):XR DIGIT GENERAL 3V FRONTAL/LAT/OBL LEFT [[id number]] Order #: [id number] FUTURE BACTERIAL CULTURE AND GRAM STAIN, ABSCESS AND WOUND (AEROBIC CULTURE) [SQWCUL] Order #: [id number] FUTURE doxycycline (VIBRA-TABS) 100 mg tabletTake 1 tablet by mouth two times a day for 7 days.Disp: 14 tabletRfl: 0 BACTERIAL CULTURE AND GRAM STAIN, ABSCESS AND WOUND (AEROBIC CULTURE) [SQWCUL] Order #: [id number]. #:[id number] Prescriptions as of 01/20/2025 - doxycycline (VIBRA-TABS) 100 mg tablet Take 1 tablet by mouth two times a day for 7 days. - amLODIPine-Atorvasta tin 5-10 mg per tablet TAKE 1 TABLET BY MOUTH EVERY NIGHT IN THE EVENING - amitriptyline (ELAVIL) 10 mg tablet TAKE 1 TO 2 TABLETS AT BEDTIME FOR NEUROPATHY - PROVENTIL HFA 90 mcg/actuation inhaler Inhale 1 Puff as instructed every 4 hours as needed. - apixaban (ELIQUIS) 5 mg tab(s) Take 0.5 tablets by mouth twice daily. - insulin glargine (LANTUS SOLOSTAR, BASAGLAR KWIKPEN) 100 unit/mL (3 mL) Inject 34 Units subcutaneously every morning. - insulin lispro (HUMALOG KWIKPEN INSULIN) 100 unit/mL Inject subcutaneously 10 units three times daily before meals + Sliding Scale TDD 45 units - Insulin [place], Disposable, (BD ULTRA-FINE KELSEY PEN NEEDLE) 32 gauge x 5/32" for insulin dosing 4 times a day - atorvastatin (LIPITOR) 10 mg tablet Take 1 tablet by mouth once daily. - acetaminophen (TYLENOL) 325 mg tablet Take 2 tablets by mouth every 6 hours as needed. - Artificial Tear, Hypromellose, 0.3 % gel Use 1-2 Drops in both eyes daily at bedtime. - tamsulosin ER (FLOMAX) 0.4 mg cp24 Take 0.4 mg by mouth once daily. - furosemide (LASIX) 40 mg tablet Take 40 mg by mouth once daily. - amLODIPine (NORVASC) 5 mg tablet Take 5 mg by mouth once daily. - aspirin(ECOTRIN LOW STRENGTH 81 MG TAB) Misael (more content not included)... [facility] XR DIGIT 3V FRONTAL/LAT/OBL LTon 01-20-2025 XR DIGIT 3V FRONTAL/LAT/OBL LT * * *Final Report* * * DATE OF EXAM: Jan 20 2025 1:09PM WOX [id number] - XR DIGIT 3V FRONTAL/LAT/OBL LT / PROCEDURE REASON: Pain * * * * Physician Interpretation * * * * TITLE: XR DIGIT 3V FRONTAL/LAT/OBL LT CLINICAL INDICATION: Pain TECHNIQUE: 3 view radiographic study of the left finger COMPARISON: None FINDINGS: Soft tissue swelling surrounding the second distal interphalangeal joint. No soft tissue gas or radiopaque foreign body. No acute fracture or dislocation. No cortical destruction or periostitis to suggest radiographic evidence of osteomyelitis. 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 IMPRESSION: Soft tissue swelling. No radiographic evidence of osteomyelitis. Terminal Operations Manager: SAMMI Transcribe Date/Time: Jan 20 2025 1:15P Dictated by : NICOLAS MOYER MD This examination was interpreted and the report reviewed and electronically signed by: NICOLAS MOYER MD on Jan 20 2025 1:21PM EST [id number] [facility] XR Finger - left AP and Late ral and obliqueon 01-20-2025 IMPRESSION: Soft tissue swelling. No radiographic evidence of osteomyelitis. Terminal Operations Manager: [facility]ITAL[facility] Transcribe Date/Time: Jan 20 2025 1:15P Dictated by : NICOLAS MOYER MD This examination was interpreted and the report reviewed and electronically signed by: NICOLAS MOYER MD on Jan 20 2025 1:21PM [facility] DIVISION OF RADIOLOGY * * *Final Report* * * DATE OF EXAM: Jan 20 2025 1:09PM WOX [id number] - XR DIGIT 3V FRONTAL/LAT/OBL LT / PROCEDURE REASON: Pain * * * * Physician Interpretation * * * * TITLE: XR DIGIT 3V FRONTAL/LAT/OBL LT CLINICAL INDICATION: Pain TECHNIQUE: 3 view radiographic study of the left finger COMPARISON: None FINDINGS: Soft tissue swelling surrounding the second distal interphalangeal joint. No soft tissue gas or radiopaque foreign body. No acute fracture or dislocation. No cortical destruction or periostitis to suggest radiographic evidence of osteomyelitis. 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 DIVISION OF RADIOLOGY Provider, [facility] - 01/20/2025 * * *Final Report* * * DATE OF EXAM: Jan 20 2025 1:09PM WOX [id number] - XR DIGIT 3V FRONTAL/LAT/OBL LT / PROCEDURE REASON: Pain * * * * Physician Interpretation * * * * TITLE: XR DIGIT 3V FRONTAL/LAT/OBL LT CLINICAL INDICATION: Pain TECHNIQUE: 3 view radiographic study of the left finger COMPARISON: None FINDINGS: Soft tissue swelling surrounding the second distal interphalangeal joint. No soft tissue gas or radiopaque foreign body. No acute fracture or dislocation. No cortical destruction or periostitis to suggest radiographic evidence of osteomyelitis. 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 IMPRESSION IMPRESSION: Soft tissue swelling. No radiographic evidence of osteomyelitis. Terminal Operations Manager: PSCBertha Transcribe Date/Time: Jan 20 2025 1:15P Dictated by : NICOLAS MOYER MD This examination was interpreted and the report reviewed and electronically signed by: NICOLAS MOYER MD on Jan 20 2025 1:21PM [facility]ative[facility] X[facility] Finger - left AP and Late ral and obliqueOrdered By: [facility] Provider on 01-20-2025 [facility] CNOVon 08-11-2024 CNOV Office Visit (UCWSTR) SHAHZAD BERGERON ([id number]) 1945 M Date Time Provider Department 08/11/24 11:45 AM FRANKO VERDUZCO [facility] During your visit today, we recorded the following information about you: Temperature Pulse Respiration Blood pressure 97.4 degrees 62/minute 16/minute 124/80 Weight 84.5 kg Franko Verduzco MD 08/11/2024 11:58 AM Signed Patient presents with: Cough: Cough, congestion, fatigue and bodyaches x 5-6 days HPI: Productive coughing for 5-6 days. Positive symptoms: Cough, fatigue, Back Aches, mild Shortness of breath/Nasal Congestion/Rhinorrhe a, Negative symptoms: Chest pain, Fever, Headache, Nausea, Vomiting, Diarrhea, OTC: Cold Medicine MEDICATIONS: Current Outpatient Medications Medication Sig amLODIPine-Atorvasta tin 5-10 mg per tablet TAKE 1 TABLET BY MOUTH EVERY NIGHT IN THE EVENING amitriptyline (ELAVIL) 10 mg tablet TAKE 1 TO 2 TABLETS AT BEDTIME FOR NEUROPATHY PROVENTIL HFA 90 mcg/actuation inhaler Inhale 1 Puff as instructed every 4 hours as needed. apixaban (ELIQUIS) 5 mg tab(s) Take 0.5 tablets by mouth twice daily. insulin glargine (LANTUS SOLOSTAR, BASAGLAR KWIKPEN) 100 unit/mL (3 mL) Inject 34 Units subcutaneously every morning. Insulin [place], Disposable, (BD ULTRA-FINE KELSEY PEN NEEDLE) 32 gauge x 5/32" for insulin dosing 4 times a day acetaminophen (TYLENOL) 325 mg tablet Take 2 tablets by mouth every 6 hours as needed. Artificial Tear, Hypromellose, 0.3 % gel Use 1-2 Drops in both eyes daily at bedtime. tamsulosin ER (FLOMAX) 0.4 mg cp24 Take 0.4 mg by mouth once daily. furosemide (LASIX) 40 mg tablet Take 40 mg by mouth once daily. aspirin(ECOTRIN LOW STRENGTH 81 MG TAB) Take one(1) tablet daily. insulin lispro (HUMALOG KWIKPEN INSULIN) 100 unit/mL Inject subcutaneously 10 units three times daily before meals + Sliding Scale TDD 45 units (Patient not taking: Reported on 08/11/2024) atorvastatin (LIPITOR) 10 mg tablet Take 1 tablet by mouth once daily. (Patient not taking: Reported on 08/11/2024) amLODIPine (NORVASC) 5 mg tablet Take 5 mg by mouth once daily. (Patient not taking: Reported on 08/11/2024) No current facility-administere d medications for this visit. ALLERGIES: ALLERGIES Allergen Reactions Cefdinir Other: See Comments Causes shakes, anxiety, GI upset Crestor [Rosuvastat* Keflex [Cephalexin] GI Upset Lopid [Gemfibrozil] Plavix [Clopidogrel] Rash Tramadol Other: See Comments letty montalvo VITALS: BP 124/80 Pulse 62 Temp 36.3 ?C (97.4 ?F) (Tympanic) Resp 16 Wt 84.5 kg (186 lb 4.6 oz) SpO2 100% BMI 28.33 kg/m? PHYSICAL EXAM: GEN: mildly ill appearing. Accompanied by his daughter HEENT: PERRL, EOMI, conjunctiva clear Ears: canals clear. TMs without erythema, bulge, or effusion Sinuses: non-tender frontal sinus, non-tender maxillary sinuses Throat: moist mucous membranes, mild erythema, no exudate Neck: supple, no thyromegaly, no lymphadenopathy HEART: regular rate and rhythm, no murmurs LUNGS: clear to auscultation, no wheezes or crackles, no increased WOB; productive sounding cough ASSESSMENT/PLAN: 1. COPD with exacerbation (HCC) - ICD9: 491.21, ICD10: J44.1 - DOXYCYCLINE MONOHYDRATE 100 MG CAPSULE - PREDNISONE 20 MG TABLET Follow up with worsening cough, worsening shortness of breath, increasing chest pain, or late onset fever. Franko Verduzco MD Allergies As of Date: 08/11/2024 Noted Allergy Reaction CEFDINIR 11/04/2015 14 - Other: See Comments Comments: Causes shakes, anxiety, GI upset CRESTOR (ROSUVASTATIN) 03/16/2005 KEFLEX (CEPHALEXIN) 01/27/2020 8 - GI Upset LOPID (GEMFIBROZIL) 03/16/2005 PLAVIX (CLOPIDOGREL) 03/16/2005 2 - Rash TRAMADOL 11/18/2015 14 - Other: See Comments Comments: "felt shakey" Date Reviewed: 08/11/2024 Reviewed by: Pebbles Trevino LPN - Fully Assessed Reason for Visit: Cough [28] Cmt: Cough, congestion, fatigue and bodyaches x 5-6 days Primary Visit Diagnosis:COPD with exacerbation (HCC) [J44.1] Order(s):doxycycline monohydrate (MONODOX) 100 mg capsuleTake 1 capsule by mouth two times a day for 5 days.Disp: 10 capsuleRfl: 0 predniSONE (DELTASONE) 20 mg tabletTake 1 tablet by mouth two times a day for 5 days. Take daily with food.Disp: 10 tabletRfl: 0 Prescriptions as of 08/11/2024 - amLODIPine-Atorvasta tin 5-10 mg per tablet TAKE 1 TABLET BY MOUTH EVERY NIGHT IN THE EVENING - doxycycline monohydrate (MONODOX) 100 mg capsule Take 1 capsule by mouth two times a day for 5 days. - predniSONE (DELTASONE) 20 mg tablet Take 1 tablet by mouth two times a day for 5 days. Take daily with food. - amitriptyline (ELAVIL) 10 mg tablet TAKE 1 TO 2 TABLETS AT BEDTIME FOR NEUROPATHY - PROVENTIL HFA 90 mcg/actuation inhaler Inhale 1 Puff as instructed every 4 hours as needed. - apixaban (ELIQUIS) 5 mg tab(s) Take 0.5 tablets by mouth t (more content not included)... [facility] XR Chest PA and Lateralon IMPRESSION: No acute radiographic abnormality. Terminal Operations Manager: PSCB Transcribe Date/Time: Sep 17 2023 1:46P Dictated by : ELVER TROY MD This examination was interpreted and the report reviewed and electronically signed by: ELVER TROY MD on Sep 17 2023 1:49PM [facility] DIVISION OF RADIOLOGY * * *Final Report* * * DATE OF EXAM: Sep 17 2023 1:42PM WOX [id number] - XR CHEST 2V FRONTAL/LAT / PROCEDURE REASON: multiple diagnoses * * * * Physician Interpretation * * * * EXAMINATION: CHEST RADIOGRAPH (2 VIEW FRONTAL & LATERAL) CLINICAL HISTORY: Acute cough Hemoptysis MQ: XC2_6 EXAM DATE/TIME: 09/17/2023 1:42 PM COMPARISON: Chest x-ray 02/12/2020 RESULT: Lines, tubes, and devices: Median sternotomy wires are noted. Lungs and pleura: No consolidation. No lung mass. No pleural effusion. No pneumothorax. Cardiomediastinal silhouette: Stable cardiomediastinal silhouette. Tortuous aorta. Bones and soft tissues: Median sternotomy wires are noted. Remote healed right rib fractures. DIVISION OF RADIOLOGY Provider, [facility] - 09/17/2023 * * *Final Report* * * DATE OF EXAM: Sep 17 2023 1:42PM WOX [id number] - XR CHEST 2V FRONTAL/LAT / PROCEDURE REASON: multiple diagnoses * * * * Physician Interpretation * * * * EXAMINATION: CHEST RADIOGRAPH (2 VIEW FRONTAL & LATERAL) CLINICAL HISTORY: Acute cough Hemoptysis MQ: XC2_6 EXAM DATE/TIME: 09/17/2023 1:42 PM COMPARISON: Chest x-ray 02/12/2020 RESULT: Lines, tubes, and devices: Median sternotomy wires are noted. Lungs and pleura: No consolidation. No lung mass. No pleural effusion. No pneumothorax. Cardiomediastinal silhouette: Stable cardiomediastinal silhouette. Tortuous aorta. Bones and soft tissues: Median sternotomy wires are noted. Remote healed right rib fractures. IMPRESSION IMPRESSION: No acute radiographic abnormality. Terminal Operations Manager: PSCB Transcribe Date/Time: Sep 17 2023 1:46P Dictated by : ELVER TROY MD This examination was interpreted and the report reviewed and electronically signed by: ELVER TROY MD on Sep 17 2023 1:49PM EST [facility] Radiology Study observation (narrative) [facility] XR Chest PA and LateralOrder ed By: [facility] Provider on 09-17-2023 [facility] 24 hour urine alpha 2 globul in/total protein ratio by electrophoresis (mass fraction)Ordered By: Dr. Flowers on 11-01-2022 Alpha 2 globulin Elph (24H U) [Mass fraction] 7.3 % . [facility] 24 hour urine beta globulin/ total protein ratio by electrophoresis (mass fraction)Ordered By: Dr. Flowers on 11-01-2022 Beta globulin Elph (24H U) [Mass fraction] 5.2 % . [facility] 24 hour urine gamma globulin /total protein ratio by electrophoresis (mass fraction)Ordered By: Dr. Flowers on 11-01-2022 Gamma globulin Elph (24H U) [Mass fraction] 13.8 % . [facility] Absolute lymphocyte countOrd ered By: Dr. Flowers on 11-01-2022 Lymphocytes Auto (Unsp spec) [#/Vol] 0.92 10*3/uL 0.83-4.51 [facility] Basophil percentageOrdered B y: Dr. Flowers on 11-01-2022 Basophils/100 WBC (Bld) 0.8 % 0-1 [facility] Bilirubin [Mass/Vol] 0.80 mg/dL 0.20-1.00 [facility] Comment on above: For patients on eltr ombopag therapy, use of Dimension [place] TBIL is not recommended. Chloride [Moles/Vol] 105 mmol/L 98-107 [facility] Eosinophils/100 WBC (Bld) 3.1 % 0-5 [facility] Glucose [Mass/Vol] 232 mg/dL 74-106 [facility] Comment on above: Glucose result great er than or equal to 200 mg/dLsuggests DIABETES MELLITUS per A.D.A. criteria. LDH [Catalytic activity/Vol] 160 U/L 87-241 [facility] Neutrophils (Bld) [#/Vol] 3.3 10*3/uL 2.0-7.7 [facility] Neutrophils/100 WBC (Bld) 69.1 % 47-70 [facility] Potassium [Moles/Vol] 4.2 mmol/L 3.5-5.1 [facility] Protein [Mass/Vol] 7.8 g/dL 6.4-8.2 [facility] Sodium [Moles/Vol] 138 mmol/L 136-145 [facility] WBC (Bld) [#/Vol] 4.8 10*3/uL 4.4-11.0 [facility] Blood erythrocytes count (nu mber/volume)Ordered By: Dr. Flowers on 11-01-2022 RBC (Bld) [#/Vol] 4.99 10*6/uL 4.6-6.2 [facility] Blood hemoglobin measurement (mass/volume)Ordered By: Dr. Flowers on 11-01-2022 Hemoglobin (Bld) [Mass/Vol] 13.4 g/dL 13.0-16.5 [facility] Blood lymphocytes/100 leukoc ytesOrdered By: Dr. Flowers on 11-01-2022 Lymphocytes/100 WBC (Bld) 19.1 % 19-41 [facility] Blood monocytes/100 leukocyt esOrdered By: Dr. Flowers on 11-01-2022 Monocytes/100 WBC (Bld) 7.3 % 0-10 [facility] Blood platelet mean volumeOr dered By: Dr. Flowers on 11-01-2022 Platelet mean volume (Bld) [Entitic vol] 10.7 fL 6.2-12.0 [facility] Determination of erythrocyte mean corpuscular volume (MCV)Ordered By: Dr. Flowers on 11-01-2022 MCV (RBC) [Entitic vol] 86.8 fL 80-94 [facility] Hematocrit Auto (Bld) [Volum e fraction]Ordered By: Dr. Flowers on 11-01-2022 Hematocrit (Bld) [Volume fraction] 43.3 % 40-54 [facility] Iron measurement (mass/mass) Ordered By: Dr. Flowers on 11-01-2022 Iron (Unsp spec) [Mass/Mass] 55 ug/dL 65-175 [facility] Laboratory - Chemistry and C hemistry - challengeOrdered By: Dr. Flowers on 11-01-2022 ALP [Catalytic activity/Vol] 69 U/L 45-117 [facility] ALT [Catalytic activity/Vol] 17 U/L 16-61 [facility] CO2 [Moles/Vol] 29.0 mmol/L 21.0-32.0 [facility] Cobalamin (Vitamin B12) [Mass/Vol] 383 pg/mL 211-911 [facility] Free T4 [Mass/Vol] 0.82 ng/dL 0.76-1.46 [facility] Globulin (S) [Mass/Vol] 4.0 g/dL 2.2-4.2 [facility] Urea nitrogen/Creatinine [Mass ratio] 7.9 mg/mg 10-20 [facility] Laboratory - Hematology and Cell countsOrdered By: Dr. Flowers on 11-01-2022 Erythrocyte distribution width (RBC) [Entitic vol] 48.3 fL 35.1-43.9 [facility] Erythrocyte distribution width (RBC) [Ratio] 15.3 % 11.6-14.6 [facility] Immature granulocytes/100 WBC (Bld) 0.600 % 0.0-0.9 [facility] Comment on above: IG% - Immature Granu locytes (promyelocytes, myelocytes and metamyelocytes) > 1% indicates that a LEFT SHIFT is Present. MCH (RBC) [Entitic mass] 26.9 pg 27.0-32.0 [facility] Nucleated RBC/100 WBC (Bld) [Ratio] 0 % 0-5 [facility] MCHC Auto (RBC) [Mass/Vol]Or dered By: Dr. Flowers on 11-01-2022 MCHC (RBC) [Mass/Vol] 30.9 g/dL 32-36 [facility] No Panel InformationOrdered By: Dr. Flowers on 11-01-2022 Addendum Document Comment . [facility] Comment on above: The SPE pattern appe ars unremarkable. Evidence ofmonoclonal protein is not apparent. Levjk-9-Rhuexmlcm 0.2 g/dL 0.0-0.4 [facility] Terya-9-Enrldmqcj 0.8 g/dL 0.4-1.0 [facility] Estimated GFR (MDRD) Amer 80 mL/min >60 [facility] Comment on above: GFR Calc Estimated GFR (MDRD) Non-Af Amer 66 mL/min >60 [facility] Comment on above: Non- GFR Calc Free Triiodothyronine (T3) pg/dL 2.2 pg/mL 2.18-3.98 [facility] Gamma Globulins 1.2 g/dL 0.4-1.8 [facility] Thyroid Stimulating Hormone (TSH) 1.40 uIU/mL 0.358-3.74 [facility] Platelets bldOrdered By: Dr. Flowers on 11-01-2022 Platelets (Bld) [#/Vol] 109 10*3/uL 150-450 [facility] Protein Fractions Elph [Inte rp]Ordered By: Dr. Flowers on 11-01-2022 Protein Fractions [Interp] Comment . [facility] Comment on above: Protein electrophore sis scan will follow via computer,mail, or commissioner of conciliation delivery. Serum albumin to globulin ra leodan by protein electrophoresisOrdered By: Dr. Flowers on 11-01-2022 Albumin/Globulin Elph [Mass ratio] 1.2 0.7-1.7 [facility] Serum globulin measurement ( mass/volume)Ordered By: Dr. Flowers on 11-01-2022 Globulin (S) [Mass/Vol] 3.2 g/dL 2.2-3.9 [facility] Serum or plasma albumin esperanza urement (mass/volume)Ordered By: Dr. Flowers on 11-01-2022 Albumin [Mass/Vol] 3.8 g/dL 2.9-4.4 [facility] Serum or plasma albumin/glob ulin mass ratioOrdered By: Dr. Flowers on 11-01-2022 Albumin/Globulin [Mass ratio] 1.0 {ratio} 0.9-2.4 [facility] Serum or plasma beta globuli n measurement by electrophoresis (mass/volume)Ordered By: Dr. Flowers on 11-01-2022 Beta globulin Elph [Mass/Vol] 1.0 g/dL 0.7-1.3 [facility] Serum or plasma calcium esperanza urement (mass/volume)Ordered By: Dr. Flowers on 11-01-2022 Calcium [Mass/Vol] 9.0 mg/dL 8.5-10.1 [facility] Serum or plasma creatinine m easurement (mass/volume)Ordered By: Dr. Flowers on 11-01-2022 Creatinine [Mass/Vol] 1.14 mg/dL 0.70-1.30 [facility] Comment on above: The validity of the calculated GFR & GFRAA in patients over 70 years has not been determined. Clinical correlation is essential. Serum or plasma ferritin jean-paul surement (mass/volume)Ordered By: Dr. Flowers on 11-01-2022 Ferritin [Mass/Vol] 14 ng/mL 26-388 [facility] Serum or plasma urea nitroge n measurement (mass/volume)Ordered By: Dr. Flowers on 11-01-2022 Urea nitrogen [Mass/Vol] 9 mg/dL 7-18 [facility] Thin prep Papanicolaou smear with manual screeningOrdered By: Dr. Flowers on 11-01-2022 Thin prep Papanicolaou smear with manual screening 14 U/L 15-37 [facility] Thin prep Papanicolaou smear with manual screening 4 5-15 [facility] Thin prep Papanicolaou smear with manual screening See comment [facility] Comment on above: NOT OBSERVED Total protein bloodOrdered B y: Dr. Flowers on 11-01-2022 Protein [Mass/Vol] 7.0 g/dL 6.0-8.5 [facility] Urine albumin/total protein mass ratio by electrophoresisOrdered By: Dr. Flowers on 11-01-2022 Albumin Elph (U) [Mass fraction] 70.0 % . [facility] Urine alpha 1 globulin/total protein ratio by electrophoresis (mass fraction)Ordered By: Dr. Flowers on 11-01-2022 Alpha 1 globulin Elph (U) [Mass fraction] 3.7 % . [facility] Urine monoclonal protein/tot al protein mass ratio by electrophoresisOrdered By: Dr. Flowers on 11-01-2022 Protein.monoclonal Elph (U) [Mass fraction] See comment [facility] Comment on above: NOT OBSERVED Urine protein measurement (m ass/volume)Ordered By: Dr. Flowers on 11-01-2022 Protein (U) [Mass/Vol] 6.4 mg/dL Not Estab. [facility] Whole blood hemoglobin A1c/t otal hemoglobin ratio (mass fraction)Ordered By: Dr. Flowers on 11-01-2022 HbA1c (Bld) [Mass fraction] 6.5 % 3.8-5.6 [facility] Comment on above: Normal < 5.7 % Predi abetic 5.7 - 6.4 % Diabetic >or= 6.5 % Please note range changes. CT BRAIN WO IVCONon 10-26-19 CT BRAIN WO IVCON * * *Final Report* * * DATE OF EXAM: Oct 25 2021 11:16AM [facility] [place] 2] 0504 - CT BRAIN WO IVCON / PROCEDURE REASON: Encephalopathy * * * * Physician Interpretation * * * * EXAMINATION: CT BRAIN WO IVCON CLINICAL HISTORY: Encephalopathy. Memory loss. TECHNIQUE: Serial axial images without IV contrast were obtained from the vertex to the foramen magnum. MQ: [id number] CT Radiation dose: Integrated Dose-Length Product (DLP) for this visit = 772.45 mGy*cm CT Dose Reduction Employed: No dose reduction techniques were required COMPARISON: None. RESULT: Dermatology Nurse Practitioner (topogram) images: No additional findings. Post-operative change: None. Acute change: No evidence of an acute infarct or other acute parenchymal process. Hemorrhage: No evidence of acute intracranial hemorrhage. ECASS hemorrhagic transformation score: Not Applicable Mass Lesion / Mass Effect: There is no evidence of an intracranial mass or extraaxial fluid collection. No significant mass effect. Chronic change: Patchy foci of low attenuation coefficient are present within the supratentorial white matter which is a nonspecific finding but likely represents moderate microvascular ischemia. Parenchyma: There is moderate generalized volume loss. Ventricles: Ventricular enlargement concordant with the degree of parenchymal volume loss. Paranasal sinuses and skull base: The visualized paranasal sinuses are grossly clear. Punctate retained foreign body within frontal scalp. IMPRESSION: 1. No CT evidence of acute intracranial abnormalities. 2. Chronic small vessel ischemic white matter disease and diffuse cerebral volume loss. Terminal Operations Manager: [employer] Transcribe Date/Time: Oct 25 2021 1:23P Dictated by : TC SPAULDING MD This examination was interpreted and the report reviewed and electronically signed by: TC SPAULDING MD on Oct 25 2021 1:31PM EST [id number] CN Normal [facility] Office Visit: MMMon 12-19-19 Fall risk assessment Yes Invalid Interpretation Code [employer] Work Phone: Protein mass conc Done Invalid Interpretation Code [employer] Work Phone: Clinical Lists Update: Prelo intervention nurse 12-15-2016 Left ventricular Ejection fraction 55 % Invalid Interpretation Code [employer] Work Phone: Lab Report: Basic Metabolic Profile (BMP)on 05-02-2016 Anion gap 4 molar conc 8 Invalid Interpretation Code 5-15 [employer] Work Phone: [phone] Calcium mass conc 8.5 mg/dL Invalid Interpretation Code 8.5-10.1 [employer] Work Phone: [phone] Chloride molar conc 102 mmol/L Invalid Interpretation Code 98-107 [employer] Work Phone: [phone] CO2 ppres (BldV) 32.0 mmol/L Invalid Interpretation Code 21.0-32.0 [employer] Work Phone: [phone] Creatinine mass conc 1.07 mg/dL Invalid Interpretation Code 0.70-1.30 [employer] Work Phone: [phone] EST GFR - AA 87 mL/min Invalid Interpretation Code >60 [employer] Work Phone: [phone] GFR/1.73 sq M predicted among non-blacks MDRD vol rate/area (S/P/Bld) 72 mL/min/{1.73_m2} Invalid Interpretation Code >60 [employer] Work Phone: [phone] Glucose mass conc 199 mg/dL High 70-110 [employer] Work Phone: [phone] Potassium molar conc 3.9 mmol/L Invalid Interpretation Code 3.5-5.1 [employer] Work Phone: [phone] Sodium molar conc 142 mmol/L Invalid Interpretation Code 136-145 [employer] Work Phone: [phone] Urea nitrogen mass conc 11 mg/dL Invalid Interpretation Code 7-18 [employer] Work Phone: [phone] Urea nitrogen/Creatinine mass ratio 10.3 RATIO Invalid Interpretation Code 10-20 [employer] Work Phone: [phone] Clinical Lists Update: Prelo intervention nurse 2016 ALP enzyme act/vol (Bld) 70 U/L Invalid Interpretation Code [employer] Work Phone: [phone] ALT enzyme act/vol 19 U/L Invalid Interpretation Code [employer] Work Phone: [phone] AST enzyme act/vol 15 U/L Invalid Interpretation Code [employer] Work Phone: [phone] Bilirubin mass conc 0.90 mg/dL Invalid Interpretation Code [employer] Work Phone: [phone] Hematocrit Auto Volume Fraction (Bld) 41.5 % Invalid Interpretation Code [employer] Work Phone: [phone] Hemoglobin mass conc (Bld) 13.5 g/dL Invalid Interpretation Code [employer] Work Phone: [phone] Platelets Auto #/vol (Bld) 150 10*3/mm3 Invalid Interpretation Code [employer] Work Phone: [phone] Protein mass conc 7.3 g/dL Invalid Interpretation Code [employer] Work Phone: [phone] Thyrotropin Qn 2.27 u[iU]/mL Invalid Interpretation Code [employer] Work Phone: [phone] WBC Auto #/vol (Bld) 7.1 10*3/uL Invalid Interpretation Code [employer] Work Phone: [phone] Office Visit: [facility] 11-08-19 16 Tobacco smoking status NHIS Former smoker Invalid Interpretation Code [employer] Phone: [phone] Replaced Document: Livier Suárez CG Observationson 11-08-2015 EKG QRS axis -36 deg Invalid Interpretation Code [employer] Phone: [phone] P [place] 53 deg Invalid Interpretation Code [employer] Phone: [phone] [place] Interval 252 ms Invalid Interpretation Code [employer] Work Phone: [phone] QRS Duration 162 ms Invalid Interpretation Code [employer] Work Phone: [phone] QT Interval new path ms Invalid Interpretation Code [employer] Work Phone: [phone] QTc Echeverria 465 ms Invalid Interpretation Code [employer] Work Phone: [phone] T [place] -1 deg Invalid Interpretation Code [employer] Work Phone: [phone] Urea nitrogen mass conc (Bld) Sinus Bradycardia -First degree A-V block Mahin = 252-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 - Nonspecific T-abnormality. ABNORMAL Invalid Interpretation Code [employer] Phone: [phone] Office Visiton 10-08-2014 cardiac risk group C Invalid Interpretation Code [employer] Phone: General cardiovascular disease 10Y risk [#] Rod.Pedro Luis'Agomagnus N/A Invalid Interpretation Code [facility] Work Phone: Vital Signs Date Time Vital Sign Value Performing Clinician Facility 01-20-2025 12:26-0400 Body mass index (BMI) [Ratio] 28.12 kg/m2 Hermelindo Zhao APRN.BUSINESS OFFICE DIRECTOR Work Phone: [facility] 01-20-2025 12:26-0400 Body temperature 98.4 [degF] Hermelindo Zhao APRN.BUSINESS OFFICE DIRECTOR Work Phone: [facility] 01-20-2025 12:26-0400 Body weight 83.9 kg Hermelindo Zhao APRN.BUSINESS OFFICE DIRECTOR Work Phone: [facility] 01-20-2025 12:26-0400 Diastolic blood pressure 68 mm[Hg] Hermelindo Zhao APRN.BUSINESS OFFICE DIRECTOR Work Phone: [facility] 01-20-2025 12:26-0400 Heart rate 76 /min Hermelindo Zhao APRN.BUSINESS OFFICE DIRECTOR Work Phone: [facility] 01-20-2025 12:26-0400 Respiratory rate 16 /min Hermelindo Zhao APRN.BUSINESS OFFICE DIRECTOR Work Phone: [facility] 01-20-2025 12:26-0400 SaO2% (BldA) [Mass fraction] 97 % Hermelindo Zhao APRN.BUSINESS OFFICE DIRECTOR Work Phone: [facility] 01-20-2025 12:26-0400 Systolic blood pressure 110 mm[Hg] Hermelindo Zhao APRN.BUSINESS OFFICE DIRECTOR Work Phone: [facility] 08-11-2024 11:31-0500 Body mass index (BMI) [Ratio] 28.33 kg/m2 Franko Verduzco MD Work Phone: [facility] 08-11-2024 11:31-0500 Body temperature 97.39 [degF] Franko Verduzco MD Work Phone: [facility] 08-11-2024 11:31-0500 Body weight 84.5 kg Franko Vedruzco MD Work Phone: [facility] 08-11-2024 11:31-0500 Diastolic blood pressure 80 mm[Hg] Franko Verduzco MD Work Phone: [facility] 08-11-2024 11:31-0500 Heart rate 62 /min Franko Verduzco MD Work Phone: [facility] 08-11-2024 11:31-0500 Respiratory rate 16 /min Franko Verduzco MD Work Phone: [facility] 08-11-2024 11:31-0500 SaO2% (BldA) [Mass fraction] 100 % Franko Verduzco MD Work Phone: [facility] 08-11-2024 11:31-0500 Systolic blood pressure 124 mm[Hg] Franko Verduzco MD Work Phone: [facility] 01-03-2022 15:59-0400 Body weight 95.25 kg Hilaria Edmonds MD Work Phone: [facility] 01-03-2022 15:59-0400 Diastolic blood pressure 69 mm[Hg] Hilaria Edmonds MD Work Phone: [facility] 01-03-2022 15:59-0400 Heart rate 65 /min Hilaria Edmonds MD Work Phone: [facility] 01-03-2022 15:59-0400 Respiratory rate 16 /min Hilaria Edmonds MD Work Phone: [facility] 01-03-2022 15:59-0400 SaO2% (BldA) [Mass fraction] 98 % Hilaria Edmonds MD Work Phone: [facility] 01-03-2022 15:59-0400 Systolic blood pressure 158 mm[Hg] Hilaria Edmonds MD Work Phone: [facility] 12-18-2016 09:55-0400 BMI (Body Mass Index) 38.37 kg/m2 Mattie Batres RN [facility] Work Phone: 12-18-2016 09:55-0400 BP Diastolic 70 mm[Hg] Mattie Batres RN [facility] Work Phone: 12-18-2016 09:55-0400 BP Systolic 130 mm[Hg] Mattie Batres RN [facility] Work Phone: 12-18-2016 09:55-0400 Height 172.72 cm Mattie Batres RN [facility] Work Phone: 12-18-2016 09:55-0400 Pulse (Heart Rate) 52 /min [facility] Work Phone: 12-18-2016 09:55-0400 Respiratory Rate 16 /min [facility] Work Phone: 12-18-2016 09:55-0400 Weight 114.49 kg Mattie Batres RN [facility] Work Phone: 06-21-2016 15:19-0400 BSA (Body Surface Area) 2.26 m2 Mattie Batres RN [facility] Work Phone: 11-08-2015 10:02-0400 Heart rate 50 /min Mattie Batres RN [facility] Work Phone: 10-08-2014 13:00-0500 Pulse Oximetry 96 % Mattie Batres RN [facility] Work Phone: Encounters Encounter Date Encounter Type Care Provider Facility Start: 04-22-2025 ambulatory [facility] Facility:[facility] Start: 01-21-2025 End: 01-25-2025 Follow-up encounter Keshia Dias APRN.CNP Work Phone: [facility] Comment on above: Results Start: 01-20-2025 End: 01-20-2025 Subsequent hospital visit by physician [facility] Work Phone: Radiology Comment on above: Pain [R52] Start: 01-20-2025 End: 01-20-2025 Patient encounter procedure Hermelindo Zhao APRN.CNP Work Phone: [facility] Comment on above: Pain (Primary Dx); Open wound Start: 01-20-2025 End: 01-20-2025 ambulatory DENISE El FLOWERS Facility:[facility] Start: 08-11-2024 End: 08-11-2024 [facility] Start: 08-11-2024 End: 08-11-2024 Office outpatient visit 25 minutes Franko Verduzco MD Work Phone: [facility] Comment on above: COPD with exacerbati on (HCC) (Primary Dx) Start: 09-17-2023 End: 09-17-2023 Subsequent hospital visit by physician [facility] Work Phone: Radiology Comment on above: Acute cough [R05.1] Start: 11-01-2022 End: 11-01-2022 ambulatory [facility] Work Phone: Start: 11-01-2022 End: 11-01-2022 Patient encounter procedure [facility]Norberto [facility] Start: 03-20-2022 Non-patient / Non-visit Dr. Gustabo Lock Work Phone: [facility] Start: 03-20-2022 End: 03-20-[address] Rogelio Lock Work Phone: [facility] Start: 02-28-2022 ambulatory Hilaria Edmonds MD Work Phone: Neurology Comment on above: Question Start: 02-06-2022 Telephone encounter Hilaria bush MD Work Phone: Neurology Comment on above: Patient Update (Emanuel ry issues, mood swings, behavioral outbursts ) Start: 01-03-2022 End: 01-03-2022 Patient encounter procedure Hilaria Edmonds MD Work Phone: Neurology Comment on above: Dementia of the Alzh eimer's type, with late onset, uncomplicated (HCC) (Primary Dx) Start: 01-28-2020 Patient encounter status Hilaria Edmonds MD Work Phone: [facility] Start: 12-20-2018 End: 12-24-2018 Patient encounter procedure MICHELE SALDIVAR Facility:[facility] Start: 11-15-2018 Patient encounter procedure MICHELE SALDIVAR Facility:[facility] Procedures Date Procedure Procedure Detail Performing Clinician Start: 01-20-2025 Radex fingr minimum 2 views Hermelindomagalys michaels ACTIVITY LEADER.BUSINESS OFFICE DIRECTOR Work Phone: Start: 09-17-2023 Radiologic exam chest 2 views Franko Verduzco MD Work Phone: Start: 03-24-2020 History of coronary artery bypass grafting Hx of CABG Hilaria Edmonds MD Work Phone: Start: 01-26-2020 History of coronary artery bypass grafting History of coronary artery bypass graft x 3 Dr. Rogelio Lock Work Phone: Start: 12-18-2016 End: 12-18-2016 Follow Up Appt 6 months Mattie mercado PA-C Work Phone: Start: 12-18-2016 End: 12-18-2016 PFM Mattie Bay PA-C Work Phone: Start: 06-21-2016 End: 06-21-2016 Dietary management education, guidance, and counseling Mattie Batres RN Start: 06-21-2016 End: 06-21-2016 Follow Up Appt 6 months Walker Webb MD Start: 06-21-2016 End: 06-21-2016 MMM Walker Webb MD Start: 05-02-2016 End: 05-02-2016 *BMP Mattie Bay PA-C Work Phone: Start: 11-08-2015 End: 11-08-2015 Ecg routine ecg w/least 12 lds w/i&r Mattie Bay PA-C Work Phone: Start: 11-08-2015 End: 11-08-2015 Follow Up Appt 6 months Mattie mercado PA-C Work Phone: Start: 11-08-2015 End: 11-08-2015 PFM Mattie Bay PA-C Work Phone: Start: 01-27-2015 End: 01-28-2015 Documentation of current medications Walker Webb MD Start: 01-27-2015 End: 01-28-2015 Follow Up Appt 6 months Walker Webb MD Start: 01-27-2015 End: 01-28-2015 PFM Walker Webb MD Start: 10-08-2014 End: 12-11-2016 24 hour holter monitor Walker Webb MD Start: 10-08-2014 End: 12-11-2016 Ecg routine ecg w/least 12 lds w/i&r Walker Webb MD Start: 10-08-2014 End: 12-11-2016 Echocardiography Walker Webb MD Start: 10-08-2014 End: 10-08-2014 Follow Up Appt 3 months Walker Webb MD Start: 10-08-2014 End: 10-08-2014 PF Walker Webb MD History of placement of stent for coronary artery disease History of coronary artery stent placement Dr. Rogelio Lock Work Phone: Plan of Treatment Date Care Activity Detail Author Start: 05-20-2030 Urine microalbumin profile DTa P,Tdap,Td Vaccine (3 - Td or Tdap) [facility] Start: 01-20-2026 BP Controlled (<130/80) BP Controlle d (<130/80) [facility] Start: 04-27-2025 Influenza vaccination Influenz a Vaccine (Season Ended) [facility] Start: 01-20-2025 End: 04-21-2025 Bacteria identified in Wound by Culture BACTERIAL CULTURE AND GRAM STAIN, ABSCESS AND WOUND (AEROBIC CULTURE) Microbiology Routine Open wound Expected: 01/20/2025, Expires: 04/21/2025 [facility] Work Phone: Comment on above: Expected: 01/20/2025 , Expires: 04/21/2025 Start: 08-27-2024 Advance Directive Discussion Advance Directive Discussion [facility] Start: 04-27-2024 Covid-19 Vaccine () Covid-19 Vaccine () [facility] Start: 04-27-2024 Covid-19 Vaccine () Covid-19 Vaccine () [facility] Start: 04-27-2024 Influenza vaccination Influenza Vacc ine (#1) [facility] Start: 08-27-2023 Advance Directive Discussion Advance Directive Discussion [facility] Start: 04-27-2022 Influenza vaccination C [facility] Start: 10-30-2021 COVID-19 VACCINE (4 - Booster for Pfizer series) COVID-19 VACCINE (4 - Booster for Pfizer series) [facility] Start: 08-27-2021 ADVANCE DIRECTIVE DISCUSSION ADVANCE DIRECTIVE DISCUSSION [facility] Start: 01-04-2021 3 comp foot exam completed DIABETIC FOOT EXAM [facility] Start: 01-04-2021 Diabetic foot examination Diabetic F oot Exam [facility] Start: 04-28-2020 Hemoglobin A1c measurement HbA1C [facility] Start: 04-28-2020 Hemoglobin A1c/Hemoglobin.total in Blood HBA1C [facility] Start: 2019 RSV Vaccine (1 - 1-d ose 75+ series) RSV Vaccine (1 - 1-dose 75+ series) [facility] Start: 06-18-2017 End: 06-18-2017 Appointment Appointment [facility] Work Phone: Start: 12-18-2016 End: 12-18-2016 Follow Up Appt 6 months Follow Up Appt 6 months [facility] Work Phone: Start: 12-18-2016 End: 12-18-2016 PFM PFM [facility] Work Phone: Start: 06-21-2016 End: 06-21-2016 Follow Up Appt 6 months Follow Up Appt 6 months [facility] Work Phone: Start: 06-21-2016 End: 06-21-2016 MMM MMM [facility] Work Phone: Start: 05-02-2016 End: 05-02-2016 *BMP *BMP [facility] Work Phone: Start: 11-08-2015 End: 11-08-2015 Ecg routine ecg w/least 12 lds w/i&r EKG (In office) [facility] Work Phone: Start: 11-08-2015 End: 11-08-2015 Follow Up Appt 6 months Follow Up Appt 6 months [facility] Work Phone: Start: 11-08-2015 End: 11-08-2015 PFM PFM [facility] Work Phone: Start: 01-27-2015 End: 01-28-2015 Follow Up Appt 6 months Follow Up Appt 6 months [facility] Work Phone: Start: 01-27-2015 End: 01-28-2015 PFM PFM [facility] Work Phone: Start: 10-08-2014 End: 10-08-2014 24 hour holter monitor 24 hour holter monitor [facility] Work Phone: Start: 10-08-2014 End: 12-11-2016 Ecg routine ecg w/least 12 lds w/i&r EKG (In office) [facility] Work Phone: Start: 10-08-2014 End: 10-08-2014 Echocardiography Echocardiogram (complete) [facility] Work Phone: Start: 10-08-2014 End: 10-08-2014 Follow Up Appt 3 months Follow Up Appt 3 months [facility] Work Phone: Start: 10-08-2014 End: 10-08-2014 PFM PFM [facility] Work Phone: Start: 05-23-2011 Pneumococcal Vaccine : 50+ (2 of 2 - PCV) Pneumococcal Vaccine: 50+ (2 of 2 - PCV) [facility] Start: 05-23-2011 Pneumococcal Vaccine : 65+ (2 of 2 - PCV) Pneumococcal Vaccine: 65+ (2 of 2 - PCV) [facility] Start: 05-23-2011 PNEUMOCOCCAL: 65+ (2 - PCV) PNEUMOCOCCAL: 65+ (2 - PCV) [facility] Start: 11-08-2005 Hepatitis B surface antibody level LDL CHOLESTEROL [facility] Start: 2004 RSV Vaccine (1 - 1-d ose 60+ series) RSV Vaccine (1 - 1-dose 60+ series) [facility] Start: 1994 SHINGRIX VACCINE (1 of 2) LOMAX GRIX VACCINE (1 of 2) [facility] Start: 1963 Urine microalbumin profile DTAP,TDAP ,TD (1 - Tdap) [facility] Start: 1962 ANNUAL PCP TEAM SPECIAL TECHNICAL OPERATIONS OFFICER JAYCEE DISEASE VISIT ANNUAL PCP TEAM CHRONIC DISEASE VISIT [facility] Start: 1962 Anxiety Screening Anxiety Screening [facility] Start: 1962 BP CONTROLLED (<130/80) BP CONTROLLE D (<130/80) [facility] Start: 1962 HEPATITIS C SCREENING HEPATITIS C SC REENING [facility] Start: 1962 Spirometry Spirometry [facility] Start: 1954 Glaucoma screening Dilated Retinal E xam [facility] Start: 1954 Hepatitis B screening URINE ALBUMIN:CREATININE RATIO [facility] Start: 1954 Hepatitis C antibody , confirmatory test DILATED RETINAL EXAM [facility] Immunizations Immunization Date Immunization Notes Care Provider Fa cility 05-20-2020 tetanus toxoid, redu bennie diphtheria toxoid, and acellular pertussis vaccine, adsorbed Dr. Rogelio Lock Work Phone: [facility] 11-09-2016 tetanus toxoid, redu bennie diphtheria toxoid, and acellular pertussis vaccine, adsorbed Dr. Rogelio Lock Work Phone: [facility] 05-23-2010 pneumococcal polysaccharide vaccine, 23 valent Hilaria Edmonds MD Work Phone: [facility] Payers Date Payer Category Payer Self-pay [id number] 2025 Unknown [id number] 2024 Medicare (Managed Care) [employer] [id number] 2024 Private Health Insurance [id number] 2014 Medicaid [id number] 2014 Medicare [id number] 2014 Medicare [employer] MEDICARE [id number] 2014-Present [phone] [address] [place] [address] Medicare [id number] 2014 Medicare [id number] 1945 Unknown [id number] 1945 Unknown [id number] Unknown [id number] Social History Date Type Detail Facility Start: 12-20-2018 End: 08-11-2024 Tobacco smoking status NHIS Ex-smoker [facility] Start: 03-27-1974 End: 03-27-2004 History of tobacco use Current smoker [facility] Start: 03-27-1974 End: 03-27-2004 History of tobacco use Cigarette Smoker [facility] Start: 01-03-2022 End: 08-11-2024 Alcohol intake Current non-drinker of alcohol (finding) [facility] Start: 02-02-2020 History SDOH Financial 5 [facility] Start: 02-02-2020 History SDOH Food Worry 1 [facility] Start: 02-02-2020 History SDOH Transpo rt Med 2 [facility] Start: 1945 Sex Assigned At Not on file C [facility] Start: 08-09-2020 Tobacco smoking stat us [facility] Unknown if ever smoked [facility] Start: 11-01-2018 None [facility] Start: 11-01-2018 With Family [facility] Start: 09-10-2019 Non-smoker [facility] Start: 1945 Sex Assigned At Male W [facility] Start: 12-20-2018 End: 08-01-2020 Cigarettes smoked current (pack per day) - Reported 3 [facility] Work Phone: Start: 12-20-2018 End: 08-11-2024 Tobacco use and exposure Smokeless tobacco non-user [facility] Start: 08-01-2020 End: 09-17-2023 Tobacco use panel [facility] Work Phone: How hard is it for y ou to pay for the very basics like food, housing, medical care, and heating Not hard at all [facility] Work Phone: (I/We) worried malick er (my/our) food would run out before (I/we) got money to buy more. Never true [facility] Medical Equipment Procedure Code Equipment Code Equipment Origin al Text Equipment Identifier Dates for insulin dosi ng 4 times a day [id number] Start: 02-18-2020 Comment on above: for insulin dosing 4 times a day Functional Status Date Assessment Result Facility 02-05-2020 Are you deaf, or do you have serious difficulty hearing No 02/05/2020 11:49 AM Keshia Diaz, RN No [facility] 02-05-2020 Are you blind, or do you have serious difficulty seeing, even when wearing glasses No 02/05/2020 11:49 AM Dorinda Diazhy, BRUNA No [facility] 02-05-2020 Do you have serious difficulty walking or climbing stairs No 02/05/2020 11:49 AM EDT Keshia Turcios, BRUNA No [facility] 02-05-2020 Do you have difficul ty dressing or bathing No 02/05/2020 11:49 AM EDT Keshia Turcios, BRUNA No [facility] 02-05-2020 Because of a physica l, mental, or emotional condition, do you have difficulty doing errands alone such as visiting a physician's office or shopping No 02/05/2020 11:49 AM EDT Keshia Turcios, BRUNA No [facility] Mental Status Date Assessment Result Facility 02-05-2020 Because of a physica l, mental, or emotional condition, do you have serious difficulty concentrating, remembering, or making decisions No 02/05/2020 11:49 AM EDT Keshia Turcios RN No [facility] Clinical Notes 02-01-2020 to 01-25-2025 Telephone Encounter - Linda Moy MA - 01/25/2025 9:26 AM EDTTelephone Encounter - Linda Moy MA - 01/25/2025 9:26 AM EDTTelephone Encounter - Reema Clark LPN - 01/24/2025 1:16 PM EDT Note Date & Type Note Facility 01-25-2025 Telephone encounter Note phone is no longer in service, patient picked up antibiotic from pharmacy. Linda Moy MA [facility] 01-25-2025 Miscellaneous Notes phone is no longer in service, patient picked up antibiotic from pharmacy. Linda Moy MA Unable to reach pt, Phone is no longer in service. Reema Clark LPN Please inform patient that antibiotic was susceptible to bacteria. Continue plan of care as discussed during visit. Arsh Shipley APRN.MARY documented in this encounter [facility] 01-24-2025 Telephone encounter Note Unable to reach pt, Phone is no longer in service. Reema Clark LPN [facility] 01-23-2025 Telephone encounter Note Please inform patient that antibiotic was susceptible to bacteria. Continue plan of care as discussed during visit. Arsh Shipley APRN.BUSINESS OFFICE DIRECTOR [facility] Work Phone: 01-20-2025 Note HNO ID: [id number] Author: HERMELINDO ZHAO APRN.MARY Service: ? Author Type: Nurse Practitioner Type: Progress Notes Filed: 01/20/2025 13:34 Note Text: [facility] Subjective Shahzad Bergeron is a 79 year old male. Patient presents with: Derm Problem: left index finger, blister like area at tip of finger x 1 week HPI Dyspnea and Dizziness: - Chronic dyspnea post-open heart surgery, worsening over the past week. - Increasing dizziness over the past week. - expresses concern about potential syncope. Left Index Finger Lesion: - Lesion on left index finger noted about a week ago, initially thought to be a blister. - No recollection of trauma or injury to the finger. - Unable to flex the distal interphalangeal joint; reports tenderness. - Denies pain in the proximal interphalangeal joint. Review of Systems Respiratory: (+) shortness of breath Musculoskeletal: (+) left index finger pain, (+) left index finger joint stiffness Neurological: (+) dizziness sensation intact Objective BP 110/68 Pulse 76 Temp 36.9 ?C (98.4 ?F) Resp 16 Wt 83.9 kg (184 lb 15.5 oz) SpO2 97% BMI 28.12 kg/m? Physical Exam General: No acute distress. CV: Tachycardia. Resp: Tachypnea. MSK/Ext: Unable to flex distal interphalangeal joint of left index finger; tenderness at proximal interphalangeal joint of left index finger; tenderness on pad of left index finger. {1. Pain (R52) 2. Open wound (T14.8XXA) - Erythematous, raised pustule on left index finger with tenderness at the PIP joint and inability to flex the distal joint. - Ordered X-ray to rule out osteomyelitis. - Wound was incised and drained, purulent material expressed. - Applied dry sterile dressing. - Prescribed doxycycline BID for 7 days. - Educated patient to keep the wound clean and dry. - Follow-up with primary care provider tomorrow for further evaluation and management. and Recording using Vibrynt software for draft documentation of the visit was discussed with the patient/authorized financial foundations representative; all questions welcomed and answered. Patient/authorized financial foundations representative agreed to proceed MDM Procedures [facility] 01-20-2025 History of Present illness Narrative [facility] Subjective Shahzad Bergeron is a 79 year old male. Patient presents with: Derm Problem: left index finger, blister like area at tip of finger x 1 week HPI Dyspnea and Dizziness: - Chronic dyspnea post-open heart surgery, worsening over the past week. - Increasing dizziness over the past week. - expresses concern about potential syncope. Left Index Finger Lesion: - Lesion on left index finger noted about a week ago, initially thought to be a blister. - No recollection of trauma or injury to the finger. - Unable to flex the distal interphalangeal joint; reports tenderness. - Denies pain in the proximal interphalangeal joint. Review of Systems Respiratory: (+) shortness of breath Musculoskeletal: (+) left index finger pain, (+) left index finger joint stiffness Neurological: (+) dizziness sensation intact Objective BP 110/68 Pulse 76 Temp 36.9 C (98.4 F) Resp 16 Wt 83.9 kg (184 lb 15.5 oz) SpO2 97% BMI 28.12 kg/m Physical Exam General: No acute distress. CV: Tachycardia. Resp: Tachypnea. MSK/Ext: Unable to flex distal interphalangeal joint of left index finger; tenderness at proximal interphalangeal joint of left index finger; tenderness on pad of left index finger. {1. Pain (R52) 2. Open wound (T14.8XXA) - Erythematous, raised pustule on left index finger with tenderness at the PIP joint and inability to flex the distal joint. - Ordered X-ray to rule out osteomyelitis. - Wound was incised and drained, purulent material expressed. - Applied dry sterile dressing. - Prescribed doxycycline BID for 7 days. - Educated patient to keep the wound clean and dry. - Follow-up with primary care provider tomorrow for further evaluation and management. and Recording using Vibry[employer] software for draft documentation of the visit was discussed with the patient/authorized financial foundations representative; all questions welcomed and answered. Patient/authorized financial foundations representative agreed to proceed MDM Procedures documented in this encounter [facility] 01-20-2025 History of Present illness Narrative Radiology Service Progress Note PATIENT NAME: Shahzad Bergeron DATE OF SERVICE: January 20, 2025 TIME: 12:57 PM PATIENT IDENTITY VERIFICATION COMPLETED USING TWO (2) IDENTIFIERS: Name and Date of confirmed by patient verbally. FALL SCREENING: Has the patient had 2 falls in the last year or 1 fall with injury or currently using an Ambulatory Assistive Device (Walker, Cane, Wheelchair, Crutches, etc.)? No PATIENT GENDER DATA: Assigned male at PATIENT RELEVANT IMPLANT DATA REVIEWED: Not Applicable PATIENT PRESENTS WITH AN IMPLANTABLE OR ATTACHED MEDICAL TERRITORY MANAGER: No RADIOLOGY DEPARTMENT: General X-ray: Exam(s) Completed: Upper Extremity X-Ray(s): Fingers/Thumb, left index PERIPHERAL IV DATA: Not applicable SIGNED BY: Joanne Collado January 20, 2025 12:57 PM documented in this encounter [facility] 01-20-2025 Note HNO ID: [id number] Author: RACHEL QUINTANILLA Tech Service: ? Author Type: Technologist Type: Progress Notes Filed: 01/20/2025 13:09 Note Text: Radiology Service Progress Note PATIENT NAME: Shahzad Bergeron DATE OF SERVICE: January 20, 2025 TIME: 12:57 PM PATIENT IDENTITY VERIFICATION COMPLETED USING TWO (2) IDENTIFIERS: Name and Date of confirmed by patient verbally. FALL SCREENING: Has the patient had 2 falls in the last year or 1 fall with injury or currently using an Ambulatory Assistive Device (Walker, Cane, Wheelchair, Crutches, etc.)? No PATIENT GENDER DATA: Assigned male at PATIENT RELEVANT IMPLANT DATA REVIEWED: Not Applicable PATIENT PRESENTS WITH AN IMPLANTABLE OR ATTACHED MEDICAL TERRITORY MANAGER: No RADIOLOGY DEPARTMENT: General X-ray: Exam(s) Completed: Upper Extremity X-Ray(s): Fingers/Thumb, left index PERIPHERAL IV DATA: Not applicable SIGNED BY: Joanne Collado January 20, 2025 12:57 PM [facility] 08-11-2024 Note HNO ID: [id number] Author: FRANKO VERDUZCO MD Service: ? Author Type: Physician Type: Progress Notes Filed: 08/11/2024 11:58 Note Text: Patient presents with: Cough: Cough, congestion, fatigue and bodyaches x 5-6 days HPI: Productive coughing for 5-6 days. Positive symptoms: Cough, fatigue, Back Aches, mild Shortness of breath/Nasal Congestion/Rhinorrhea, Negative symptoms: Chest pain, Fever, Headache, Nausea, Vomiting, Diarrhea, OTC: Cold Medicine MEDICATIONS: Current Outpatient Medications Medication Sig amLODIPine-Atorvastatin 5-10 mg per tablet TAKE 1 TABLET BY MOUTH EVERY NIGHT IN THE EVENING amitriptyline (ELAVIL) 10 mg tablet TAKE 1 TO 2 TABLETS AT BEDTIME FOR NEUROPATHY PROVENTIL HFA 90 mcg/actuation inhaler Inhale 1 Puff as instructed every 4 hours as needed. apixaban (ELIQUIS) 5 mg tab(s) Take 0.5 tablets by mouth twice daily. insulin glargine (LANTUS SOLOSTAR, BASAGLAR KWIKPEN) 100 unit/mL (3 mL) Inject 34 Units subcutaneously every morning. Insulin [place], Disposable, (BD ULTRA-FINE KELSEY PEN NEEDLE) 32 gauge x 5/32" for insulin dosing 4 times a day acetaminophen (TYLENOL) 325 mg tablet Take 2 tablets by mouth every 6 hours as needed. Artificial Tear, Hypromellose, 0.3 % gel Use 1-2 Drops in both eyes daily at bedtime. tamsulosin ER (FLOMAX) 0.4 mg cp24 Take 0.4 mg by mouth once daily. furosemide (LASIX) 40 mg tablet Take 40 mg by mouth once daily. aspirin(ECOTRIN LOW STRENGTH 81 MG TAB) Take one(1) tablet daily. insulin lispro (HUMALOG KWIKPEN INSULIN) 100 unit/mL Inject subcutaneously 10 units three times daily before meals + Sliding Scale TDD 45 units (Patient not taking: Reported on 08/11/2024) atorvastatin (LIPITOR) 10 mg tablet Take 1 tablet by mouth once daily. (Patient not taking: Reported on 08/11/2024) amLODIPine (NORVASC) 5 mg tablet Take 5 mg by mouth once daily. (Patient not taking: Reported on 08/11/2024) No current facility-administered medications for this visit. ALLERGIES: ALLERGIES Allergen Reactions Cefdinir Other: See Comments Causes shakes, anxiety, GI upset Crestor [Rosuvastat* Keflex [Cephalexin] GI Upset Lopid [Gemfibrozil] Plavix [Clopidogrel] Rash Tramadol Other: See Comments felt merrillkey VITALS: BP 124/80 Pulse 62 Temp 36.3 ?C (97.4 ?F) (Tympanic) Resp 16 Wt 84.5 kg (186 lb 4.6 oz) SpO2 100% BMI 28.33 kg/m? PHYSICAL EXAM: GEN: mildly ill appearing. Accompanied by his daughter HEENT: PERRL, EOMI, conjunctiva clear Ears: canals clear. TMs without erythema, bulge, or effusion Sinuses: non-tender frontal sinus, non-tender maxillary sinuses Throat: moist mucous membranes, mild erythema, no exudate Neck: supple, no thyromegaly, no lymphadenopathy HEART: regular rate and rhythm, no murmurs LUNGS: clear to auscultation, no wheezes or crackles, no increased WOB; productive sounding cough ASSESSMENT/PLAN: 1. COPD with exacerbation (HCC) - ICD9: 491.21, ICD10: J44.1 - DOXYCYCLINE MONOHYDRATE 100 MG CAPSULE - PREDNISONE 20 MG TABLET Follow up with worsening cough, worsening shortness of breath, increasing chest pain, or late onset fever. Franko Verduzco MD [facility] 08-11-2024 History of Present illness Narrative Patient presents with: Cough: Cough, congestion, fatigue and bodyaches x 5-6 days HPI: Productive coughing for 5-6 days. Positive symptoms: Cough, fatigue, Back Aches, mild Shortness of breath/Nasal Congestion/Rhinorrhea, Negative symptoms: Chest pain, Fever, Headache, Nausea, Vomiting, Diarrhea, OTC: Cold Medicine MEDICATIONS: Current Outpatient Medications Medication Sig amLODIPine-Atorvastatin 5-10 mg per tablet TAKE 1 TABLET BY MOUTH EVERY NIGHT IN THE EVENING amitriptyline (ELAVIL) 10 mg tablet TAKE 1 TO 2 TABLETS AT BEDTIME FOR NEUROPATHY PROVENTIL HFA 90 mcg/actuation inhaler Inhale 1 Puff as instructed every 4 hours as needed. apixaban (ELIQUIS) 5 mg tab(s) Take 0.5 tablets by mouth twice daily. insulin glargine (LANTUS SOLOSTAR, BASAGLAR KWIKPEN) 100 unit/mL (3 mL) Inject 34 Units subcutaneously every morning. Insulin [place], Disposable, (BD ULTRA-FINE KELSEY PEN NEEDLE) 32 gauge x 5/32" for insulin dosing 4 times a day acetaminophen (TYLENOL) 325 mg tablet Take 2 tablets by mouth every 6 hours as needed. Artificial Tear, Hypromellose, 0.3 % gel Use 1-2 Drops in both eyes daily at bedtime. tamsulosin ER (FLOMAX) 0.4 mg cp24 Take 0.4 mg by mouth once daily. furosemide (LASIX) 40 mg tablet Take 40 mg by mouth once daily. aspirin(ECOTRIN LOW STRENGTH 81 MG TAB) Take one(1) tablet daily. insulin lispro (HUMALOG KWIKPEN INSULIN) 100 unit/mL Inject subcutaneously 10 units three times daily before meals + Sliding Scale TDD 45 units (Patient not taking: Reported on 08/11/2024) atorvastatin (LIPITOR) 10 mg tablet Take 1 tablet by mouth once daily. (Patient not taking: Reported on 08/11/2024) amLODIPine (NORVASC) 5 mg tablet Take 5 mg by mouth once daily. (Patient not taking: Reported on 08/11/2024) No current facility-administered medications for this visit. ALLERGIES: ALLERGIES Allergen Reactions Cefdinir Other: See Comments Causes shakes, anxiety, GI upset Crestor [Rosuvastat* Keflex [Cephalexin] GI Upset Lopid [Gemfibrozil] Plavix [Clopidogrel] Rash Tramadol Other: See Comments felt selvin VITALS: BP 124/80 Pulse 62 Temp 36.3 C (97.4 F) (Tympanic) Resp 16 Wt 84.5 kg (186 lb 4.6 oz) SpO2 100% BMI 28.33 kg/m PHYSICAL EXAM: GEN: mildly ill appearing. Accompanied by his daughter HEENT: PERRL, EOMI, conjunctiva clear Ears: canals clear. TMs without erythema, bulge, or effusion Sinuses: non-tender frontal sinus, non-tender maxillary sinuses Throat: moist mucous membranes, mild erythema, no exudate Neck: supple, no thyromegaly, no lymphadenopathy HEART: regular rate and rhythm, no murmurs LUNGS: clear to auscultation, no wheezes or crackles, no increased WOB; productive sounding cough ASSESSMENT/PLAN: 1. COPD with exacerbation (HCC) - ICD9: 491.21, ICD10: J44.1 - DOXYCYCLINE MONOHYDRATE 100 MG CAPSULE - PREDNISONE 20 MG TABLET Follow up with worsening cough, worsening shortness of breath, increasing chest pain, or late onset fever. Franko Verduzco MD documented in this encounter [facility] 09-17-2023 History of Present illness Narrative Radiology Service Progress Note PATIENT NAME: Shahzad Bergeron DATE OF SERVICE: September 17, 2023 TIME: 1:29 PM PATIENT IDENTITY VERIFICATION COMPLETED USING TWO (2) IDENTIFIERS: Name and Date of confirmed by patient verbally. FALL SCREENING: Has the patient had 2 falls in the last year or 1 fall with injury or currently using an Ambulatory Assistive Device (Walker, Cane, Wheelchair, Crutches, etc.)? No PATIENT GENDER DATA: Male PATIENT RELEVANT IMPLANT DATA REVIEWED: Yes RADIOLOGY DEPARTMENT: General X-ray: Exam(s) Completed: Chest X-Ray PERIPHERAL IV DATA: Not applicable SIGNED BY: RT Steven(R) September 17, 2023 1:29 PM documented in this encounter [facility] 02-28-2022 Miscellaneous Notes Good afternoon my name is Milka I'm a palliative care physician with [facility] my [facility]. I'm calling regarding Shahzad Bergeron date of 1945. I was at his home today to do a visit and I'm questioning his Numenda and I see that it was prescribed for him in January. He related to me that he got a telephone call from somebody telling him to stop it immediately and I am trying to track that down and to see if he's to take it or not to take this medicine. It is his Namenda just 5 mg. My phone is . I look forward to hearing from you. Thank you. Enzo." Spoke to Milka, see below. February 07, 2022 Hilaria Edmonds MD 4:40 PM Note If patient has behavioral problems since starting Namenda then he can stop taking it And family will observe if the medication was the cause of this behavioral problems??? documented in this encounter [facility] 02-08-2022 Miscellaneous Notes Attempted to call son, Shahzad to inform him that patient can stop taking the Namenda to see if the behavioral symptoms improve. Called patient and he verbalized understanding to stop taking the Namenda. Annelise Jurado RN If patient has behavioral problems since starting Namenda then he can stop taking it And family will observe if the medication was the cause of this behavioral problems??? Spoke with patient's son Shahzad via phone. Stated his dad has always been a little irritable, but not like this. States since starting the Namenda he gets "angry over nothing", multiple outbursts of anger each day, and his memory is not improving. Has also complained of dizziness at times. Denies headache, delusions or hallucinations. Message sent to Dr. Edmonds for further review. Annelise Jurado RN Patient's daughter, Valarie, called with concerns about her father's symptoms: memory issues, mood swings, and behavioral outbursts. Daughter is not sure if this is a medication issue. I do not see permission granted to relay medical info to Valarie, but we do have son, Shahzad, listed as an emergency contact. Valarie stated it would be best to update him with provider's recommendations. Please advise. [place] Louis documented in this encounter [facility] 01-03-2022 History of Present illness Narrative Images from the original note were not included. NEUROLOGY CONSULT PROGRESS NOTE Interval history January 03, 2022 DEMENTIA Comes today with his son , Knows his name and his age Oriented to day not to the month or year Discussed test results and plan of care To start Namenda in a small dose Discussing side effects We prescribed a medication called Namenda. Namenda can help improve the mental state and daily functioning of some people with memory loss. Remember that Namenda does not cure the memory loss. Namenda can be taken with or without food. I will start treatment at 5 mg once per day with gradual increase as tolerated More common side effects include: Confusion, constipation, hallucinations, headache, high blood pressure, pain, sleepiness. If ay develop or change in intensity of side effect, tell us as soon as possible. 01/03/22 1559 BP: 158/69 Pulse: 65 Resp: 16 SpO2: 98% Weight: 95.3 kg (210 lb) ASSESSMENT: 76 year old male with cognitive impairment and dementia which is multifactorial Vascular , medication side effects patient takes Valium for anxiety. And degenerative disease, all of them combined Hearing loss and its effect on cognition PLAN: ---> Hold on any medications that will affect his memory especially benzodiazepine TREATING risk factors and controlling causes of diabetes Vascular causes ,medications side effects Hold on valium ---> Follow-up: 1-2 months, Tests results will be discussed in the follow up appointment Medications side effects explained and discussed with the patient . CC: Memory loss HxCC: 76 year old male , who presents for evaluation of memory loss for the last 2 years and possibly more Over the last year memory got graduelly worse Telling the same story 4 times a day mainly for recent memories, Old memory is good He can forget where he put things,but can still recalls He is taking care of his ,so most of the time he stays at home Winter time worse because of isolation On further neurologic questioning, the patient denies new headaches, neck or back pain. No new focal weakness, numbness or paresthesias. No new problems with concentration, memory, language or confusion. No new blurry, double or loss of vision. No new loss of hearing, vertigo, or tinnitus. No dysarthria, dysphonia or dysphagia. No new imbalance, frequent falls or incoordination. No bowel or bladder incontinence. No saddle anesthesia. No muscular atrophy or fasciculations. RECENT LABS: WBC (k/uL) Date Value 05/03/2021 4.45 RBC (m/uL) Date Value 05/03/2021 5.17 Hemoglobin (g/dL) Date Value 05/03/2021 13.0 Hematocrit (%) Date Value 05/03/2021 43.1 MCV (fL) Date Value 05/03/2021 83.4 MCH (pG) Date Value 05/03/2021 25.1 (L) MCHC (g/dL) Date Value 05/03/2021 30.2 (L) RDW-CV (%) Date Value 05/03/2021 24.3 (H) Platelet Count (k/uL) Date Value 05/03/2021 150 MPV (fL) Date Value 05/03/2021 10.2 Last BMP (Basic Metabolic Panel) Lab Results Component Value Date NA 137 04/11/2021 Lab Results Component Value Date K 4.2 04/11/2021 Lab Results Component Value Date CHLOR 99 04/11/2021 Lab Results Component Value Date CO2 26 04/11/2021 Lab Results Component Value Date BUN 14 04/11/2021 Lab Results Component Value Date CREAT 1.47 04/11/2021 Lab Results Component Value Date GLUC 256 04/11/2021 Lab Results Component Value Date ANION 12 04/11/2021 Lab Results Component Value Date CA 9.3 04/11/2021 TSH Date Value Ref Range Status 10/18/2021 1.510 0.270 - 4.200 uU/mL Final B12: RECENT IMAGING/DIAGNOSTICS: --MRI/MRA/MRV Brain w/wo contrast //): --MRI Cervical Spine w/wo contrast (/): --EEG (/): PMH: PAST MEDICAL HISTORY Diagnosis Date AAA (abdominal aortic aneurysm) without rupture (HCC) Abdominal aortic aneurysm (HCC) Acid reflux Acute myocardial infarction of other specified sites Myocardial Infarction Anemia Atherosclerosis Atrial fibrillation and flutter (HCC) 01/2020 post-op after CABG BPH (benign prostatic hyperplasia) Chronic obstructive pulmonary disease (COPD) (HCC) Coronary atherosclerosis of unspecified type of vessel, [place] or graft Coronary artery disease Diabetes mellitus without mention of complication Diabetes mellitus History of colonic polyps Long-term insulin use (HCC) 02/18/2020 Mixed hyperlipidemia Hyperlipidemia Obesity, unspecified Obesity PAC (premature atrial contraction) PVD (peripheral vascular disease) (HCC) Unspecified essential hypertension Essential hypertension PSH: PAST SURGICAL HISTORY Procedure Laterality Date COLONOSCOPY FLX DX W/COLLJ SPEC WHEN PFRMD 2012 Colonoscopy COLONOSCOPY FLX DX W/COLLJ SPEC WHEN PFRMD 10/14/2015 Colonoscopy COLONOSCOPY FLX DX W/COLLJ SPEC WHEN PFRMD 09/12/2019 CORONARY ARTERY BYPASS GRAFT x 3 CORONARY ENDARTERCOMY OPEN ANY METHOD Angioplasty ESOPHAGOGASTRODUODENOSCOPY TRANSORAL DIAGNOSTIC 10/14/2015 EGD EXTENSIVE JAW SURGERY LAPS COLECTOMY PRTL W/RMVL TERMINAL ILEUM 12/20/2015 MAL LESION TRUNK,ARM,LEG 1.1-2.0 CM Left 02/19/2016 Exc. skin lesion left forearm PAST SURGICAL HISTORY OF 2002 cardiac stents PAST SURGICAL HISTORY OF 01/30/2020 CABG x3 (LANDON to LAD; SVG to diagonal and PDA) x 3. Dr. Perez [facility] PATIENT HAS A CORONARY ARTERY STENT CURRENT MEDS: No current facility-administered medications for this visit. Current Outpatient Medications Medication Sig apixaban (ELIQUIS) 5 mg tab(s) Take 0.5 tablets by mouth twice daily. ferrous sulfate (IRON) 325 mg (65 mg iron) tablet Take 1 tablet by mouth daily with breakfast. (Patient taking differently: Take 325 mg by mouth as needed. ) insulin glargine (LANTUS SOLOSTAR, BASAGLAR KWIKPEN) 100 unit/mL (3 mL) Inject 34 Units subcutaneously every morning. insulin lispro (HUMALOG KWIKPEN INSULIN) 100 unit/mL Inject subcutaneously 10 units three times daily before meals + Sliding Scale TDD 45 units Insulin [place], Disposable, (BD ULTRA-FINE KELSEY PEN NEEDLE) 32 gauge x 5/32" for insulin dosing 4 times a day atorvastatin (LIPITOR) 10 mg tablet Take 1 tablet by mouth once daily. acetaminophen (TYLENOL) 325 mg tablet Take 2 tablets by mouth every 6 hours as needed. Artificial Tear, Hypromellose, 0.3 % gel Use 1-2 Drops in both eyes daily at bedtime. carboxymethylcellulose sodium (CELLUVISC) 1 % dlgl Use 1-2 Drops in both eyes four times daily. metoprolol tartrate, short acting, (LOPRESSOR) 25 mg tablet Take 1 tablet by mouth twice daily. (Patient taking differently: Take 12.5 mg by mouth twice daily. ) diazePAM (VALIUM) 5 mg tablet Take 5 mg by mouth as needed. PROVENTIL HFA 90 mcg/actuation inhaler Inhale 1 Puff as instructed every 4 hours as needed. KLOR-CON M20 20 mEq tablet Take 20 mEq by mouth twice daily. tamsulosin ER (FLOMAX) 0.4 mg cp24 Take 0.4 mg by mouth once daily. venlafaxine XR (EFFEXOR XR) 150 mg 24 hr capsule Take 150 mg by mouth twice daily. esomeprazole (NEXIUM) 40 mg capsule Take 40 mg by mouth once daily. furosemide (LASIX) 40 mg tablet Take 40 mg by mouth once daily. amLODIPine (NORVASC) 5 mg tablet Take 5 mg by mouth once daily. aspirin(ECOTRIN LOW STRENGTH 81 MG TAB) Take one(1) tablet daily. memantine (NAMENDA) 5 mg tablet Take 1 tablet by mouth once daily. senna-docusate (SENNA-S) 8.6-50 mg per tablet Take 1 tablet by mouth twice daily as needed. (Patient not taking: Reported on 10/11/2021 ) magnesium hydroxide (MOM) 400 mg/5 mL suspension Take 30 mL by mouth once daily as needed. (Patient not taking: Reported on 04/11/2021 ) No current facility-administered medications for this visit. ALLERGIES: ALLERGIES Allergen Reactions Cefdinir Other: See Comments Causes shakes, anxiety, GI upset Crestor [Rosuvastat* Keflex [Cephalexin] GI Upset Lopid [Gemfibrozil] Plavix [Clopidogrel] Rash Tramadol Other: See Comments felt selvin FMH: FAMILY HISTORY Problem Relation Age of Onset No Known Problems Son No Known Problems Son Heart Father CA Cancer Mother skin Heart Sister SOCIAL: Social History Tobacco Use Smoking status: Former Smoker Packs/day: 3.00 Years: 30.00 Pack years: 90.00 Types: Cigarettes Quit date: 03/27/2004 Years since quittin.7 Smokeless tobacco: Never Used Vaping Use Vaping Use: Never used Substance Use Topics Alcohol use: No Comment: Quit alchohol use Drug use: No REVIEW OF SYSTEMS (In addition to HPI): PHYSICAL EXAM: BP 158/69 Pulse 65 Resp 16 Wt 95.3 kg (210 lb) SpO2 98% BMI 31.93 kg/m GEN: Alert. NAD. Normal affect. Cooperative. HEENT: No icterus. Normal mucosa. No temporal artery tenderness. Fundoscopic exam unremarkable. NECK/BACK: No meningismus. No lymphadenopathy. No significant paraspinal neck or shoulder musculature tenderness or hypertonicity. No spinous process tenderness. CV: RRR. No M/G/R/C. No carotid bruits. RESP: CTA b/l. EXT: No cyanosis. No edema. No erythema. SKIN: No rashes. No lesions. NEUROLOGICAL: MENTAL STATUS: Day disoriented to the month and year Disoriented to floor knows he is in [facility] MINI-MENTAL STATE EXAMINATION (MMSE) Make the patient comfortable and establish rapport. Ask questions in the order listed. Total possible score is 30. ORIENTATION 1. What is the (year) (season) (date) (day) (month)? Max score=5 Patient's score=2 2. Where are we? (state) (county) (town or city) (hospital) (floor)? Max score=5 Patient's score=5 REGISTRATION Ask the patient if you may test his/her memory. Then say the names of 3 unrelated objects, clearly and slowly, about one second for each (eg, apple, table, camilla). After you have said all 3, ask him/her to repeat them. This first repetition determines the score(0-3), but keep saying them until he/she can repeat all 3, up to 6 trials. Max score=3 Patient's score=3 ATTENTION AND CALCULATION Ask the patient to begin with 100 and count backwards by 7. Stop after 5 subtractions (93, 86, 79, 72, 65). Score the total number of correct answers. If the patient cannot or will not perform the serial 7s task, ask him/her to spell the word WORLD backwards. The score is the number of letters in the correct order (eg, DLROW=5; DLRW=4; DLORW, DLW=3; OW=2; DRLWO=1). Max score=5 Patient's score=1 RECALL Ask the patient to recall the 3 items repeated above (eg, apple, table, camilla). Max score=3 Patient's score=0 LANGUAGE Naming: Show the patient a wristwatch and ask him/her what it is. Repeat for pencil. Max score=2 Patient's score=2 Repetition: Ask the patient to repeat the phrase No ifs, ands, or buts: after you. Max score=1 Patient's score=1 3-Stage Command: Give the patient a piece of blank paper and ask him/her to take a piece of paper in your right hand, fold it in half, put it on the floor. Score 1 point for each part correctly executed. Max score=3 Patient's score=3 Reading: On a blank piece of paper, print the sentence CLOSE YOUR EYES in letters large enough for the patient to see clearly. Ask him/her to read it and do what it says. Score 1 point only if he/she actually closes his/her eyes. Max score=1 Patient's score=1 Writing: Give the patient a blank piece of paper and ask him/her to write a sentence. Do not dictate a sentence; it is to be written spontaneously. It must contain a subject and verb and be sensible. Correct grammar and punctuation are not necessary. Max score=1 Patient's score=1 Copying: Ask the patient to copy the figure of intersecting pentagons exactly as it is. All 10 angles must be present and 2 must intersect to form a 4-sided figure to score 1 point. Tremor and rotation are ignored. Max score=1 Patient's score=0 MAXIMUM TOTAL SCORE = 30 TOTAL SCORE = 19/30 Paraphasic errorss Did the clock test Suggested guideline for determining the severity of cognitive impairment: Mild: MMSE>21 Moderate: MMSE 10-20 Severe: MMSE<9 Expected decline in MMSE scores in untreated mild to moderate Alzheimer's patient is 2 to 4 points per year. *Adapted from Folstein et al.1 and John2. (c) 1974, 1997 [employer] Used with permission. References: 1. Folstein MF, Folstein SE, Carlos KS. Mini-Mental State: a practical method for grading the cognitive state of patients for the clinician. J Psychiatr Res. 1975; 12:189-198. 2. JR Dylan, Cong ARELLANO, Mini-Mental State Examination (MMSE). Psychopharm Bull. 1988;24:689-692. 3. Espinoza AnglinT, Dorene FJ, Dago RD, Logan A, Melly F. Neuropsychological function in Alzheimer's disease: pattern of impairment and rates of progression. Arch Neurol. 1988;45:263-268. 4. Mohini JA, Eloy B, Hari S-P, Zev LLANES. Predictors of cognitive and functional progression in patients with probable Alzheimer's disease. Neurology. 1992;42:1442-0801. CN: II: Visual lombardo intact. PERRLA. No Papilledema. III, IV, : EOMI. No ptosis present. Normal saccades. V: Symmetric facial sensation to PP. VII: Face symmetric. VIII: Hearing loss bilaterally a sensorineural hearing loss. No nystagmus. IX, X: Symmetric palatal rise. XI: Symmetric shoulder shrug. XII: Tongue midline with symmetric movements. MOTOR: Finger tap normal. No involuntary movement seen during today's exam. Normal tone and strength. He has no arm drift he has no leg drift Free movement of all extremities REFLEXES: Bilateral symmetrical Plantar response flexor b/l. No clonus. Negative Shi/Troemner. Negative palmomental, grasp, rooting, snouting and glabellar blink reflexes. SENSATION: PP, Proprioception, Vibration decreased distally and positive Romberg. CEREBELLAR: Normal F-N-F. Normal H-S. No dysmetria. No nystagmus. GAIT: Stable primary gait. Ambulates independently has no trouble turning no retropulsion Hilaria Edmonds M.D. [facility] [place] Department of Neurology Total time in minutes spent with patient, reviewing records, labs, imaging, formulating plan, and documentin minutes with more than 50% of the time spent in patient education/counselling/coordinatin g care with the patient and /or family. Mini-Mental status exam documented in this encounter [facility] 02-01-2020 History of Past i llness Narrative Problem Noted Date Resolved Date Hypervolemia 02/01/2020 02/02/2020 Overview: History: Postop Assessment: -150 x 24 hrs Plan Start gentle diuresis, trend UOP Sinus bradycardia 01/30/2020 01/31/2020 Overview: History: Bradycardia intraop requiring VVI pacing Assessment: Remains pacer dependent when EPM dialed down to 30 bpm. Plan: Continue VVI at 60 bpm MA 13 (sensitivity 1.0) Hypovolemia 01/30/2020 01/31/2020 Overview: Assessment: Post op fluid shifts Plan: IVF resuscitation as needed Dysphagia, oropharyngeal 10/14/2015 016 documented as of this encounter (statuses as of 01/04/2022) [facility] History of Past illness Narrative* Problem Noted Date Resolved Date Hypervolemia 02/01/2020 02/02/2020 Overview: History: Postop Assessment: -150 x 24 hrs Plan Start gentle diuresis, trend UOP Sinus bradycardia 01/30/2020 01/31/2020 Overview: History: Bradycardia intraop requiring VVI pacing Assessment: Remains pacer dependent when EPM dialed down to 30 bpm. Plan: Continue VVI at 60 bpm MA 13 (sensitivity 1.0) Hypovolemia 01/30/2020 01/31/2020 Overview: Assessment: Post op fluid shifts Plan: IVF resuscitation as needed Dysphagia, oropharyngeal 10/14/2015 016 documented as of this encounter (statuses as of 02/28/2022) [facility] History of Past illness Narrative* Problem Noted Date Resolved Date Hypervolemia 02/01/2020 02/02/2020 Overview: History: Postop Assessment: -150 x 24 hrs Plan Start gentle diuresis, trend UOP Sinus bradycardia 01/30/2020 01/31/2020 Overview: History: Bradycardia intraop requiring VVI pacing Assessment: Remains pacer dependent when EPM dialed down to 30 bpm. Plan: Continue VVI at 60 bpm MA 13 (sensitivity 1.0) Hypovolemia 01/30/2020 01/31/2020 Overview: Assessment: Post op fluid shifts Plan: IVF resuscitation as needed Dysphagia, oropharyngeal 10/14/2015 016 documented as of this encounter (statuses as of 04/03/2022) [facility] Diagnosis Dementia of the Alzheimer's type, with late onset, uncomplicated (HCC)- Primary Alzheimer's disease documented in this encounter [facility] noteNo assessment information availableWMercy [facility] Work Phone: Evaluation note* Diagnosis Acute cough Hemoptysis Hemoptysis, unspecified [facility]* Diagnosis COPD with exacerbation (HCC)- Primary Obstructive chronic bronchitis with exacerbation [facility]* Diagnosis Pain- Primary Generalized pain Open wound Open wound(s) (multiple) of unspecified site(s), without mention of complication Pain Generalized pain documented [facility] this encounter [facility]* Diagnosis Pain Generalized pain documented in this encounter [facility] for visit Narrative* Diagnostic Procedure Only (Urgent) - Closed Specialty Diagnoses / Procedures Referred By Contac t Referred To Contact XR IMAGING Diagnoses Pain Procedures XR DIGIT GENERAL 3V FRONTAL/LAT/OBL LEFT RADEX FINGR MINIMUM 2 VIEWS Hermelindo Zhao, OTF.BUSINESS OFFICE DIRECTOR [address] [place] [address] Phone: tel: fax: [place] [address] Referral ID Status Reason Start Date Expiration Date V isits Requested Visits Authorized [id number] Closed Auto-Generate d Referral 01/20/2025 02/19/2026 1 1 [facility] Summary Purpose Family History No Family History Records Found Relationship Condition Age at Onset Recorded Date/T vincenzo father Diabetes mellitus Unknown Hypertension Unknown Advance Directives No Advanced Directives Records FoundDocuments on File Type Date Recorded Patient Padding Gluer Expl anation Advance Directive(s) 01/28/2020 11:51 AM Advance Directive(s) 01/28/2020 11:52 AM Advance Directive(s) 01/06/2020 3:15 PM Advance Directive(s) 11/21/2019 11:11 AM Documents on File Type Date Recorded Patient Padding Gluer Expl anation Advance Directive(s) 01/28/2020 11:51 AM Advance Directive(s) 01/28/2020 11:52 AM Advance Directive(s) 01/06/2020 3:15 PM Advance Directive(s) 11/21/2019 11:11 AM Advance Directive Response Recorded Date/ Time Advance Directives No March 09 10:07am Living Will No June 19 8:13pm Power of Industrial Furnace Fabricator No June 19, 2021 8:13pm Documents on File Type Date Recorded Patient Padding Gluer Expl anation Advance Directive(s) 01/28/2020 11:52 AM Documents on File Type Date Recorded Patient Padding Gluer Expl anation Advance Directive(s) 01/28/2020 11:52 AM Reason for Referral Specialty Diagnoses / Procedures Referred By Emily barney Referred To Contact Hilaria Edmonds MD [address] [place] [address] Referral ID Status Reason Start Date Expiration Date Visits Re quested Visits Authorized [id number] Closed 1 1 Chief Complaint and Reason for Visit Chief Complaint CAROTID STENOSIS Additional Source Comments (unrecognized sect ion and content) No Status Records FoundNo Status Records FoundNo Status Records FoundNo Status Records Found INFORMATION SOURCE (unrecogn ized section and content) DATE CREATED AUTHOR 12/28/2018 [facility] DATE CREATED AUTHOR AUTHOR'S ORGANIZ ATION 10/26/2021 [facility] DATE CREATED AUTHOR AUTHOR'S ORGANIZ ATION 01/23/2025 [facility] DATE CREATED AUTHOR AUTHOR'S ORGANIZ ATION 04/24/2025 [facility] Source Comments (unrecognize d section and content) In the event this informatio n is protected by the Federal Confidentiality of Alcohol and Drug Abuse Patient Records regulations: The Federal rules restrict any use of the information to criminally investigate or prosecute any alcohol or drug abuse patient.[facility] the event this information is protected by the Federal Confidentiality of Alcohol and Drug Abuse Patient Records regulations: The Federal rules restrict any use of the information to criminally investigate or prosecute any alcohol or drug abuse patient.[facility] the event this information is protected by the Federal Confidentiality of Alcohol and Drug Abuse Patient Records regulations: The Federal rules restrict any use of the information to criminally investigate or prosecute any alcohol or drug abuse patient.[facility] the event this information is protected by the Federal Confidentiality of Alcohol and Drug Abuse Patient Records regulations: The Federal rules restrict any use of the information to criminally investigate or prosecute any alcohol or drug abuse patient.[facility] Hospital[facility] the event this information is protected by the Federal Confidentiality of Alcohol and Drug Abuse Patient Records regulations: The Federal rules restrict any use of the information to criminally investigate or prosecute any alcohol or drug abuse patient.[facility] Hospital[facility] the event this information is protected by the Federal Confidentiality of Alcohol and Drug Abuse Patient Records regulations: The Federal rules restrict any use of the information to criminally investigate or prosecute any alcohol or drug abuse patient.[facility] Hospital[facility] the event this information is protected by the Federal Confidentiality of Alcohol and Drug Abuse Patient Records regulations: The Federal rules restrict any use of the information to criminally investigate or prosecute any alcohol or drug abuse patient.[facility] Hospital[facility] the event this information is protected by the Federal Confidentiality of Alcohol and Drug Abuse Patient Records regulations: The Federal rules restrict any use of the information to criminally investigate or prosecute any alcohol or drug abuse patient.[facility] Reason for Visit (unrecogniz ed section and content) Reason Comments Memory Loss Reason Comments Question Reason Comments Patient Update Memory issues, mood swings, behavioral outbursts Reason Comments Cough Cough, congestion, f atigue and bodyaches x 5-6 days Reason Comments Derm Problem left index finger, b mona like area at tip of finger x 1 week Reason Onset Date Comments Results 01/21/2025 Care Teams (unrecognized sec tion and content) Credit And Loan Collections Supervisor Relationship Specialty Start Date End Date Rogelio Lock MD [address] [place], [place] [id number] PCP - General Family Practice 12/20/18 Walker Webb [address] [phone] Market Development Director Cardiology 11/03/19 Arnaud Ch MD [address] [place] [address] Cardiology 06/11/20 Credit And Loan Collections Supervisor Relationship Specialty Start Date End Date Rogelio Lock MD [address] [place], [place] [phone] PCP - General Family Practice 12/20/18 Walker [address] [place] [phone] Market Development Director Cardiology 11/03/19 Arnaud Ch MD [address] [place] [address] Cardiology 06/11/20 Credit And Loan Collections Supervisor Relationship Specialty Start Date End Date Rogelio Lock MD [address] [place], [place] [phone] PCP - General Family Practice 12/20/18 Walker Webb [address] [place] [address] Market Development Director Cardiology 11/03/19 Arnaud Ch MD [address] [place] [address] Cardiology 06/11/20 Team Status: Active Member Role Status Dates Dr. Rogelio Lock MD Family Provider Active Dr. Denise Flowers DO Primary Care Provider Active Team Status: Inactive Member Role Status Dates Dr. Denise Flowers DO Primary Care Provider, Attending Troy scott Active Credit And Loan Collections Supervisor Relationship Specialty Start Date End Date Denise Flowers DO [address] [place], [place] [phone] PCP - General Family Medicine 09/17/23 Walker Webb MD [address] [place], [place] [phone] Market Development Director Cardiology 11/03/19 Arnaud Ch MD [address] [place], [place] [phone] Cardiology 06/11/20 Credit And Loan Collections Supervisor Relationship Specialty Start Date End Date Denise Flowers DO [address] [place], [place] [phone] PCP - General Family Medicine 09/17/23 Walker Webb MD [address] [place] [id number] Market Development Director Cardiology 11/03/19 Arnaud Ch MD [address] [place] [address] Cardiology 06/11/20 Credit And Loan Collections Supervisor Relationship Specialty Start Date End Date Denise Flowers DO [address] [place] [address] PCP - General Family Medicine 09/17/23 Walker Webb MD [address] [address] Market Development Director Cardiology 11/03/19 Arnaud Ch MD [address] [place] [address] Cardiology 06/11/20 Credit And Loan Collections Supervisor Relationship Specialty Start Date End Date Denise Flowers DO [address] [place] [address] PCP - General Family Medicine 09/17/23 Walker Webb MD [address] [phone] Market Development Director Cardiology 11/03/19 Arnaud Ch MD [address] [place] [address] Cardiology 06/11/20 Credit And Loan Collections Supervisor Relationship Specialty Start Date End Date Denise Flowers DO [address] [place] [address] PCP - General Family Medicine 09/17/23 Walker Webb MD [address] [address] Market Development Director Cardiology 11/03/19 Arnaud Ch MD [address] [place] [address] Cardiology 06/11/20 Goals (unrecognized section and content) Goals may be documented in a n alternate sectionGoals may be documented in an alternate section FOR RECORDS PERTAINING TO PATIENTS WHO ARE OR HAVE BEEN ENROLLED IN A CHEMICAL DEPENDENCY/SUBSTANCEABUSE PROGRAM, SOME INFORMATION MAY BE OMITTED. This clinical summary was aggregated from multiple sources. Caution should be exercised in using it in the provision of clinical care. This summary normalizes information from multiple sources, and as a consequence, information in this document may materially change the coding, format and clinical context of patient data. In addition, data may be omitted in some cases. CLINICAL DECISIONS SHOULD BE BASED ON THE PRIMARY CLINICAL RECORDS. [employer] provides no warranty or guarantee of the accuracy or completeness of information in this document.
[2025-07-03 11:27] LABS: Creatinine, Urine (random) 57.40 mg/dL (39.00-259.00); Microalbumin,Random Urine 37.3 mg/L (<20 mg/L)
[2025-07-03 11:34] LABS: AST(SGOT) 15 U/L (<=37); Alanine Aminotransfer ALT/SGPT 8 U/L (<=46); Albumin, Serum 4.1 g/dL (3.4-4.8); Alkaline Phosphatase 78 U/L (40-129); Anion Gap 10 (5-15); BUN 11 mg/dL (4-19); BUN/Creat Ratio 8.3 RATIO (10-20); Calcium,Total 8.9 mg/dL (7.6-11.0); Carbon Dioxide 29.3 mmol/L (21.0-32.0); Chloride 98 mmol/L (98-108); Cholesterol 134 mg/dL (<=200); Free T3 2.1 pg/mL (2.18-3.98); Globulin 3.1 g/dL (2.2-4.2); Glucose 245 mg/dL (70-99); Low Density Lipoprotein Calc. 73 mg/dL; Potassium 4.3 mmol/L (3.3-5.1); Triglycerides 115 mg/dL; Very Low Density Lipoprotein 23 mg/dL (5-40); cholesterol:hdl ratio screen 3.36
== END | disposition home or self-care (01) ==
PROVIDERS: PCP Family Medicine; Referring Provider Family Medicine; Visit Provider Family Medicine
DX: E11.65 Type 2 diabetes mellitus with hyperglycemia (principal); J44.9 Chronic obstructive pulmonary disease, unspecified; E11.22 Type 2 diabetes mellitus with diabetic chronic kidney disease; Z51.81 Encounter for therapeutic drug level monitoring; E53.8 Deficiency of other specified B group vitamins; E61.1 Iron deficiency
CPT/HCPCS: 36415; 80053; 80061; 82043; 82570; 84439; 84443; 84481; 85025